=== PATIENT | female | born 1980 | race Caucasian/White ===

== ENCOUNTER 2016-09-14 11:37 | Emergency (ER) | payer OTHER ==
[~2016-09-14 11:37] MED LIST: /HALO5TAB OR; ABIL1TAB5 PO; ABIL5TAB5 PO; ARIP1TAB2 PO; BENZ1TA PO; CETI10TA PO; CETI5TAB2 PO; COGE1INJ OR; DEPA500T2 PO; EXCETAB80 PO; FLUP25VL IM; FLUP5TA PO; FLUT1LOT INH; HALD5INJ2 IM; IBUP800T OR; IBUP80TA PO; INVE234I IM; KEPPRA PO; LEVO25TA5 PO; MULTIVIT PO; NICO21PAT TD; NO HOME MEDS; NORCOTAB PO; OCEA0.654; PERI0.126 MT; REQU1TAB16 PO; RISP3TAB16 OR; TRAM50TA2 PO; TRAZ100T4 PO; TRAZ50TA4 PO; ZYPR5TAB PO; cogentin PO; flexeril PO; haldol PO
[2016-09-14] MEDS ORDERED: GI COCKTAIL 50ML BTL(HYOSCYAMINE/MAALOX/LIDOCAINE VISCOUS)(1:3:1) As Ordered ONE (12:10)
--- NOTE | 2016-09-14 13:59 | REP ---
SOFT-TISSUE NECK X-RAY: Three views. HISTORY: Foreign body sensation. FINDINGS: AP and lateral soft tissue neck views demonstrate a normal epiglottis and aryepiglottic folds. Glottic and subglottic airway are unremarkable. Retropharyngeal soft tissues are not swollen. No opaque foreign body is seen. No bony abnormality is noted. IMPRESSION: Negative soft-tissue neck x-rays. No swelling or opaque foreign body seen. Signed by Gabriel Pleitez MD 09/14/2016 03:31 P
--- NOTE | 2016-09-14 14:14 | EDDOCDS ---
Physician Documentation [facility] Name: Nalini Ricks Age: 36 yrs Sex: Female : 1980 Arrival Date: 09/14/2016 Time: 11:37 Bed TR8 Private MD: Brian Mills Disposition: 09/14/16 13:59 Discharged to Home/Self Care. Impression: Pain in throat - after eating shrimp/crab last night; no foreign body on x-ray, Gastro-esophageal reflux disease. - Condition is Stable. - Discharge Instructions: Gastroesophageal Reflux Disease, Adult, Swallowed Foreign Body, Adult, [id number]. - Prescriptions for Protonix 40 mg Oral Tablet - take 1 tablet by ORAL route once daily; 30 tablet. ZOFRAN ODT 4 mg - dissolve 1 tablet by ORAL route 4 times per day As needed do not chew, do not swallow whole; 10 tablet. - Medication Reconciliation, Local Pharmacy Hours form. - [facility] ; When: 1 - 2 days; Reason: Recheck today's complaints, Continuance of care. Follow up: Emergency Department; Reason: Worsening of conditions. - Problem is new. - Symptoms have improved. Historical: - Allergies: all antipshycotic meds; - Home Meds: 1. Synthroid Oral once daily - PMHx: Seasonal Allergies; Schizophrenia; Hypothyroidism; Chronic Back pain; - PSHx: none; - Social history: Smoking status: Patient uses tobacco products, current every day smoker. No barriers to communication noted, The patient speaks fluent Armenian, Speaks appropriately for age. - Family history: Not pertinent. - : The pt / caregiver states he / she is not on anticoagulants. Home medication list is obtained from the patient. - Exposure Risk Screening:: None identified. 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 6 in. (167.64 cm) (R); 11:53 BP 140 / 90 LA Sitting (man/reg); bnb 14:08 BP 125 / 84 LA Sitting (man/lg); Pulse 97; Resp 18; Temp 99.3(O); Pulse Ox 99% on R/A; ar3 Pain 310; 11:39 Body Mass Index 25.82 (72.57 kg, 167.64 cm) dd6 MDM: 11:51 Recheck B/P ordered. ef1 12:07 Financial registration complete. lg 12:09 GI Cocktail - (Alum-Mag Hydroxide-Simeth 30 ml, Lidocaine 10 ml, Hyoscyamine 10 ml) PO ef1 once; Pre-mixed 50mL unit dose ordered. 12:34 Soft Tissue Neck Ordered. EDMS 13:33 [facility] Payment Agreement was scanned into [employer] and attached to record. lg Administered Medications: 12:13 Drug: GI Cocktail - (Alum-Mag Hydroxide-Simeth Suspension 225 mg-200 mg-25 mg/5 mL 30 ms18 ml, Lidocaine Liquid 2 % 10 ml, Hyoscyamine Liquid 10 ml) Route: PO; Signatures: Dispatcher [employer] EDMS Mary Torres, Angelo Reg lg Margarita Pina PA-C PA-C ef1 Cassie Adams,RN RN eaMaggie Matias RN RN ms18 The chart was reviewed and I authenticate all verbal orders and agree with the evaluation and treatment provided.Corrections: (The following items were deleted from the chart) 12:36 12:09 nose - rectum(r/o f.b.)X-RAY+XR ordered. EDMS EDMS Attachments: 13:33 [facility] Payment Agreement lg MTDD
--- NOTE | 2016-09-14 14:14 | EDDOCDS ---
Nurse's Notes [facility] Name: Nalini Ricks Age: 36 yrs Sex: Female : 1980 Arrival Date: 09/14/2016 Time: 11:37 Bed TR8 Private MD: Brian Mills Diagnosis: Pain in throat-after eating shrimp/crab last night; no foreign body on x-ray;Gastro-esophageal reflux disease Presentation: 09/14 11:40 Presenting complaint: Patient states: reports eating shrimp and crab last night, thinks ead she may have swallowed part of a shell. states she feels like there is something stuck in her throat. states "it helps to drink something," pt arrives with large radha donuts cup. pt educated to remain NPO until seen by provider. Adult Sepsis Screening: Patient's respiratory rate is less than 22. Systolic blood pressure is greater than 100. Patient has a qSOFA score of 0- Negative Sepsis Screen. Suicide/Homicide risk assessment- the patient denies having any suicidal and/or homicidal ideations and does not present with any other emotional, behavioral or mental health complaints. Status: Patient is not a director of community services or dependent. Transition of care: patient was not received from another setting of care. 11:40 Acuity: JASON Level 3 ead 11:40 Method Of Arrival: Walkin/Carried/Asstd ead Triage Assessment: 11:43 General: Appears in no apparent distress, comfortable, Behavior is appropriate for age, ead cooperative. Pain: Denies pain. HIV screening NA for this visit Offered previously. Neurological: No deficits noted. EENT: Reports "it feels like something is stuck in my throat.". Respiratory: Airway is patent Respiratory effort is even, unlabored, Denies cough, shortness of breath. Derm: Skin is pink, warm & dry. 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 Synthroid Oral once daily - PMHx: Seasonal Allergies; Schizophrenia; Hypothyroidism; Chronic Back pain; - PSHx: none; - Social history: Smoking status: Patient uses tobacco products, current every day smoker. No barriers to communication noted, The patient speaks fluent Chinese, Speaks appropriately for age. - Family history: Not pertinent. - : The pt / caregiver states he / she is not on anticoagulants. Home medication list is obtained from the patient. - Exposure Risk Screening:: None identified. Screenin:14 Screening information is obtained from the patient. Fall risk: No risks identified. ms18 Assistance ADL's: requires no assistance with activities of daily living. Abuse/DV Screen: The patient / caregiver reports he/she is: not in a situation that causes fear, pain or injury. Nutritional screening: No deficits noted. Advance Directives: There is no living will. home support is adequate. Assessment: 12:14 General: Appears in no apparent distress, comfortable, Behavior is appropriate for age, ms18 cooperative. Neurological: Level of Consciousness is awake, alert, obeys commands, Oriented to person, place, time. Respiratory: Airway is patent Respiratory effort is even, unlabored. GI: Abdomen is non- distended. Derm: Skin is pink, warm & dry. 14:11 General: Appears in no apparent distress, comfortable, Behavior is appropriate for age, ms18 cooperative, pleasant. Neurological: Level of Consciousness is awake, alert, obeys commands, Oriented to person, place, time. Respiratory: Airway is patent Respiratory effort is even, unlabored. Derm: Skin is pink, warm & dry. Vital Signs: 11:39 BP 162 / 101; Pulse 116; Resp 18 S; Temp 97.0(O); Pulse Ox 100% on R/A; Weight 72.57 kg dd6 (R); Height 5 ft. 6 in. (167.64 cm) (R); 11:53 BP 140 / 90 LA Sitting (man/reg); bnb 14:08 BP 125 / 84 LA Sitting (man/lg); Pulse 97; Resp 18; Temp 99.3(O); Pulse Ox 99% on R/A; ar3 Pain 3/10; 11:39 Body Mass Index 25.82 (72.57 kg, 167.64 cm) dd6 Vitals: 11:39 Log In Time: September 14, 2016 at 11:37. dd6 ED Course: 11:38 Patient visited by Jesse Ochoa PCA. dd6 11:38 Patient moved to Waiting dd6 11:39 Brian Mills is Private Physician. dd6 11:40 Patient moved to Pre RCE dd6 11:43 Triage Initiated ead 11:49 Patient moved to Triage 3 ar3 11:51 Margarita Pina PA-C is PHCP. ef1 11:51 Yari Crum MD is Attending Physician. ef1 11:51 Patient visited by Margarita Pina PA-C. ef1 11:56 Patient visited by Sheryl Abreu PCA. bnb 12:08 Patient visited by Margarita Pina PA-C. ef1 12:13 Patient moved to TR2 ms18 12:14 The patient / caregiver is instructed regarding the plan of care and ED course. Patient ms18 has correct armband on for positive identification. Property :Personal belongings accompany Pt. 12:33 Patient visited by Margarita Pina PA-C. ef1 12:46 Patient visited by Margarita Pina PA-C. ef1 13:33 [facility] Payment Agreement was scanned into [employer] and attached to record. lg 13:53 Patient visited by Margarita Pina PA-C. ef1 13:59 [facility] is Referral Physician. ef1 14:03 Patient moved to PR1 / 25 ms18 14:09 Patient visited by Kelly Mo PCA. ar3 14:10 Patient moved to TR8 ms18 14:11 No IV's were initiated during this patient's visit. No procedures done that require ms18 assistance. Administered Medications: 12:13 Drug: GI Cocktail - (Alum-Mag Hydroxide-Simeth Suspension 225 mg-200 mg-25 mg/5 mL 30 ms18 ml, Lidocaine Liquid 2 % 10 ml, Hyoscyamine Liquid 10 ml) Route: PO; Order Results: There are currently no results for this order. Outcome: 13:59 Discharge ordered by Provider. ef1 14:11 Discharge Assessment: Patient awake, alert and oriented x 3. No cognitive and/or ms18 functional deficits noted. Patient verbalized understanding of disposition instructions. patient administered narcotics - no. The following High Risk Discharge criteria are identified: None. Discharged to home ambulatory. Condition: good Condition: stable Condition: improved. Discharge instructions given to patient, Instructed on discharge instructions, follow up and referral plans. medication usage, Demonstrated understanding of instructions, medications, Pt was receptive of discharge instructions/ teaching. Prescriptions given X 2. No special radiology studies were completed. 14:13 Patient left the ED. ms18 Signatures: Mary Torres, Reg Reg lg DonJesse, SENIOR ENERGY CONSULTANT SENIOR ENERGY CONSULTANT dd6 Margarita Pina, PAUmerC PA-C ef1 Kelly Mo, SENIOR ENERGY CONSULTANT SENIOR ENERGY CONSULTANT ar3 Cassie Adams,RN RN Maggie Griggs RN RN ms18 AbreuKate rezatney, SENIOR ENERGY CONSULTANT SENIOR ENERGY CONSULTANT bnb Corrections: (The following items were deleted from the chart) 14:12 14:11 Pain: Denies pain. ms18 ms18 MTDD
--- NOTE | 2016-09-16 15:14 | EDDOCDS ---
Physician Documentation [facility] Name: Nalini Ricks Age: 36 yrs Sex: Female : 1980 Arrival Date: 09/14/2016 Time: 11:37 Bed TR8 Private MD: Brian Mills Disposition: 09/14/16 13:59 Discharged to Home/Self Care. Impression: Pain in throat - after eating shrimp/crab last night; no foreign body on x-ray, Gastro-esophageal reflux disease. - Condition is Stable. - Discharge Instructions: Gastroesophageal Reflux Disease, Adult, Swallowed Foreign Body, Adult, [id number]. - Prescriptions for Protonix 40 mg Oral Tablet - take 1 tablet by ORAL route once daily; 30 tablet. ZOFRAN ODT 4 mg - dissolve 1 tablet by ORAL route 4 times per day As needed do not chew, do not swallow whole; 10 tablet. - Medication Reconciliation, Local Pharmacy Hours form. - [facility] ; When: 1 - 2 days; Reason: Recheck today's complaints, Continuance of care. Follow up: Emergency Department; Reason: Worsening of conditions. - Problem is new. - Symptoms have improved. Historical: - Allergies: all antipshycotic meds; - Home Meds: 1. Synthroid Oral once daily - PMHx: Seasonal Allergies; Schizophrenia; Hypothyroidism; Chronic Back pain; - PSHx: none; - Social history: Smoking status: Patient uses tobacco products, current every day smoker. No barriers to communication noted, The patient speaks fluent Slovak, Speaks appropriately for age. - Family history: Not pertinent. - : The pt / caregiver states he / she is not on anticoagulants. Home medication list is obtained from the patient. - Exposure Risk Screening:: None identified. VP RESPIRATORY: 09/14 11:43 LMP N/A - control method ead Vital Signs: 11:39 BP 162 / 101; Pulse 116; Resp 18 S; Temp 97.0(O); Pulse Ox 100% on R/A; Weight 72.57 kg dd6 / 159.99 lbs (R); Height 5 ft. 6 in. (167.64 cm) (R); 11:53 BP 140 / 90 LA Sitting (man/reg); bnb 14:08 BP 125 / 84 LA Sitting (man/lg); Pulse 97; Resp 18; Temp 99.3(O); Pulse Ox 99% on R/A; ar3 Pain 310; 11:39 Body Mass Index 25.82 (72.57 kg, 167.64 cm) dd6 MDM: 11:51 Recheck B/P ordered. ef1 12:07 Financial registration complete. lg 12:09 GI Cocktail - (Alum-Mag Hydroxide-Simeth 30 ml, Lidocaine 10 ml, Hyoscyamine 10 ml) PO ef1 once; Pre-mixed 50mL unit dose ordered. 12:34 Soft Tissue Neck Ordered. EDMS 13:33 [facility] Payment Agreement was scanned into [email or web address] and attached to record. lg 09/15 09:48 T-Sheet-- Draft Copy was scanned into [email or web address] and attached to record. gb 09:48 Radiology Report was scanned into [email or web address] and attached to record. gb Administered Medications: 09/14 12:13 Drug: GI Cocktail - (Alum-Mag Hydroxide-Simeth Suspension 225 mg-200 mg-25 mg/5 mL 30 ms18 ml, Lidocaine Liquid 2 % 10 ml, Hyoscyamine Liquid 10 ml) Route: PO; Signatures: Dispatcher [employer] EDMS Darlene Ochoa, Reg Reg gb Mary Torres, Reg Reg lg Margarita Pina, LILLIAM VYAS ef1 Cassie Adams,RN RN Maggie Griggs RN RN ms18 The chart was reviewed and I authenticate all verbal orders and agree with the evaluation and treatment provided.Corrections: (The following items were deleted from the chart) 12:36 12:09 nose - rectum(r/o f.b.)X-RAY+XR ordered. EDMS EDMS Attachments: 13:33 [facility] Payment Agreement lg 09/15 09:48 T-Sheet-- Draft Copy gb Chart Complete MTDD
--- NOTE | 2016-09-16 15:14 | EDDOCDS ---
Physician Documentation [facility] Name: Nalini Ricks Age: 36 yrs Sex: Female : 1980 Arrival Date: 09/14/2016 Time: 11:37 Bed TR8 Private MD: Brian Mills Disposition: 09/14/16 13:59 Discharged to Home/Self Care. Impression: Pain in throat - after eating shrimp/crab last night; no foreign body on x-ray, Gastro-esophageal reflux disease. - Condition is Stable. - Discharge Instructions: Gastroesophageal Reflux Disease, Adult, Swallowed Foreign Body, Adult, [id number]. - Prescriptions for Protonix 40 mg Oral Tablet - take 1 tablet by ORAL route once daily; 30 tablet. ZOFRAN ODT 4 mg - dissolve 1 tablet by ORAL route 4 times per day As needed do not chew, do not swallow whole; 10 tablet. - Medication Reconciliation, Local Pharmacy Hours form. - [facility] ; When: 1 - 2 days; Reason: Recheck today's complaints, Continuance of care. Follow up: Emergency Department; Reason: Worsening of conditions. - Problem is new. - Symptoms have improved. Historical: - Allergies: all antipshycotic meds; - Home Meds: 1. Synthroid Oral once daily - PMHx: Seasonal Allergies; Schizophrenia; Hypothyroidism; Chronic Back pain; - PSHx: none; - Social history: Smoking status: Patient uses tobacco products, current every day smoker. No barriers to communication noted, The patient speaks fluent Belarusian, Speaks appropriately for age. - Family history: Not pertinent. - : The pt / caregiver states he / she is not on anticoagulants. Home medication list is obtained from the patient. - Exposure Risk Screening:: None identified. 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 6 in. (167.64 cm) (R); 11:53 BP 140 / 90 LA Sitting (man/reg); bnb 14:08 BP 125 / 84 LA Sitting (man/lg); Pulse 97; Resp 18; Temp 99.3(O); Pulse Ox 99% on R/A; ar3 Pain 310; 11:39 Body Mass Index 25.82 (72.57 kg, 167.64 cm) dd6 MDM: 11:51 Recheck B/P ordered. ef1 12:07 Financial registration complete. lg 12:09 GI Cocktail - (Alum-Mag Hydroxide-Simeth 30 ml, Lidocaine 10 ml, Hyoscyamine 10 ml) PO ef1 once; Pre-mixed 50mL unit dose ordered. 12:34 Soft Tissue Neck Ordered. EDMS 13:33 [facility] Payment Agreement was scanned into [employer] and attached to record. lg 09/15 09:48 T-Sheet-- Draft Copy was scanned into [employer] and attached to record. gb 09:48 Radiology Report was scanned into [employer] and attached to record. gb Administered Medications: 09/14 12:13 Drug: GI Cocktail - (Alum-Mag Hydroxide-Simeth Suspension 225 mg-200 mg-25 mg/5 mL 30 ms18 ml, Lidocaine Liquid 2 % 10 ml, Hyoscyamine Liquid 10 ml) Route: PO; Signatures: Dispatcher [employer] EDMS Darlene Ochoa, Reg Reg gb Mary Torres, Reg Reg lg Margarita Pina, LILLIAM VYAS ef1 Cassie Adams,RN RN Maggie Griggs RN RN ms18 The chart was reviewed and I authenticate all verbal orders and agree with the evaluation and treatment provided.Corrections: (The following items were deleted from the chart) 12:36 12:09 nose - rectum(r/o f.b.)X-RAY+XR ordered. EDMS EDMS Attachments: 13:33 [facility] Payment Agreement lg 09/15 09:48 T-Sheet-- Draft Copy gb Chart Complete MTDD
--- NOTE | 2016-09-16 15:14 | EDDOCDS ---
Nurse's Notes [facility] Name: Nalini Ricks Age: 36 yrs Sex: Female : 1980 Arrival Date: 09/14/2016 Time: 11:37 Bed TR8 Private MD: Brian Mills Diagnosis: Pain in throat-after eating shrimp/crab last night; no foreign body on x-ray;Gastro-esophageal reflux disease Presentation: 09/14 11:40 Presenting complaint: Patient states: reports eating shrimp and crab last night, thinks ead she may have swallowed part of a shell. states she feels like there is something stuck in her throat. states "it helps to drink something," pt arrives with large radha donuts cup. pt educated to remain NPO until seen by provider. Adult Sepsis Screening: Patient's respiratory rate is less than 22. Systolic blood pressure is greater than 100. Patient has a qSOFA score of 0- Negative Sepsis Screen. Suicide/Homicide risk assessment- the patient denies having any suicidal and/or homicidal ideations and does not present with any other emotional, behavioral or mental health complaints. Status: Patient is not a public service director or dependent. Transition of care: patient was not received from another setting of care. 11:40 Acuity: JASON Level 3 ead 11:40 Method Of Arrival: Walkin/Carried/Asstd ead Triage Assessment: 11:43 General: Appears in no apparent distress, comfortable, Behavior is appropriate for age, ead cooperative. Pain: Denies pain. HIV screening NA for this visit Offered previously. Neurological: No deficits noted. EENT: Reports "it feels like something is stuck in my throat.". Respiratory: Airway is patent Respiratory effort is even, unlabored, Denies cough, shortness of breath. Derm: Skin is pink, warm & dry. 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 Synthroid Oral once daily - PMHx: Seasonal Allergies; Schizophrenia; Hypothyroidism; Chronic Back pain; - PSHx: none; - Social history: Smoking status: Patient uses tobacco products, current every day smoker. No barriers to communication noted, The patient speaks fluent Lao, Speaks appropriately for age. - Family history: Not pertinent. - : The pt / caregiver states he / she is not on anticoagulants. Home medication list is obtained from the patient. - Exposure Risk Screening:: None identified. Screenin:14 Screening information is obtained from the patient. Fall risk: No risks identified. ms18 Assistance ADL's: requires no assistance with activities of daily living. Abuse/DV Screen: The patient / caregiver reports he/she is: not in a situation that causes fear, pain or injury. Nutritional screening: No deficits noted. Advance Directives: There is no living will. home support is adequate. Assessment: 12:14 General: Appears in no apparent distress, comfortable, Behavior is appropriate for age, ms18 cooperative. Neurological: Level of Consciousness is awake, alert, obeys commands, Oriented to person, place, time. Respiratory: Airway is patent Respiratory effort is even, unlabored. GI: Abdomen is non- distended. Derm: Skin is pink, warm & dry. 14:11 General: Appears in no apparent distress, comfortable, Behavior is appropriate for age, ms18 cooperative, pleasant. Neurological: Level of Consciousness is awake, alert, obeys commands, Oriented to person, place, time. Respiratory: Airway is patent Respiratory effort is even, unlabored. Derm: Skin is pink, warm & dry. Vital Signs: 11:39 BP 162 / 101; Pulse 116; Resp 18 S; Temp 97.0(O); Pulse Ox 100% on R/A; Weight 72.57 kg dd6 (R); Height 5 ft. 6 in. (167.64 cm) (R); 11:53 BP 140 / 90 LA Sitting (man/reg); bnb 14:08 BP 125 / 84 LA Sitting (man/lg); Pulse 97; Resp 18; Temp 99.3(O); Pulse Ox 99% on R/A; ar3 Pain 3/10; 11:39 Body Mass Index 25.82 (72.57 kg, 167.64 cm) dd6 Vitals: 11:39 Log In Time: September 14, 2016 at 11:37. dd6 ED Course: 11:38 Patient visited by Jesse Ochoa PCA. dd6 11:38 Patient moved to Waiting dd6 11:39 Brian Mills is Private Physician. dd6 11:40 Patient moved to Pre RCE dd6 11:43 Triage Initiated ead 11:49 Patient moved to Triage 3 ar3 11:51 Margarita Pina PA-C is PHCP. ef1 11:51 Yari Crum MD is Attending Physician. ef1 11:51 Patient visited by Margarita Pina PA-C. ef1 11:56 Patient visited by Sheryl Abreu PCA. bnb 12:08 Patient visited by Margarita Pina PA-C. ef1 12:13 Patient moved to TR2 ms18 12:14 The patient / caregiver is instructed regarding the plan of care and ED course. Patient ms18 has correct armband on for positive identification. Property :Personal belongings accompany Pt. 12:33 Patient visited by Margarita Pina PA-C. ef1 12:46 Patient visited by Margarita Pina PA-C. ef1 13:33 [facility] Payment Agreement was scanned into [employer] and attached to record. lg 13:53 Patient visited by Margarita Pina PA-C. ef1 13:59 [facility] is Referral Physician. ef1 14:03 Patient moved to PR1 / 25 ms18 14:09 Patient visited by Kelly Mo PCA. ar3 14:10 Patient moved to TR8 ms18 14:11 No IV's were initiated during this patient's visit. No procedures done that require ms18 assistance. 14:31 Soft Tissue Neck Returned. EDMS 09/15 09:48 T-Sheet-- Draft Copy was scanned into [employer] and attached to record. gb 09:48 Radiology Report was scanned into [employer] and attached to record. gb Administered Medications: 09/14 12:13 Drug: GI Cocktail - (Alum-Mag Hydroxide-Simeth Suspension 225 mg-200 mg-25 mg/5 mL 30 ms18 ml, Lidocaine Liquid 2 % 10 ml, Hyoscyamine Liquid 10 ml) Route: PO; Order Results: Radiology Order: Soft Tissue Neck Test: Soft Tissue Neck REASON FOR EXAMINATION: Foreign Body; SOFT-TISSUE NECK X-RAY:; ; Three views.; ; HISTORY: Foreign body sensation.; ; FINDINGS: AP and lateral soft tissue neck views demonstrate a normal epiglottis; and aryepiglottic folds. Glottic and subglottic airway are unremarkable.; Retropharyngeal soft tissues are not swollen. No opaque foreign body is seen.; No bony abnormality is noted.; ; IMPRESSION: Negative soft-tissue neck x-rays. No swelling or opaque foreign body; seen.; ; ; Signed by; Gabriel Pleitez MD 09/14/2016 03:31 P; Outcome: 13:59 Discharge ordered by Provider. ef1 14:11 Discharge Assessment: Patient awake, alert and oriented x 3. No cognitive and/or ms18 functional deficits noted. Patient verbalized understanding of disposition instructions. patient administered narcotics - no. The following High Risk Discharge criteria are identified: None. Discharged to home ambulatory. Condition: good Condition: stable Condition: improved. Discharge instructions given to patient, Instructed on discharge instructions, follow up and referral plans. medication usage, Demonstrated understanding of instructions, medications, Pt was receptive of discharge instructions/ teaching. Prescriptions given X 2. No special radiology studies were completed. 14:13 Patient left the ED. ms18 Signatures: Dispatcher [employer] EDMS Darlene Ochoa, Reg Reg gb Mary Torres, Reg Reg lg Jesse Ochoa, BLADE BONER BLADE BONER dd6 Margarita Pina, PA-C PA-C ef1 Kelly Mo, BLADE BONER BLADE BONER ar3 Cassie AdamsRN RN Maggie Griggs RN RN ms18 Sheryl Abreu, BLADE BONER BLADE BONER bnb Corrections: (The following items were deleted from the chart) 14:12 14:11 Pain: Denies pain. ms18 ms18 Chart Complete MTDD
== END 2016-09-14 14:13 | disposition home or self-care (01) ==
LOC: M ED 11:37
DX: R07.0 Pain in throat (principal); K21.9 Gastro-esophageal reflux disease without esophagitis; Z03.89 Encounter for observation for other suspected diseases and conditions ruled out; F20.9 Schizophrenia, unspecified; J30.9 Allergic rhinitis, unspecified; E03.9 Hypothyroidism, unspecified; G89.29 Other chronic pain; F17.200 Nicotine dependence, unspecified, uncomplicated; Z79.899 Other long term (current) drug therapy; Z88.8 Allergy status to other drugs, medicaments and biological substances

== ENCOUNTER 2016-09-17 02:15 | Emergency (ER) | payer OTHER ==
[2016-09-17] MEDS ORDERED: GI COCKTAIL 50ML BTL(HYOSCYAMINE/MAALOX/LIDOCAINE VISCOUS)(1:3:1) As Ordered ONE (02:34)
--- NOTE | 2016-09-17 07:38 | EDDOCDS ---
Nurse's Notes [facility] Name: Nalini Ricks Age: 36 yrs Sex: Female : 1980 Arrival Date: 09/17/2016 Time: 02:15 Bed 17 Private MD: Diagnosis: Dysphagia, pharyngoesophageal phase;Gastro-esophageal reflux disease with esophagitis Presentation: 09/17 02:22 Presenting complaint: Patient states: Ate jelly beans this evening and now feels like kmg1 they haven't gone down. Was seen recently for same. Suicide/Homicide risk assessment- the patient denies having any suicidal and/or homicidal ideations and does not present with any other emotional, behavioral or mental health complaints. Status: Patient is not a special services supervisor or dependent. 02:22 Acuity: JASON Level 4 km 02:22 Method Of Arrival: Walkin/Carried/Asstd km 05:37 Adult Sepsis Screening: The patient does not have new or worsening altered mentation. lf1 Patient's respiratory rate is less than 22. Systolic blood pressure is greater than 100. Patient has a qSOFA score of 0- Negative Sepsis Screen. Transition of care: patient was not received from another setting of care. Triage Assessment: 02:28 General: Appears in no apparent distress, comfortable, Behavior is appropriate for age, kmg1 cooperative. Pain: Denies pain. HIV screening NA for this visit Offered previously. EENT: Reports food impaction. 05:37 General: Appears in no apparent distress, comfortable, Behavior is cooperative. Pain: lf1 Location: throat Pain currently is 1 out of 10 on a pain scale. Neurological: Level of Consciousness is awake, alert, Oriented to person, place, time. EENT: Reports feels like jelly beans have gone down but throat still feels "scratchy". Respiratory: Respiratory effort is even, unlabored. GI: Denies gaseousness, nausea, vomiting. GI: Reports reflux. Derm: Skin is normal. 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 Synthroid 75 mcg oral tab 1 tab once daily - PMHx: Chronic Back pain; Hypothyroidism; Schizophrenia; Seasonal Allergies; - PSHx: none; - Social history: Smoking status: Patient uses tobacco products, heavy tobacco smoker. No barriers to communication noted, The patient speaks fluent Urdu, Speaks appropriately for age. - : The pt / caregiver states he / she is not on anticoagulants. Home medication list is obtained from the patient. - Exposure Risk Screening:: None identified. Screenin:40 Screening information is obtained from the patient. Fall risk: No risks identified. lf1 Assistance ADL's: requires no assistance with activities of daily living. Abuse/DV Screen: The patient / caregiver reports he/she is: not in a situation that causes fear, pain or injury. Nutritional screening: No deficits noted. Advance Directives: Currently, there is no health care proxy. home support is adequate. Assessment: 06:13 General: Appears in no apparent distress, comfortable, Behavior is appropriate for age, nn1 cooperative. Pain: Location: throat. Neurological: Level of Consciousness is awake, alert, obeys commands. Respiratory: Airway is patent Respiratory effort is even, unlabored, Respiratory pattern is regular, symmetrical, Breath sounds are clear bilaterally. Reports mild difficulty swallowing. GI: Abdomen is flat, non- distended Reports heartburn. Derm: Skin is pink, warm & dry. 07:35 General: Appears in no apparent distress, well nourished, well groomed, Behavior is jjr appropriate for age, pt insists she feels jellybean in her throat pt reassured that sensation is most likely irritation and swelling, pt speaks in clear sentences clearing saliva and no respiratory distress, pt encouraged to fill rx and drink some hot fluids, pt reports increased discomfort when lying supine this expert medical writer recommended elevating head on pillows, pt verbalized understanding. Vital Signs: 02:28 BP 144 / 97; Pulse 100; Resp 18; Temp 97.7(O); Pulse Ox 100% on R/A; Weight 74.84 kg kmg1 (R); Height 5 ft. 6 in. (167.64 cm) (R); Pain 0/10; 05:37 BP 132 / 78; Pulse 86; Resp 18; Temp 97.8(T); Pulse Ox 100% on R/A; Pain 1/10; lf1 07:34 BP 135 / 90; Pulse 96; Resp 18; Temp 97.4(O); Pulse Ox 96% on R/A; jjr 02:28 Body Mass Index 26.63 (74.84 kg, 167.64 cm) [facility] Vitals: 02:28 Log In Time: September 17, 2016 at 02:18. [facility] ED Course: 02:17 Patient visited by Micki Rivera, Angelo. hs2 02:17 Patient moved to Waiting hs2 02:21 Patient visited by Flaca Johnson LPN. ka4 02:21 Patient moved to Triage 1 km 02:26 Triage Initiated [facility] 03:15 Patient moved to Waiting km 04:06 Patient name changed from Nalini\\S\\Pattie\\S\\Grunert\\S\\ to Nalini\\S\\Jessika\\S\\Grunert. EDMS 04:09 [facility] Payment Agreement was scanned into [employer] and attached to record. hs2 05:41 Patient visited by Erin Delvalle RN. lf1 05:50 Patient moved to 17 lf1 06:16 Patient visited by Gustavo Red RN. nn1 07:01 Ez Foy PA is PHCP. btw 07:01 Gris Choe MD is Attending Physician. btw 07:01 Patient visited by Ez Foy PA. btw 07:18 [facility] is Referral Physician. btw 07:35 No IV's were initiated during this patient's visit. No procedures done that require jjr assistance. 07:37 The patient / caregiver is instructed regarding the plan of care and ED course. jjr Administered Medications: 02:35 Drug: GI Cocktail - (Alum-Mag Hydroxide-Simeth Suspension 225 mg-200 mg-25 mg/5 mL 30 kmg1 ml, Lidocaine Liquid 2 % 10 ml, Hyoscyamine Liquid 10 ml) Route: PO; Order Results: There are currently no results for this order. Outcome: 07:19 Discharge ordered by Provider. btw 07:37 Discharge Assessment: patient administered narcotics - no. The following High Risk jjr Discharge criteria are identified: None. Discharged to home ambulatory. Condition: stable. Discharge instructions given to patient, Instructed on discharge instructions, follow up and referral plans. medication usage, Demonstrated understanding of instructions, medications, Prescriptions given X 1. No special radiology studies were completed. Property sent home with patient. 07:37 Patient left the ED. jjr Signatures: Dispatcher [employer] EDMS Radha Izquierdo, RN RN kmg1 Erin DelvalleRN RN lf1 Niecy Arvizu RN RN jjr zE Foy PA PA btw Flaca Johnson,IT SYSTEMS ADMINISTRATOR IT SYSTEMS ADMINISTRATOR ka4 Gustavo RedRN RN nn1 Micki Rivera, Reg Reg hs2 MTDD
--- NOTE | 2016-09-17 07:39 | EDDOCDS ---
Physician Documentation [facility] Name: Nalini Ricks Age: 36 yrs Sex: Female : 1980 Arrival Date: 09/17/2016 Time: 02:15 Bed 17 Private MD: Disposition: 09/17/16 07:19 Discharged to Home/Self Care. Impression: Dysphagia, pharyngoesophageal phase, Gastro-esophageal reflux disease with esophagitis. - Condition is Stable. - Discharge Instructions: Esophagitis, Gastroesophageal Reflux Disease, Adult. - Prescriptions for Carafate 1 gram Oral Tablet - take 2 tablet by ORAL route every 12 hours take on an empty stomach, beginning on waking and last dose at bedtime; 100 tablet. - Medication Reconciliation, Local Pharmacy Hours form. - Follow up: [facility]; When: Call to arrange an appointment; Reason: Further diagnostic work-up, Recheck today's complaints, Continuance of care. - Problem is an ongoing problem. - Symptoms are unchanged. Historical: - Allergies: all antipshycotic meds; Chantix (Vomit); - Home Meds: 1. Synthroid 75 mcg oral tab 1 tab once daily - PMHx: Chronic Back pain; Hypothyroidism; Schizophrenia; Seasonal Allergies; - PSHx: none; - Social history: Smoking status: Patient uses tobacco products, heavy tobacco smoker. No barriers to communication noted, The patient speaks fluent Lithuanian, Speaks appropriately for age. - : The pt / caregiver states he / she is not on anticoagulants. Home medication list is obtained from the patient. - Exposure Risk Screening:: None identified. 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 6 in. (167.64 cm) (R); Pain 0/10; 05:37 BP 132 / 78; Pulse 86; Resp 18; Temp 97.8(T); Pulse Ox 100% on R/A; Pain 1/10; lf1 07:34 BP 135 / 90; Pulse 96; Resp 18; Temp 97.4(O); Pulse Ox 96% on R/A; jjr 02:28 Body Mass Index 26.63 (74.84 kg, 167.64 cm) kmg1 MDM: 02:33 GI Cocktail - (Alum-Mag Hydroxide-Simeth 30 ml, Lidocaine 10 ml, Hyoscyamine 10 ml) PO ef1 once; Pre-mixed 50mL unit dose ordered. 04:09 [facility] Payment Agreement was scanned into [employer] and attached to record. hs2 07:17 Financial registration complete. pm4 Administered Medications: 02:35 Drug: GI Cocktail - (Alum-Mag Hydroxide-Simeth Suspension 225 mg-200 mg-25 mg/5 mL 30 kmg1 ml, Lidocaine Liquid 2 % 10 ml, Hyoscyamine Liquid 10 ml) Route: PO; Signatures: Radha Izquierdo RN RN kmg1 Niecy Arvizu RN RN jjMargarita Whiting, PAGeorgette PA-Mer ef1 Ez Foy PA PA btMicki Devries, Reg Reg hs2 Brian Castillo, Reg Reg pm4 The chart was reviewed and I authenticate all verbal orders and agree with the evaluation and treatment provided.Attachments: 04:09 [facility] Payment Agreement hs2 MTDD
--- NOTE | 2016-09-19 08:38 | EDDOCDS ---
Physician Documentation [facility] Name: Nalini Ricks Age: 36 yrs Sex: Female : 1980 Arrival Date: 09/17/2016 Time: 02:15 Bed 17 Private MD: Disposition: 09/17/16 07:19 Discharged to Home/Self Care. Impression: Dysphagia, pharyngoesophageal phase, Gastro-esophageal reflux disease with esophagitis. - Condition is Stable. - Discharge Instructions: Esophagitis, Gastroesophageal Reflux Disease, Adult. - Prescriptions for Carafate 1 gram Oral Tablet - take 2 tablet by ORAL route every 12 hours take on an empty stomach, beginning on waking and last dose at bedtime; 100 tablet. - Medication Reconciliation, Local Pharmacy Hours form. - Follow up: [facility]; When: Call to arrange an appointment; Reason: Further diagnostic work-up, Recheck today's complaints, Continuance of care. - Problem is an ongoing problem. - Symptoms are unchanged. Historical: - Allergies: all antipshycotic meds; Chantix (Vomit); - Home Meds: 1. Synthroid 75 mcg oral tab 1 tab once daily - PMHx: Chronic Back pain; Hypothyroidism; Schizophrenia; Seasonal Allergies; - PSHx: none; - Social history: Smoking status: Patient uses tobacco products, heavy tobacco smoker. No barriers to communication noted, The patient speaks fluent Kiswahili, Speaks appropriately for age. - : The pt / caregiver states he / she is not on anticoagulants. Home medication list is obtained from the patient. - Exposure Risk Screening:: None identified. 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 6 in. (167.64 cm) (R); Pain 0/10; 05:37 BP 132 / 78; Pulse 86; Resp 18; Temp 97.8(T); Pulse Ox 100% on R/A; Pain 1/10; lf1 07:34 BP 135 / 90; Pulse 96; Resp 18; Temp 97.4(O); Pulse Ox 96% on R/A; jjr 02:28 Body Mass Index 26.63 (74.84 kg, 167.64 cm) km MDM: 02:33 GI Cocktail - (Alum-Mag Hydroxide-Simeth 30 ml, Lidocaine 10 ml, Hyoscyamine 10 ml) PO ef1 once; Pre-mixed 50mL unit dose ordered. 04:09 [facility] Payment Agreement was scanned into [email or web address] and attached to record. hs2 07:17 Financial registration complete. pm4 13:25 T-Sheet-- Draft Copy was scanned into [email or web address] and attached to record. gb Administered Medications: 02:35 Drug: GI Cocktail - (Alum-Mag Hydroxide-Simeth Suspension 225 mg-200 mg-25 mg/5 mL 30 kmg1 ml, Lidocaine Liquid 2 % 10 ml, Hyoscyamine Liquid 10 ml) Route: PO; Signatures: Radha Izquierdo, RN RN kmg1 Darlene Ochoa, Reg Reg gb Niecy Arvizu RN RN jjr Margarita Pina PAGeorgette PA-Mer ef1 Ez Foy PA PA btw Micki Rivera, Reg Reg hs2 Brian Castillo, Reg Reg pm4 The chart was reviewed and I authenticate all verbal orders and agree with the evaluation and treatment provided.Attachments: 04:09 [facility] Payment Agreement hs2 13:25 T-Sheet-- Draft Copy gb Chart Complete MTDD
--- NOTE | 2016-09-19 08:38 | EDDOCDS ---
Physician Documentation [facility] Name: Nalini Ricks Age: 36 yrs Sex: Female : 1980 Arrival Date: 09/17/2016 Time: 02:15 Bed 17 Private MD: Disposition: 09/17/16 07:19 Discharged to Home/Self Care. Impression: Dysphagia, pharyngoesophageal phase, Gastro-esophageal reflux disease with esophagitis. - Condition is Stable. - Discharge Instructions: Esophagitis, Gastroesophageal Reflux Disease, Adult. - Prescriptions for Carafate 1 gram Oral Tablet - take 2 tablet by ORAL route every 12 hours take on an empty stomach, beginning on waking and last dose at bedtime; 100 tablet. - Medication Reconciliation, Local Pharmacy Hours form. - Follow up: [facility]; When: Call to arrange an appointment; Reason: Further diagnostic work-up, Recheck today's complaints, Continuance of care. - Problem is an ongoing problem. - Symptoms are unchanged. Historical: - Allergies: all antipshycotic meds; Chantix (Vomit); - Home Meds: 1. Synthroid 75 mcg oral tab 1 tab once daily - PMHx: Chronic Back pain; Hypothyroidism; Schizophrenia; Seasonal Allergies; - PSHx: none; - Social history: Smoking status: Patient uses tobacco products, heavy tobacco smoker. No barriers to communication noted, The patient speaks fluent Arabic, Speaks appropriately for age. - : The pt / caregiver states he / she is not on anticoagulants. Home medication list is obtained from the patient. - Exposure Risk Screening:: None identified. 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 6 in. (167.64 cm) (R); Pain 0/10; 05:37 BP 132 / 78; Pulse 86; Resp 18; Temp 97.8(T); Pulse Ox 100% on R/A; Pain 1/10; lf1 07:34 BP 135 / 90; Pulse 96; Resp 18; Temp 97.4(O); Pulse Ox 96% on R/A; jjr 02:28 Body Mass Index 26.63 (74.84 kg, 167.64 cm) km MDM: 02:33 GI Cocktail - (Alum-Mag Hydroxide-Simeth 30 ml, Lidocaine 10 ml, Hyoscyamine 10 ml) PO ef1 once; Pre-mixed 50mL unit dose ordered. 04:09 [facility] Payment Agreement was scanned into [employer] and attached to record. hs2 07:17 Financial registration complete. pm4 13:25 T-Sheet-- Draft Copy was scanned into [employer] and attached to record. gb Administered Medications: 02:35 Drug: GI Cocktail - (Alum-Mag Hydroxide-Simeth Suspension 225 mg-200 mg-25 mg/5 mL 30 kmg1 ml, Lidocaine Liquid 2 % 10 ml, Hyoscyamine Liquid 10 ml) Route: PO; Signatures: Radha Izquierdo, RN RN kmg1 Darlene Ochoa, Reg Reg gb Niecy Arvizu RN RN jjr Margarita Pina PAGeorgette PA-Mer ef1 Ez Foy PA PA btw Micki Rivera, Reg Reg hs2 Brian Castillo, Reg Reg pm4 The chart was reviewed and I authenticate all verbal orders and agree with the evaluation and treatment provided.Attachments: 04:09 [facility] Payment Agreement hs2 13:25 T-Sheet-- Draft Copy gb Chart Complete MTDD
--- NOTE | 2016-09-19 08:38 | EDDOCDS ---
Nurse's Notes [facility] Name: Nalini Ricks Age: 36 yrs Sex: Female : 1980 Arrival Date: 09/17/2016 Time: 02:15 Bed 17 Private MD: Diagnosis: Dysphagia, pharyngoesophageal phase;Gastro-esophageal reflux disease with esophagitis Presentation: 09/17 02:22 Presenting complaint: Patient states: Ate jelly beans this evening and now feels like kmg1 they haven't gone down. Was seen recently for same. Suicide/Homicide risk assessment- the patient denies having any suicidal and/or homicidal ideations and does not present with any other emotional, behavioral or mental health complaints. Status: Patient is not a private branch exchange service advisor or dependent. 02:22 Acuity: JASON Level 4 km 02:22 Method Of Arrival: Walkin/Carried/Asstd km 05:37 Adult Sepsis Screening: The patient does not have new or worsening altered mentation. lf1 Patient's respiratory rate is less than 22. Systolic blood pressure is greater than 100. Patient has a qSOFA score of 0- Negative Sepsis Screen. Transition of care: patient was not received from another setting of care. Triage Assessment: 02:28 General: Appears in no apparent distress, comfortable, Behavior is appropriate for age, kmg1 cooperative. Pain: Denies pain. HIV screening NA for this visit Offered previously. EENT: Reports food impaction. 05:37 General: Appears in no apparent distress, comfortable, Behavior is cooperative. Pain: lf1 Location: throat Pain currently is 1 out of 10 on a pain scale. Neurological: Level of Consciousness is awake, alert, Oriented to person, place, time. EENT: Reports feels like jelly beans have gone down but throat still feels "scratchy". Respiratory: Respiratory effort is even, unlabored. GI: Denies gaseousness, nausea, vomiting. GI: Reports reflux. Derm: Skin is normal. 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 Synthroid 75 mcg oral tab 1 tab once daily - PMHx: Chronic Back pain; Hypothyroidism; Schizophrenia; Seasonal Allergies; - PSHx: none; - Social history: Smoking status: Patient uses tobacco products, heavy tobacco smoker. No barriers to communication noted, The patient speaks fluent Maltese, Speaks appropriately for age. - : The pt / caregiver states he / she is not on anticoagulants. Home medication list is obtained from the patient. - Exposure Risk Screening:: None identified. Screenin:40 Screening information is obtained from the patient. Fall risk: No risks identified. lf1 Assistance ADL's: requires no assistance with activities of daily living. Abuse/DV Screen: The patient / caregiver reports he/she is: not in a situation that causes fear, pain or injury. Nutritional screening: No deficits noted. Advance Directives: Currently, there is no health care proxy. home support is adequate. Assessment: 06:13 General: Appears in no apparent distress, comfortable, Behavior is appropriate for age, nn1 cooperative. Pain: Location: throat. Neurological: Level of Consciousness is awake, alert, obeys commands. Respiratory: Airway is patent Respiratory effort is even, unlabored, Respiratory pattern is regular, symmetrical, Breath sounds are clear bilaterally. Reports mild difficulty swallowing. GI: Abdomen is flat, non- distended Reports heartburn. Derm: Skin is pink, warm & dry. 07:35 General: Appears in no apparent distress, well nourished, well groomed, Behavior is jjr appropriate for age, pt insists she feels jellybean in her throat pt reassured that sensation is most likely irritation and swelling, pt speaks in clear sentences clearing saliva and no respiratory distress, pt encouraged to fill rx and drink some hot fluids, pt reports increased discomfort when lying supine this marketing underwriter recommended elevating head on pillows, pt verbalized understanding. Vital Signs: 02:28 BP 144 / 97; Pulse 100; Resp 18; Temp 97.7(O); Pulse Ox 100% on R/A; Weight 74.84 kg kmg1 (R); Height 5 ft. 6 in. (167.64 cm) (R); Pain 0/10; 05:37 BP 132 / 78; Pulse 86; Resp 18; Temp 97.8(T); Pulse Ox 100% on R/A; Pain 1/10; lf1 07:34 BP 135 / 90; Pulse 96; Resp 18; Temp 97.4(O); Pulse Ox 96% on R/A; jjr 02:28 Body Mass Index 26.63 (74.84 kg, 167.64 cm) [facility] [place] Vitals: 02:28 Log In Time: September 17, 2016 at 02:18. [facility] [place] ED Course: 02:17 Patient visited by Micki Rivera, Angelo. hs2 02:17 Patient moved to Waiting hs2 02:21 Patient visited by Flaca Johnson LPN. ka4 02:21 Patient moved to Triage 1 km 02:26 Triage Initiated [facility] [place] 03:15 Patient moved to Waiting km 04:06 Patient name changed from Nalini\\S\\Pattie\\S\\Grunert\\S\\ to Nalini\\S\\Jessika\\S\\Grunert. EDMS 04:09 [facility] Payment Agreement was scanned into [employer] and attached to record. hs2 05:41 Patient visited by Erin Delvalle RN. lf1 05:50 Patient moved to 17 lf1 06:16 Patient visited by Gustavo Red RN. nn1 07:01 Ez Foy PA is PHCP. btw 07:01 Gris Choe MD is Attending Physician. btw 07:01 Patient visited by Ez Foy PA. btw 07:18 [facility] is Referral Physician. btw 07:35 No IV's were initiated during this patient's visit. No procedures done that require jjr assistance. 07:37 The patient / caregiver is instructed regarding the plan of care and ED course. jjr 13:25 T-Sheet-- Draft Copy was scanned into [employer] and attached to record. gb Administered Medications: 02:35 Drug: GI Cocktail - (Alum-Mag Hydroxide-Simeth Suspension 225 mg-200 mg-25 mg/5 mL 30 kmg1 ml, Lidocaine Liquid 2 % 10 ml, Hyoscyamine Liquid 10 ml) Route: PO; Order Results: There are currently no results for this order. Outcome: 07:19 Discharge ordered by Provider. btw 07:37 Discharge Assessment: patient administered narcotics - no. The following High Risk jjr Discharge criteria are identified: None. Discharged to home ambulatory. Condition: stable. Discharge instructions given to patient, Instructed on discharge instructions, follow up and referral plans. medication usage, Demonstrated understanding of instructions, medications, Prescriptions given X 1. No special radiology studies were completed. Property sent home with patient. 07:37 Patient left the ED. jjr Signatures: Dispatcher [employer] EDMS Radha Izquierdo, RN RN kmg1 Darlene Ochoa, Reg Reg gb Erin DelvalleRN RN lf1 Niecy Arvizu RN RN jjr Ez Foy PA PA btw Flaca Johnson,AIR DEFENCE OFFICER AIR DEFENCE OFFICER ka4 Gustavo RedRN RN nn1 Micki Rivera, Reg Reg hs2 Chart Complete MTDD
== END 2016-09-17 07:37 | disposition home or self-care (01) ==
LOC: M ED 02:15
DX: R13.10 Dysphagia, unspecified (principal); M54.9 Dorsalgia, unspecified; E03.9 Hypothyroidism, unspecified; F20.9 Schizophrenia, unspecified; J30.9 Allergic rhinitis, unspecified; F17.210 Nicotine dependence, cigarettes, uncomplicated; Z79.899 Other long term (current) drug therapy; Z88.8 Allergy status to other drugs, medicaments and biological substances

== ENCOUNTER 2016-09-17 23:17 | Emergency (ER) | payer OTHER ==
[2016-09-18] MEDS ORDERED: GI COCKTAIL 50ML BTL(HYOSCYAMINE/MAALOX/LIDOCAINE VISCOUS)(1:3:1) As Ordered ONE (01:17)
--- NOTE | 2016-09-18 02:18 | EDDOCDS ---
Nurse's Notes [facility] Name: Nalini Ricks Age: 36 yrs Sex: Female : 1980 Arrival Date: 09/17/2016 Time: 23:17 Bed I1 / M1 Private MD: NO PRIMARY PHYSICIAN, . Diagnosis: Gastro-esophageal reflux disease-Sensation of something in throat Presentation: 09/17 23:30 Presenting complaint: Patient states: she believes her throat is closing up, "I think nn1 my windpipe is clogged". Patient reports gaseousness, difficulty swallowing. Patient reports going to urgent care earlier today, patient states she took protonix and zofran today with no relief of symptoms. Patient seen in ED this morning. Risk factors: Stridor is not present. Drooling is not present. Shortness of breath is not present. Cellulitis is not present. Adult Sepsis Screening: The patient does not have new or worsening altered mentation. Patient's respiratory rate is less than 22. Systolic blood pressure is greater than 100. Patient has a qSOFA score of 0- Negative Sepsis Screen. Suicide/Homicide risk assessment- the patient denies having any suicidal and/or homicidal ideations and does not present with any other emotional, behavioral or mental health complaints. Status: Patient is not a neuropsychology service director or dependent. Transition of care: patient was not received from another setting of care. 23:30 Acuity: JASON Level 4 nn1 23:30 Method Of Arrival: Walkin/Carried/Asstd nn1 Triage Assessment: 23:36 General: Appears in no apparent distress, Behavior is anxious, Patient reporting she nn1 feels like she has to burp but she cannot, states "they're going to have to scope me the flap wont open". Patient reports same symptoms as this morning . General: Patients speech is normal. Patient able to drink water in triage. Denies vomiting today. . Pain: Location: throat Pain currently is 4 out of 10 on a pain scale. Pain: Quality of pain is described as "obstructed", heartburn. HIV screening NA for this visit Offered previously. The patient is triaged at the bedside. See Assessment in Nurses Notes section of ED record. EENT: Oral mucosa is moist. Throat is reddened with gag reflex present. Respiratory: Airway is patent Respiratory effort is even, Respiratory pattern is regular, symmetrical, Reports difficulty swallowing. Derm: Skin is pink, warm & dry. Historical: - Allergies: Chantix (Vomit); All antipsychotic meds; - Home Meds: 1. Synthroid 75 mcg Oral tab 1 tab once daily 2. Protonix 40 mg Oral TbEC 1 tab once daily 3. tolterodine 2 mg oral tab 1 tab 2 times per day 4. cyclobenzaprine 10 mg Oral tab 1 tab 3 times per day 5. Sea Soft Nasal Mist 0.65 % nasal spra 6. ibuprofen 800 mg Oral tab 1 tab 3 times per day 7. Zofran (as hydrochloride) 4 mg Oral tab 2 tabs every 12 hours - PMHx: Chronic Back pain; Hypothyroidism; Schizophrenia; Seasonal Allergies; - PSHx: none; - Social history: Smoking status: Patient uses tobacco products, heavy tobacco smoker. No barriers to communication noted, The patient speaks fluent Romansh, Speaks appropriately for age. - Family history: No immediate family members are acutely ill. - : The pt / caregiver states he / she is not on anticoagulants. Home medication list is obtained from the patient, pill bottles. - Exposure Risk Screening:: None identified. Screenin/20 02:14 Screening information is obtained from the patient. Fall risk: No risks identified. slm Assistance ADL's: requires no assistance with activities of daily living. Abuse/DV Screen: The patient / caregiver reports he/she is: not in a situation that causes fear, pain or injury. Nutritional screening: No deficits noted. Advance Directives: Currently, there is no health care proxy. There is no active DNR order. There is no living will. There is no Power of Lot [place]. Advance directive information has not previously been placed in an [facility] medical record. Further advance directive information is declined. home support is adequate. Assessment: 02:15 General: Appears in no apparent distress, comfortable, Behavior is appropriate for age, nn1 cooperative. Pain: Location: neck. Neurological: Level of Consciousness is awake, alert, obeys commands, Oriented to person, place, time. Respiratory: Airway is patent Respiratory effort is even, unlabored, Respiratory pattern is regular, symmetrical, Breath sounds are clear bilaterally. GI: Abdomen is non- distended Bowel sounds present X 4 quads. Derm: Skin is pink, warm & dry. Vital Signs: 09/17 23:19 BP 143 / 93; Pulse 122; Resp 18 S; Temp 98.6(O); Pulse Ox 99% on R/A; Weight 74.84 kg gr2 (R); Height 5 ft. 6 in. (167.64 cm) (R); Pain 3/10; 09/18 02:13 BP 131 / 84; Pulse 95; Resp 18; Temp 96.8; Pulse Ox 96% on R/A; Pain 3/10; slm 09/17 23:19 Body Mass Index 26.63 (74.84 kg, 167.64 cm) gr2 Vitals: 09/17 23:19 Log In Time: September 17, 2016 at 23:19. gr2 ED Course: 23:18 Patient visited by Dimitrios Arvizu. gr2 23:18 Patient moved to Waiting gr2 23:19 NO PRIMARY PHYSICIAN, . is Private Physician. gr2 23:20 Patient visited by Dimitrios Arvizu. gr2 23:20 Patient moved to Pre RCE gr2 23:33 Triage Initiated nn1 23:50 Strep culture sent to lab. nn1 09/18 01:07 Margarita Pina PA-C is PHCP. ef1 01:07 Berto Greer DO is Attending Physician. ef1 01:07 Patient visited by Margarita Pina PA-C. ef1 01:07 Patient moved to I5 / M5 nn1 01:08 Patient moved to I1 / M1 ef1 01:37 Patient visited by Margarita Pina PA-C. ef1 01:37 [facility] Payment Agreement was scanned into [employer] and attached to record. [facility] 02:00 Patient visited by Margarita Pina PA-C. ef1 02:09 [facility] is Referral Physician. ef1 02:09 [facility]arc[facility] Bradshaw is Referral Physician. ef1 02:14 The patient / caregiver is instructed regarding the plan of care and ED course. Patient slm has correct armband on for positive identification. Bed in low position. Call light in reach. Side rails up X 1. 02:14 No IV's were initiated during this patient's visit. No procedures done that require slm assistance. Administered Medications: :19 Drug: GI Cocktail - (Alum-Mag Hydroxide-Simeth Suspension 225 mg-200 mg-25 mg/5 mL 30 nn1 ml, Lidocaine Liquid 2 % 10 ml, Hyoscyamine Liquid 10 ml) Route: PO; Order Results: There are currently no results for this order. Outcome: 02:09 Discharge ordered by Provider. ef1 02:14 No special radiology studies were completed. Property :Personal belongings accompany Pt.[place] 02:16 Discharge Assessment: Patient awake, alert and oriented x 3. No cognitive and/or nn1 functional deficits noted. Patient verbalized understanding of disposition instructions. patient administered narcotics - no. The following High Risk Discharge criteria are identified: None. Discharged to home ambulatory. Condition: stable. 02:17 Patient left the ED. nn1 Signatures: Margarita Pina PA-C PAGeorgette ef1 Dimitrios Arvizu gr2 Lauren Huitron LPN LPN slm Hook, Sandra slh Nunez, NikkoleRN RN nn1 MTDBarbara
--- NOTE | 2016-09-18 02:18 | EDDOCDS ---
Physician Documentation [facility] Name: Nalini Ricks Age: 36 yrs Sex: Female : 1980 Arrival Date: 09/17/2016 Time: 23:17 Bed I1 / M1 Private MD: NO PRIMARY PHYSICIAN, . Disposition: 09/18/16 02:09 Discharged to Home/Self Care. Impression: Gastro-esophageal reflux disease - Sensation of something in throat. - Condition is Stable. - Discharge Instructions: Gastroesophageal Reflux Disease, Adult. - Referral List Call for Appointment, Medication Reconciliation, Local Pharmacy Hours form. - Follow up: [facility] ; When: 1 - 2 days; Reason: Recheck today's complaints, Continuance of care. Follow up: Emergency Department; Reason: Worsening of conditions. Follow up: Narciso Bradshaw; When: Call to arrange an appointment; Reason: Further diagnostic work-up, Recheck today's complaints, Continuance of care. - Problem is new. - Symptoms have improved. Historical: - Allergies: Chantix (Vomit); All antipsychotic meds; - Home Meds: 1. Synthroid 75 mcg Oral tab 1 tab once daily 2. Protonix 40 mg Oral TbEC 1 tab once daily 3. tolterodine 2 mg oral tab 1 tab 2 times per day 4. cyclobenzaprine 10 mg Oral tab 1 tab 3 times per day 5. Sea Soft Nasal Mist 0.65 % nasal spra 6. ibuprofen 800 mg Oral tab 1 tab 3 times per day 7. Zofran (as hydrochloride) 4 mg Oral tab 2 tabs every 12 hours - PMHx: Chronic Back pain; Hypothyroidism; Schizophrenia; Seasonal Allergies; - PSHx: none; - Social history: Smoking status: Patient uses tobacco products, heavy tobacco smoker. No barriers to communication noted, The patient speaks fluent [place]ine[place], Speaks appropriately for age. - Family history: No immediate family members are acutely ill. - : The pt / caregiver states he / she is not on anticoagulants. Home medication list is obtained from the patient, pill bottles. - Exposure Risk Screening:: None identified. Vital Signs: 09/17 23:19 BP 143 / 93; Pulse 122; Resp 18 S; Temp 98.6(O); Pulse Ox 99% on R/A; Weight 74.84 kg / gr2 164.99 lbs (R); Height 5 ft. 6 in. (167.64 cm) (R); Pain 11/06; 09/18 02:13 BP 131 / 84; Pulse 95; Resp 18; Temp 96.8; Pulse Ox 96% on R/A; Pain 11/06; slm 09/17 23:19 Body Mass Index 26.63 (74.84 kg, 167.64 cm) gr2 MDM: 09/17 23:27 Strep Screen, Nursing ordered. mo1 23:51 GATS (NEGATIVE STREP SCREEN) Ordered. EDMS 09/18 01:13 GI Cocktail - (Alum-Mag Hydroxide-Simeth 30 ml, Lidocaine 10 ml, Hyoscyamine 10 ml) PO ef1 once; Pre-mixed 50mL unit dose ordered. 01:33 Financial registration complete. [facility] 01:37 [facility] Payment Agreement was scanned into [employer] and attached to record. [facility] Administered Medications: 01:19 Drug: GI Cocktail - (Alum-Mag Hydroxide-Simeth Suspension 225 mg-200 mg-25 mg/5 mL 30 nn1 ml, Lidocaine Liquid 2 % 10 ml, Hyoscyamine Liquid 10 ml) Route: PO; Signatures: Dispatcher [employer] EDMI Margarita Pina PA-C PA-C ef1 Haroon Mendoza PA PA mo1 Rosa Isela Cee Gustavo Dexter,RN RN nn1 The chart was reviewed and I authenticate all verbal orders and agree with the evaluation and treatment provided.Attachments: 01:37 [facility] Payment Agreement [facility] MTDD
--- NOTE | 2016-09-20 03:18 | EDDOCDS ---
Physician Documentation [facility] Name: Nalini Ricks Age: 36 yrs Sex: Female : 1980 Arrival Date: 09/17/2016 Time: 23:17 Bed I1 / M1 Private MD: NO PRIMARY PHYSICIAN, . Disposition: 09/18/16 02:09 Discharged to Home/Self Care. Impression: Gastro-esophageal reflux disease - Sensation of something in throat. - Condition is Stable. - Discharge Instructions: Gastroesophageal Reflux Disease, Adult. - Referral List Call for Appointment, Medication Reconciliation, Local Pharmacy Hours form. - [facility] ; When: 1 - 2 days; Reason: Recheck today's complaints, Continuance of care. Follow up: Emergency Department; Reason: Worsening of conditions. Follow up: [facility]; When: Call to arrange an appointment; Reason: Further diagnostic work-up, Recheck today's complaints, Continuance of care. - Problem is new. - Symptoms have improved. Historical: - Allergies: Chantix (Vomit); All antipsychotic meds; - Home Meds: 1. Synthroid 75 mcg Oral tab 1 tab once daily 2. Protonix 40 mg Oral TbEC 1 tab once daily 3. tolterodine 2 mg oral tab 1 tab 2 times per day 4. cyclobenzaprine 10 mg Oral tab 1 tab 3 times per day 5. Sea Soft Nasal Mist 0.65 % nasal spra 6. ibuprofen 800 mg Oral tab 1 tab 3 times per day 7. Zofran (as hydrochloride) 4 mg Oral tab 2 tabs every 12 hours - PMHx: Chronic Back pain; Hypothyroidism; Schizophrenia; Seasonal Allergies; - PSHx: none; - Social history: Smoking status: Patient uses tobacco products, heavy tobacco smoker. No barriers to communication noted, The patient speaks fluent Kazakh, Speaks appropriately for age. - Family history: No immediate family members are acutely ill. - : The pt / caregiver states he / she is not on anticoagulants. Home medication list is obtained from the patient, pill bottles. - Exposure Risk Screening:: None identified. Vital Signs: 09/17 23:19 BP 143 / 93; Pulse 122; Resp 18 S; Temp 98.6(O); Pulse Ox 99% on R/A; Weight 74.84 kg / gr2 164.99 lbs (R); Height 5 ft. 6 in. (167.64 cm) (R); Pain 11/06; 09/18 02:13 BP 131 / 84; Pulse 95; Resp 18; Temp 96.8; Pulse Ox 96% on R/A; Pain 11/06; slm 09/17 23:19 Body Mass Index 26.63 (74.84 kg, 167.64 cm) gr2 MDM: 09/17 23:27 Strep Screen, Nursing ordered. mo1 23:51 GATS (NEGATIVE STREP SCREEN) Ordered. EDMS 09/18 01:13 GI Cocktail - (Alum-Mag Hydroxide-Simeth 30 ml, Lidocaine 10 ml, Hyoscyamine 10 ml) PO ef1 once; Pre-mixed 50mL unit dose ordered. 01:33 Financial registration complete. [facility] 01:37 [facility] Payment Agreement was scanned into TMAT and attached to record. [facility] 10:32 T-Sheet-- Draft Copy was scanned into TMAT and attached to record. gb Administered Medications: 01:19 Drug: GI Cocktail - (Alum-Mag Hydroxide-Simeth Suspension 225 mg-200 mg-25 mg/5 mL 30 nn1 ml, Lidocaine Liquid 2 % 10 ml, Hyoscyamine Liquid 10 ml) Route: PO; Signatures: Dispatcher [employer] EDWA Darlene Ochoa, Reg Reg gb Margarita Pina, PA-C PA-C ef1 Haroon Mendoza PA PA mo1 Rosa Isela Cee [facility] Gustavo Red,RN RN nn1 The chart was reviewed and I authenticate all verbal orders and agree with the evaluation and treatment provided.Attachments: 01:37 [facility] Payment Agreement [facility] 10:32 T-Sheet-- Draft Copy gb Chart Complete MTDD
--- NOTE | 2016-09-20 03:18 | EDDOCDS ---
Physician Documentation [facility] Name: Nalini Ricks Age: 36 yrs Sex: Female : 1980 Arrival Date: 09/17/2016 Time: 23:17 Bed I1 / M1 Private MD: NO PRIMARY PHYSICIAN, . Disposition: 09/18/16 02:09 Discharged to Home/Self Care. Impression: Gastro-esophageal reflux disease - Sensation of something in throat. - Condition is Stable. - Discharge Instructions: Gastroesophageal Reflux Disease, Adult. - Referral List Call for Appointment, Medication Reconciliation, Local Pharmacy Hours form. - [facility] up[facility] ; When: 1 - 2 days; Reason: Recheck today's complaints, Continuance of care. Follow up: Emergency Department; Reason: Worsening of conditions. Follow up: [facility]; When: Call to arrange an appointment; Reason: Further diagnostic work-up, Recheck today's complaints, Continuance of care. - Problem is new. - Symptoms have improved. Historical: - Allergies: Chantix (Vomit); All antipsychotic meds; - Home Meds: 1. Synthroid 75 mcg Oral tab 1 tab once daily 2. Protonix 40 mg Oral TbEC 1 tab once daily 3. tolterodine 2 mg oral tab 1 tab 2 times per day 4. cyclobenzaprine 10 mg Oral tab 1 tab 3 times per day 5. Sea Soft Nasal Mist 0.65 % nasal spra 6. ibuprofen 800 mg Oral tab 1 tab 3 times per day 7. Zofran (as hydrochloride) 4 mg Oral tab 2 tabs every 12 hours - PMHx: Chronic Back pain; Hypothyroidism; Schizophrenia; Seasonal Allergies; - PSHx: none; - Social history: Smoking status: Patient uses tobacco products, heavy tobacco smoker. No barriers to communication noted, The patient speaks fluent Irish, Speaks appropriately for age. - Family history: No immediate family members are acutely ill. - : The pt / caregiver states he / she is not on anticoagulants. Home medication list is obtained from the patient, pill bottles. - Exposure Risk Screening:: None identified. Vital Signs: 09/17 23:19 BP 143 / 93; Pulse 122; Resp 18 S; Temp 98.6(O); Pulse Ox 99% on R/A; Weight 74.84 kg / gr2 164.99 lbs (R); Height 5 ft. 6 in. (167.64 cm) (R); Pain 11/06; 09/18 02:13 BP 131 / 84; Pulse 95; Resp 18; Temp 96.8; Pulse Ox 96% on R/A; Pain 11/06; slm 09/17 23:19 Body Mass Index 26.63 (74.84 kg, 167.64 cm) gr2 MDM: 09/17 23:27 Strep Screen, Nursing ordered. mo1 23:51 GATS (NEGATIVE STREP SCREEN) Ordered. EDMS 09/18 01:13 GI Cocktail - (Alum-Mag Hydroxide-Simeth 30 ml, Lidocaine 10 ml, Hyoscyamine 10 ml) PO ef1 once; Pre-mixed 50mL unit dose ordered. 01:33 Financial registration complete. [facility] 01:37 [facility] Payment Agreement was scanned into [employer] and attached to record. [facility] 10:32 T-Sheet-- Draft Copy was scanned into [employer] and attached to record. gb Administered Medications: 01:19 Drug: GI Cocktail - (Alum-Mag Hydroxide-Simeth Suspension 225 mg-200 mg-25 mg/5 mL 30 nn1 ml, Lidocaine Liquid 2 % 10 ml, Hyoscyamine Liquid 10 ml) Route: PO; Signatures: Dispatcher [employer] EDNH Darlene Ochoa, Reg Reg gb Margarita Pina, PA-C PA-C ef1 Haroon Mendoza PA PA mo1 Rosa Isela Cee [facility] Gustavo Red,RN RN nn1 The chart was reviewed and I authenticate all verbal orders and agree with the evaluation and treatment provided.Attachments: 01:37 [facility] Payment Agreement [facility] 10:32 T-Sheet-- Draft Copy gb Chart Complete MTDD
--- NOTE | 2016-09-20 03:18 | EDDOCDS ---
Nurse's Notes [facility] Name: Nalini Ricks Age: 36 yrs Sex: Female : 1980 Arrival Date: 09/17/2016 Time: 23:17 Bed I1 / M1 Private MD: NO PRIMARY PHYSICIAN, . Diagnosis: Gastro-esophageal reflux disease-Sensation of something in throat Presentation: 09/17 23:30 Presenting complaint: Patient states: she believes her throat is closing up, "I think nn1 my windpipe is clogged". Patient reports gaseousness, difficulty swallowing. Patient reports going to urgent care earlier today, patient states she took protonix and zofran today with no relief of symptoms. Patient seen in ED this morning. Risk factors: Stridor is not present. Drooling is not present. Shortness of breath is not present. Cellulitis is not present. Adult Sepsis Screening: The patient does not have new or worsening altered mentation. Patient's respiratory rate is less than 22. Systolic blood pressure is greater than 100. Patient has a qSOFA score of 0- Negative Sepsis Screen. Suicide/Homicide risk assessment- the patient denies having any suicidal and/or homicidal ideations and does not present with any other emotional, behavioral or mental health complaints. Status: Patient is not a library customer service clerk or dependent. Transition of care: patient was not received from another setting of care. 23:30 Acuity: JASON Level 4 nn1 23:30 Method Of Arrival: Walkin/Carried/Asstd nn1 Triage Assessment: 23:36 General: Appears in no apparent distress, Behavior is anxious, Patient reporting she nn1 feels like she has to burp but she cannot, states "they're going to have to scope me the flap wont open". Patient reports same symptoms as this morning . General: Patients speech is normal. Patient able to drink water in triage. Denies vomiting today. . Pain: Location: throat Pain currently is 4 out of 10 on a pain scale. Pain: Quality of pain is described as "obstructed", heartburn. HIV screening NA for this visit Offered previously. The patient is triaged at the bedside. See Assessment in Nurses Notes section of ED record. EENT: Oral mucosa is moist. Throat is reddened with gag reflex present. Respiratory: Airway is patent Respiratory effort is even, Respiratory pattern is regular, symmetrical, Reports difficulty swallowing. Derm: Skin is pink, warm & dry. Historical: - Allergies: Chantix (Vomit); All antipsychotic meds; - Home Meds: 1. Synthroid 75 mcg Oral tab 1 tab once daily 2. Protonix 40 mg Oral TbEC 1 tab once daily 3. tolterodine 2 mg oral tab 1 tab 2 times per day 4. cyclobenzaprine 10 mg Oral tab 1 tab 3 times per day 5. Sea Soft Nasal Mist 0.65 % nasal spra 6. ibuprofen 800 mg Oral tab 1 tab 3 times per day 7. Zofran (as hydrochloride) 4 mg Oral tab 2 tabs every 12 hours - PMHx: Chronic Back pain; Hypothyroidism; Schizophrenia; Seasonal Allergies; - PSHx: none; - Social history: Smoking status: Patient uses tobacco products, heavy tobacco smoker. No barriers to communication noted, The patient speaks fluent [place], Speaks appropriately for age. - Family history: No immediate family members are acutely ill. - : The pt / caregiver states he / she is not on anticoagulants. Home medication list is obtained from the patient, pill bottles. - Exposure Risk Screening:: None identified. Screenin/20 02:14 Screening information is obtained from the patient. Fall risk: No risks identified. slm Assistance ADL's: requires no assistance with activities of daily living. Abuse/DV Screen: The patient / caregiver reports he/she is: not in a situation that causes fear, pain or injury. Nutritional screening: No deficits noted. Advance Directives: Currently, there is no health care proxy. There is no active DNR order. There is no living will. There is no Power of [place]fellow. Advance directive information has not previously been placed in an [facility] medical record. Further advance directive information is declined. home support is adequate. Assessment: 02:15 General: Appears in no apparent distress, comfortable, Behavior is appropriate for age, nn1 cooperative. Pain: Location: neck. Neurological: Level of Consciousness is awake, alert, obeys commands, Oriented to person, place, time. Respiratory: Airway is patent Respiratory effort is even, unlabored, Respiratory pattern is regular, symmetrical, Breath sounds are clear bilaterally. GI: Abdomen is non- distended Bowel sounds present X 4 quads. Derm: Skin is pink, warm & dry. Vital Signs: 09/17 23:19 BP 143 / 93; Pulse 122; Resp 18 S; Temp 98.6(O); Pulse Ox 99% on R/A; Weight 74.84 kg gr2 (R); Height 5 ft. 6 in. (167.64 cm) (R); Pain 3/10; 09/18 02:13 BP 131 / 84; Pulse 95; Resp 18; Temp 96.8; Pulse Ox 96% on R/A; Pain 3/10; slm 09/17 23:19 Body Mass Index 26.63 (74.84 kg, 167.64 cm) gr2 Vitals: 09/17 23:19 Log In Time: September 17, 2016 at 23:19. gr2 ED Course: 23:18 Patient visited by Dimitrios Arvizu. gr2 23:18 Patient moved to Waiting gr2 23:19 NO PRIMARY PHYSICIAN, . is Private Physician. gr2 23:20 Patient visited by Dimitrios Arvizu. gr2 23:20 Patient moved to Pre RCE gr2 23:33 Triage Initiated nn1 23:50 Strep culture sent to lab. nn1 09/18 01:07 Margarita Pina PA-C is PHCP. ef1 01:07 Berto Greer DO is Attending Physician. ef1 01:07 Patient visited by Margarita Pina PA-C. ef1 01:07 Patient moved to I5 / M5 nn1 01:08 Patient moved to I1 / M1 ef1 01:37 Patient visited by Margarita Pina PA-C. ef1 01:37 [facility] Payment Agreement was scanned into [employer] and attached to record. [facility] 02:00 Patient visited by Margarita Pina PA-C. ef1 02:09 [facility] is Referral Physician. ef1 02:09 Narciso Bradshaw is Referral Physician. ef1 02:14 The patient / caregiver is instructed regarding the plan of care and ED course. Patient slm has correct armband on for positive identification. Bed in low position. Call light in reach. Side rails up X 1. 02:14 No IV's were initiated during this patient's visit. No procedures done that require slm assistance. 10:32 T-Sheet-- Draft Copy was scanned into [employer] and attached to record. gb Administered Medications: 01:19 Drug: GI Cocktail - (Alum-Mag Hydroxide-Simeth Suspension 225 mg-200 mg-25 mg/5 mL 30 nn1 ml, Lidocaine Liquid 2 % 10 ml, Hyoscyamine Liquid 10 ml) Route: PO; Order Results: Lab Order: GATS (NEGATIVE STREP SCREEN); SPEC'M 09/17/16 23:57 Test: GATS CULTURE (NEG STREP SCR); Value: GATS RESULT NEGATIVE FOR STREP PYOGENES (GROUP A); Status: F Outcome: 02:09 Discharge ordered by Provider. ef1 02:14 No special radiology studies were completed. Property :Personal belongings accompany Pt.slm 02:16 Discharge Assessment: Patient awake, alert and oriented x 3. No cognitive and/or nn1 functional deficits noted. Patient verbalized understanding of disposition instructions. patient administered narcotics - no. The following High Risk Discharge criteria are identified: None. Discharged to home ambulatory. Condition: stable. 02:17 Patient left the ED. nn1 Signatures: Darlene Ochoa, Angelo Reg Margarita Beaver PAUmerC PA-C ef1 Dimitrios Arvizu gr2 Lauren Huitron LPN LPN slm Hook, Sandra sl Gustavo Red RN RN nn1 Chart Complete MTDD
== END 2016-09-18 02:17 | disposition home or self-care (01) ==
LOC: M ED 23:17
DX: K21.9 Gastro-esophageal reflux disease without esophagitis (principal); R13.10 Dysphagia, unspecified; M54.9 Dorsalgia, unspecified; E03.9 Hypothyroidism, unspecified; F20.9 Schizophrenia, unspecified; J30.9 Allergic rhinitis, unspecified; F17.210 Nicotine dependence, cigarettes, uncomplicated; Z79.899 Other long term (current) drug therapy; Z88.8 Allergy status to other drugs, medicaments and biological substances

== ENCOUNTER → 2016-09-17 | Outpatient (CLI) | payer OTHER ==
--- NOTE | 2016-09-17 18:19 | REP ---
SOFT-TISSUE NECK SERIES: 09/17/2016: Comparison: 09/14/2016. Clinical history: Foreign body sensation. Four views are provided. There are two initial lateral views and an AP view and then a repeat third lateral view. There is very slight reversal of the normal cervical lordosis, new since the previous study. This may reflect some spasm. The epiglottis and folds are intact. There is no radiopaque foreign body clearly evident. There are some calcifications in the thyroid cartilage region, unchanged. Anterior to the C3 vertebral body on the third lateral view are too small densities that may be some soft-tissue calcifications. They are not seen on the first two cross-table lateral and are visible on one of the previous cross-table lateral from 3 days ago. This suggests soft-tissue calcifications elsewhere in the neck that move. Conceivably they could tonsillar crypts or peripheral to this in the neck. I cannot see them on the AP view. Impression: 1. Reversal of lordosis with slight straightening of the spine may reflect spasm but no significant prevertebral swelling, compression deformity or malalignment. Two small densities seen on only one of the three lateral views anterior to C3 are not present on the other two views; and are likely elsewhere in the neck soft-tissues. It could be in tonsillar crypts or laterally in the neck but are not visible on the frontal view. No definite foreign body. 2. Nasopharynx, hypopharynx, larynx, epiglottis and its folds were all grossly intact. 3. I cannot see a persistent finding that would clearly define radiopaque foreign body. If she has persistent symptoms, follow-up with an esophagram to be scheduled. Signed by Ryland Brock MD 09/17/2016 08:16 P
== END ==
LOC: M RAD 17:06
PROVIDERS: ATTEND Physician Assistant Medical
DX: R13.19 Other dysphagia (principal)

== ENCOUNTER → 2016-09-21 | Outpatient (REF) | payer OTHER ==
[2016-09-21 12:55] LABS: BASO % 0.2 % (0.0-1.0); EOS % 0.2 % (0.0-3.0); LARGE UNSTAINED CELL # 0.2 K/mm3 (0.0-0.4); LARGE UNSTAINED CELL % 1.2 % (0.0-4.0); LYMPH # 2.2 K/mm3 (1.5-4.5); LYMPH % 16.8 % (24.0-44.0); MEAN CORPUSCULAR HGB CONC 33.1 g/dl (32.0-36.5); MEAN CORPUSCULAR VOLUME 90.6 fl (80.0-96.0); MONO # 0.6 K/mm3 (0.0-0.8); MONO % 4.5 % (0.0-5.0); NEUTROPHILS # 10.1 K/mm3 (1.8-7.7); NEUTROPHILS % 77.1 % (36.0-66.0); PLATELET COUNT, AUTOMATED 259 k/mm3 (150-450); RED CELL DISTRIBUTION WIDTH 12.4 % (11.5-14.5); WHITE BLOOD COUNT 13.1 K/mm3 (4.0-10.0)
[2016-09-21 14:39] LABS: ANION GAP 10 MEQ/L (8-16); BLOOD UREA NITROGEN 7 MG/DL (7-18); CALCIUM LEVEL 9.4 MG/DL (8.5-10.1); CARBON DIOXIDE LEVEL 27 MEQ/L (21-32); CHLORIDE LEVEL 106 MEQ/L (98-107); CREATININE FOR GFR 0.95 MG/DL (0.55-1.02); GLOMERULAR FILTRATION RATE > 60.0 (>60); GLUCOSE, FASTING 61 MG/DL (70-105); POTASSIUM SERUM 3.8 MEQ/L (3.5-5.1); SODIUM LEVEL 143 MEQ/L (136-145)
[2016-09-24 08:06] LABS: ACETAMINOPHEN Negative ug/mL (10-30); AMITRIPTYLINE None Detected (Not Estab.); BUTALBITAL None Detected ug/mL (1-10); DESIPRAMINE None Detected (Not Estab.); DIAZEPAM None Detected ug/mL (0.1-0.9); DOXEPIN None Detected (Not Estab.); ETHANOL Negative % (0.000-0.010); NORCHLORDIAZEPOXIDE None Detected ug/mL (0.1-0.6); NORDIAZEPAM None Detected ug/mL (0.1-1.4); NORDOXEPIN None Detected (Not Estab.); NORTRIPTYLINE None Detected ng/mL (50-150); PENTOBARBITAL None Detected ug/mL (1-5); PHENOBARBITAL None Detected ug/mL (15-40); PHENYTOIN None Detected ug/mL (10.0-20.0)
== END ==
LOC: M SFHCPLAZ 09:25
PROVIDERS: ATTEND Family Medicine
DX: R00.0 Tachycardia, unspecified (principal)

== ENCOUNTER → 2016-09-25 | Outpatient (CLI) | payer OTHER ==
[~2016-09-25] MED LIST changes: +E-Z-GAS II EFFERVESCENT PACKET (SODIUM BICARB./CITRIC ACID/SIMETHICONE) As Ordered ONE; +E-Z-HD 98% w/w 340GM SUSP BTL As Ordered ONE; +E-Z-PAQUE 96% w/w SUSP 176GM BTL As Ordered ONE
--- NOTE | 2016-09-25 14:55 | REP ---
UPPER GI AIR CONTRAST AND SMALL BOWEL FOLLOW THROUGH The procedure was performed under the direct supervision of Dr. Pleitez. The images were reviewed with Dr. Pleitez. The premix concrete batcher film shows no organomegaly or pathological masses. The intestinal gas pattern is nonspecific. Liquid barium and gas producing granules were given in the erect position as well as liquid barium in the prone oblique position in order to perform a double contrast upper GI examination. Additionally liquid barium was given at the end of the examination in order to perform a small bowel follow through. The oral and pharyngeal stages of deglutition are unremarkable. Esophageal transport is prompt and efficient and there is no esophagitis, stricture, mucosal ring, or hiatal hernia. Gastroesophageal reflux is not demonstrated on this examination. The stomach jimenez are normally outlined. The rugal folds are smooth and regular. There is no gastritis, neoplasm, or ulcer disease. The duodenal jimenez are normally outlined. The mucosal folds are smooth and regular. There is no duodenitis, pancreatitis, peptic ulcer disease or neoplasm. The visualized portion of the proximal small bowel appears normal in course and caliber. The barium column was followed through the small bowel to level of the terminal ileum. Small bowel transit time is approximately 75 minutes. Ballottement was performed by Dr. Pleitez. During fluoroscopy gentle palpation shows all loops are freely movable and pliable. There are no fixed or angulated loops. The small bowel mucosal pattern is normal in course and caliber. There is no transition to suggest a partial small bowel obstruction. Spot filming of the terminal ileum shows it to be unremarkable. IMPRESSION: Essentially unremarkable double contrast upper GI and small bowel follow through examination. 2 minutes and 27 seconds of fluoroscopic time was utilized for this procedure. Reviewed by DULCE Greene 09/25/2016 03:44 PEdited and Signed by Gabriel Pleitez MD 09/25/2016 03:48 P
== END ==
LOC: M RAD 09:15
PROVIDERS: ATTEND Family Medicine
DX: F45.8 Other somatoform disorders (principal)

== ENCOUNTER → 2016-11-30 | Outpatient (REF) | payer OTHER ==
[~2016-11-30] MED LIST changes: -E-Z-GAS II EFFERVESCENT PACKET (SODIUM BICARB./CITRIC ACID/SIMETHICONE) As Ordered ONE; -E-Z-HD 98% w/w 340GM SUSP BTL As Ordered ONE; -E-Z-PAQUE 96% w/w SUSP 176GM BTL As Ordered ONE
[2016-11-30 12:51] LABS: RBC, URINE NONE SEEN /hpf (0-3); WBC, URINE NONE SEEN /hpf (0-3)
[2016-11-30 12:52] LABS: BACTERIA, URINE NONE SEEN; HYALINE CAST, URINE NONE SEEN /lpf (0-1); MICROSCOPIC EXAM NEGATIVE; SQUAMOUS EPITHELIAL CELL URINE NONE SEEN /hpf (SMALL AMT)
== END ==
LOC: M SMT 11:36
PROVIDERS: ATTEND Specialist
DX: R35.0 Frequency of micturition (principal)

== ENCOUNTER 2017-01-10 13:06 | Inpatient (IN) | payer OTHER ==
[~2017-01-10] VITALS: Ht 167.6 cm; Wt 77.2 kg
[2017-01-10] MEDS ORDERED: HALOPERIDOL 5 MG/ML VIAL (J1630) IM STA (13:33)
[2017-01-10] MEDS ORDERED: LORazepam 2 MG/ML VIAL (J2060) IM STA (13:33)
[2017-01-10] MEDS ORDERED: diphenhydrAMINE INJ 50MG/ML VIAL (J1200) IM STA (13:33)
[2017-01-10 13:54] LABS: MEAN CORPUSCULAR HEMOGLOBIN 31.3 pg (27.0-33.0); MEAN CORPUSCULAR HGB CONC 34.4 g/dl (32.0-36.5); MEAN CORPUSCULAR VOLUME 90.9 fl (80.0-96.0); RED CELL DISTRIBUTION WIDTH 13.3 % (11.5-14.5); WHITE BLOOD COUNT 14.3 K/mm3 (4.0-10.0)
[2017-01-10 14:11] LABS: CONTROL LINE HCG INT CTR LINE PRESENT
[2017-01-10 14:32] LABS: ALBUMIN 4.2 GM/DL (3.2-5.2); ALBUMIN/GLOBULIN RATIO 1.17 (1.00-1.93); ALKALINE PHOSPHATASE 98 U/L (45-117); ALT/SGPT 30 U/L (12-78); ANION GAP 9 MEQ/L (8-16); AST/SGOT 25 U/L (15-37); BILIRUBIN,DIRECT 0.1 MG/DL (0.0-0.2); BILIRUBIN,TOTAL 0.4 MG/DL (0.2-1.0); BLOOD UREA NITROGEN 4 MG/DL (7-18); CALCIUM LEVEL 9.4 MG/DL (8.5-10.1); CARBON DIOXIDE LEVEL 27 MEQ/L (21-32); CHLORIDE LEVEL 103 MEQ/L (98-107); CREATININE FOR GFR 0.98 MG/DL (0.55-1.02); GLOMERULAR FILTRATION RATE > 60.0 (>60); GLUCOSE, FASTING 183 MG/DL (70-105); POTASSIUM SERUM 3.3 MEQ/L (3.5-5.1); SODIUM LEVEL 139 MEQ/L (136-145); TOTAL PROTEIN 7.8 GM/DL (6.4-8.2)
[2017-01-10] MEDS ORDERED: RANI150T PO ×2 (15:50→16:20)
[2017-01-10] MEDS ORDERED: FLUT1SPR2 (15:50)
[2017-01-10] MEDS ORDERED: BUPR300T34 PO ×2 (15:50→16:20)
[2017-01-10] MEDS ORDERED: NICO1DIS2 TOP (15:50)
[2017-01-10] MEDS ORDERED: DETR1TAB4 PO (15:50)
[2017-01-10] MEDS ORDERED: LORazepam 1 MG TAB PO PRN (16:00)
[2017-01-10] MEDS ORDERED: MOM 30ML SUSPENSION UDC PO PRN (16:00)
[2017-01-10] MEDS ORDERED: HALOPERIDOL 5 MG TAB PO PRN (16:00)
[2017-01-10] MEDS ORDERED: MAALOX 30 ML SUSP *UDC PO PRN (16:00)
[2017-01-10] MEDS ORDERED: traZODone 50 MG TAB PO PRN (16:00)
[2017-01-10] MEDS ORDERED: DARI15TA PO (16:20)
[2017-01-10] MEDS ORDERED: LEVO75TA34 PO (16:20)
[2017-01-10] MEDS ORDERED: NICODIS TD (16:20)
[2017-01-10] MEDS ORDERED: FLON1SPR (16:20)
[2017-01-10] MEDS ORDERED: PATIENT COMMENT (16:21)
[2017-01-10 17:05] VITALS: BP 128/77
[2017-01-10] MEDS ORDERED: CEPACOL LOZENGE PO PRN (17:15)
[2017-01-10] MEDS: BENZTROPINE 1 MG TAB PO SCH ×2 (21:00→21:50)
[2017-01-10] MEDS: HALOPERIDOL 5 MG TAB PO SCH (21:50)
[2017-01-10] MEDS: LITHIUM CARBONATE 300 MG CAP PO SCH (21:50)
[2017-01-10] MEDS: QUEtiapine FUMARATE 100 MG TAB PO SCH (21:50)
[2017-01-11] MEDS: HALOPERIDOL 5 MG TAB PO SCH ×2 (02:33→09:00)
[2017-01-11 07:02] VITALS: BP 144/83
[2017-01-11] MEDS: LITHIUM CARBONATE 300 MG CAP PO SCH ×2 (09:00→21:00)
[2017-01-11] MEDS: risperiDONE 2 MG TAB PO SCH ×2 (09:00→21:00)
[2017-01-11] MEDS: BENZTROPINE 1 MG TAB PO SCH ×2 (09:00→21:00)
--- NOTE | 2017-01-11 11:32 | MHHPEPDOC ---
[facility] History & Physical History and Physical DATE OF ADMISSION: January 10, 2017 at 15:47 LEGAL STATUS AT ADMISSION: 9.39 CHIEF COMPLAINT: Was brought by the Police because she had inappropriate behavior while she was at at [facility]. She was driving her car around in circles, yelling, swearing, making highly sexually charged statements, saying she was God and the [place], that the hospital was hers, that she probably needed to be on [place], HISTORY OF THE PRESENT ILLNESS: apparently the patient has a longstanding history of psychiatric illness, has been treated with [place], but she said it caused her problems with her thyroid and that her outpatient psychiatrist told her it was O.K. to stop taking the medication. She was brought by the police for showing inappropriate, aggressive behavior at [facility] ( please see above). PSYCHIATRIC REVIEW OF SYSTEMS: Affective: Labile mood and affect, grandiose. Anxiety: High. Trauma: needs further assessment. Psychosis: Patient has delusional thoughts of being God or the [place], of being the bowling or skating front desk clerk of [facility]. Personally: Needs further assessment. PAST PSYCHIATRIC HISTORY: Prior Psychiatric Disorder: History of bipolar disorder treated previously with [place]. Patient is not cooperative at this time. Outpatient Treatment: Was receiving treatment with [place] but she stopped taking because " I don't need any medications". Suicidal/Self injurious: Denies. Psychotropic Medication History: [place] is the medication she mentions but she refuses to provide more information. ALLERGIES: Please see below. FAMILY PSYCHIATRIC HISTORY: According to her, mother has dementia, refuses to talk about her father, says she doesn't have any siblings.. SOCIAL HISTORY: Early Relations/development: Refuses to talk about the subject.. Sibling order: Claims she's the only child Paternal relationships: Refuses to provide information. Education: Refuses to provide information. Occupational: Refuses to provide more information. Legal: Needs further assessment. patient refuses to provide information. Martial: Denies Economic: Refuses to provide information. Supports: "Friends". Abuse/trauma: Refuses to provide information. SUBSTANCE ABUSE HISTORY: Denies. PAST MEDICAL/SURGICAL HISTORY: 1. Needs further assessment. Pt. refuses to provide with more information at this time. VITAL SIGNS: Stable MENTAL STATUS EXAMINATION: General appearance: Patient is a 36-year old female, who is alert, laying in bed , with good eye contact, dressed in hospital clothes, wearing a hat. Speech: Tangential/circumstantial, rapid Thought processes: Disorganized. Thought content: Grandiose delusions. Abstract reasoning and computation: Unable to assess. patient didn't want to cooperate. Description of associations: Not loose. Description of abnormal or psychotic thoughts: Delusional thoughts, grandiose. Judgment: Poor. Insight: Poor. Orientation: Not oriented to date, only to persona and place. Recent and remote memory: Unable to assess due to patient's mental condition.. Attention span and concentration: Poor Fund of knowledge: Unable to assess. Mood: "I'm not mentally ill, I'm fine, I don't need [place]." Affect: Labile, irritable. DIAGNOSES: 1. Bipolar disorder, manic episode. ASSESSMENT: Pt. is very psychotic, has grandiose delusions, her judgment and insight are very poor, she is dangerous to self and others because she has very poor impulse control and is aggressive/violent at times. Needs to get stabilized at the [facility]. PROBLEM LIST: 1. Risk for aggression/violence 2. [place] 3. Non compliant INITIAL TREATMENT PLAN: 1. Patient was admitted on a 9.39 2. Complete history was obtained. 3. With patients permission, family will be contacted and database will be expanded. 4. Patients medication regimen will be reviewed and changed accordingly. 5. Patient will be provided with protected environment. 6. Patient will be treated with individual, group, and milieu therapies. 7. Patient will receive supportive psych-education. 8. Discharge planning will commence immediately. 9. Outpatient follow-up treatment will be strongly recommended. 10. The initial treatment plan will focus initially on: * Depression. * Risk for suicide. * Substance abuse. ESTIMATED LENGTH OF STAY: 7-10 DAYS. TIME SPENT COUNSELING AND COORDINATING INITIAL CARE: 30 minutes. Laboratory Data 24H Labs Laboratory Tests 2 01/10/17 13:38: Anion Gap 9, Glomerular Filtration Rate > 60.0, Calcium Level 9.4, Aspartate Amino Transf (AST/SGOT) 25, Alanine Aminotransferase (ALT/SGPT) 30, Alkaline Phosphatase 98, Total Bilirubin 0.4, Direct Bilirubin 0.1, Total Protein 7.8, Albumin 4.2, Albumin/Globulin Ratio 1.17, Thyroid Stimulating Hormone (TSH) 6.870H, Human Chorionic Gonadotropin, Qual NEGATIVE, Salicylates Level 5.2, Acetaminophen Level < 2.0L, Ethyl Alcohol Level < 0.003 CBC/BMP Laboratory Tests 01/10/17 13:38 Red Blood Count 4.51, Mean Corpuscular Volume 90.9, Mean Corpuscular Hemoglobin 31.3, Mean Corpuscular Hemoglobin Concent 34.4, Red Cell Distribution Width 13.3 Medications Scheduled Bupropion HCl (Bupropion HCl Xl) 300 Mg Tab, 300 MG PO DAILY, (Reported) Darifenacin Hydrobromide (Darifenacin ER) 15 Mg Tab, 15 MG PO DAILY, (Reported) Levothyroxine Sodium (Levoxyl) 75 Mcg Tab, 75 MCG PO DAILY, (Reported) Nicotine (Nicotine Step 1) 21 Mg/24 Hr Dis, 21 MG TD DAILY, (Reported) Ranitidine HCl (Ranitidine HCl) 150 Mg Tab, 1 TAB PO QHS, (Reported) Scheduled PRN (Flonase Allergy Relief) 50 Mcg/Act Spr, 2 SPRAY NA DAILY PRN for ALLERGIES, ( Reported) Miscellaneous Medications [Patient Comment] , (Reported) UNABLE TO VERIFY MEDICATIONS WITH PATIENT... VERIFIED WITH PHARMACY AND CLINIC VISIT Allergies Coded Allergies: No Known Drug Allergy (Verified Allergy, Unknown, 11/28/12) KATE COCHRAN MD January 11, 2017 11:32
[2017-01-11] MEDS ORDERED: FLUTICASONE PROP 0.05% NASAL SPRAY 16 GM (FLONASE) PRN (12:30)
--- NOTE | 2017-01-11 12:33 | HPEPDOC ---
Medical History and Physical Date of Admission January 10, 2017 at 15:47 History and Physical PCP: [facility] clinic ATTENDING: Dr. Parker Jackson HPI: 36 yo F admitted to [facility] for unspecified schizophrenia spectrum, being medically examined today. No acute medical complaints today. Denies any fevers, chills, weakness, fatigue, FREITAS, CP, SOB, cough, palpitations, abdominal pain, N/V /D or changes in bowel or bladder habits. PMHx: Bipolar disorder Urinary frequency. Followed by [facility] urology last appointment 12/14. Allergic rhinitis Hypothyroid GERD PSHX: Denies SOCHX: Resides in: [place], lives with her mother. Marital Status: Single Kids: None Employment: Unemployed Tobacco use: One pack per day ETOH: Denies Illicit Drugs: Denies IV Drug Use: Denies Tattoos done unprofessionally: Denies FAMHX: Mother: Alive, dementia, heart disease Father: Alive, well ROS: As noted in HPI, otherwise 11pt ROS of systems reviewed and remarkable only for LMP unknown. PE: GEN: 36 yo F, appears older than stated age. No acute distress. Alert and oriented x 3. Patient reluctant to provide history or participate with exam. Agitated at times. Tangential with rapid pressured speech. HEENT: Normocephalic, atraumatic. Pupils are equal, round, and reactive to light. Extraocular movements are intact. No nystagmus appreciated. Sclera are nonicteric. Conjunctiva without injection. Nose midline. Nasal turbinates without bogginess. EACs both patent BL. TMs both visualized and johnson with good cone of light, no bulging or erythema. No facial asymmetry. Moist mucous membranes. Dentition poor. Pharynx pink and moist, no cobblestoning. Neck supple , trachea midline. No lymphadenopathy or thyromegaly appreciated. CHEST: Regular rate and rhythm, +S1, +S2 LUNGS: Clear to auscultation bilaterally. No wheezes, rales, or rhonchi. Breathing appears symmetric and easy. Patient is speaking in full sentences. No accessory muscle use. ABD: Round, soft, non-tender, non-distended. +Bowel sounds throughout. No rebound or guarding. No costovertebral angle tenderness. EXT: Pulses 2+ bilaterally dorsalis pedis and radial. No lower extremity edema appreciated. SKIN: [place], dry, warm. Capillary refill <2sec. No rashes. NEURO: Alert and oriented x 3. Cranial nerves III-XII are intact. No focal deficits appreciated. EKG: pending. A&P: 36 yo F admitted to [facility] for unspecified schizophrenia spectrum 1. Psych. Plan per Psychiatry. Obtain baseline EKG to assure the safety of psychiatric medications as they can prolong the QT interval. 2. Nicotine dependence. Patch available. 3. Hypothyroid. TSH is noted to be elevated. Patient possibly noncompliant with supplement. Continue Synthroid 75 g daily. Recheck thyroid profile. 4. Follow up with PCP on discharge. 5. Allergic rhinitis. Continue Flonase daily as needed. 6. Urinary frequency. Follows as outpatient with [facility] urology. Continue Enablex 15 mg daily. 7. GERD. Continue Pepcid 20 mg at bedtime. 8. Hypokalemia. Patient is eating and drinking well. Recheck BMP. 9. Leukocytosis. Patient is asymptomatic. Afebrile. Possibly stress response. Recheck CBC. 10. Staff member Yolanda present throughout exam Vital Signs Vital Signs Date Time Temp Pulse Resp B/P (MAP) Pulse Ox O2 Delivery O2 Flow Rate FiO2 01/11/17 07:02 97.6 101 18 144/83 (103) 01/10/17 16:45 95 Room Air Laboratory Data Labs 24H Laboratory Tests 2 01/10/17 13:38: Anion Gap 9, Glomerular Filtration Rate > 60.0, Calcium Level 9.4, Aspartate Amino Transf (AST/SGOT) 25, Alanine Aminotransferase (ALT/SGPT) 30, Alkaline Phosphatase 98, Total Bilirubin 0.4, Direct Bilirubin 0.1, Total Protein 7.8, Albumin 4.2, Albumin/Globulin Ratio 1.17, Thyroid Stimulating Hormone (TSH) 6.870H, Human Chorionic Gonadotropin, Qual NEGATIVE, Salicylates Level 5.2, Acetaminophen Level < 2.0L, Ethyl Alcohol Level < 0.003 CBC/BMP Item Value Date Time White Blood Count 14.3 K/mm3 H 01/10/17 1338 Red Blood Count 4.51 M/mm3 01/10/17 1338 Hemoglobin 14.1 g/dl 01/10/17 1338 Hematocrit 41.0 % 01/10/17 1338 Mean Corpuscular Volume 90.9 fl 01/10/17 1338 Mean Corpuscular Hemoglobin 31.3 pg 01/10/17 1338 Mean Corpuscular Hemoglobin Concent 34.4 g/dl 01/10/17 1338 Red Cell Distribution Width 13.3 % 01/10/17 1338 Platelet Count 267 k/mm3 01/10/17 1338 Sodium Level 139 MEQ/L 01/10/17 1338 Potassium Level 3.3 MEQ/L L 01/10/17 1338 Chloride Level 103 MEQ/L 01/10/17 1338 Carbon Dioxide Level 27 MEQ/L 01/10/17 1338 Anion Gap 9 MEQ/L 01/10/17 1338 Blood Urea Nitrogen 4 MG/DL L 01/10/17 1338 Creatinine 0.98 MG/DL 01/10/17 1338 Glomerular Filtration Rate > 60.0 01/10/17 1338 Fasting Glucose 183 MG/DL H 01/10/17 1338 Calcium Level 9.4 MG/DL 01/10/17 1338 Total Bilirubin 0.4 MG/DL 01/10/17 1338 Direct Bilirubin 0.1 MG/DL 01/10/17 1338 Aspartate Amino Transf (AST/SGOT) 25 U/L 01/10/17 1338 Alanine Aminotransferase (ALT/SGPT) 30 U/L 01/10/17 1338 Alkaline Phosphatase 98 U/L 01/10/17 1338 Total Protein 7.8 GM/DL 01/10/17 1338 Albumin 4.2 GM/DL 01/10/17 1338 Albumin/Globulin Ratio 1.17 01/10/17 1338 Thyroid Stimulating Hormone (TSH) 6.870 uIU/ML H 01/10/17 1338 Human Chorionic Gonadotropin, Qual NEGATIVE 01/10/17 1338 Salicylates Level 5.2 MG/DL 01/10/17 1338 Acetaminophen Level < 2.0 UG/ML L 01/10/17 1338 Ethyl Alcohol Level < 0.003 % 01/10/17 1338 Laboratory Tests 01/10/17 13:38 Red Blood Count 4.51, Mean Corpuscular Volume 90.9, Mean Corpuscular Hemoglobin 31.3, Mean Corpuscular Hemoglobin Concent 34.4, Red Cell Distribution Width 13.3 Home Medications Scheduled Bupropion HCl (Bupropion HCl Xl) 300 Mg Tab, 300 MG PO DAILY Darifenacin Hydrobromide (Darifenacin ER) 15 Mg Tab, 15 MG PO DAILY Levothyroxine Sodium (Levoxyl) 75 Mcg Tab, 75 MCG PO DAILY Nicotine (Nicotine Step 1) 21 Mg/24 Hr Dis, 21 MG TD DAILY Ranitidine HCl (Ranitidine HCl) 150 Mg Tab, 1 TAB PO QHS Scheduled PRN (Flonase Allergy Relief) 50 Mcg/Act Spr, 2 SPRAY NA DAILY PRN for ALLERGIES Miscellaneous Medications [Patient Comment] UNABLE TO VERIFY MEDICATIONS WITH PATIENT... VERIFIED WITH PHARMACY AND CLINIC VISIT Allergies Coded Allergies: No Known Drug Allergy (Verified Allergy, Unknown, 11/28/12) Anika Almazan January 11, 2017 12:33
[2017-01-11] MEDS: LEVOTHYROXINE 0.075 MG TAB (75 MCG) PO SCH (12:43)
[2017-01-11] MEDS: NICOTINE 21MG/24HR 1 EA TRANSDERMAL TD SCH (13:16)
[2017-01-11] MEDS: ACETAMINOPHEN TAB 650MG DOSE (2X325MG) PO PRN ×2 (16:27→22:43)
[2017-01-11 18:00] VITALS: BP 125/81
--- NOTE | 2017-01-11 18:11 | ECGEPIP ---
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
[2017-01-11] MEDS: FAMOTIDINE 20 MG TAB PO SCH (21:00)
[2017-01-11] MEDS: QUEtiapine FUMARATE 100 MG TAB PO SCH (21:00)
[2017-01-12] MEDS: LEVOTHYROXINE 0.075 MG TAB (75 MCG) PO SCH (06:00)
[2017-01-12 06:44] VITALS: BP 137/90
[2017-01-12] MEDS: ACETAMINOPHEN TAB 650MG DOSE (2X325MG) PO PRN ×3 (08:14→21:47)
[2017-01-12] MEDS: NICOTINE 21MG/24HR 1 EA TRANSDERMAL TD SCH (08:14)
[2017-01-12] MEDS: LITHIUM CARBONATE 300 MG CAP PO SCH ×2 (08:15→20:24)
[2017-01-12] MEDS: BENZTROPINE 1 MG TAB PO SCH ×2 (08:15→20:23)
[2017-01-12] MEDS: risperiDONE 2 MG TAB PO SCH ×2 (08:15→20:24)
[2017-01-12] MEDS ORDERED: ENTER DRUG NAME HERE (PATIENT'S OWN MED) PO SCH (09:00)
--- NOTE | 2017-01-12 16:23 | MHIPNPDOC ---
[facility] Progress Note Progress Note DATE OF SERVICE: 01/12/17 HISTORY: 36-year-old female with history of bipolar disorder, current episode manic and medication noncompliance who refused to be evaluated today as she has been refusing medications since yesterday. Then she was approached by these other, the landscape engineer and then medical student because she needed to be evaluated but refused again. She was seen today in the hallway dressed in hospital clothes, uncooperative, loud, defensive/aggressive. Her speech is rapid and loud. Her thought processes disorganized, her thought content is positive for paranoid delusions. Her impulse control, insight and judgment are very poor. She is dangerous to self because she doesn't comply with treatment and to others for the same reason. She needs to continue an inpatient mental health unit and if she continues to refuse medications and treatment, at [facility] form will be filled in order to do treatment over objection. DIAGNOSES: As above ASSESSMENT: Patient is very unstable and delusional. She needs treatment but continues to refuse treatment, for that reason she will have to go through the process of treatment over objection. MANAGEMENT PLAN: As above. TIME SPENT: 20 minutes. Vital Signs Vital Signs Date Time Temp Pulse Resp B/P (MAP) Pulse Ox O2 Delivery O2 Flow Rate FiO2 01/12/17 06:44 97.8 110 16 137/90 (106) 01/10/17 16:45 95 Room Air Current Medications Current Medications Acetaminophen (Tylenol Tab) 650 mg Q6HP PRN PO HEADACHE or DISCOMFORT Last administered on 01/12/17t 15:15; Start 01/10/17 at 16:00; Stop 02/09/17 at 15:59 Al Hydrox/Mg Hydrox/Simethicone (Mylanta) 30 ml Q4HP PRN PO HEARTBURN/ INDIGESTION; Start 01/10/17 at 16:00; Stop 02/09/17 at 15:59 Benztropine Mesylate (Cogentin) 1 mg BID PO ; Start 01/10/17 at 21:00; Stop at 20:59 Cetylpyridinium Chloride (Cepacol) 1 derrell Q2HP PRN PO SORE THROAT; Start at 17:15; Stop 02/09/17 at 17:14 Diphenhydramine HCl (Benadryl) 50 mg STAT STAT IM Last administered on 14:16; Start 01/10/17 at 13:33; Stop 01/10/17 at 13:35; Status DC Famotidine (Pepcid) 20 mg QHS PO ; Start 01/11/17 at 21:00; Stop 02/10/17 at 20: 59 Fluticasone Propionate (Flonase 0.05% Nasal [place]) 2 spray DAILYPRN PRN NA ALLERGIES; Start 01/11/17 at 12:30; Stop 02/10/17 at 12:29 Haloperidol (Haldol) 5 mg BID PO ; Start 01/10/17 at 21:00; Stop 01/11/17 at 11: 36; Status DC Haloperidol (Haldol) 5 mg Q6HP PRN PO AGITATION; Start 01/10/17 at 16:00; Stop 02/09/17 at 15:59 Haloperidol (Haldol) 5 mg STAT STAT IM Last administered on 01/10/17 14:15; Start 01/10/17 at 13:33; Stop 01/10/17 at 13:35; Status DC Home Med (Med Rec Complete!) ASDIRECTED XX ; Start 01/10/17 at 16:30; Stop at 16:30; Status DC Levothyroxine Sodium (Synthroid) 0.075 mg DAILY@0600 PO Last administered on 06:00; Start 01/11/17 at 06:00; Stop 02/10/17 at 05:59 [place] Carbonate ([place] Carbonate) 300 mg BID PO Last administered on 21:50; Start 01/10/17 at 21:00; Stop 02/09/17 at 20:59 Lorazepam (Ativan) 1 mg Q6HP PRN PO AGITATION; Start 01/10/17 at 16:00; Stop at 15:59 Lorazepam (Ativan) 1 mg STAT STAT IM Last administered on 01/10/17 13:16; Start 01/10/17 at 13:33; Stop 01/10/17 at 13:35; Status DC Magnesium Hydroxide (Milk Of Magnesia) 30 ml DAILYPRN PRN PO CONSTIPATION; Start 01/10/17 at 16:00; Stop 02/09/17 at 15:59 Miscellaneous (Unresolved Patient Own Med Order) SEE LABEL COMMENTS UNRESOLVED XX ; Start 01/11/17 at 00:01; Stop 02/10/17 at 00:00 Nicotine (Nicoderm Cq 21mg) 1 patch DAILY TD Last administered on 01/12/17 08: 14; Start 01/11/17 at 09:00; Stop 02/10/17 at 08:59 Patient Own Medication (Patient'S Own Med) 1 ea DAILY PO ; Start 01/12/17 at 09: 00; Stop 02/11/17 at 08:59; Status UNV Quetiapine Fumarate (SEROquel) 100 mg QHS PO Last administered on 01/10/17 21: 50; Start 01/10/17 at 21:00; Stop 02/09/17 at 20:59 Risperidone (RisperDAL) 2 mg BID PO ; Start 01/11/17 at 09:00; Stop 02/10/17 at 08:59 Trazodone HCl (Desyrel) 50 mg QHSP PRN PO INSOMNIA; Start 01/10/17 at 16:00; Stop 02/09/17 at 15:59 Allergies Coded Allergies: No Known Drug Allergy (Verified Allergy, Unknown, 11/28/12) KATE COCHRAN MD January 12, 2017 16:23
[2017-01-12 18:28] VITALS: BP 138/87
[2017-01-12] MEDS: FAMOTIDINE 20 MG TAB PO SCH (20:24)
[2017-01-12] MEDS: QUEtiapine FUMARATE 100 MG TAB PO SCH (21:00)
[2017-01-13] MEDS: LEVOTHYROXINE 0.075 MG TAB (75 MCG) PO SCH (06:02)
[2017-01-13 06:45] VITALS: BP 149/102
[2017-01-13] MEDS: LITHIUM CARBONATE 300 MG CAP PO SCH ×2 (08:19→21:00)
[2017-01-13] MEDS: ACETAMINOPHEN TAB 650MG DOSE (2X325MG) PO PRN ×3 (08:19→21:36)
[2017-01-13] MEDS: NICOTINE 21MG/24HR 1 EA TRANSDERMAL TD SCH (08:19)
[2017-01-13] MEDS: risperiDONE 2 MG TAB PO SCH ×2 (08:20→21:00)
[2017-01-13] MEDS: BENZTROPINE 1 MG TAB PO SCH ×2 (08:20→21:00)
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
--- NOTE | 2017-01-13 16:17 | IPN ---
DATE: 01/13/2017 Evaluated 36-year-old female with history of bipolar disorder, current episode manic, medication noncompliance, who keeps refusing to take her medications since she was admitted. She was approached today because she received notice of her treatment over objection and she was able to control her impulses, but she says that she has gone through this before, she has done the treatment over objection, has gone to court and that no one was going to push her to take medications. She was very angry, agitated, but not physically or verbally aggressive. Her judgment and impulse control are very poor. Her insight is poor. Her speech is rapid, a little bit pressured. Her thought process is disorganized. Her thought content is positive for delusions. Those delusions are paranoid and grandiose. She has denied having auditory and visual hallucinations and she refused to answer today or to report if she was having perceptual disturbances, because she became very angry once her notice for the treatment over objection was handed to her. The patient continues to be a danger to herself and others because she is not taking care of herself when she does not take medications and she certainly has put her life at risk by being able to drive in that state of mind. She has been creating havoc at public places, as it was when she was brought in and she can certainly be aggressive to other people. For that reason, she needs to be hospitalized to comply with treatment, and if she does not agree to it before the treatment over objection takes its course then we will wait for it and we will wait to go to court and then she will be transferred to [facility] once they have a bed available for her, but in the meantime, we expect to be able to give her her medications after the court mandates her to do it. We will followup and keep her under close observation.
--- NOTE | 2017-01-13 16:33 | IPN ---
DATE: 01/13/2017 I came to see the patient, as part of an assessment for "2PC" for the patient remaining in the hospital. She had been psychotic, deluded, delusions of grandeur, poor insight, poor judgment, unable to cater for herself. The chart is reviewed. The patient was informed of my request to see her. I saw her walking in the corridor and she informed the nurse that she was declining to see me, did not want to meet, as she felt I had not met with her at her last hospitalization. Given the patient's condition, she needs to remain in the hospital at present, and the application for that is accepted. The relevant forms are signed.
[2017-01-13] MEDS: FAMOTIDINE 20 MG TAB PO SCH (21:00)
[2017-01-13] MEDS: QUEtiapine FUMARATE 100 MG TAB PO SCH (21:00)
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
[2017-01-14] MEDS: LEVOTHYROXINE 0.075 MG TAB (75 MCG) PO SCH (05:52)
[2017-01-14 06:45] VITALS: BP 168/84
[2017-01-14] MEDS: NICOTINE 21MG/24HR 1 EA TRANSDERMAL TD SCH (08:31)
[2017-01-14] MEDS: LITHIUM CARBONATE 300 MG CAP PO SCH ×2 (08:33→21:00)
[2017-01-14] MEDS: ACETAMINOPHEN TAB 650MG DOSE (2X325MG) PO PRN ×2 (08:33→19:27)
[2017-01-14] MEDS: BENZTROPINE 1 MG TAB PO SCH ×2 (08:33→21:00)
[2017-01-14] MEDS: risperiDONE 2 MG TAB PO SCH ×2 (08:34→21:00)
--- NOTE | 2017-01-14 15:58 | MHIPNPDOC ---
[facility] Progress Note Progress Note DATE OF SERVICE: 01/14/17 INTERVAL HISTORY: Medication Side effects: Unknown does not appear to be expressing any Behavior/events: Remains delusional and bizarre and aloof from the social milieu Group Attendance: Has not attended groups Psychiatric Symptoms: Wishes not to meet with the treatment team and refused to meet with the mental hygiene software verification engineer for treatment over objection. The patient appears to be responding to internal stimuli, endorsing odd and delusional beliefs and has a labile affect. VITAL SIGNS: See below. NEW TEST RESULTS: See below CURRENT MEDICATIONS: See below. MENTAL STATUS EXAMINATION: General: Disheveled Speech: Pressured Thought processes: disorganized Thought content: Paranoid ideation about the treatment team Abstract reasoning, and computation: Impaired Description of associations: Loose Description of abnormal or psychotic thoughts: Appears to endorse number of paranoid and odd beliefs, but does not make any threats towards herself or others at this time. At times she does appear to be responding to internal stimuli. Judgment: Poor Insight: poor Orientation: Appears alert and orientated Recent and remote memory: Is able to remember the treatment team and the mental hygiene software verification engineer from previous admissions Attention span and concentration: Impaired Fund of knowledge: Unknown Mood: "Fine" Affect: Labile DIAGNOSES: 1. Bipolar 1, current episode manic. ASSESSMENT: Not improving MANAGEMENT PLAN: Medications: Continue to offer medications the patient consistently refuses, pursuing treatment over objection Court early next week Psychotherapy: Encourage group attendance Social: Second opinion has been completed and patient has refused to meet with mental [facility] software verification engineer at this time Misc: None Disposition: The patient will need of further inpatient stay to address severe allison with psychotic features. TIME SPENT: 15 minutes. Vital Signs Vital Signs Date Time Temp Pulse Resp B/P (MAP) Pulse Ox O2 Delivery O2 Flow Rate FiO2 01/14/17 06:45 97.8 101 20 168/84 (112) 01/10/17 16:45 95 Room Air Current Medications Current Medications Acetaminophen (Tylenol Tab) 650 mg Q6HP PRN PO HEADACHE or DISCOMFORT Last administered on 01/14/17t 08:33; Start 01/10/17 at 16:00; Stop 02/09/17 at 15:59 Al Hydrox/Mg Hydrox/Simethicone (Mylanta) 30 ml Q4HP PRN PO HEARTBURN/ INDIGESTION; Start 01/10/17 at 16:00; Stop 02/09/17 at 15:59 Benztropine Mesylate (Cogentin) 1 mg BID PO ; Start 01/10/17 at 21:00; Stop at 20:59 Cetylpyridinium Chloride (Cepacol) 1 derrell Q2HP PRN PO SORE THROAT; Start at 17:15; Stop 02/09/17 at 17:14 Diphenhydramine HCl (Benadryl) 50 mg STAT STAT IM Last administered on 14:16; Start 01/10/17 at 13:33; Stop 01/10/17 at 13:35; Status DC Famotidine (Pepcid) 20 mg QHS PO ; Start 01/11/17 at 21:00; Stop 02/10/17 at 20: 59 Fluticasone Propionate (Flonase 0.05% Nasal [place]) 2 spray DAILYPRN PRN NA ALLERGIES; Start 01/11/17 at 12:30; Stop 02/10/17 at 12:29 Haloperidol (Haldol) 5 mg BID PO ; Start 01/10/17 at 21:00; Stop 01/11/17 at 11: 36; Status DC Haloperidol (Haldol) 5 mg Q6HP PRN PO AGITATION; Start 01/10/17 at 16:00; Stop 02/09/17 at 15:59 Haloperidol (Haldol) 5 mg STAT STAT IM Last administered on 01/10/17 14:15; Start 01/10/17 at 13:33; Stop 01/10/17 at 13:35; Status DC Home Med (Med Rec Complete!) ASDIRECTED XX ; Start 01/10/17 at 16:30; Stop at 16:30; Status DC Levothyroxine Sodium (Synthroid) 0.075 mg DAILY@0600 PO Last administered on 05:52; Start 01/11/17 at 06:00; Stop 02/10/17 at 05:59 [place] Carbonate ([place] Carbonate) 300 mg BID PO Last administered on 21:50; Start 01/10/17 at 21:00; Stop 02/09/17 at 20:59 Lorazepam (Ativan) 1 mg Q6HP PRN PO AGITATION; Start 01/10/17 at 16:00; Stop at 15:59 Lorazepam (Ativan) 1 mg STAT STAT IM Last administered on 01/10/17 13:16; Start 01/10/17 at 13:33; Stop 01/10/17 at 13:35; Status DC Magnesium Hydroxide (Milk Of Magnesia) 30 ml DAILYPRN PRN PO CONSTIPATION; Start 01/10/17 at 16:00; Stop 02/09/17 at 15:59 Miscellaneous (Unresolved Patient Own Med Order) SEE LABEL COMMENTS UNRESOLVED XX ; Start 01/11/17 at 00:01; Stop 01/14/17 at 13:46; Status DC Nicotine (Nicoderm Cq 21mg) 1 patch DAILY TD Last administered on 01/14/17 08: 31; Start 01/11/17 at 09:00; Stop 02/10/17 at 08:59 Patient Own Medication (Patient'S Own Med) 1 ea DAILY PO ; Start 01/12/17 at 09: 00; Stop 01/14/17 at 13:46; Status DC Quetiapine Fumarate (SEROquel) 100 mg QHS PO Last administered on 01/10/17 21: 50; Start 01/10/17 at 21:00; Stop 02/09/17 at 20:59 Risperidone (RisperDAL) 2 mg BID PO ; Start 01/11/17 at 09:00; Stop 02/10/17 at 08:59 Trazodone HCl (Desyrel) 50 mg QHSP PRN PO INSOMNIA; Start 01/10/17 at 16:00; Stop 02/09/17 at 15:59 Allergies Coded Allergies: No Known Drug Allergy (Verified Allergy, Unknown, 11/28/12) GME ATTESTATION My preceptor for this patient encounter was physically present in the building during the encounter and was fully available. As needed, all aspects of the patient interview, examination, medical decision making process, and medical care plan development were reviewed and approved by the preceptor. Preceptor is aware and concurs with the plan as stated in the body of this note and will attest to such by his/her cosignature. MCKENZIE HILLS DO January 14, 2017 15:58
[2017-01-14 18:00] VITALS: BP 141/93
[2017-01-14] MEDS: FAMOTIDINE 20 MG TAB PO SCH (21:00)
[2017-01-14] MEDS: QUEtiapine FUMARATE 100 MG TAB PO SCH (21:00)
[2017-01-15] MEDS: LEVOTHYROXINE 0.075 MG TAB (75 MCG) PO SCH (06:00)
[2017-01-15] MEDS: LITHIUM CARBONATE 300 MG CAP PO SCH ×2 (08:47→21:00)
[2017-01-15] MEDS: risperiDONE 2 MG TAB PO SCH ×2 (08:47→21:00)
[2017-01-15] MEDS: BENZTROPINE 1 MG TAB PO SCH ×2 (08:47→21:00)
[2017-01-15] MEDS: NICOTINE 21MG/24HR 1 EA TRANSDERMAL TD SCH (09:00)
[2017-01-15] MEDS ORDERED: diphenhydrAMINE INJ 50MG/ML VIAL (J1200) IM STA (11:35)
[2017-01-15] MEDS ORDERED: LORazepam 2 MG/ML VIAL (J2060) IM STA (11:35)
[2017-01-15] MEDS ORDERED: HALOPERIDOL 5 MG/ML VIAL (J1630) IM STA (11:35)
[2017-01-15] MEDS: QUEtiapine FUMARATE 100 MG TAB PO SCH (21:00)
[2017-01-15] MEDS: FAMOTIDINE 20 MG TAB PO SCH (21:00)
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
[2017-01-16] MEDS: LEVOTHYROXINE 0.075 MG TAB (75 MCG) PO SCH (06:09)
[2017-01-16 06:45] VITALS: BP 160/98
[2017-01-16] MEDS ORDERED: LORazepam 2 MG/ML VIAL (J2060) IM STA (07:42)
[2017-01-16] MEDS ORDERED: HALOPERIDOL 5 MG/ML VIAL (J1630) IM STA (07:42)
[2017-01-16] MEDS ORDERED: diphenhydrAMINE INJ 50MG/ML VIAL (J1200) IM STA (07:42)
[2017-01-16] MEDS: NICOTINE 21MG/24HR 1 EA TRANSDERMAL TD SCH (08:28)
[2017-01-16] MEDS: risperiDONE 2 MG TAB PO SCH ×2 (08:28→21:00)
[2017-01-16] MEDS: BENZTROPINE 1 MG TAB PO SCH ×2 (08:28→21:00)
[2017-01-16] MEDS: LITHIUM CARBONATE 300 MG CAP PO SCH ×2 (08:28→21:00)
[2017-01-16] MEDS: QUEtiapine FUMARATE 100 MG TAB PO SCH (21:00)
[2017-01-16] MEDS: FAMOTIDINE 20 MG TAB PO SCH (21:00)
[2017-01-17] MEDS: LEVOTHYROXINE 0.075 MG TAB (75 MCG) PO SCH (06:03)
[2017-01-17 06:27] VITALS: BP 132/90
[2017-01-17] MEDS: NICOTINE 21MG/24HR 1 EA TRANSDERMAL TD SCH (08:18)
[2017-01-17] MEDS: ACETAMINOPHEN TAB 650MG DOSE (2X325MG) PO PRN ×3 (08:18→21:43)
[2017-01-17] MEDS: BENZTROPINE 1 MG TAB PO SCH ×2 (08:19→21:00)
[2017-01-17] MEDS: LITHIUM CARBONATE 300 MG CAP PO SCH ×2 (08:19→21:00)
[2017-01-17] MEDS: risperiDONE 2 MG TAB PO SCH ×2 (08:19→21:00)
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
[2017-01-17 18:00] VITALS: BP 133/82
[2017-01-17] MEDS: QUEtiapine FUMARATE 100 MG TAB PO SCH (21:00)
[2017-01-17] MEDS: FAMOTIDINE 20 MG TAB PO SCH (21:00)
[2017-01-18] MEDS: LEVOTHYROXINE 0.075 MG TAB (75 MCG) PO SCH (05:30)
[2017-01-18 06:28] VITALS: BP 140/88
[2017-01-18] MEDS: NICOTINE 21MG/24HR 1 EA TRANSDERMAL TD SCH (08:39)
[2017-01-18] MEDS: ACETAMINOPHEN TAB 650MG DOSE (2X325MG) PO PRN ×2 (08:40→17:21)
[2017-01-18] MEDS: BENZTROPINE 1 MG TAB PO SCH ×2 (08:40→21:00)
[2017-01-18] MEDS: risperiDONE 2 MG TAB PO SCH ×2 (08:40→21:00)
[2017-01-18] MEDS: LITHIUM CARBONATE 300 MG CAP PO SCH ×2 (08:40→21:00)
[2017-01-18 18:00] VITALS: BP 150/96
--- NOTE | 2017-01-18 20:02 | MHIPNPDOC ---
[facility] Progress Note Progress Note DATE OF SERVICE: 01/18/17 INTERVAL HISTORY: Medication Side effects: The patient does not describe any side effects as she is not taking any medications currently Behavior/events: Remains bizarre, she was served with legal paper stay for pending court case Group Attendance: Has attended some groups Psychiatric Symptoms: Remains fairly distorted and bizarre. She has become more hypersexual flirting with other patients. She continues to be hyperverbal and difficult to redirect during conversations. She has a low frustration tolerance and rapidly switches her mood from tearful to elated. VITAL SIGNS: See below. NEW TEST RESULTS: See below CURRENT MEDICATIONS: See below. MENTAL STATUS EXAMINATION: General: Disheveled Speech: Pressured Thought processes: Disorganized Thought content: Paranoid ideation about treatment team Abstract reasoning, and computation: Impaired Description of associations: Loose Description of abnormal or psychotic thoughts: Makes no threats towards herself or others. Does not appear to be responding to internal stimuli. Judgment: Poor Insight: Poor Orientation: Alert and orientated 3 Recent and remote memory: Intact Attention span and concentration: Impaired Fund of knowledge: Poor Mood: "Fine" Affect: Angry and irritable DIAGNOSES: 1. Bipolar disorder type I current episode manic. ASSESSMENT: Continues without treatment to regress MANAGEMENT PLAN: Medications: Continue to offer medications, court case will be this week for treatment over objection Psychotherapy: Patient can continue to go to groups at this time given that her behavior does not become violent Social: None Misc: None Disposition: The patient will need of further inpatient stay to address severe allison and psychosis. TIME SPENT: 15 minutes. Vital Signs Vital Signs Date Time Temp Pulse Resp B/P (MAP) Pulse Ox O2 Delivery O2 Flow Rate FiO2 01/18/17 18:00 98.7 92 16 150/96 (114) 01/18/17 06:28 Room Air 01/14/17 18:00 95 Current Medications Current Medications Acetaminophen (Tylenol Tab) 650 mg Q6HP PRN PO HEADACHE or DISCOMFORT Last administered on 01/18/17t 17:21; Start 01/10/17 at 16:00; Stop 02/09/17 at 15:59 Al Hydrox/Mg Hydrox/Simethicone (Mylanta) 30 ml Q4HP PRN PO HEARTBURN/ INDIGESTION; Start 01/10/17 at 16:00; Stop 02/09/17 at 15:59 Benztropine Mesylate (Cogentin) 1 mg BID PO ; Start 01/10/17 at 21:00; Stop at 20:59 Cetylpyridinium Chloride (Cepacol) 1 derrell Q2HP PRN PO SORE THROAT; Start at 17:15; Stop 02/09/17 at 17:14 Diphenhydramine HCl (Benadryl) 50 mg STAT STAT IM Last administered on 14:16; Start 01/10/17 at 13:33; Stop 01/10/17 at 13:35; Status DC Diphenhydramine HCl (Benadryl) 50 mg STAT STAT IM ; Start 01/15/17 at 11:35; Stop 01/15/17 at 11:36; Status Cancel Diphenhydramine HCl (Benadryl) 50 mg STAT STAT IM Last administered on 07:55; Start 01/16/17 at 07:42; Stop 01/16/17 at 07:45; Status DC Famotidine (Pepcid) 20 mg QHS PO ; Start 01/11/17 at 21:00; Stop 02/10/17 at 20: 59 Fluticasone Propionate (Flonase 0.05% Nasal [place]) 2 spray DAILYPRN PRN NA ALLERGIES; Start 01/11/17 at 12:30; Stop 02/10/17 at 12:29 Haloperidol (Haldol) 5 mg BID PO ; Start 01/10/17 at 21:00; Stop 01/11/17 at 11: 36; Status DC Haloperidol (Haldol) 5 mg Q6HP PRN PO AGITATION; Start 01/10/17 at 16:00; Stop 02/09/17 at 15:59 Haloperidol (Haldol) 5 mg STAT STAT IM Last administered on 01/10/17 14:15; Start 01/10/17 at 13:33; Stop 01/10/17 at 13:35; Status DC Haloperidol (Haldol) 10 mg STAT STAT IM ; Start 01/15/17 at 11:35; Stop at 11:36; Status Cancel Haloperidol (Haldol) 10 mg STAT STAT IM Last administered on 01/16/17 07:55; Start 01/16/17 at 07:42; Stop 01/16/17 at 07:45; Status DC Home Med (Med Rec Complete!) ASDIRECTED XX ; Start 01/10/17 at 16:30; Stop at 16:30; Status DC Levothyroxine Sodium (Synthroid) 0.075 mg DAILY@0600 PO Last administered on 05:30; Start 01/11/17 at 06:00; Stop 02/10/17 at 05:59 [place] Carbonate ([place] Carbonate) 300 mg BID PO Last administered on 21:50; Start 01/10/17 at 21:00; Stop 02/09/17 at 20:59 Lorazepam (Ativan) 1 mg Q6HP PRN PO AGITATION; Start 01/10/17 at 16:00; Stop at 15:59 Lorazepam (Ativan) 1 mg STAT STAT IM Last administered on 01/10/17 13:16; Start 01/10/17 at 13:33; Stop 01/10/17 at 13:35; Status DC Lorazepam (Ativan) 2 mg STAT STAT IM ; Start 01/15/17 at 11:35; Stop 01/15/17 at 11:36; Status Cancel Lorazepam (Ativan) 2 mg STAT STAT IM Last administered on 01/16/17 07:54; Start 01/16/17 at 07:42; Stop 01/16/17 at 07:45; Status DC Magnesium Hydroxide (Milk Of Magnesia) 30 ml DAILYPRN PRN PO CONSTIPATION; Start 01/10/17 at 16:00; Stop 02/09/17 at 15:59 Miscellaneous (Unresolved Patient Own Med Order) SEE LABEL COMMENTS UNRESOLVED XX ; Start 01/11/17 at 00:01; Stop 01/14/17 at 13:46; Status DC Nicotine (Nicoderm Cq 21mg) 1 patch DAILY TD Last administered on 01/18/17 08: 39; Start 01/11/17 at 09:00; Stop 02/10/17 at 08:59 Patient Own Medication (Patient'S Own Med) 1 ea DAILY PO ; Start 01/12/17 at 09: 00; Stop 01/14/17 at 13:46; Status DC Quetiapine Fumarate (SEROquel) 100 mg QHS PO Last administered on 01/10/17t 21: 50; Start 01/10/17 at 21:00; Stop 02/09/17 at 20:59 Risperidone (RisperDAL) 2 mg BID PO ; Start 01/11/17 at 09:00; Stop 02/10/17 at 08:59 Trazodone HCl (Desyrel) 50 mg QHSP PRN PO INSOMNIA; Start 01/10/17 at 16:00; Stop 02/09/17 at 15:59 Allergies Coded Allergies: No Known Drug Allergy (Verified Allergy, Unknown, 11/28/12) GME ATTESTATION My preceptor for this patient encounter was physically present in the building during the encounter and was fully available. As needed, all aspects of the patient interview, examination, medical decision making process, and medical care plan development were reviewed and approved by the preceptor. Preceptor is aware and concurs with the plan as stated in the body of this note and will attest to such by his/her cosignature. MCKENZIE HILLS DO January 18, 2017 20:02
[2017-01-18] MEDS: QUEtiapine FUMARATE 100 MG TAB PO SCH (21:00)
[2017-01-18] MEDS: FAMOTIDINE 20 MG TAB PO SCH (21:00)
[2017-01-19] MEDS: LEVOTHYROXINE 0.075 MG TAB (75 MCG) PO SCH (05:39)
[2017-01-19 06:54] VITALS: BP 155/103
[2017-01-19] MEDS: NICOTINE 21MG/24HR 1 EA TRANSDERMAL TD SCH (08:12)
[2017-01-19] MEDS: ACETAMINOPHEN TAB 650MG DOSE (2X325MG) PO PRN ×2 (08:12→22:39)
[2017-01-19] MEDS: BENZTROPINE 1 MG TAB PO SCH ×2 (08:13→21:00)
[2017-01-19] MEDS: LITHIUM CARBONATE 300 MG CAP PO SCH ×2 (08:13→21:00)
[2017-01-19] MEDS: risperiDONE 2 MG TAB PO SCH ×2 (08:13→21:00)
--- NOTE | 2017-01-19 15:58 | MHIPNPDOC ---
[facility] Progress Note Progress Note DATE OF SERVICE: 01/19/17 INTERVAL HISTORY: Medication Side effects: Denies to take medications Behavior: Continues to be refusing medication, therapy but hasn't been aggressive or violent to anyone today Group Attendance: Irregular Psychiatric Symptom change: She continues to be very psychotic, has pressured speech, bizarre and irrational thoughts. VITAL SIGNS: See below. NEW TEST RESULTS: See below CURRENT MEDICATIONS: See below. MENTAL STATUS EXAMINATION: General: Alert, dressed in hospital clothes wearing a hat, guarded and suspicious Speech: Pressured, flight of ideas Thought processes: Irrational Thought content: Perseveres about "you are not on a force me to take medications " Abstract reasoning, and computation: Poor due to patient's mental status Description of associations: Loose Description of abnormal or psychotic thoughts: Paranoid, grandiose delusions are present. Bizarre ideation. Judgment: Poor Insight: Poor Orientation: Oriented to place and person only Recent and remote memory: Unable to assess Attention span and concentration: Poor Fund of knowledge: Unable to assess Mood: Irritable Affect: And guarded, suspicious, irritable DIAGNOSES: 1. Bipolar disorder, manic episode. . 3. . ASSESSMENT: Patient continues to be very psychotic and for this reason she will go to court on January 22 for treatment over objection. MANAGEMENT PLAN: Medications: Continues with the same medications that were indicated since she was admitted but she refuses to take them. Psychotherapy: Continue to encourage her to attend groups but she doesn't attend all of them. Social: She interacts occasionally with some of her peers but in an inappropriate way because of her mental problem. Misc: -- Disposition: She needs to continue hospitalization until she becomes stable. Will need to go to court or treatment over objection to have her comply with medications. TIME SPENT: 20 minutes. Vital Signs Vital Signs Date Time Temp Pulse Resp B/P (MAP) Pulse Ox O2 Delivery O2 Flow Rate FiO2 01/19/17 06:54 99.0 89 20 155/103 (120) 01/18/17 06:28 Room Air 01/14/17 18:00 95 Current Medications Current Medications Acetaminophen (Tylenol Tab) 650 mg Q6HP PRN PO HEADACHE or DISCOMFORT Last administered on 01/19/17t 08:12; Start 01/10/17 at 16:00; Stop 02/09/17 at 15:59 Al Hydrox/Mg Hydrox/Simethicone (Mylanta) 30 ml Q4HP PRN PO HEARTBURN/ INDIGESTION; Start 01/10/17 at 16:00; Stop 02/09/17 at 15:59 Benztropine Mesylate (Cogentin) 1 mg BID PO ; Start 01/10/17 at 21:00; Stop at 20:59 Cetylpyridinium Chloride (Cepacol) 1 derrell Q2HP PRN PO SORE THROAT; Start at 17:15; Stop 02/09/17 at 17:14 Diphenhydramine HCl (Benadryl) 50 mg STAT STAT IM Last administered on 14:16; Start 01/10/17 at 13:33; Stop 01/10/17 at 13:35; Status DC Diphenhydramine HCl (Benadryl) 50 mg STAT STAT IM ; Start 01/15/17 at 11:35; Stop 01/15/17 at 11:36; Status Cancel Diphenhydramine HCl (Benadryl) 50 mg STAT STAT IM Last administered on 07:55; Start 01/16/17 at 07:42; Stop 01/16/17 at 07:45; Status DC Famotidine (Pepcid) 20 mg QHS PO ; Start 01/11/17 at 21:00; Stop 02/10/17 at 20: 59 Fluticasone Propionate (Flonase 0.05% Nasal [place]) 2 spray DAILYPRN PRN NA ALLERGIES; Start 01/11/17 at 12:30; Stop 02/10/17 at 12:29 Haloperidol (Haldol) 5 mg BID PO ; Start 01/10/17 at 21:00; Stop 01/11/17 at 11: 36; Status DC Haloperidol (Haldol) 5 mg Q6HP PRN PO AGITATION; Start 01/10/17 at 16:00; Stop 02/09/17 at 15:59 Haloperidol (Haldol) 5 mg STAT STAT IM Last administered on 01/10/17 14:15; Start 01/10/17 at 13:33; Stop 01/10/17 at 13:35; Status DC Haloperidol (Haldol) 10 mg STAT STAT IM ; Start 01/15/17 at 11:35; Stop at 11:36; Status Cancel Haloperidol (Haldol) 10 mg STAT STAT IM Last administered on 01/16/17 07:55; Start 01/16/17 at 07:42; Stop 01/16/17 at 07:45; Status DC Home Med (Med Rec Complete!) ASDIRECTED XX ; Start 01/10/17 at 16:30; Stop at 16:30; Status DC Levothyroxine Sodium (Synthroid) 0.075 mg DAILY@0600 PO Last administered on 05:39; Start 01/11/17 at 06:00; Stop 02/10/17 at 05:59 [place] Carbonate ([place] Carbonate) 300 mg BID PO Last administered on 21:50; Start 01/10/17 at 21:00; Stop 02/09/17 at 20:59 Lorazepam (Ativan) 1 mg Q6HP PRN PO AGITATION; Start 01/10/17 at 16:00; Stop at 15:59 Lorazepam (Ativan) 1 mg STAT STAT IM Last administered on 01/10/17 13:16; Start 01/10/17 at 13:33; Stop 01/10/17 at 13:35; Status DC Lorazepam (Ativan) 2 mg STAT STAT IM ; Start 01/15/17 at 11:35; Stop 01/15/17 at 11:36; Status Cancel Lorazepam (Ativan) 2 mg STAT STAT IM Last administered on 01/16/17 07:54; Start 01/16/17 at 07:42; Stop 01/16/17 at 07:45; Status DC Magnesium Hydroxide (Milk Of Magnesia) 30 ml DAILYPRN PRN PO CONSTIPATION; Start 01/10/17 at 16:00; Stop 02/09/17 at 15:59 Miscellaneous (Unresolved Patient Own Med Order) SEE LABEL COMMENTS UNRESOLVED XX ; Start 01/11/17 at 00:01; Stop 01/14/17 at 13:46; Status DC Nicotine (Nicoderm Cq 21mg) 1 patch DAILY TD Last administered on 01/19/17 08: 12; Start 01/11/17 at 09:00; Stop 02/10/17 at 08:59 Patient Own Medication (Patient'S Own Med) 1 ea DAILY PO ; Start 01/12/17 at 09: 00; Stop 01/14/17 at 13:46; Status DC Quetiapine Fumarate (SEROquel) 100 mg QHS PO Last administered on 01/10/17t 21: 50; Start 01/10/17 at 21:00; Stop 02/09/17 at 20:59 Risperidone (RisperDAL) 2 mg BID PO ; Start 01/11/17 at 09:00; Stop 02/10/17 at 08:59 Trazodone HCl (Desyrel) 50 mg QHSP PRN PO INSOMNIA; Start 01/10/17 at 16:00; Stop 02/09/17 at 15:59 Allergies Coded Allergies: No Known Drug Allergy (Verified Allergy, Unknown, 11/28/12) KATE COCHRAN MD January 19, 2017 15:58
[2017-01-19 18:00] VITALS: BP 159/95
[2017-01-19] MEDS: QUEtiapine FUMARATE 100 MG TAB PO SCH (21:00)
[2017-01-19] MEDS: FAMOTIDINE 20 MG TAB PO SCH (21:00)
[2017-01-19 22:40] VITALS: BP 159/95
[2017-01-20] MEDS: LEVOTHYROXINE 0.075 MG TAB (75 MCG) PO SCH (06:00)
[2017-01-20] MEDS: NICOTINE 21MG/24HR 1 EA TRANSDERMAL TD SCH (08:50)
[2017-01-20] MEDS: LITHIUM CARBONATE 300 MG CAP PO SCH ×2 (08:51→21:00)
[2017-01-20] MEDS: BENZTROPINE 1 MG TAB PO SCH ×2 (08:51→21:00)
[2017-01-20] MEDS: risperiDONE 2 MG TAB PO SCH ×2 (08:51→21:00)
--- NOTE | 2017-01-20 10:27 | MHIPNPDOC ---
[facility] Progress Note Progress Note DATE OF SERVICE: 01/20/17 INTERVAL HISTORY: Medication Side effects: She has refused to take her medications and continues to refuse them. Behavior: She is defiant, oppositional and irritable. She responds aggressively when approached. Group Attendance: Attends some groups. Psychiatric Symptom change: She continues to be psychotic, delusional, paranoid. VITAL SIGNS: See below. NEW TEST RESULTS: See below CURRENT MEDICATIONS: See below. MENTAL STATUS EXAMINATION: General: Alert, not cooperative with interview, good eye contact, guarded, paranoid Speech: Pressured speech, circumstantial and tangential Thought processes: Illogical, irrational. Disorganized Thought content: Perseverates about not needing medications and that she is going to take all of (social workers, doctors, nurses) to court and she is going to win because her doctor at [facility] told her she didn't need any medications. Abstract reasoning, and computation: Poor Description of associations: Not loose Description of abnormal or psychotic thoughts: Delusional, paranoid, grandiose. Judgment: Poor Insight: Poor Orientation: Oriented to place and person only Recent and remote memory: Unable to assess Attention span and concentration: Poor Fund of knowledge: Unable to assess Mood: "An angry" Affect: Irritable, angry, labile DIAGNOSES: 1. Bipolar disorder, current episode manic. ASSESSMENT: Patient continues to be very psychotic and continues to refuse medications and all kinds of help that the hospital can provide her. She insists she doesn't have to take medications and that she will represent herself at Court on Wednesday. Her insight, judgment are extremely poor. MANAGEMENT PLAN: Medications: She is not taking any medications but we will continue to advise her to take them Psychotherapy: Will continue to encourage her to attend groups Social: -- Misc: -- Disposition: She will go to court on Wednesday at 10:30 AM for treatment over objection since she has been refusing to take her medications. If the supervisor malt house mandates her to take medication we will be able to transfer her to [facility] for a higher level of care and long-term treatment hospitalization once a bed becomes available there. TIME SPENT: 15 minutes. Vital Signs Vital Signs Date Time Temp Pulse Resp B/P (MAP) Pulse Ox O2 Delivery O2 Flow Rate FiO2 01/19/17 22:40 99.0 95 16 159/95 95 Room Air Current Medications Current Medications Acetaminophen (Tylenol Tab) 650 mg Q6HP PRN PO HEADACHE or DISCOMFORT Last administered on 01/19/17 22:39; Start 01/10/17 at 16:00; Stop 02/09/17 at 15:59 Al Hydrox/Mg Hydrox/Simethicone (Mylanta) 30 ml Q4HP PRN PO HEARTBURN/ INDIGESTION; Start 01/10/17 at 16:00; Stop 02/09/17 at 15:59 Benztropine Mesylate (Cogentin) 1 mg BID PO ; Start 01/10/17 at 21:00; Stop at 20:59 Cetylpyridinium Chloride (Cepacol) 1 derrell Q2HP PRN PO SORE THROAT; Start at 17:15; Stop 02/09/17 at 17:14 Diphenhydramine HCl (Benadryl) 50 mg STAT STAT IM Last administered on 14:16; Start 01/10/17 at 13:33; Stop 01/10/17 at 13:35; Status DC Diphenhydramine HCl (Benadryl) 50 mg STAT STAT IM ; Start 01/15/17 at 11:35; Stop 01/15/17 at 11:36; Status Cancel Diphenhydramine HCl (Benadryl) 50 mg STAT STAT IM Last administered on 07:55; Start 01/16/17 at 07:42; Stop 01/16/17 at 07:45; Status DC Famotidine (Pepcid) 20 mg QHS PO ; Start 01/11/17 at 21:00; Stop 02/10/17 at 20: 59 Fluticasone Propionate (Flonase 0.05% Nasal [place]) 2 spray DAILYPRN PRN NA ALLERGIES; Start 01/11/17 at 12:30; Stop 02/10/17 at 12:29 Haloperidol (Haldol) 5 mg BID PO ; Start 01/10/17 at 21:00; Stop 01/11/17 at 11: 36; Status DC Haloperidol (Haldol) 5 mg Q6HP PRN PO AGITATION; Start 01/10/17 at 16:00; Stop 02/09/17 at 15:59 Haloperidol (Haldol) 5 mg STAT STAT IM Last administered on 01/10/17 14:15; Start 01/10/17 at 13:33; Stop 01/10/17 at 13:35; Status DC Haloperidol (Haldol) 10 mg STAT STAT IM ; Start 01/15/17 at 11:35; Stop at 11:36; Status Cancel Haloperidol (Haldol) 10 mg STAT STAT IM Last administered on 01/16/17 07:55; Start 01/16/17 at 07:42; Stop 01/16/17 at 07:45; Status DC Home Med (Med Rec Complete!) ASDIRECTED XX ; Start 01/10/17 at 16:30; Stop at 16:30; Status DC Levothyroxine Sodium (Synthroid) 0.075 mg DAILY@0600 PO Last administered on 05:39; Start 01/11/17 at 06:00; Stop 02/10/17 at 05:59 [place] Carbonate ([place] Carbonate) 300 mg BID PO Last administered on 21:50; Start 01/10/17 at 21:00; Stop 02/09/17 at 20:59 Lorazepam (Ativan) 1 mg Q6HP PRN PO AGITATION; Start 01/10/17 at 16:00; Stop at 15:59 Lorazepam (Ativan) 1 mg STAT STAT IM Last administered on 01/10/17 13:16; Start 01/10/17 at 13:33; Stop 01/10/17 at 13:35; Status DC Lorazepam (Ativan) 2 mg STAT STAT IM ; Start 01/15/17 at 11:35; Stop 01/15/17 at 11:36; Status Cancel Lorazepam (Ativan) 2 mg STAT STAT IM Last administered on 01/16/17 07:54; Start 01/16/17 at 07:42; Stop 01/16/17 at 07:45; Status DC Magnesium Hydroxide (Milk Of Magnesia) 30 ml DAILYPRN PRN PO CONSTIPATION; Start 01/10/17 at 16:00; Stop 02/09/17 at 15:59 Miscellaneous (Unresolved Patient Own Med Order) SEE LABEL COMMENTS UNRESOLVED XX ; Start 01/11/17 at 00:01; Stop 01/14/17 at 13:46; Status DC Nicotine (Nicoderm Cq 21mg) 1 patch DAILY TD Last administered on 01/20/17 08: 50; Start 01/11/17 at 09:00; Stop 02/10/17 at 08:59 Patient Own Medication (Patient'S Own Med) 1 ea DAILY PO ; Start 01/12/17 at 09: 00; Stop 01/14/17 at 13:46; Status DC Quetiapine Fumarate (SEROquel) 100 mg QHS PO Last administered on 01/10/17 21: 50; Start 01/10/17 at 21:00; Stop 02/09/17 at 20:59 Risperidone (RisperDAL) 2 mg BID PO ; Start 01/11/17 at 09:00; Stop 02/10/17 at 08:59 Trazodone HCl (Desyrel) 50 mg QHSP PRN PO INSOMNIA; Start 01/10/17 at 16:00; Stop 02/09/17 at 15:59 Allergies Coded Allergies: No Known Drug Allergy (Verified Allergy, Unknown, 11/28/12) KATE COCHRAN MD January 20, 2017 10:27
[2017-01-20 18:00] VITALS: BP 142/96
[2017-01-20] MEDS: QUEtiapine FUMARATE 100 MG TAB PO SCH (21:00)
[2017-01-20] MEDS: FAMOTIDINE 20 MG TAB PO SCH (21:00)
[2017-01-21] MEDS: LEVOTHYROXINE 0.075 MG TAB (75 MCG) PO SCH (05:54)
[2017-01-21] MEDS: risperiDONE 2 MG TAB PO SCH ×2 (09:00→20:22)
[2017-01-21] MEDS: BENZTROPINE 1 MG TAB PO SCH ×2 (09:00→20:22)
[2017-01-21] MEDS: LITHIUM CARBONATE 300 MG CAP PO SCH ×2 (09:00→20:22)
[2017-01-21] MEDS: NICOTINE 21MG/24HR 1 EA TRANSDERMAL TD SCH (10:07)
[2017-01-21 18:00] VITALS: BP 171/113
[2017-01-21] MEDS ORDERED: LORazepam 2 MG/ML VIAL (J2060) IM STA (19:52)
[2017-01-21] MEDS ORDERED: diphenhydrAMINE INJ 50MG/ML VIAL (J1200) IM STA (19:52)
[2017-01-21] MEDS ORDERED: HALOPERIDOL 5 MG TAB PO STA (19:52)
[2017-01-21] MEDS ORDERED: HALOPERIDOL 5 MG/ML VIAL (J1630) IM STA (19:58)
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
[2017-01-21] MEDS: FAMOTIDINE 20 MG TAB PO SCH (20:22)
[2017-01-21] MEDS: QUEtiapine FUMARATE 100 MG TAB PO SCH (20:23)
[2017-01-22] MEDS: LEVOTHYROXINE 0.075 MG TAB (75 MCG) PO SCH (06:01)
[2017-01-22] MEDS: NICOTINE 21MG/24HR 1 EA TRANSDERMAL TD SCH (08:56)
[2017-01-22] MEDS: BENZTROPINE 1 MG TAB PO SCH ×2 (08:57→21:00)
[2017-01-22] MEDS: LITHIUM CARBONATE 300 MG CAP PO SCH ×2 (08:57→21:00)
[2017-01-22] MEDS: risperiDONE 2 MG TAB PO SCH ×2 (08:57→21:00)
--- NOTE | 2017-01-22 09:16 | MHIPNPDOC ---
[facility] Progress Note Progress Note DATE OF SERVICE: 01/22/17 HISTORY: The patient became aggressive last night, towards staff members and some of her peers and for that reason she had to receive IM Haldol, 10 mgs., IM Benadryl, 50 mgs, IM Ativan, 2 mgs. She didn't need the physical restraints, she had a good response to Haldol, didn't' oppose to her injection and was able to have more self control. This author has been notified that she has refused to go to Court this morning, but the hearing will take place. She has posted several papers on her door, which show her bizarre ideation and all of them are redundant about her TOO today. she has refused to talk to this author thi morning. ASSESSMENT:Bipolar disorder, manic episode. MANAGEMENT PLAN: Will go to Court, even if patient is refusing to go, to discuss her case. Will follow her up later today. TIME SPENT: 10 minutes. Vital Signs Vital Signs Date Time Temp Pulse Resp B/P (MAP) Pulse Ox O2 Delivery O2 Flow Rate FiO2 01/21/17 18:00 98.5 124 18 171/113 (132) 01/20/17 18:00 Room Air 01/19/17 22:40 95 Current Medications Current Medications Acetaminophen (Tylenol Tab) 650 mg Q6HP PRN PO HEADACHE or DISCOMFORT Last administered on 01/19/17 22:39; Start 01/10/17 at 16:00; Stop 02/09/17 at 15:59 Al Hydrox/Mg Hydrox/Simethicone (Mylanta) 30 ml Q4HP PRN PO HEARTBURN/ INDIGESTION; Start 01/10/17 at 16:00; Stop 02/09/17 at 15:59 Benztropine Mesylate (Cogentin) 1 mg BID PO ; Start 01/10/17 at 21:00; Stop at 20:59 Cetylpyridinium Chloride (Cepacol) 1 derrell Q2HP PRN PO SORE THROAT; Start at 17:15; Stop 02/09/17 at 17:14 Diphenhydramine HCl (Benadryl) 50 mg STAT STAT IM Last administered on 14:16; Start 01/10/17 at 13:33; Stop 01/10/17 at 13:35; Status DC Diphenhydramine HCl (Benadryl) 50 mg STAT STAT IM ; Start 01/15/17 at 11:35; Stop 01/15/17 at 11:36; Status Cancel Diphenhydramine HCl (Benadryl) 50 mg STAT STAT IM Last administered on 07:55; Start 01/16/17 at 07:42; Stop 01/16/17 at 07:45; Status DC Diphenhydramine HCl (Benadryl) 50 mg STAT STAT IM Last administered on 20:07; Start 01/21/17 at 19:52; Stop 01/21/17 at 19:55; Status DC Famotidine (Pepcid) 20 mg QHS PO ; Start 01/11/17 at 21:00; Stop 02/10/17 at 20: 59 Fluticasone Propionate (Flonase 0.05% Nasal [place]) 2 spray DAILYPRN PRN NA ALLERGIES; Start 01/11/17 at 12:30; Stop 02/10/17 at 12:29 Haloperidol (Haldol) 5 mg BID PO ; Start 01/10/17 at 21:00; Stop 01/11/17 at 11: 36; Status DC Haloperidol (Haldol) 5 mg Q6HP PRN PO AGITATION; Start 01/10/17 at 16:00; Stop 02/09/17 at 15:59 Haloperidol (Haldol) 5 mg STAT STAT IM Last administered on 01/10/17 14:15; Start 01/10/17 at 13:33; Stop 01/10/17 at 13:35; Status DC Haloperidol (Haldol) 10 mg STAT STAT IM ; Start 01/15/17 at 11:35; Stop at 11:36; Status Cancel Haloperidol (Haldol) 10 mg STAT STAT IM Last administered on 01/16/17 07:55; Start 01/16/17 at 07:42; Stop 01/16/17 at 07:45; Status DC Haloperidol (Haldol) 10 mg STAT STAT IM Last administered on 01/21/17 20:07; Start 01/21/17 at 19:58; Stop 01/21/17 at 20:00; Status DC Haloperidol (Haldol) 10 mg STAT STAT PO ; Start 01/21/17 at 19:52; Stop at 20:00; Status DC Home Med (Med Rec Complete!) ASDIRECTED XX ; Start 01/10/17 at 16:30; Stop at 16:30; Status DC Levothyroxine Sodium (Synthroid) 0.075 mg DAILY@0600 PO Last administered on 06:01; Start 01/11/17 at 06:00; Stop 02/10/17 at 05:59 [place] Carbonate ([place] Carbonate) 300 mg BID PO Last administered on 21:50; Start 01/10/17 at 21:00; Stop 02/09/17 at 20:59 Lorazepam (Ativan) 1 mg Q6HP PRN PO AGITATION; Start 01/10/17 at 16:00; Stop at 15:59 Lorazepam (Ativan) 1 mg STAT STAT IM Last administered on 01/10/17 13:16; Start 01/10/17 at 13:33; Stop 01/10/17 at 13:35; Status DC Lorazepam (Ativan) 2 mg STAT STAT IM ; Start 01/15/17 at 11:35; Stop 01/15/17 at 11:36; Status Cancel Lorazepam (Ativan) 2 mg STAT STAT IM Last administered on 01/16/17 07:54; Start 01/16/17 at 07:42; Stop 01/16/17 at 07:45; Status DC Lorazepam (Ativan) 2 mg STAT STAT IM Last administered on 01/21/17 20:07; Start 01/21/17 at 19:52; Stop 01/21/17 at 19:55; Status DC Magnesium Hydroxide (Milk Of Magnesia) 30 ml DAILYPRN PRN PO CONSTIPATION; Start 01/10/17 at 16:00; Stop 02/09/17 at 15:59 Miscellaneous (Unresolved Patient Own Med Order) SEE LABEL COMMENTS UNRESOLVED XX ; Start 01/11/17 at 00:01; Stop 01/14/17 at 13:46; Status DC Nicotine (Nicoderm Cq 21mg) 1 patch DAILY TD Last administered on 01/22/17 08: 56; Start 01/11/17 at 09:00; Stop 02/10/17 at 08:59 Patient Own Medication (Patient'S Own Med) 1 ea DAILY PO ; Start 01/12/17 at 09: 00; Stop 01/14/17 at 13:46; Status DC Quetiapine Fumarate (SEROquel) 100 mg QHS PO Last administered on 01/10/17t 21: 50; Start 01/10/17 at 21:00; Stop 02/09/17 at 20:59 Risperidone (RisperDAL) 2 mg BID PO ; Start 01/11/17 at 09:00; Stop 02/10/17 at 08:59 Trazodone HCl (Desyrel) 50 mg QHSP PRN PO INSOMNIA; Start 01/10/17 at 16:00; Stop 02/09/17 at 15:59 Allergies Coded Allergies: No Known Drug Allergy (Verified Allergy, Unknown, 11/28/12) KATE COCHRAN MD January 22, 2017 09:16
--- NOTE | 2017-01-22 14:54 | MHIPNPDOC ---
[facility] Progress Note Progress Note DATE OF SERVICE: 01/22/17 INTERVAL HISTORY: Medication Side effects: No side effects were reported by patient after she received 10 mg of Haldol IM, 50 mg of Benadryl IM and 2 milligrams of Ativan last night. Behavior: She has remained isolated to her room today, she refused to go to court for her to her TOO. Group Attendance: Irregular Psychiatric Symptom change: She has remained in her room for most part of the day, has had little interaction with patients and staff today, she has been seen preoccupied. VITAL SIGNS: See below. NEW TEST RESULTS: See below CURRENT MEDICATIONS: See below. MENTAL STATUS EXAMINATION: General: Alert, occasionally pacing the hallways, dressed in hospital clothes, with poor eye contact, guarded and uncooperative Speech: Tangential and circumstantial Thought processes: Disorganized Thought content: Perseverates about not going to court, not taking medications, taking all the inpatient mental health unit to court, being related to God Abstract reasoning, and computation: Poor Description of associations: Loose Description of abnormal or psychotic thoughts: Delusional, paranoid and grandiose. Judgment: Poor Insight: Poor Orientation: Oriented 3 Recent and remote memory: Unable to assess due to patient's psychosis Attention span and concentration: Poor Fund of knowledge: Unable to assess Mood: Irritable Affect: Labile/angry DIAGNOSES: 1. Bipolar disorder, manic episode. 2. . 3. . ASSESSMENT: Patient continues to be psychotic, uncooperative, belligerent. She has no insight into her problem and she continues to believe she is not ill and therefore she doesn't need to take medications. MANAGEMENT PLAN: After going to court today without the patient (because she refused), at treatment over objection has been granted by the supreme court judge. She will be served most likely next week and she will have to comply with medications and hopefully this will help her improve. Medications: She is not taking any medications, she continues to refuse them Psychotherapy: Will continue to encourage her to attend groups. She attends groups but not every day and not every group. Social: -- Misc: -- Disposition: The patient is to continue at the inpatient mental health unit where she will have to comply with TOO. TIME SPENT: 20 minutes. Vital Signs Vital Signs Date Time Temp Pulse Resp B/P (MAP) Pulse Ox O2 Delivery O2 Flow Rate FiO2 01/21/17 18:00 98.5 124 18 171/113 (132) 01/20/17 18:00 Room Air 01/19/17 22:40 95 Current Medications Current Medications Acetaminophen (Tylenol Tab) 650 mg Q6HP PRN PO HEADACHE or DISCOMFORT Last administered on 01/19/17 22:39; Start 01/10/17 at 16:00; Stop 02/09/17 at 15:59 Al Hydrox/Mg Hydrox/Simethicone (Mylanta) 30 ml Q4HP PRN PO HEARTBURN/ INDIGESTION; Start 01/10/17 at 16:00; Stop 02/09/17 at 15:59 Benztropine Mesylate (Cogentin) 1 mg BID PO ; Start 01/10/17 at 21:00; Stop at 20:59 Cetylpyridinium Chloride (Cepacol) 1 derrell Q2HP PRN PO SORE THROAT; Start at 17:15; Stop 02/09/17 at 17:14 Diphenhydramine HCl (Benadryl) 50 mg STAT STAT IM Last administered on 14:16; Start 01/10/17 at 13:33; Stop 01/10/17 at 13:35; Status DC Diphenhydramine HCl (Benadryl) 50 mg STAT STAT IM ; Start 01/15/17 at 11:35; Stop 01/15/17 at 11:36; Status Cancel Diphenhydramine HCl (Benadryl) 50 mg STAT STAT IM Last administered on 07:55; Start 01/16/17 at 07:42; Stop 01/16/17 at 07:45; Status DC Diphenhydramine HCl (Benadryl) 50 mg STAT STAT IM Last administered on 20:07; Start 01/21/17 at 19:52; Stop 01/21/17 at 19:55; Status DC Famotidine (Pepcid) 20 mg QHS PO ; Start 01/11/17 at 21:00; Stop 02/10/17 at 20: 59 Fluticasone Propionate (Flonase 0.05% Nasal [place]) 2 spray DAILYPRN PRN NA ALLERGIES; Start 01/11/17 at 12:30; Stop 02/10/17 at 12:29 Haloperidol (Haldol) 5 mg BID PO ; Start 01/10/17 at 21:00; Stop 01/11/17 at 11: 36; Status DC Haloperidol (Haldol) 5 mg Q6HP PRN PO AGITATION; Start 01/10/17 at 16:00; Stop 02/09/17 at 15:59 Haloperidol (Haldol) 5 mg STAT STAT IM Last administered on 01/10/17 14:15; Start 01/10/17 at 13:33; Stop 01/10/17 at 13:35; Status DC Haloperidol (Haldol) 10 mg STAT STAT IM ; Start 01/15/17 at 11:35; Stop at 11:36; Status Cancel Haloperidol (Haldol) 10 mg STAT STAT IM Last administered on 01/16/17 07:55; Start 01/16/17 at 07:42; Stop 01/16/17 at 07:45; Status DC Haloperidol (Haldol) 10 mg STAT STAT IM Last administered on 01/21/17 20:07; Start 01/21/17 at 19:58; Stop 01/21/17 at 20:00; Status DC Haloperidol (Haldol) 10 mg STAT STAT PO ; Start 01/21/17 at 19:52; Stop at 20:00; Status DC Home Med (Med Rec Complete!) ASDIRECTED XX ; Start 01/10/17 at 16:30; Stop at 16:30; Status DC Levothyroxine Sodium (Synthroid) 0.075 mg DAILY@0600 PO Last administered on 06:01; Start 01/11/17 at 06:00; Stop 02/10/17 at 05:59 [place] Carbonate ([place] Carbonate) 300 mg BID PO Last administered on 21:50; Start 01/10/17 at 21:00; Stop 02/09/17 at 20:59 Lorazepam (Ativan) 1 mg Q6HP PRN PO AGITATION; Start 01/10/17 at 16:00; Stop at 15:59 Lorazepam (Ativan) 1 mg STAT STAT IM Last administered on 01/10/17 13:16; Start 01/10/17 at 13:33; Stop 01/10/17 at 13:35; Status DC Lorazepam (Ativan) 2 mg STAT STAT IM ; Start 01/15/17 at 11:35; Stop 01/15/17 at 11:36; Status Cancel Lorazepam (Ativan) 2 mg STAT STAT IM Last administered on 01/16/17 07:54; Start 01/16/17 at 07:42; Stop 01/16/17 at 07:45; Status DC Lorazepam (Ativan) 2 mg STAT STAT IM Last administered on 01/21/17 20:07; Start 01/21/17 at 19:52; Stop 01/21/17 at 19:55; Status DC Magnesium Hydroxide (Milk Of Magnesia) 30 ml DAILYPRN PRN PO CONSTIPATION; Start 01/10/17 at 16:00; Stop 02/09/17 at 15:59 Miscellaneous (Unresolved Patient Own Med Order) SEE LABEL COMMENTS UNRESOLVED XX ; Start 01/11/17 at 00:01; Stop 01/14/17 at 13:46; Status DC Nicotine (Nicoderm Cq 21mg) 1 patch DAILY TD Last administered on 01/22/17 08: 56; Start 01/11/17 at 09:00; Stop 02/10/17 at 08:59 Patient Own Medication (Patient'S Own Med) 1 ea DAILY PO ; Start 01/12/17 at 09: 00; Stop 01/14/17 at 13:46; Status DC Quetiapine Fumarate (SEROquel) 100 mg QHS PO Last administered on 01/10/17 21: 50; Start 01/10/17 at 21:00; Stop 02/09/17 at 20:59 Risperidone (RisperDAL) 2 mg BID PO ; Start 01/11/17 at 09:00; Stop 02/10/17 at 08:59 Trazodone HCl (Desyrel) 50 mg QHSP PRN PO INSOMNIA; Start 01/10/17 at 16:00; Stop 02/09/17 at 15:59 Allergies Coded Allergies: No Known Drug Allergy (Verified Allergy, Unknown, 11/28/12) KATE COCHRAN MD January 22, 2017 14:54
[2017-01-22 18:00] VITALS: BP 131/75
[2017-01-22] MEDS: FAMOTIDINE 20 MG TAB PO SCH (21:00)
[2017-01-22] MEDS: QUEtiapine FUMARATE 100 MG TAB PO SCH (21:00)
[2017-01-23] MEDS: LEVOTHYROXINE 0.075 MG TAB (75 MCG) PO SCH (06:10)
[2017-01-23 06:34] VITALS: BP 129/90
[2017-01-23] MEDS: NICOTINE 21MG/24HR 1 EA TRANSDERMAL TD SCH (08:23)
[2017-01-23] MEDS: BENZTROPINE 1 MG TAB PO SCH ×2 (08:29→21:00)
[2017-01-23] MEDS: LITHIUM CARBONATE 300 MG CAP PO SCH ×2 (08:30→21:00)
[2017-01-23] MEDS: risperiDONE 2 MG TAB PO SCH ×2 (08:30→21:00)
[2017-01-23] MEDS: ACETAMINOPHEN TAB 650MG DOSE (2X325MG) PO PRN (08:34)
[2017-01-23 18:00] VITALS: BP 127/77
[2017-01-23] MEDS: FAMOTIDINE 20 MG TAB PO SCH (21:00)
[2017-01-23] MEDS: QUEtiapine FUMARATE 100 MG TAB PO SCH (21:00)
[2017-01-24] MEDS: LEVOTHYROXINE 0.075 MG TAB (75 MCG) PO SCH (05:42)
[2017-01-24 06:47] VITALS: BP 133/90
[2017-01-24] MEDS: NICOTINE 21MG/24HR 1 EA TRANSDERMAL TD SCH (08:33)
[2017-01-24] MEDS: ACETAMINOPHEN TAB 650MG DOSE (2X325MG) PO PRN (08:35)
[2017-01-24] MEDS: BENZTROPINE 1 MG TAB PO SCH ×2 (08:35→21:00)
[2017-01-24] MEDS: LITHIUM CARBONATE 300 MG CAP PO SCH ×2 (08:35→21:00)
[2017-01-24] MEDS: risperiDONE 2 MG TAB PO SCH ×2 (08:35→21:00)
[2017-01-24 18:00] VITALS: BP 134/94
[2017-01-24] MEDS: QUEtiapine FUMARATE 100 MG TAB PO SCH (21:00)
[2017-01-24] MEDS: FAMOTIDINE 20 MG TAB PO SCH (21:00)
[2017-01-25] MEDS: LEVOTHYROXINE 0.075 MG TAB (75 MCG) PO SCH (05:54)
[2017-01-25 06:00] VITALS: BP 127/89
[2017-01-25] MEDS: LITHIUM CARBONATE 300 MG CAP PO SCH ×2 (09:00→21:00)
[2017-01-25] MEDS: BENZTROPINE 1 MG TAB PO SCH ×2 (09:00→21:00)
[2017-01-25] MEDS: risperiDONE 2 MG TAB PO SCH (09:00)
[2017-01-25] MEDS ORDERED: HALOPERIDOL 5 MG/ML VIAL (J1630) IM SCH (09:00)
[2017-01-25] MEDS: NICOTINE 21MG/24HR 1 EA TRANSDERMAL TD SCH (09:21)
[2017-01-25] MEDS: HALOPERIDOL 5 MG TAB PO SCH ×2 (10:57→21:00)
--- NOTE | 2017-01-25 15:13 | MHIPNPDOC ---
[facility] Progress Note Progress Note DATE OF SERVICE: 01/25/17 INTERVAL HISTORY: Medication Side effects: patient on no medications at this time as she refuses medications Behavior/events: remains bizarre and at times confrontational staff. Group Attendance: has attended groups at times but is fairly disruptive Psychiatric Symptoms: remains hyper verbal, delusional, paranoid and emotionally labile. VITAL SIGNS: See below. NEW TEST RESULTS: See below CURRENT MEDICATIONS: See below. MENTAL STATUS EXAMINATION: General: disheveled Speech: hyper verbal, pressured Thought processes: disorganized Thought content: paranoid ideation Abstract reasoning, and computation: impaired Description of associations: loose Description of abnormal or psychotic thoughts: makes no threats towards herself or others at this time. Judgment: poor Insight: poor Orientation: alert and oriented times 3 Recent and remote memory: intact Attention span and concentration: impaired Fund of knowledge: poor Mood: "okay" Affect: labile DIAGNOSES: 1. Bipolar affective disorder, type I, current manic ASSESSMENT: not improving MANAGEMENT PLAN: Medications: patient served with TOO paperwork on Wednesday and again today as it could not be verified that had been served on Wednesday. Haldol 5 mg PO BID will be started a risperidone and other psychiatric medications be discontinued. The patient will receive intramuscular Haldol equivalent to the court order Psychotherapy: recommend group restriction Social: none Misc: none Disposition: The patient will need of further inpatient stay to address severe psychosis and allison. TIME SPENT: 15 minutes. Vital Signs Vital Signs Date Time Temp Pulse Resp B/P (MAP) Pulse Ox O2 Delivery O2 Flow Rate FiO2 01/25/17 06:00 97.5 122 17 127/89 (102) 01/24/17 06:47 Room Air 01/19/17 22:40 95 Current Medications Current Medications Acetaminophen (Tylenol Tab) 650 mg Q6HP PRN PO HEADACHE or DISCOMFORT Last administered on 01/24/17t 08:35; Start 01/10/17 at 16:00; Stop 02/09/17 at 15:59 Al Hydrox/Mg Hydrox/Simethicone (Mylanta) 30 ml Q4HP PRN PO HEARTBURN/ INDIGESTION; Start 01/10/17 at 16:00; Stop 02/09/17 at 15:59 Benztropine Mesylate (Cogentin) 1 mg BID PO ; Start 01/10/17 at 21:00; Stop at 20:59 Cetylpyridinium Chloride (Cepacol) 1 derrell Q2HP PRN PO SORE THROAT; Start at 17:15; Stop 02/09/17 at 17:14 Diphenhydramine HCl (Benadryl) 50 mg STAT STAT IM Last administered on 14:16; Start 01/10/17 at 13:33; Stop 01/10/17 at 13:35; Status DC Diphenhydramine HCl (Benadryl) 50 mg STAT STAT IM ; Start 01/15/17 at 11:35; Stop 01/15/17 at 11:36; Status Cancel Diphenhydramine HCl (Benadryl) 50 mg STAT STAT IM Last administered on 07:55; Start 01/16/17 at 07:42; Stop 01/16/17 at 07:45; Status DC Diphenhydramine HCl (Benadryl) 50 mg STAT STAT IM Last administered on 20:07; Start 01/21/17 at 19:52; Stop 01/21/17 at 19:55; Status DC Famotidine (Pepcid) 20 mg QHS PO ; Start 01/11/17 at 21:00; Stop 02/10/17 at 20: 59 Fluticasone Propionate (Flonase 0.05% Nasal [place]) 2 spray DAILYPRN PRN NA ALLERGIES; Start 01/11/17 at 12:30; Stop 02/10/17 at 12:29 Haloperidol (Haldol) 5 mg BID IM ; Start 01/25/17 at 09:00; Stop 01/25/17 at 10: 43; Status DC Haloperidol (Haldol) 5 mg BID PO ; Start 01/10/17 at 21:00; Stop 01/11/17 at 11: 36; Status DC Haloperidol (Haldol) 5 mg BID PO ; Start 01/25/17 at 09:00; Stop 01/25/17 at 21: 00 Haloperidol (Haldol) 5 mg Q6HP PRN PO AGITATION; Start 01/10/17 at 16:00; Stop 02/09/17 at 15:59 Haloperidol (Haldol) 5 mg STAT STAT IM Last administered on 01/10/17 14:15; Start 01/10/17 at 13:33; Stop 01/10/17 at 13:35; Status DC Haloperidol (Haldol) 10 mg STAT STAT IM ; Start 01/15/17 at 11:35; Stop at 11:36; Status Cancel Haloperidol (Haldol) 10 mg STAT STAT IM Last administered on 01/16/17 07:55; Start 01/16/17 at 07:42; Stop 01/16/17 at 07:45; Status DC Haloperidol (Haldol) 10 mg STAT STAT IM Last administered on 01/21/17 20:07; Start 01/21/17 at 19:58; Stop 01/21/17 at 20:00; Status DC Haloperidol (Haldol) 10 mg STAT STAT PO ; Start 01/21/17 at 19:52; Stop at 20:00; Status DC Home Med (Med Rec Complete!) ASDIRECTED XX ; Start 01/10/17 at 16:30; Stop at 16:30; Status DC Levothyroxine Sodium (Synthroid) 0.075 mg DAILY@0600 PO Last administered on 05:54; Start 01/11/17 at 06:00; Stop 02/10/17 at 05:59 [place] Carbonate ([place] Carbonate) 300 mg BID PO Last administered on 21:50; Start 01/10/17 at 21:00; Stop 02/09/17 at 20:59 Lorazepam (Ativan) 1 mg Q6HP PRN PO AGITATION; Start 01/10/17 at 16:00; Stop at 15:59 Lorazepam (Ativan) 1 mg STAT STAT IM Last administered on 01/10/17 13:16; Start 01/10/17 at 13:33; Stop 01/10/17 at 13:35; Status DC Lorazepam (Ativan) 2 mg STAT STAT IM ; Start 01/15/17 at 11:35; Stop 01/15/17 at 11:36; Status Cancel Lorazepam (Ativan) 2 mg STAT STAT IM Last administered on 01/16/17 07:54; Start 01/16/17 at 07:42; Stop 01/16/17 at 07:45; Status DC Lorazepam (Ativan) 2 mg STAT STAT IM Last administered on 01/21/17 20:07; Start 01/21/17 at 19:52; Stop 01/21/17 at 19:55; Status DC Magnesium Hydroxide (Milk Of Magnesia) 30 ml DAILYPRN PRN PO CONSTIPATION; Start 01/10/17 at 16:00; Stop 02/09/17 at 15:59 Miscellaneous (Unresolved Patient Own Med Order) SEE LABEL COMMENTS UNRESOLVED XX ; Start 01/11/17 at 00:01; Stop 01/14/17 at 13:46; Status DC Nicotine (Nicoderm Cq 21mg) 1 patch DAILY TD Last administered on 01/25/17 09: 21; Start 01/11/17 at 09:00; Stop 02/10/17 at 08:59 Patient Own Medication (Patient'S Own Med) 1 ea DAILY PO ; Start 01/12/17 at 09: 00; Stop 01/14/17 at 13:46; Status DC Quetiapine Fumarate (SEROquel) 100 mg QHS PO Last administered on 01/10/17 21: 50; Start 01/10/17 at 21:00; Stop 01/25/17 at 10:33; Status DC Risperidone (RisperDAL) 2 mg BID PO ; Start 01/11/17 at 09:00; Stop 01/25/17 at 10:33; Status DC Trazodone HCl (Desyrel) 50 mg QHSP PRN PO INSOMNIA; Start 01/10/17 at 16:00; Stop 02/09/17 at 15:59 Allergies Coded Allergies: No Known Drug Allergy (Verified Allergy, Unknown, 11/28/12) GME ATTESTATION My preceptor for this patient encounter was physically present in the building during the encounter and was fully available. As needed, all aspects of the patient interview, examination, medical decision making process, and medical care plan development were reviewed and approved by the preceptor. Preceptor is aware and concurs with the plan as stated in the body of this note and will attest to such by his/her cosignature. MCKENZIE HILLS DO January 25, 2017 15:13
[2017-01-25 18:00] VITALS: BP 147/89
--- NOTE | 2017-01-25 18:36 | MHIPNPDOC ---
[facility] Progress Note Progress Note DATE OF SERVICE: The patient was given a copy of her TOO and she proceded to tell this author that shes allergic to all psychiatric medications, except for [place] and that theres a page on the Internet (from the state of [place]) that states that patients shouldnt be forced to take psychiatric medications, especially if they had adverse reactions to them. Tried to explain once again what the TOO had to say acout her medication compliance, but she didnt allow this authr to finish explaining this to her, because she is sitll very manic. Will follow up. Vital Signs Vital Signs Date Time Temp Pulse Resp B/P (MAP) Pulse Ox O2 Delivery O2 Flow Rate FiO2 01/25/17 18:00 98.9 105 18 147/89 (108) 01/24/17 06:47 Room Air 01/19/17 22:40 95 Current Medications Current Medications Acetaminophen (Tylenol Tab) 650 mg Q6HP PRN PO HEADACHE or DISCOMFORT Last administered on 01/24/17 08:35; Start 01/10/17 at 16:00; Stop 02/09/17 at 15:59 Al Hydrox/Mg Hydrox/Simethicone (Mylanta) 30 ml Q4HP PRN PO HEARTBURN/ INDIGESTION; Start 01/10/17 at 16:00; Stop 02/09/17 at 15:59 Benztropine Mesylate (Cogentin) 1 mg BID PO ; Start 01/10/17 at 21:00; Stop at 20:59 Cetylpyridinium Chloride (Cepacol) 1 derrell Q2HP PRN PO SORE THROAT; Start at 17:15; Stop 02/09/17 at 17:14 Diphenhydramine HCl (Benadryl) 50 mg STAT STAT IM Last administered on 14:16; Start 01/10/17 at 13:33; Stop 01/10/17 at 13:35; Status DC Diphenhydramine HCl (Benadryl) 50 mg STAT STAT IM ; Start 01/15/17 at 11:35; Stop 01/15/17 at 11:36; Status Cancel Diphenhydramine HCl (Benadryl) 50 mg STAT STAT IM Last administered on 07:55; Start 01/16/17 at 07:42; Stop 01/16/17 at 07:45; Status DC Diphenhydramine HCl (Benadryl) 50 mg STAT STAT IM Last administered on 20:07; Start 01/21/17 at 19:52; Stop 01/21/17 at 19:55; Status DC Famotidine (Pepcid) 20 mg QHS PO ; Start 01/11/17 at 21:00; Stop 02/10/17 at 20: 59 Fluticasone Propionate (Flonase 0.05% Nasal [place]) 2 spray DAILYPRN PRN NA ALLERGIES; Start 01/11/17 at 12:30; Stop 02/10/17 at 12:29 Haloperidol (Haldol) 5 mg BID IM ; Start 01/25/17 at 09:00; Stop 01/25/17 at 10: 43; Status DC Haloperidol (Haldol) 5 mg BID IM ; Start 01/25/17 at 21:00; Stop 02/24/17 at 20: 59; Status Future Hold Haloperidol (Haldol) 5 mg BID PO ; Start 01/10/17 at 21:00; Stop 01/11/17 at 11: 36; Status DC Haloperidol (Haldol) 5 mg BID PO ; Start 01/25/17 at 09:00; Stop 01/25/17 at 21: 00 Haloperidol (Haldol) 5 mg Q6HP PRN PO AGITATION; Start 01/10/17 at 16:00; Stop 02/09/17 at 15:59 Haloperidol (Haldol) 5 mg STAT STAT IM Last administered on 01/10/17 14:15; Start 01/10/17 at 13:33; Stop 01/10/17 at 13:35; Status DC Haloperidol (Haldol) 10 mg STAT STAT IM ; Start 01/15/17 at 11:35; Stop at 11:36; Status Cancel Haloperidol (Haldol) 10 mg STAT STAT IM Last administered on 01/16/17 07:55; Start 01/16/17 at 07:42; Stop 01/16/17 at 07:45; Status DC Haloperidol (Haldol) 10 mg STAT STAT IM Last administered on 01/21/17 20:07; Start 01/21/17 at 19:58; Stop 01/21/17 at 20:00; Status DC Haloperidol (Haldol) 10 mg STAT STAT PO ; Start 01/21/17 at 19:52; Stop at 20:00; Status DC Home Med (Med Rec Complete!) ASDIRECTED XX ; Start 01/10/17 at 16:30; Stop at 16:30; Status DC Levothyroxine Sodium (Synthroid) 0.075 mg DAILY@0600 PO Last administered on 05:54; Start 01/11/17 at 06:00; Stop 02/10/17 at 05:59 [place] Carbonate ([place] Carbonate) 300 mg BID PO Last administered on 21:50; Start 01/10/17 at 21:00; Stop 02/09/17 at 20:59 Lorazepam (Ativan) 1 mg Q6HP PRN PO AGITATION; Start 01/10/17 at 16:00; Stop at 15:59 Lorazepam (Ativan) 1 mg STAT STAT IM Last administered on 01/10/17 13:16; Start 01/10/17 at 13:33; Stop 01/10/17 at 13:35; Status DC Lorazepam (Ativan) 2 mg STAT STAT IM ; Start 01/15/17 at 11:35; Stop 01/15/17 at 11:36; Status Cancel Lorazepam (Ativan) 2 mg STAT STAT IM Last administered on 01/16/17 07:54; Start 01/16/17 at 07:42; Stop 01/16/17 at 07:45; Status DC Lorazepam (Ativan) 2 mg STAT STAT IM Last administered on 01/21/17 20:07; Start 01/21/17 at 19:52; Stop 01/21/17 at 19:55; Status DC Magnesium Hydroxide (Milk Of Magnesia) 30 ml DAILYPRN PRN PO CONSTIPATION; Start 01/10/17 at 16:00; Stop 02/09/17 at 15:59 Miscellaneous (Unresolved Patient Own Med Order) SEE LABEL COMMENTS UNRESOLVED XX ; Start 01/11/17 at 00:01; Stop 01/14/17 at 13:46; Status DC Nicotine (Nicoderm Cq 21mg) 1 patch DAILY TD Last administered on 5/29/17at 09: 21; Start 01/11/17 at 09:00; Stop 02/10/17 at 08:59 Patient Own Medication (Patient'S Own Med) 1 ea DAILY PO ; Start 01/12/17 at 09: 00; Stop 01/14/17 at 13:46; Status DC Quetiapine Fumarate (SEROquel) 100 mg QHS PO Last administered on 01/10/17t 21: 50; Start 01/10/17 at 21:00; Stop 01/25/17 at 10:33; Status DC Risperidone (RisperDAL) 2 mg BID PO ; Start 01/11/17 at 09:00; Stop 01/25/17 at 10:33; Status DC Trazodone HCl (Desyrel) 50 mg QHSP PRN PO INSOMNIA; Start 01/10/17 at 16:00; Stop 02/09/17 at 15:59 Allergies Coded Allergies: No Known Drug Allergy (Verified Allergy, Unknown, 11/28/12) KATE COCHRAN MD January 25, 2017 18:35
[2017-01-25] MEDS: FAMOTIDINE 20 MG TAB PO SCH (21:00)
[2017-01-25] MEDS: HALOPERIDOL 5 MG/ML VIAL (J1630) IM SCH (22:25)
[2017-01-26] MEDS: LEVOTHYROXINE 0.075 MG TAB (75 MCG) PO SCH (05:56)
[2017-01-26 06:23] VITALS: BP 141/75
[2017-01-26] MEDS: BENZTROPINE 1 MG TAB PO SCH ×2 (09:00→21:00)
[2017-01-26] MEDS: LITHIUM CARBONATE 300 MG CAP PO SCH ×3 (09:00→22:19)
[2017-01-26] MEDS: HALOPERIDOL 5 MG TAB PO SCH ×2 (09:00→21:00)
[2017-01-26] MEDS: NICOTINE 21MG/24HR 1 EA TRANSDERMAL TD SCH (09:15)
[2017-01-26] MEDS: HALOPERIDOL 5 MG/ML VIAL (J1630) IM SCH ×2 (09:28→22:26)
[2017-01-26 18:20] VITALS: BP 101/56
[2017-01-26] MEDS: FAMOTIDINE 20 MG TAB PO SCH (21:00)
--- NOTE | 2017-01-26 21:34 | MHIPNPDOC ---
[facility] Progress Note Progress Note DATE OF SERVICE: 01/26/17 Evaluated 37 year old female with history ob bipolar Disorder, manic episode who has received two doses of IM Haldol, 5 mgs. because she continues to refuse oral medication. Upon evaluation, the patient was seen in hospital clothes, alert, with fair eye contact and good hygiene. She still has pressured speech, is tangential and circumstantial, her thought process is disorganized, her thought content is positive for paranoid, persecutory and grandiose delusions. Her memory, recent and remote is poor, her attention and concentration are poor, her judgment and insight are still very poor. DIAGNOSES: 1. Bipolar Disorder, manic episode 2. 3. ASSESSMENT:Pt. continues to be very psychotic. Will continue to apply IM injections of Haldol ( 5 mgs. BID ) and if no improvement is showed, will give her 10 mgs IM BID if she doesnt accept Po medication. MANAGEMENT PLAN: Needs to continue with hospitalization until patient is stable enough to make good decisions regarding her health. TIME SPENT: 15 minutes. Vital Signs Vital Signs Date Time Temp Pulse Resp B/P (MAP) Pulse Ox O2 Delivery O2 Flow Rate FiO2 01/26/17 18:20 98.9 110 18 101/56 (71) 01/24/17 06:47 Room Air Current Medications Current Medications Acetaminophen (Tylenol Tab) 650 mg Q6HP PRN PO HEADACHE or DISCOMFORT Last administered on 01/24/17 08:35; Start 01/10/17 at 16:00; Stop 02/09/17 at 15:59 Al Hydrox/Mg Hydrox/Simethicone (Mylanta) 30 ml Q4HP PRN PO HEARTBURN/ INDIGESTION; Start 01/10/17 at 16:00; Stop 02/09/17 at 15:59 Benztropine Mesylate (Cogentin) 1 mg BID PO ; Start 01/10/17 at 21:00; Stop at 20:59 Cetylpyridinium Chloride (Cepacol) 1 derrell Q2HP PRN PO SORE THROAT; Start at 17:15; Stop 02/09/17 at 17:14 Diphenhydramine HCl (Benadryl) 50 mg STAT STAT IM Last administered on 14:16; Start 01/10/17 at 13:33; Stop 01/10/17 at 13:35; Status DC Diphenhydramine HCl (Benadryl) 50 mg STAT STAT IM ; Start 01/15/17 at 11:35; Stop 01/15/17 at 11:36; Status Cancel Diphenhydramine HCl (Benadryl) 50 mg STAT STAT IM Last administered on 07:55; Start 01/16/17 at 07:42; Stop 01/16/17 at 07:45; Status DC Diphenhydramine HCl (Benadryl) 50 mg STAT STAT IM Last administered on 20:07; Start 01/21/17 at 19:52; Stop 01/21/17 at 19:55; Status DC Famotidine (Pepcid) 20 mg QHS PO ; Start 01/11/17 at 21:00; Stop 02/10/17 at 20: 59 Fluticasone Propionate (Flonase 0.05% Nasal [place]) 2 spray DAILYPRN PRN NA ALLERGIES; Start 01/11/17 at 12:30; Stop 02/10/17 at 12:29 Haloperidol (Haldol) 5 mg BID IM ; Start 01/25/17 at 09:00; Stop 01/25/17 at 10: 43; Status DC Haloperidol (Haldol) 5 mg BID IM Last administered on 01/26/17 09:28; Start at 21:00; Stop 02/24/17 at 20:59; Status Future Hold Haloperidol (Haldol) 5 mg BID PO ; Start 01/10/17 at 21:00; Stop 01/11/17 at 11: 36; Status DC Haloperidol (Haldol) 5 mg BID PO ; Start 01/25/17 at 09:00; Stop 01/25/17 at 21: 00; Status DC Haloperidol (Haldol) 5 mg BID PO ; Start 01/26/17 at 09:00; Stop 02/25/17 at 08: 59 Haloperidol (Haldol) 5 mg Q6HP PRN PO AGITATION; Start 01/10/17 at 16:00; Stop 02/09/17 at 15:59 Haloperidol (Haldol) 5 mg STAT STAT IM Last administered on 01/10/17 14:15; Start 01/10/17 at 13:33; Stop 01/10/17 at 13:35; Status DC Haloperidol (Haldol) 10 mg STAT STAT IM ; Start 01/15/17 at 11:35; Stop at 11:36; Status Cancel Haloperidol (Haldol) 10 mg STAT STAT IM Last administered on 01/16/17 07:55; Start 01/16/17 at 07:42; Stop 01/16/17 at 07:45; Status DC Haloperidol (Haldol) 10 mg STAT STAT IM Last administered on 01/21/17 20:07; Start 01/21/17 at 19:58; Stop 01/21/17 at 20:00; Status DC Haloperidol (Haldol) 10 mg STAT STAT PO ; Start 01/21/17 at 19:52; Stop at 20:00; Status DC Home Med (Med Rec Complete!) ASDIRECTED XX ; Start 01/10/17 at 16:30; Stop at 16:30; Status DC Levothyroxine Sodium (Synthroid) 0.075 mg DAILY@0600 PO Last administered on 05:56; Start 01/11/17 at 06:00; Stop 02/10/17 at 05:59 [place] Carbonate ([place] Carbonate) 300 mg BID PO Last administered on 10:21; Start 01/10/17 at 21:00; Stop 02/09/17 at 20:59 Lorazepam (Ativan) 1 mg Q6HP PRN PO AGITATION; Start 01/10/17 at 16:00; Stop at 15:59 Lorazepam (Ativan) 1 mg STAT STAT IM Last administered on 01/10/17 13:16; Start 01/10/17 at 13:33; Stop 01/10/17 at 13:35; Status DC Lorazepam (Ativan) 2 mg STAT STAT IM ; Start 01/15/17 at 11:35; Stop 01/15/17 at 11:36; Status Cancel Lorazepam (Ativan) 2 mg STAT STAT IM Last administered on 01/16/17 07:54; Start 01/16/17 at 07:42; Stop 01/16/17 at 07:45; Status DC Lorazepam (Ativan) 2 mg STAT STAT IM Last administered on 01/21/17 20:07; Start 01/21/17 at 19:52; Stop 01/21/17 at 19:55; Status DC Magnesium Hydroxide (Milk Of Magnesia) 30 ml DAILYPRN PRN PO CONSTIPATION; Start 01/10/17 at 16:00; Stop 02/09/17 at 15:59 Miscellaneous (Unresolved Patient Own Med Order) SEE LABEL COMMENTS UNRESOLVED XX ; Start 01/11/17 at 00:01; Stop 01/14/17 at 13:46; Status DC Nicotine (Nicoderm Cq 21mg) 1 patch DAILY TD Last administered on 01/26/17 09: 15; Start 01/11/17 at 09:00; Stop 02/10/17 at 08:59 Patient Own Medication (Patient'S Own Med) 1 ea DAILY PO ; Start 01/12/17 at 09: 00; Stop 01/14/17 at 13:46; Status DC Quetiapine Fumarate (SEROquel) 100 mg QHS PO Last administered on 01/10/17 21: 50; Start 01/10/17 at 21:00; Stop 01/25/17 at 10:33; Status DC Risperidone (RisperDAL) 2 mg BID PO ; Start 01/11/17 at 09:00; Stop 01/25/17 at 10:33; Status DC Trazodone HCl (Desyrel) 50 mg QHSP PRN PO INSOMNIA; Start 01/10/17 at 16:00; Stop 02/09/17 at 15:59 Allergies Coded Allergies: No Known Drug Allergy (Verified Allergy, Unknown, 11/28/12) KATE COCHRAN MD January 26, 2017 21:33
[2017-01-27] MEDS: LEVOTHYROXINE 0.075 MG TAB (75 MCG) PO SCH (05:51)
[2017-01-27 06:16] VITALS: BP 135/87
[2017-01-27] MEDS: NICOTINE 21MG/24HR 1 EA TRANSDERMAL TD SCH (08:42)
[2017-01-27] MEDS: LITHIUM CARBONATE 300 MG CAP PO SCH ×2 (08:42→21:05)
[2017-01-27] MEDS: ACETAMINOPHEN TAB 650MG DOSE (2X325MG) PO PRN ×2 (08:43→21:06)
[2017-01-27] MEDS: BENZTROPINE 1 MG TAB PO SCH ×2 (09:00→21:00)
[2017-01-27] MEDS: HALOPERIDOL 5 MG TAB PO SCH ×2 (09:45→21:05)
[2017-01-27] MEDS ORDERED: LITHIUM CARBONATE 300 MG **CR** TAB PO ONE (12:00)
--- NOTE | 2017-01-27 19:30 | MHIPNPDOC ---
[facility] Progress Note Progress Note DATE OF SERVICE: 01/27/17 HISTORY: Evaluated 37 year old female with history of Bipolar Disorder, who has been reluctant to take medications and for that reason she has to comply with a TOO. She has been receiving IM Haldol, 5 mgs. BID, but today she got 5 mgs PO in the morning. She has requested to start [place], but she wants to trade her lithium for Haldol and she was educated about the fact that she still needs Haldol but encouraged her to continue with [place] and accept Haldol because they are two different medications that have different properties and different indications. Then, she proceeded to call this author a liar and all sorts of names, started getting agitated. Her insight and judgement are still very poor. Her impulse control is poor. Her speech is slightly less pressured and less rapid. Her thought process is still disorganized, her thought content is still positive for paranoid and grandiose delusions. She denies auditory and visual hallucinations but she responds to internal stimuli. Her recent and remote memory are poor, her attention and concentration are poor. DIAGNOSES: 1. Bipolar disorder, manic episode 2. . 3. . ASSESSMENT:Patient needs to continue with hospitalization until she becomes stable and gains insight into her illness, but if she becomes stable but continues to refuse her PO medication, she will have to be transferred to [place]. MANAGEMENT PLAN: As above TIME SPENT: 20minutes. Vital Signs Vital Signs Date Time Temp Pulse Resp B/P (MAP) Pulse Ox O2 Delivery O2 Flow Rate FiO2 01/27/17 06:16 96.4 124 16 135/87 (103) 01/24/17 06:47 Room Air Current Medications Current Medications Acetaminophen (Tylenol Tab) 650 mg Q6HP PRN PO HEADACHE or DISCOMFORT Last administered on 01/27/17t 08:43; Start 01/10/17 at 16:00; Stop 02/09/17 at 15:59 Al Hydrox/Mg Hydrox/Simethicone (Mylanta) 30 ml Q4HP PRN PO HEARTBURN/ INDIGESTION; Start 01/10/17 at 16:00; Stop 02/09/17 at 15:59 Benztropine Mesylate (Cogentin) 1 mg BID PO ; Start 01/10/17 at 21:00; Stop at 20:59 Cetylpyridinium Chloride (Cepacol) 1 derrell Q2HP PRN PO SORE THROAT; Start at 17:15; Stop 02/09/17 at 17:14 Diphenhydramine HCl (Benadryl) 50 mg STAT STAT IM Last administered on 14:16; Start 01/10/17 at 13:33; Stop 01/10/17 at 13:35; Status DC Diphenhydramine HCl (Benadryl) 50 mg STAT STAT IM ; Start 01/15/17 at 11:35; Stop 01/15/17 at 11:36; Status Cancel Diphenhydramine HCl (Benadryl) 50 mg STAT STAT IM Last administered on 07:55; Start 01/16/17 at 07:42; Stop 01/16/17 at 07:45; Status DC Diphenhydramine HCl (Benadryl) 50 mg STAT STAT IM Last administered on 20:07; Start 01/21/17 at 19:52; Stop 01/21/17 at 19:55; Status DC Famotidine (Pepcid) 20 mg QHS PO ; Start 01/11/17 at 21:00; Stop 02/10/17 at 20: 59 Fluticasone Propionate (Flonase 0.05% Nasal [place]) 2 spray DAILYPRN PRN NA ALLERGIES; Start 01/11/17 at 12:30; Stop 02/10/17 at 12:29 Haloperidol (Haldol) 5 mg BID IM ; Start 01/25/17 at 09:00; Stop 01/25/17 at 10: 43; Status DC Haloperidol (Haldol) 5 mg BID IM Last administered on 01/26/17 22:26; Start at 21:00; Stop 02/24/17 at 20:59; Status Future Hold Haloperidol (Haldol) 5 mg BID PO ; Start 01/10/17 at 21:00; Stop 01/11/17 at 11: 36; Status DC Haloperidol (Haldol) 5 mg BID PO ; Start 01/25/17 at 09:00; Stop 01/25/17 at 21: 00; Status DC Haloperidol (Haldol) 5 mg BID PO Last administered on 01/27/17 09:45; Start at 09:00; Stop 02/25/17 at 08:59 Haloperidol (Haldol) 5 mg Q6HP PRN PO AGITATION; Start 01/10/17 at 16:00; Stop 02/09/17 at 15:59 Haloperidol (Haldol) 5 mg STAT STAT IM Last administered on 01/10/17 14:15; Start 01/10/17 at 13:33; Stop 01/10/17 at 13:35; Status DC Haloperidol (Haldol) 10 mg STAT STAT IM ; Start 01/15/17 at 11:35; Stop at 11:36; Status Cancel Haloperidol (Haldol) 10 mg STAT STAT IM Last administered on 01/16/17 07:55; Start 01/16/17 at 07:42; Stop 01/16/17 at 07:45; Status DC Haloperidol (Haldol) 10 mg STAT STAT IM Last administered on 01/21/17 20:07; Start 01/21/17 at 19:58; Stop 01/21/17 at 20:00; Status DC Haloperidol (Haldol) 10 mg STAT STAT PO ; Start 01/21/17 at 19:52; Stop at 20:00; Status DC Home Med (Med Rec Complete!) ASDIRECTED XX ; Start 01/10/17 at 16:30; Stop at 16:30; Status DC Levothyroxine Sodium (Synthroid) 0.075 mg DAILY@0600 PO Last administered on 05:51; Start 01/11/17 at 06:00; Stop 02/10/17 at 05:59 [place] Carbonate ([place] Carbonate) 300 mg BID PO Last administered on 08:42; Start 01/10/17 at 21:00; Stop 02/09/17 at 20:59 Lorazepam (Ativan) 1 mg Q6HP PRN PO AGITATION; Start 01/10/17 at 16:00; Stop at 15:59 Lorazepam (Ativan) 1 mg STAT STAT IM Last administered on 01/10/17 13:16; Start 01/10/17 at 13:33; Stop 01/10/17 at 13:35; Status DC Lorazepam (Ativan) 2 mg STAT STAT IM ; Start 01/15/17 at 11:35; Stop 01/15/17 at 11:36; Status Cancel Lorazepam (Ativan) 2 mg STAT STAT IM Last administered on 01/16/17 07:54; Start 01/16/17 at 07:42; Stop 01/16/17 at 07:45; Status DC Lorazepam (Ativan) 2 mg STAT STAT IM Last administered on 01/21/17 20:07; Start 01/21/17 at 19:52; Stop 01/21/17 at 19:55; Status DC Magnesium Hydroxide (Milk Of Magnesia) 30 ml DAILYPRN PRN PO CONSTIPATION; Start 01/10/17 at 16:00; Stop 02/09/17 at 15:59 Miscellaneous (Unresolved Patient Own Med Order) SEE LABEL COMMENTS UNRESOLVED XX ; Start 01/11/17 at 00:01; Stop 01/14/17 at 13:46; Status DC Nicotine (Nicoderm Cq 21mg) 1 patch DAILY TD Last administered on 01/27/17 08: 42; Start 01/11/17 at 09:00; Stop 02/10/17 at 08:59 Patient Own Medication (Patient'S Own Med) 1 ea DAILY PO ; Start 01/12/17 at 09: 00; Stop 01/14/17 at 13:46; Status DC Quetiapine Fumarate (SEROquel) 100 mg QHS PO Last administered on 01/10/17 21: 50; Start 01/10/17 at 21:00; Stop 01/25/17 at 10:33; Status DC Risperidone (RisperDAL) 2 mg BID PO ; Start 01/11/17 at 09:00; Stop 01/25/17 at 10:33; Status DC Trazodone HCl (Desyrel) 50 mg QHSP PRN PO INSOMNIA; Start 01/10/17 at 16:00; Stop 02/09/17 at 15:59 Allergies Coded Allergies: No Known Drug Allergy (Verified Allergy, Unknown, 11/28/12) KATE COCHRAN MD January 27, 2017 19:30
[2017-01-27] MEDS: FAMOTIDINE 20 MG TAB PO SCH (21:00)
[2017-01-28] MEDS: LEVOTHYROXINE 0.075 MG TAB (75 MCG) PO SCH (06:14)
[2017-01-28 07:09] VITALS: BP 163/75
[2017-01-28] MEDS: HALOPERIDOL 5 MG TAB PO SCH (08:54)
[2017-01-28] MEDS: LITHIUM CARBONATE 300 MG CAP PO SCH ×2 (08:54→21:24)
[2017-01-28] MEDS: ACETAMINOPHEN TAB 650MG DOSE (2X325MG) PO PRN ×2 (08:55→21:25)
[2017-01-28] MEDS: NICOTINE 21MG/24HR 1 EA TRANSDERMAL TD SCH (08:56)
[2017-01-28] MEDS: BENZTROPINE 1 MG TAB PO SCH ×3 (08:57→21:59)
[2017-01-28] MEDS ORDERED: BENZTROPINE MESYLATE 2MG/2ML VIAL IM SCH (09:00)
[2017-01-28 10:18] LABS: BASO % 0.5 % (0.0-1.0); EOS # 0.1 K/mm3 (0.0-0.50); EOS % 0.7 % (0.0-3.0); LARGE UNSTAINED CELL # 0.2 K/mm3 (0.0-0.4); LARGE UNSTAINED CELL % 1.6 % (0.0-4.0); LYMPH # 2.5 K/mm3 (1.5-4.5); MEAN CORPUSCULAR HEMOGLOBIN 31.4 pg (27.0-33.0); MEAN CORPUSCULAR HGB CONC 33.8 g/dl (32.0-36.5); MEAN CORPUSCULAR VOLUME 92.9 fl (80.0-96.0); MONO # 0.6 K/mm3 (0.0-0.8); MONO % 5.7 % (0.0-5.0); NEUTROPHILS # 7.4 K/mm3 (1.8-7.7); NEUTROPHILS % 69.6 % (36.0-66.0); PLATELET COUNT, AUTOMATED 296 k/mm3 (150-450); RED CELL DISTRIBUTION WIDTH 12.8 % (11.5-14.5); WHITE BLOOD COUNT 10.6 K/mm3 (4.0-10.0)
[2017-01-28 10:39] LABS: ALBUMIN 3.6 GM/DL (3.2-5.2); ALBUMIN/GLOBULIN RATIO 1.24 (1.00-1.93); ALKALINE PHOSPHATASE 79 U/L (45-117); ALT/SGPT 32 U/L (12-78); ANION GAP 8 MEQ/L (8-16); AST/SGOT 19 U/L (15-37); BILIRUBIN,TOTAL 0.3 MG/DL (0.2-1.0); BLOOD UREA NITROGEN 7 MG/DL (7-18); CALCIUM LEVEL 9.3 MG/DL (8.5-10.1); CARBON DIOXIDE LEVEL 27 MEQ/L (21-32); CHLORIDE LEVEL 105 MEQ/L (98-107); CREATININE FOR GFR 0.92 MG/DL (0.55-1.02); GLOMERULAR FILTRATION RATE > 60.0 (>60); GLUCOSE, FASTING 122 MG/DL (70-105); POTASSIUM SERUM 4.7 MEQ/L (3.5-5.1); SODIUM LEVEL 140 MEQ/L (136-145); TOTAL PROTEIN 6.5 GM/DL (6.4-8.2)
--- NOTE | 2017-01-28 14:08 | MHIPNPDOC ---
[facility] Progress Note Progress Note DATE OF SERVICE: 01/28/17 INTERVAL HISTORY: Medication Side effects: She has requested to start taking lithium and she has denied medication side effects. She is taking Haldol by mouth since yesterday but she has refused to take Cogentin for extrapyramidal side effects. She claims that Cogentin gives her more problems than Haldol. Behavior: Less aggressive, less belligerent. Group Attendance: She has been attending groups Psychiatric Symptom change: Her speech is less pressured, continues to be psychotic, delusional with paranoid and grandiose thoughts VITAL SIGNS: See below. NEW TEST RESULTS: See below CURRENT MEDICATIONS: See below. MENTAL STATUS EXAMINATION: General: Alert, oriented hospital clothes and a hat, uncooperative, with fair eye contact Speech: Pressured but less than before, circumstantial and tangential Thought processes: Disorganized Thought content: Perseverates about wanting to leave, go home and take care of her mother who is ill with dementia and heart problems, about not being sick and her refusal to take medications because she doesn't need them. Abstract reasoning, and computation: Unable to assess Description of associations: Loose Description of abnormal or psychotic thoughts: Delusional, paranoid and grandiose type. Judgment: Poor Insight: Poor Orientation: Oriented to place and person only Recent and remote memory: Poor Attention span and concentration: Poor Fund of knowledge: Unable to assess Mood: Irritable Affect: Irritable, angry DIAGNOSES: 1. Bipolar disorder, manic episode. 2. . 3. . ASSESSMENT: Patient is still delusional and psychotic but her speech is less pressured and she seems to be less impulsive than last week. She has improved with only a couple of days of medication, she has had a good response to them. If patient could get insight into her problem and accepts that she has a mental illness it would be easier for her and she would need long-term treatment and to be transferred to [place], but unfortunately she has been in denial of her illness throughout the years. Patient has administrative hearing and once again she repeated that she doesn't need medications, that she is not ill, that she is able to manage her life, displaying once again her non-acceptance of her mental illness. MANAGEMENT PLAN: Medications: Haldol 10 mg by mouth twice a day, if she refuses 10 mg IM twice a day; Cogentin, 1 mg by mouth twice a day and if she refuses 1 mg IM twice a day. [place] 300 mg by mouth twice a day. Psychotherapy: She is been attending groups and will encourage her to continue attending [facility] -- Disposition: Patient needs to be transferred to [place] because she needs a higher level of care, needs psychotherapy to gain insight into her illness and accept it, since that might be the problem with her medication noncompliance , because she hasn't accepted her illness. MANAGEMENT PLAN: As above TIME SPENT: 30 minutes. Vital Signs Vital Signs Date Time Temp Pulse Resp B/P (MAP) Pulse Ox O2 Delivery O2 Flow Rate FiO2 01/28/17 07:09 97.5 70 18 163/75 (104) Room Air Laboratory Data 24H Labs Laboratory Tests 2 01/28/17 09:37: White Blood Count 10.6H, Red Blood Count 4.60, Hemoglobin 14.4, Hematocrit 42.7 , Mean Corpuscular Volume 92.9, Mean Corpuscular Hemoglobin 31.4, Mean Corpuscular Hemoglobin Concent 33.8, Red Cell Distribution Width 12.8, Platelet Count 296, Neutrophils (%) (Auto) 69.6H, Lymphocytes (%) (Auto) 22.0L, Monocytes (%) (Auto) 5.7H, Eosinophils (%) (Auto) 0.7, Basophils (%) (Auto) 0.5 , Neutrophils # (Auto) 7.4, Lymphocytes # (Auto) 2.5, Monocytes # (Auto) 0.6, Eosinophils # (Auto) 0.1, Basophils # (Auto) 0.0, Large Unclassified Cells % 1.6 , Large Unclassified Cells # 0.2, Anion Gap 8, Glomerular Filtration Rate > 60.0 , Blood Urea Nitrogen 7, Creatinine 0.92, Sodium Level 140, Potassium Level 4.7 , Chloride Level 105, Carbon Dioxide Level 27, Calcium Level 9.3, Aspartate Amino Transf (AST/SGOT) 19, Alanine Aminotransferase (ALT/SGPT) 32, Alkaline Phosphatase 79, Total Bilirubin 0.3, Total Protein 6.5, Albumin 3.6, Albumin/ Globulin Ratio 1.24 01/28/17 11:40: Urine Appearance CLEAR, Urine Color STRAW, Urine pH 7.0, Urine Specific [place] 1.004, Urine Protein NEGATIVE, Urine Glucose (UA) NEGATIVE, Urine Ketones NEGATIVE, Urine Urobilinogen 0.2, Urine Bilirubin NEGATIVE, Urine Leukocyte Esterase NEGATIVE, Urine Blood NEGATIVE, Urine Nitrite NEGATIVE, Urine WBC (Auto ) 0, Urine RBC (Auto) 0, Urine Hyaline Casts (Auto) 0, Urine Bacteria (Auto) 1+H , Urine Squamous Epithelial Cells 2, Urine Sperm (Auto) CBC/BMP Laboratory Tests 01/28/17 09:37 Red Blood Count 4.60, Mean Corpuscular Volume 92.9, Mean Corpuscular Hemoglobin 31.4, Mean Corpuscular Hemoglobin Concent 33.8, Red Cell Distribution Width 12.8 , Neutrophils (%) (Auto) 69.6 H, Lymphocytes (%) (Auto) 22.0 L, Monocytes (%) ( Auto) 5.7 H, Eosinophils (%) (Auto) 0.7, Basophils (%) (Auto) 0.5, Neutrophils # (Auto) 7.4, Lymphocytes # (Auto) 2.5, Monocytes # (Auto) 0.6, Eosinophils # ( Auto) 0.1, Basophils # (Auto) 0.0, Calcium Level 9.3, Aspartate Amino Transf ( AST/SGOT) 19, Alanine Aminotransferase (ALT/SGPT) 32, Alkaline Phosphatase 79, Total Bilirubin 0.3, Total Protein 6.5, Albumin 3.6 Current Medications Current Medications Acetaminophen (Tylenol Tab) 650 mg Q6HP PRN PO HEADACHE or DISCOMFORT Last administered on 01/28/17 08:55; Start 01/10/17 at 16:00; Stop 02/09/17 at 15:59 Al Hydrox/Mg Hydrox/Simethicone (Mylanta) 30 ml Q4HP PRN PO HEARTBURN/ INDIGESTION; Start 01/10/17 at 16:00; Stop 02/09/17 at 15:59 Benztropine Mesylate (Cogentin) 1 mg BID IM ; Start 01/28/17 at 09:00; Stop at 08:59; Status Future Hold Benztropine Mesylate (Cogentin) 1 mg BID PO Last administered on 01/28/17 10:14 ; Start 01/10/17 at 21:00; Stop 02/09/17 at 20:59 Cetylpyridinium Chloride (Cepacol) 1 derrell Q2HP PRN PO SORE THROAT; Start at 17:15; Stop 02/09/17 at 17:14 Diphenhydramine HCl (Benadryl) 50 mg STAT STAT IM Last administered on 14:16; Start 01/10/17 at 13:33; Stop 01/10/17 at 13:35; Status DC Diphenhydramine HCl (Benadryl) 50 mg STAT STAT IM ; Start 01/15/17 at 11:35; Stop 01/15/17 at 11:36; Status Cancel Diphenhydramine HCl (Benadryl) 50 mg STAT STAT IM Last administered on 07:55; Start 01/16/17 at 07:42; Stop 01/16/17 at 07:45; Status DC Diphenhydramine HCl (Benadryl) 50 mg STAT STAT IM Last administered on 20:07; Start 01/21/17 at 19:52; Stop 01/21/17 at 19:55; Status DC Famotidine (Pepcid) 20 mg QHS PO ; Start 01/11/17 at 21:00; Stop 02/10/17 at 20: 59 Fluticasone Propionate (Flonase 0.05% Nasal [place]) 2 spray DAILYPRN PRN NA ALLERGIES; Start 01/11/17 at 12:30; Stop 02/10/17 at 12:29 Haloperidol (Haldol) 5 mg BID IM ; Start 01/25/17 at 09:00; Stop 01/25/17 at 10: 43; Status DC Haloperidol (Haldol) 5 mg BID IM Last administered on 01/26/17 22:26; Start at 21:00; Stop 01/28/17 at 09:00; Status DC Haloperidol (Haldol) 5 mg BID PO ; Start 01/10/17 at 21:00; Stop 01/11/17 at 11: 36; Status DC Haloperidol (Haldol) 5 mg BID PO ; Start 01/25/17 at 09:00; Stop 01/25/17 at 21: 00; Status DC Haloperidol (Haldol) 5 mg BID PO Last administered on 01/28/17 08:54; Start at 09:00; Stop 01/28/17 at 09:00; Status DC Haloperidol (Haldol) 5 mg Q6HP PRN PO AGITATION; Start 01/10/17 at 16:00; Stop 02/09/17 at 15:59 Haloperidol (Haldol) 5 mg STAT STAT IM Last administered on 01/10/17 14:15; Start 01/10/17 at 13:33; Stop 01/10/17 at 13:35; Status DC Haloperidol (Haldol) 10 mg BID IM ; Start 01/28/17 at 21:00; Stop 02/27/17 at 20: 59; Status Future Hold Haloperidol (Haldol) 10 mg BID PO ; Start 01/28/17 at 21:00; Stop 02/27/17 at 20: 59 Haloperidol (Haldol) 10 mg STAT STAT IM ; Start 01/15/17 at 11:35; Stop at 11:36; Status Cancel Haloperidol (Haldol) 10 mg STAT STAT IM Last administered on 01/16/17 07:55; Start 01/16/17 at 07:42; Stop 01/16/17 at 07:45; Status DC Haloperidol (Haldol) 10 mg STAT STAT IM Last administered on 01/21/17 20:07; Start 01/21/17 at 19:58; Stop 01/21/17 at 20:00; Status DC Haloperidol (Haldol) 10 mg STAT STAT PO ; Start 01/21/17 at 19:52; Stop at 20:00; Status DC Home Med (Med Rec Complete!) ASDIRECTED XX ; Start 01/10/17 at 16:30; Stop at 16:30; Status DC Levothyroxine Sodium (Synthroid) 0.075 mg DAILY@0600 PO Last administered on 06:14; Start 01/11/17 at 06:00; Stop 02/10/17 at 05:59 [place] Carbonate ([place] Carbonate) 300 mg BID PO Last administered on 08:54; Start 01/10/17 at 21:00; Stop 02/09/17 at 20:59 Lorazepam (Ativan) 1 mg Q6HP PRN PO AGITATION; Start 01/10/17 at 16:00; Stop at 15:59 Lorazepam (Ativan) 1 mg STAT STAT IM Last administered on 01/10/17 13:16; Start 01/10/17 at 13:33; Stop 01/10/17 at 13:35; Status DC Lorazepam (Ativan) 2 mg STAT STAT IM ; Start 01/15/17 at 11:35; Stop 01/15/17 at 11:36; Status Cancel Lorazepam (Ativan) 2 mg STAT STAT IM Last administered on 01/16/17 07:54; Start 01/16/17 at 07:42; Stop 01/16/17 at 07:45; Status DC Lorazepam (Ativan) 2 mg STAT STAT IM Last administered on 01/21/17 20:07; Start 01/21/17 at 19:52; Stop 01/21/17 at 19:55; Status DC Magnesium Hydroxide (Milk Of Magnesia) 30 ml DAILYPRN PRN PO CONSTIPATION; Start 01/10/17 at 16:00; Stop 02/09/17 at 15:59 Miscellaneous (Unresolved Patient Own Med Order) SEE LABEL COMMENTS UNRESOLVED XX ; Start 01/11/17 at 00:01; Stop 01/14/17 at 13:46; Status DC Nicotine (Nicoderm Cq 21mg) 1 patch DAILY TD Last administered on 01/28/17 08: 56; Start 01/11/17 at 09:00; Stop 02/10/17 at 08:59 Patient Own Medication (Patient'S Own Med) 1 ea DAILY PO ; Start 01/12/17 at 09: 00; Stop 01/14/17 at 13:46; Status DC Quetiapine Fumarate (SEROquel) 100 mg QHS PO Last administered on 01/10/17 21: 50; Start 01/10/17 at 21:00; Stop 01/25/17 at 10:33; Status DC Risperidone (RisperDAL) 2 mg BID PO ; Start 01/11/17 at 09:00; Stop 01/25/17 at 10:33; Status DC Trazodone HCl (Desyrel) 50 mg QHSP PRN PO INSOMNIA; Start 01/10/17 at 16:00; Stop 02/09/17 at 15:59 Allergies Coded Allergies: No Known Drug Allergy (Verified Allergy, Unknown, 11/28/12) KATE COCHRAN MD Jan 28, 2017 14:08
[2017-01-28 18:00] VITALS: BP 131/84
[2017-01-28] MEDS ORDERED: HALOPERIDOL 5 MG/ML VIAL (J1630) IM SCH (21:00)
[2017-01-28] MEDS: HALOPERIDOL 10 MG TAB PO SCH (21:24)
[2017-01-28] MEDS: FAMOTIDINE 20 MG TAB PO SCH (21:26)
[2017-01-29 06:00] VITALS: BP 148/84
[2017-01-29] MEDS: LEVOTHYROXINE 0.075 MG TAB (75 MCG) PO SCH (06:10)
[2017-01-29] MEDS: LITHIUM CARBONATE 300 MG CAP PO SCH ×2 (08:34→21:08)
[2017-01-29] MEDS: HALOPERIDOL 10 MG TAB PO SCH ×2 (08:34→21:08)
[2017-01-29] MEDS: NICOTINE 21MG/24HR 1 EA TRANSDERMAL TD SCH (08:34)
[2017-01-29] MEDS: BENZTROPINE 1 MG TAB PO SCH ×2 (08:35→21:08)
[2017-01-29] MEDS: ACETAMINOPHEN TAB 650MG DOSE (2X325MG) PO PRN ×2 (08:35→21:08)
[2017-01-29] MEDS ORDERED: medroxyPROGESTERone ACET IM SUSP 150 MG/ML VIAL (J1050) IM ONE (09:00)
[2017-01-29 18:00] VITALS: BP 124/90
[2017-01-29] MEDS: FAMOTIDINE 20 MG TAB PO SCH (21:00)
--- NOTE | 2017-01-29 22:17 | IPN ---
DATE: 01/29/2017 Evaluated 37-year-old female with diagnosis of bipolar disorder, manic episode, who has been mandated by court order to comply with medication. At this time, she has been receiving Haldol 10 mg by mouth or intramuscular (IM) twice a day. If she refuses Haldol by mouth, then it is indicated by the court that she has to receive the equivalent in milligrams via IM, so when she has refused the Haldol via orally, she has been given it via IM. She is also receiving Cogentin either orally or IM 1 mg twice a day for extrapyramidal side effects. She has requested her lithium and it has been given to her, and she is currently taking it without any resistance. She also has been offered trazodone 50 mg as needed for sleep, but she has refused it. The patient had an administrative hearing yesterday regarding her possible transfer to [place]. If she does not improve in, let's say, for two weeks to three weeks, she will then require a higher level of care and longer treatment, and for that reason, she will need to be transferred to the [facility]. The patient has been evaluated today at the hallway at the inpatient mental health unit where she was seen walking several times, uncooperative with interview, refusing to talk much to this author. Her eye contact is good, she was dressed in hospital clothes, with good hygiene. Her speech is soft spoken, she is displaying very little pressured speech compared to when she came to the unit. Her thought process is still irrational, her thought content is redundant around going back home, taking care of her demented mother, not needing medications, being subject to stay at the inpatient mental health unit against her will, denying her illness. The abnormal or psychotic thoughts that she presents are delusional thoughts, paranoid and grandiose type. Her attention and concentration shifts very fast because at times, she can be attentive and follow a conversation, but then, she becomes agitated and gets distracted, and then she starts talking about something else and her speech becomes circumstantial and tangential. She cannot focus on one single subject for a long period of time. Her memory recent and remote is poor, her insight, judgment and impulse control are still very poor. In regards to the management plan, the patient will continue on the same medications and if it is needed, the dose of haloperidol will be increased. Next week, she will have blood drawn for her lithium levels and will continue as well on lithium 300 mg by mouth twice a day. She will continue on close observation and hopefully she will improve enough to leave this manic, psychotic episode behind and she will be able, hopefully, to gain insight into her disease, to accept it and once she accepts it, being more agreeable to take her medications that will help her have a quality of life. We will followup.
[2017-01-30] MEDS: LEVOTHYROXINE 0.075 MG TAB (75 MCG) PO SCH (05:52)
[2017-01-30 06:09] VITALS: BP 141/83
[2017-01-30] MEDS: NICOTINE 21MG/24HR 1 EA TRANSDERMAL TD SCH (08:28)
[2017-01-30] MEDS: BENZTROPINE 1 MG TAB PO SCH ×2 (08:29→21:27)
[2017-01-30] MEDS: ACETAMINOPHEN TAB 650MG DOSE (2X325MG) PO PRN ×2 (08:29→21:27)
[2017-01-30] MEDS: HALOPERIDOL 10 MG TAB PO SCH ×2 (08:29→21:27)
[2017-01-30] MEDS: LITHIUM CARBONATE 300 MG CAP PO SCH ×2 (08:29→21:27)
[2017-01-30 18:16] VITALS: BP 140/90
[2017-01-30] MEDS: FAMOTIDINE 20 MG TAB PO SCH (21:00)
[2017-01-31 06:00] VITALS: BP 137/89
[2017-01-31] MEDS: LEVOTHYROXINE 0.075 MG TAB (75 MCG) PO SCH (06:12)
[2017-01-31] MEDS: HALOPERIDOL 10 MG TAB PO SCH ×2 (08:44→20:22)
[2017-01-31] MEDS: BENZTROPINE 1 MG TAB PO SCH ×2 (08:44→20:22)
[2017-01-31] MEDS: LITHIUM CARBONATE 300 MG CAP PO SCH ×2 (08:44→20:22)
[2017-01-31] MEDS: ACETAMINOPHEN TAB 650MG DOSE (2X325MG) PO PRN ×2 (08:45→20:22)
[2017-01-31] MEDS: NICOTINE 21MG/24HR 1 EA TRANSDERMAL TD SCH (08:46)
[2017-01-31 18:00] VITALS: BP 130/87
[2017-01-31] MEDS: FAMOTIDINE 20 MG TAB PO SCH (21:00)
[2017-02-01] MEDS: LEVOTHYROXINE 0.075 MG TAB (75 MCG) PO SCH (06:02)
[2017-02-01] MEDS: HALOPERIDOL 10 MG TAB PO SCH ×2 (08:32→21:02)
[2017-02-01] MEDS: LITHIUM CARBONATE 300 MG CAP PO SCH ×2 (08:32→21:02)
[2017-02-01] MEDS: NICOTINE 21MG/24HR 1 EA TRANSDERMAL TD SCH (08:32)
[2017-02-01] MEDS: BENZTROPINE 1 MG TAB PO SCH ×2 (08:32→21:02)
[2017-02-01] MEDS: ACETAMINOPHEN TAB 650MG DOSE (2X325MG) PO PRN ×2 (08:33→21:03)
[2017-02-01] MEDS ORDERED: CYCLOBENZAPRINE 10 MG TAB PO PRN (10:45)
[2017-02-01] MEDS ORDERED: CYCL10TA PO (14:58)
[2017-02-01] MEDS ORDERED: LITH300C PO (14:58)
[2017-02-01] MEDS ORDERED: TRAZO50TA PO (14:58)
[2017-02-01] MEDS ORDERED: NICO21PAT TD (14:58)
[2017-02-01] MEDS ORDERED: BENZ1TA PO (14:58)
[2017-02-01] MEDS ORDERED: HALO10TA PO (14:58)
[2017-02-01 18:00] VITALS: BP 133/83
[2017-02-01] MEDS: FAMOTIDINE 20 MG TAB PO SCH (21:00)
--- NOTE | 2017-02-01 22:06 | IPN ---
DATE: 02/01/2017 Evaluated. Patient diagnosed with bipolar disorder, manic episode. The patient states today that she is very happy because she received her parents visit yesterday, her 91-year-old father and her 72-year-old mother, and she says that both of them are completely supportive of her. She continues to dislike the fact of being on Haldol and Cogentin, although she is compliant with them, and she has been willing to take her lithium. She states that she really wants to go out of the hospital because she wants to continue taking care of her mother. On mental status examination, the patient was seen alert, oriented times three, cooperative with interview, with normal speech, soft spoken, not pressured, not tangential and not circumstantial. She was dressed in hospital clothes and had a pleasant and cooperative attitude. Her thought process was intact, her thought content is redundant about her medications and her illness, and being allergic to Haldol and Cogentin. She is not homicidal, not suicidal, and at this time, she is not responding to internal stimuli. She denies auditory and visual hallucinations and her delusional thoughts, paranoid and grandiose have decreased approximately 90% compared to when she was not being treated and not accepting medications. Her memory, recent and remote, are fair, her concentration and attention are fair. Her insight and judgment are improving, and her impulse control has improved dramatically. DIAGNOSIS: Bipolar disorder, manic episode. MANAGEMENT PLAN: The patient will be discharged home because she has improved, and she has been compliant with medications. The appointments have been made for her to followup with her primary care provider and with an outpatient psychiatrist. The patient has been educated once again regarding her illness and the importance of compliance with medication. The patient stated that she is very thankful for being discharged and that she will comply with appointments and medications. Will be reevaluated tomorrow before being discharged.
[2017-02-02] MEDS: LEVOTHYROXINE 0.075 MG TAB (75 MCG) PO SCH (05:13)
[2017-02-02] MEDS: ACETAMINOPHEN TAB 650MG DOSE (2X325MG) PO PRN (05:13)
[2017-02-02 06:33] VITALS: BP 133/82
[2017-02-02] MEDS: LITHIUM CARBONATE 300 MG CAP PO SCH (08:17)
[2017-02-02] MEDS: BENZTROPINE 1 MG TAB PO SCH (08:17)
[2017-02-02] MEDS: HALOPERIDOL 10 MG TAB PO SCH (08:17)
[2017-02-02] MEDS: NICOTINE 21MG/24HR 1 EA TRANSDERMAL TD SCH (08:18)
[2017-02-02] MEDS ORDERED: BENZTROPINE MESYLATE 2MG/2ML VIAL IM PRN (10:00)
[2017-02-02] MEDS ORDERED: HALOPERIDOL DECANOATE 100 MG/ML VIAL (J1631) IM ONE (10:00)
[2017-02-02] MEDS ORDERED: HALD50IN4 IM (10:06)
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
[2017-02-16] MEDS ORDERED: BENZTROPINE MESYLATE 2MG/2ML VIAL IM PRN (10:00)
[2017-02-16] MEDS ORDERED: HALOPERIDOL DECANOATE 100 MG/ML VIAL (J1631) IM ONE (10:00)
== END 2017-02-02 10:50 | disposition home or self-care (01) | DRG 753 ==
LOC: M ED 13:35 → M ED INP 15:47 → M PSY 16:54
PROVIDERS: ADMIT Psychiatry & Neurology Psychiatry; ATTEND Psychiatry & Neurology Psychiatry
DX: F31.9 Bipolar disorder, unspecified (principal); Z91.14 Patient's other noncompliance with medication regimen; E03.9 Hypothyroidism, unspecified; F17.210 Nicotine dependence, cigarettes, uncomplicated; J30.9 Allergic rhinitis, unspecified; R35.0 Frequency of micturition; K21.9 Gastro-esophageal reflux disease without esophagitis; E87.6 Hypokalemia; Z79.899 Other long term (current) drug therapy

== ENCOUNTER 2017-04-01 22:44 | Emergency (ER) | payer OTHER ==
[~2017-04-01] VITALS: Ht 167.6 cm; Wt 76.4 kg
[~2017-04-01 22:44] MED LIST changes: +ABIL10TA9 PO; +ABIL1TAB11 PO; -ABIL1TAB5 PO; -ABIL5TAB5 PO; +BENZ-52 PO; +BUPR300T34 PO; +CYCL10TA PO; +DARI15TA PO; +DETR1TAB4 PO; +FLON1SPR; +FLUT1SPR2; +HALD50IN4 IM; +HALO10TA2 PO; +LEVO75TA34 PO; +LITH300C PO; +NICO21DI31 TOP; +NICODIS TD; +PATIENT COMMENT; +RANI150T PO; +TRAZ-136 PO; -TRAZ100T4 PO; +TRAZ50TA11 PO; -TRAZ50TA4 PO; +TRAZO50TA PO; -ZYPR5TAB PO; +ZYPR5TAB31 PO
[2017-04-02 00:10] VITALS: BP 121/91
== END 2017-04-02 01:14 | disposition home or self-care (01) ==
LOC: M ED 22:44
DX: J06.9 Acute upper respiratory infection, unspecified (principal); L25.9 Unspecified contact dermatitis, unspecified cause; R00.2 Palpitations; Z72.0 Tobacco use

== ENCOUNTER → 2017-06-01 | Outpatient (CLI) | payer OTHER ==
[~2017-06-01] MED LIST changes: +E-Z-PAQUE 96% w/w SUSP 176GM BTL As Ordered ONE; +VARIBAR NECTAR 40% w/v 240ML SUSP BTL As Ordered ONE; +VARIBAR PUDDING 40% w/v 230ML TUBE As Ordered ONE
--- NOTE | 2017-06-01 13:29 | REP ---
COOKIE SWALLOW: The procedure was performed by DULCE Gaviria under the direct supervision of Dr. Pleitez. The procedure was attended by from Annamarie Perkins from speech pathology. The patient was able to ingest liquid barium in various consistencies. These consisted of thin, puree, mixed, and solid consistencies. There was no penetration or aspiration seen on any of the consistencies. A full evaluation from speech pathology is to follow. Fluoroscopy time of 1 minute and 15 seconds were utilized for this procedure. Reviewed by DULCE West 06/01/2017 02:17 PEdited and Signed by Gabriel Pleitez MD 06/01/2017 03:35 P
== END ==
LOC: M RAD 11:39
PROVIDERS: ATTEND Family Medicine
DX: R13.10 Dysphagia, unspecified (principal); K21.9 Gastro-esophageal reflux disease without esophagitis
CPT/HCPCS: 74230; 92611; G8996; G8997; G8998

== ENCOUNTER → 2017-06-02 | Outpatient (REF) | payer OTHER ==
[~2017-06-02] MED LIST changes: -E-Z-PAQUE 96% w/w SUSP 176GM BTL As Ordered ONE; -VARIBAR NECTAR 40% w/v 240ML SUSP BTL As Ordered ONE; -VARIBAR PUDDING 40% w/v 230ML TUBE As Ordered ONE
[2017-06-02 13:30] LABS: FREE T4 1.03 NG/DL (0.76-1.46)
== END ==
LOC: M SFHCPLAZ 10:37
PROVIDERS: ATTEND Family Medicine
DX: E03.9 Hypothyroidism, unspecified (principal)

== ENCOUNTER 2017-08-06 12:58 | Inpatient (IN) | payer MEDICAID, OTHER ==
[2017-08-06 14:54] LABS: HEMATOCRIT 40.2 % (36.0-47.0); HEMOGLOBIN 13.6 g/dl (12.0-16.0); MEAN CORPUSCULAR HEMOGLOBIN 30.3 pg (27.0-33.0); MEAN CORPUSCULAR HGB CONC 33.8 g/dl (32.0-36.5); MEAN CORPUSCULAR VOLUME 89.5 fl (80.0-96.0); PLATELET COUNT, AUTOMATED 299 10^3/uL (150-450); RED BLOOD COUNT 4.49 10^6/uL (4.00-5.40); WHITE BLOOD COUNT 18.6 10^3/uL (4.0-10.0)
[2017-08-06 15:06] LABS: CONTROL LINE HCG INT CTR LINE PRESENT; HCG, SERUM QUALITATIVE NEGATIVE (NEGATIVE)
[2017-08-06 15:12] LABS: AMPHETAMINES LEVEL URINE NEGATIVE (NEGATIVE); BARBITURATES URINE NEGATIVE (NEGATIVE); BENZODIAZEPINES URINE NEGATIVE (NEGATIVE); CANNABINOIDS URINE NEGATIVE (NEGATIVE); COCAINE METABOLITE URINE NEGATIVE (NEGATIVE); METHADONE URINE NEGATIVE (NEGATIVE); OPIATES URINE NEGATIVE (NEGATIVE); PHENCYCLIDINE URINE NEGATIVE (NEGATIVE)
[2017-08-06 15:20] LABS: LITHIUM LEVEL < 0.20 MEQ/L (0.60-1.20)
[2017-08-06 16:27] LABS: ACETAMINOPHEN LEVEL < 2.0 UG/ML (10.0-30.0); ALBUMIN 4.4 GM/DL (3.2-5.2); ALBUMIN/GLOBULIN RATIO 1.38 (1.00-1.93); ALKALINE PHOSPHATASE 89 U/L (45-117); ALT/SGPT 47 U/L (12-78); ANION GAP 14 MEQ/L (8-16); AST/SGOT 44 U/L (7-37); BILIRUBIN,DIRECT 0.2 MG/DL (0.0-0.2); BILIRUBIN,TOTAL 0.6 MG/DL (0.2-1.0); BLOOD UREA NITROGEN 7 MG/DL (7-18); CARBON DIOXIDE LEVEL 25 MEQ/L (21-32); CHLORIDE LEVEL 94 MEQ/L (98-107); ETHYL ALCOHOL (ETHANOL) < 0.003 % (0.000-0.010); GLOMERULAR FILTRATION RATE > 60.0 (>60); GLUCOSE, FASTING 100 MG/DL (70-105); POTASSIUM SERUM 3.1 MEQ/L (3.5-5.1); SODIUM LEVEL 133 MEQ/L (136-145); TOTAL PROTEIN 7.6 GM/DL (6.4-8.2)
[2017-08-06] MEDS ORDERED: POTASSIUM CHLORIDE 10 MEQ SR TABLET PO (17:00)
[2017-08-06] MEDS: MIDAZOLAM INJ 5 MG/ML VIAL (J2250) IM (17:23)
[2017-08-06] MEDS ORDERED: POTASSIUM CHL PWD 20 MEQ PACKET As Ordered (19:09)
[2017-08-06] MEDS: POTASSIUM CHLORIDE 10% LIQ 20 MEQ/15 ML UDC PO (19:14)
[2017-08-06 20:00] LABS: APPEARANCE, URINE CLEAR (CLEAR); BACTERIA, URINE AUTO NEGATIVE (NEGATIVE); BILIRUBIN, URINE AUTO NEGATIVE (NEGATIVE); BLOOD, URINE BLOOD 1+ (NEGATIVE); COLOR, URINE STRAW (YELLOW); GLUCOSE, URINE (UA) AUTO NEGATIVE (NEGATIVE); KETONE, URINE AUTO NEGATIVE (NEGATIVE); LEUKOCYTE ESTERASE, URINE AUTO NEGATIVE (NEGATIVE); NITRITE, URINE AUTO NEGATIVE (NEGATIVE); PROTEIN, URINE AUTO NEGATIVE (NEGATIVE); RBC, URINE AUTO 0 /HPF (0-3); SPECIFIC GRAVITY URINE AUTO 1.002 (1.002-1.035); SQUAMOUS EPITHELIAL CELL UR AU 0 /HPF (0-6); UROBILINOGEN, URINE AUTO 0.2 mg/dL (0.0-2.0); WBC, URINE AUTO 0 /HPF (0-3)
[2017-08-06] MEDS ORDERED: MAALOX 30 ML SUSP *UDC PO (20:30)
[2017-08-06] MEDS ORDERED: traZODone 50 MG TAB PO (20:30)
[2017-08-06] MEDS ORDERED: MOM 30ML SUSPENSION UDC PO (20:30)
[2017-08-07] MEDS: LEVOTHYROXINE 75MCG TABLET (0.075MG) PO (06:00)
[2017-08-07] MEDS: oxyBUTYnin *DITROPAN XL* 5 MG TABCR PO (09:00)
[2017-08-07] MEDS: NICOTINE 21MG/24HR 1 EA TRANSDERMAL TD (11:59)
[2017-08-07] MEDS: PALIPERIDONE 3 MG ER TAB (INVEGA) PO (21:00)
[2017-08-08] MEDS ORDERED: OLANZapine 5 MG TAB PO (00:30)
[2017-08-08] MEDS ORDERED: LORazepam 2 MG TAB PO (00:30)
[2017-08-08] MEDS: LEVOTHYROXINE 75MCG TABLET (0.075MG) PO (06:00)
[2017-08-08] MEDS: oxyBUTYnin *DITROPAN XL* 5 MG TABCR PO (08:37)
[2017-08-08] MEDS: NICOTINE 21MG/24HR 1 EA TRANSDERMAL TD ×2 (08:37→11:00)
[2017-08-08] MEDS: PALIPERIDONE 3 MG ER TAB (INVEGA) PO (21:00)
[2017-08-09] MEDS: LEVOTHYROXINE 75MCG TABLET (0.075MG) PO (06:00)
[2017-08-09] MEDS: NICOTINE 21MG/24HR 1 EA TRANSDERMAL TD (08:07)
[2017-08-09] MEDS: oxyBUTYnin *DITROPAN XL* 5 MG TABCR PO (08:07)
[2017-08-09] MEDS: **PENDING PPD ENTRY XX (09:00)
[2017-08-09] MEDS: TUBERCULIN PPD 5 UNITS/0.1 ML ID (11:00)
[2017-08-09] MEDS: PALIPERIDONE 3 MG ER TAB (INVEGA) PO (14:47)
[2017-08-10] MEDS: LEVOTHYROXINE 75MCG TABLET (0.075MG) PO (06:00)
[2017-08-10] MEDS: **PENDING PPD ENTRY XX (09:00)
[2017-08-10] MEDS: oxyBUTYnin *DITROPAN XL* 5 MG TABCR PO (09:00)
[2017-08-10] MEDS: NICOTINE 21MG/24HR 1 EA TRANSDERMAL TD (09:38)
[2017-08-10] MEDS: BACITRACIN OINT 30GM TOP (17:02)
[2017-08-10] MEDS: PALIPERIDONE 3 MG ER TAB (INVEGA) PO (21:00)
[2017-08-11] MEDS: LEVOTHYROXINE 75MCG TABLET (0.075MG) PO (06:00)
[2017-08-11] MEDS: NICOTINE 21MG/24HR 1 EA TRANSDERMAL TD (09:00)
[2017-08-11] MEDS: oxyBUTYnin *DITROPAN XL* 5 MG TABCR PO (09:00)
[2017-08-11] MEDS: **PENDING PPD ENTRY XX (09:00)
[2017-08-11] MEDS ORDERED: PPD DOCUMENTATION ENTRY MISC XX (10:00)
[2017-08-11] MEDS: PALIPERIDONE 3 MG ER TAB (INVEGA) PO (20:00)
[2017-08-12] MEDS: LEVOTHYROXINE 75MCG TABLET (0.075MG) PO (06:00)
[2017-08-12] MEDS: NICOTINE 21MG/24HR 1 EA TRANSDERMAL TD (08:33)
[2017-08-12] MEDS: **PENDING PPD ENTRY XX (08:34)
[2017-08-12] MEDS: oxyBUTYnin *DITROPAN XL* 5 MG TABCR PO (08:34)
[2017-08-12] MEDS: PALIPERIDONE 3 MG ER TAB (INVEGA) PO (21:00)
[2017-08-13] MEDS ORDERED: HALOPERIDOL 5 MG TAB PO (00:10)
[2017-08-13] MEDS: diphenhydrAMINE INJ 50MG/ML VIAL (J1200) IM (00:15)
[2017-08-13] MEDS: LORazepam 2 MG/ML VIAL (J2060) IM (00:16)
[2017-08-13] MEDS: HALOPERIDOL 5 MG/ML VIAL (J1630) IM (00:22)
[2017-08-13] MEDS: LEVOTHYROXINE 75MCG TABLET (0.075MG) PO (06:00)
[2017-08-13] MEDS: oxyBUTYnin *DITROPAN XL* 5 MG TABCR PO (09:00)
[2017-08-13] MEDS: **PENDING PPD ENTRY XX (09:00)
[2017-08-13] MEDS: NICOTINE 21MG/24HR 1 EA TRANSDERMAL TD (09:25)
[2017-08-13] MEDS: PALIPERIDONE 3 MG ER TAB (INVEGA) PO (20:45)
[2017-08-13] MEDS: CYCLOBENZAPRINE 10 MG TAB PO (22:10)
[2017-08-13] MEDS: ACETAMINOPHEN TAB 650MG DOSE (2X325MG) PO (22:11)
[2017-08-14] MEDS: CYCLOBENZAPRINE 10 MG TAB PO ×2 (04:51→13:43)
[2017-08-14] MEDS: ACETAMINOPHEN TAB 650MG DOSE (2X325MG) PO ×2 (04:52→13:44)
[2017-08-14] MEDS: LEVOTHYROXINE 75MCG TABLET (0.075MG) PO (05:58)
[2017-08-14] MEDS: NICOTINE 21MG/24HR 1 EA TRANSDERMAL TD (06:56)
[2017-08-14] MEDS: oxyBUTYnin *DITROPAN XL* 5 MG TABCR PO (09:00)
[2017-08-14] MEDS: **PENDING PPD ENTRY XX (09:00)
[2017-08-14] MEDS: PALIPERIDONE 3 MG ER TAB (INVEGA) PO (20:06)
[2017-08-15] MEDS: LEVOTHYROXINE 75MCG TABLET (0.075MG) PO (06:02)
[2017-08-15] MEDS: NICOTINE 21MG/24HR 1 EA TRANSDERMAL TD (08:00)
[2017-08-15] MEDS: **PENDING PPD ENTRY XX (08:00)
[2017-08-15] MEDS: oxyBUTYnin *DITROPAN XL* 5 MG TABCR PO (08:00)
[2017-08-15] MEDS: CYCLOBENZAPRINE 10 MG TAB PO (09:16)
[2017-08-15] MEDS: ACETAMINOPHEN TAB 650MG DOSE (2X325MG) PO (09:19)
[2017-08-15] MEDS: PALIPERIDONE 3 MG ER TAB (INVEGA) PO (20:11)
[2017-08-16] MEDS: LEVOTHYROXINE 75MCG TABLET (0.075MG) PO (05:47)
[2017-08-16] MEDS: **PENDING PPD ENTRY XX (08:04)
[2017-08-16] MEDS: oxyBUTYnin *DITROPAN XL* 5 MG TABCR PO (08:04)
[2017-08-16] MEDS: NICOTINE 21MG/24HR 1 EA TRANSDERMAL TD ×2 (09:00→18:56)
[2017-08-16] MEDS: PALIPERIDONE 3 MG ER TAB (INVEGA) PO (21:00)
[2017-08-17] MEDS: LEVOTHYROXINE 75MCG TABLET (0.075MG) PO (06:00)
[2017-08-17] MEDS: oxyBUTYnin *DITROPAN XL* 5 MG TABCR PO ×2 (08:03→08:04)
[2017-08-17] MEDS: **PENDING PPD ENTRY XX (08:04)
[2017-08-17] MEDS: NICOTINE 21MG/24HR 1 EA TRANSDERMAL TD ×2 (08:04→16:56)
[2017-08-17] MEDS: diphenhydrAMINE INJ 50MG/ML VIAL (J1200) IM (17:48)
[2017-08-17] MEDS: LORazepam 2 MG/ML VIAL (J2060) IM (17:49)
[2017-08-17] MEDS: PALIPERIDONE 3 MG ER TAB (INVEGA) PO (20:22)
[2017-08-18] MEDS: LEVOTHYROXINE 75MCG TABLET (0.075MG) PO (06:00)
[2017-08-18] MEDS: oxyBUTYnin *DITROPAN XL* 5 MG TABCR PO (08:36)
[2017-08-18] MEDS: **PENDING PPD ENTRY XX (08:36)
[2017-08-18] MEDS: NICOTINE 21MG/24HR 1 EA TRANSDERMAL TD ×3 (08:36→15:22)
[2017-08-18] MEDS ORDERED: HALOPERIDOL 5 MG/ML VIAL (J1630) IM (12:00)
[2017-08-18] MEDS: PALIPERIDONE PALMITATE 234 MG/1.5 ML INJ (INVEGA SUSTENNA)(J2426) IM (18:00)
[2017-08-18] MEDS: PALIPERIDONE 3 MG ER TAB (INVEGA) PO (21:00)
[2017-08-18] MEDS: HALOPERIDOL 5 MG/ML VIAL (J1630) IM (23:07)
[2017-08-18] MEDS: LORazepam 2 MG/ML VIAL (J2060) IM (23:07)
[2017-08-19] MEDS: LEVOTHYROXINE 75MCG TABLET (0.075MG) PO (06:08)
[2017-08-19] MEDS: oxyBUTYnin *DITROPAN XL* 5 MG TABCR PO (09:00)
[2017-08-19] MEDS: NICOTINE 21MG/24HR 1 EA TRANSDERMAL TD ×2 (09:00→13:40)
[2017-08-19] MEDS: **PENDING PPD ENTRY XX (09:00)
[2017-08-19] MEDS ORDERED: PALIPERIDONE PALMITATE 234 MG/1.5 ML INJ (INVEGA SUSTENNA)(J2426) IM (12:00)
[2017-08-19] MEDS ORDERED: PALIPERIDONE 3 MG ER TAB (INVEGA) PO (12:00)
[2017-08-19] MEDS: PALIPERIDONE PALMITATE 234 MG/1.5 ML INJ (INVEGA SUSTENNA)(J2426) IM (12:23)
[2017-08-19] MEDS: PALIPERIDONE 3 MG ER TAB (INVEGA) PO (12:41)
[2017-08-20] MEDS: LEVOTHYROXINE 75MCG TABLET (0.075MG) PO (06:04)
[2017-08-20] MEDS: NICOTINE 21MG/24HR 1 EA TRANSDERMAL TD (08:00)
[2017-08-20] MEDS: oxyBUTYnin *DITROPAN XL* 5 MG TABCR PO (08:01)
[2017-08-20] MEDS: **PENDING PPD ENTRY XX (08:01)
[2017-08-20] MEDS ORDERED: PALIPERIDONE 3 MG ER TAB (INVEGA) PO (09:00)
[2017-08-21] MEDS: LEVOTHYROXINE 75MCG TABLET (0.075MG) PO (06:40)
[2017-08-21] MEDS: oxyBUTYnin *DITROPAN XL* 5 MG TABCR PO (08:53)
[2017-08-21] MEDS: **PENDING PPD ENTRY XX (08:53)
[2017-08-21] MEDS: NICOTINE 21MG/24HR 1 EA TRANSDERMAL TD ×2 (09:00→10:16)
[2017-08-22] MEDS: LEVOTHYROXINE 75MCG TABLET (0.075MG) PO (06:00)
[2017-08-22] MEDS: oxyBUTYnin *DITROPAN XL* 5 MG TABCR PO (08:37)
[2017-08-22] MEDS: **PENDING PPD ENTRY XX (08:37)
[2017-08-22] MEDS: NICOTINE 21MG/24HR 1 EA TRANSDERMAL TD (08:38)
[2017-08-22] MEDS: LITHIUM CARBONATE 300 MG CAP PO ×2 (09:00→21:00)
[2017-08-23] MEDS: LEVOTHYROXINE 75MCG TABLET (0.075MG) PO (06:00)
[2017-08-23] MEDS: LITHIUM CARBONATE 300 MG CAP PO (08:39)
[2017-08-23] MEDS: NICOTINE 21MG/24HR 1 EA TRANSDERMAL TD (08:39)
[2017-08-23] MEDS: oxyBUTYnin *DITROPAN XL* 5 MG TABCR PO (08:41)
[2017-08-23] MEDS: **PENDING PPD ENTRY XX (08:41)
[2017-08-23 14:19] LABS: HEMATOCRIT 42.5 % (36.0-47.0); HEMOGLOBIN 14.1 g/dl (12.0-16.0); MEAN CORPUSCULAR HEMOGLOBIN 30.7 pg (27.0-33.0); MEAN CORPUSCULAR HGB CONC 33.2 g/dl (32.0-36.5); MEAN CORPUSCULAR VOLUME 92.4 fl (80.0-96.0); PLATELET COUNT, AUTOMATED 332 10^3/uL (150-450); RED CELL DISTRIBUTION WIDTH 13.2 % (11.5-14.5); WHITE BLOOD COUNT 12.4 10^3/uL (4.0-10.0)
[2017-08-23 14:51] LABS: ANION GAP 6 MEQ/L (8-16); BLOOD UREA NITROGEN 8 MG/DL (7-18); CALCIUM LEVEL 9.1 MG/DL (8.5-10.1); CARBON DIOXIDE LEVEL 31 MEQ/L (21-32); CHLORIDE LEVEL 104 MEQ/L (98-107); CREATININE FOR GFR 0.85 MG/DL (0.55-1.02); FREE THYROXINE INDEX 1.8 % (1.3-4.8); GLOMERULAR FILTRATION RATE > 60.0 (>60); GLUCOSE, FASTING 102 MG/DL (70-105); POTASSIUM SERUM 4.5 MEQ/L (3.5-5.1); SODIUM LEVEL 141 MEQ/L (136-145); T UPTAKE 33 % (30-39); THYROXINE (T4) 5.4 UG/DL (4.5-12.0)
[2017-08-24] MEDS: diphenhydrAMINE INJ 50MG/ML VIAL (J1200) IM (03:07)
[2017-08-24] MEDS: LORazepam 2 MG/ML VIAL (J2060) IM (03:07)
[2017-08-24] MEDS: HALOPERIDOL 5 MG/ML VIAL (J1630) IM ×2 (03:07→21:30)
[2017-08-24] MEDS: LEVOTHYROXINE 75MCG TABLET (0.075MG) PO (06:00)
[2017-08-24] MEDS: oxyBUTYnin *DITROPAN XL* 5 MG TABCR PO (09:00)
[2017-08-24] MEDS: **PENDING PPD ENTRY XX (09:00)
[2017-08-24] MEDS: NICOTINE 21MG/24HR 1 EA TRANSDERMAL TD (10:00)
[2017-08-24] MEDS: DIVALPROEX 250MG *ER* TAB PO (20:50)
[2017-08-25] MEDS: LEVOTHYROXINE 75MCG TABLET (0.075MG) PO (06:00)
[2017-08-25] MEDS: oxyBUTYnin *DITROPAN XL* 5 MG TABCR PO (08:48)
[2017-08-25] MEDS: **PENDING PPD ENTRY XX (09:00)
[2017-08-25] MEDS: NICOTINE 21MG/24HR 1 EA TRANSDERMAL TD (09:42)
[2017-08-25] MEDS: DIVALPROEX 250MG *ER* TAB PO (20:11)
[2017-08-25] MEDS: HALOPERIDOL 5 MG/ML VIAL (J1630) IM (21:02)
[2017-08-26] MEDS: LEVOTHYROXINE 75MCG TABLET (0.075MG) PO (05:14)
[2017-08-26] MEDS: NICOTINE 21MG/24HR 1 EA TRANSDERMAL TD (08:28)
[2017-08-26] MEDS: oxyBUTYnin *DITROPAN XL* 5 MG TABCR PO (08:29)
[2017-08-26] MEDS: **PENDING PPD ENTRY XX (08:29)
[2017-08-26] MEDS ORDERED: HALOPERIDOL 5 MG TAB PO (13:00)
[2017-08-27] MEDS: LEVOTHYROXINE 75MCG TABLET (0.075MG) PO (05:23)
[2017-08-27] MEDS: NICOTINE 21MG/24HR 1 EA TRANSDERMAL TD (08:43)
[2017-08-27] MEDS: **PENDING PPD ENTRY XX (08:43)
[2017-08-27] MEDS: oxyBUTYnin *DITROPAN XL* 5 MG TABCR PO (08:43)
[2017-08-27 10:53] LABS: T UPTAKE 33 % (30-39)
[2017-08-27] MEDS: PALIPERIDONE PALMITATE 156 MG/1ML INJ(INVEGA SUSTENNA)(J2426) IM (15:53)
[2017-08-28] MEDS: LEVOTHYROXINE 75MCG TABLET (0.075MG) PO (05:07)
[2017-08-28] MEDS: **PENDING PPD ENTRY XX (08:19)
[2017-08-28] MEDS: oxyBUTYnin *DITROPAN XL* 5 MG TABCR PO (08:19)
[2017-08-28] MEDS: NICOTINE 21MG/24HR 1 EA TRANSDERMAL TD (08:20)
[2017-08-29] MEDS: LEVOTHYROXINE 75MCG TABLET (0.075MG) PO (06:05)
[2017-08-29] MEDS: oxyBUTYnin *DITROPAN XL* 5 MG TABCR PO (08:22)
[2017-08-29] MEDS: NICOTINE 21MG/24HR 1 EA TRANSDERMAL TD (08:22)
[2017-08-29] MEDS: **PENDING PPD ENTRY XX (08:23)
[2017-08-30] MEDS: LEVOTHYROXINE 75MCG TABLET (0.075MG) PO (06:06)
[2017-08-30] MEDS: oxyBUTYnin *DITROPAN XL* 5 MG TABCR PO (08:04)
[2017-08-30] MEDS: **PENDING PPD ENTRY XX (08:04)
[2017-08-30] MEDS: NICOTINE 21MG/24HR 1 EA TRANSDERMAL TD (08:04)
[2017-08-30] MEDS: ACETAMINOPHEN TAB 650MG DOSE (2X325MG) PO (20:57)
[2017-08-31] MEDS: LEVOTHYROXINE 75MCG TABLET (0.075MG) PO (05:45)
[2017-08-31] MEDS: ACETAMINOPHEN TAB 650MG DOSE (2X325MG) PO ×3 (05:59→21:38)
[2017-08-31] MEDS: FLUTICASONE PROP 0.05% NASAL SPRAY 16 GM (FLONASE) ×2 (06:11→21:38)
[2017-08-31] MEDS: NICOTINE 21MG/24HR 1 EA TRANSDERMAL TD (08:14)
[2017-08-31] MEDS: oxyBUTYnin *DITROPAN XL* 5 MG TABCR PO (08:14)
[2017-08-31] MEDS: **PENDING PPD ENTRY XX (08:14)
[2017-08-31] MEDS: CYCLOBENZAPRINE 10 MG TAB PO ×2 (08:15→21:37)
[2017-08-31] MEDS: BACITRACIN OINT 30GM TOP (12:02)
[2017-08-31 14:52] LABS: FREE THYROXINE INDEX 2.2 % (1.3-4.8); T UPTAKE 36 % (30-39); THYROXINE (T4) 6.1 UG/DL (4.5-12.0)
[2017-09-01] MEDS: LEVOTHYROXINE 75MCG TABLET (0.075MG) PO (06:15)
[2017-09-01] MEDS: oxyBUTYnin *DITROPAN XL* 5 MG TABCR PO (09:00)
[2017-09-01] MEDS: **PENDING PPD ENTRY XX (09:00)
[2017-09-01] MEDS: NICOTINE 21MG/24HR 1 EA TRANSDERMAL TD (09:24)
[2017-09-01] MEDS: FLUTICASONE PROP 0.05% NASAL SPRAY 16 GM (FLONASE) (17:45)
[2017-09-01] MEDS: CYCLOBENZAPRINE 10 MG TAB PO (17:47)
[2017-09-01] MEDS: ACETAMINOPHEN TAB 650MG DOSE (2X325MG) PO (17:47)
[2017-09-02] MEDS: LEVOTHYROXINE 75MCG TABLET (0.075MG) PO (06:08)
[2017-09-02] MEDS: CYCLOBENZAPRINE 10 MG TAB PO (06:42)
[2017-09-02] MEDS: ACETAMINOPHEN TAB 650MG DOSE (2X325MG) PO (06:42)
[2017-09-02] MEDS: **PENDING PPD ENTRY XX (09:00)
[2017-09-02] MEDS: oxyBUTYnin *DITROPAN XL* 5 MG TABCR PO (09:00)
[2017-09-02] MEDS: NICOTINE 21MG/24HR 1 EA TRANSDERMAL TD (09:36)
== END 2017-09-02 16:10 | DRG 885 ==
LOC: M ED 12:58 → M ED INP 14:34 → M PSY 22:09
DX: F31.9 Bipolar disorder, unspecified (principal); Z88.8 Allergy status to other drugs, medicaments and biological substances; E03.9 Hypothyroidism, unspecified; K21.9 Gastro-esophageal reflux disease without esophagitis; J30.9 Allergic rhinitis, unspecified; D72.829 Elevated white blood cell count, unspecified

== ENCOUNTER → 2017-09-30 | Outpatient (REF) | payer OTHER ==
[2017-09-30 14:22] LABS: APPEARANCE, URINE CLEAR (CLEAR); BACTERIA, URINE AUTO NEGATIVE (NEGATIVE); BILIRUBIN, URINE AUTO NEGATIVE (NEGATIVE); BLOOD, URINE BLOOD NEGATIVE (NEGATIVE); COLOR, URINE COLORLESS (YELLOW); GLUCOSE, URINE (UA) AUTO NEGATIVE (NEGATIVE); KETONE, URINE AUTO NEGATIVE (NEGATIVE); LEUKOCYTE ESTERASE, URINE AUTO 1+ (NEGATIVE); MUCUS, URINE SMALL (NEGATIVE); NITRITE, URINE AUTO NEGATIVE (NEGATIVE); PROTEIN, URINE AUTO NEGATIVE (NEGATIVE); RBC, URINE AUTO 0 /HPF (0-3); SPECIFIC GRAVITY URINE AUTO 1.002 (1.002-1.035); SQUAMOUS EPITHELIAL CELL UR AU 0 /HPF (0-6); UROBILINOGEN, URINE AUTO 0.2 mg/dL (0.0-2.0); WBC, URINE AUTO 2 /HPF (0-3)
== END ==
LOC: M SMT 13:20
DX: R35.0 Frequency of micturition (principal)

== ENCOUNTER → 2017-10-27 | Outpatient (REF) | payer OTHER | LOC: M SFHCPLAZ 11:02 | DX: E03.9 Hypothyroidism, unspecified (principal) ==

== ENCOUNTER 2017-11-01 07:59 | Day surgery (SDC) | payer OTHER ==
[2017-11-01] MEDS ORDERED: PROPOFOL 200 MG/20 ML VIAL As Ordered (09:30)
[2017-11-01] MEDS ORDERED: NS 1,000 ML IV (09:30)
[2017-11-01] MEDS ORDERED: LIDOCAINE 2% INJ 100 MG/5 ML SDV (FOR ANES.) As Ordered (09:30)
== END 2017-11-01 10:38 | disposition home or self-care (01) ==
LOC: M SDC 07:59
DX: K29.60 Other gastritis without bleeding (principal); E03.9 Hypothyroidism, unspecified; K21.9 Gastro-esophageal reflux disease without esophagitis; M51.9 Unspecified thoracic, thoracolumbar and lumbosacral intervertebral disc disorder; F32.9 Major depressive disorder, single episode, unspecified; F17.210 Nicotine dependence, cigarettes, uncomplicated; Z88.8 Allergy status to other drugs, medicaments and biological substances; Z79.899 Other long term (current) drug therapy; Z79.82 Long term (current) use of aspirin; Z79.02 Long term (current) use of antithrombotics/antiplatelets; Z79.01 Long term (current) use of anticoagulants
CPT/HCPCS: 43239

== ENCOUNTER → 2017-11-26 | Outpatient (REF) | payer OTHER ==
[2017-11-26 11:58] LABS: HEMATOCRIT 41.3 % (36.0-47.0); HEMOGLOBIN 13.5 g/dl (12.0-15.5); MEAN CORPUSCULAR HEMOGLOBIN 30.1 pg (27.0-33.0); MEAN CORPUSCULAR HGB CONC 32.7 g/dl (32.0-36.5); MEAN CORPUSCULAR VOLUME 92.2 fl (80.0-96.0); PLATELET COUNT, AUTOMATED 304 10^3/uL (150-450); RED BLOOD COUNT 4.48 10^6/uL (4.00-5.40); RED CELL DISTRIBUTION WIDTH 13.2 % (11.5-14.5); WHITE BLOOD COUNT 14.2 10^3/uL (4.0-10.0)
[2017-11-26 12:21] LABS: FOLATE 16.4 NG/ML; VITAMIN B12 LEVEL 735 PG/ML
== END ==
LOC: M SFHCPLAZ 09:30
DX: R25.9 Unspecified abnormal involuntary movements (principal)

== ENCOUNTER → 2017-12-22 | Outpatient (REF) | payer OTHER ==
[2017-12-22 11:43] LABS: BASO % 0.3 % (0.0-1.0); EOS % 0.1 % (0.0-3.0); HEMATOCRIT 38.4 % (36.0-47.0); HEMOGLOBIN 12.9 g/dl (12.0-15.5); IMMATURE GRANULOCYTE % 0.5 % (0-3.0); LYMPH # 2.2 10^3/uL (1.5-4.5); LYMPH % 15.3 % (24.0-44.0); MEAN CORPUSCULAR HEMOGLOBIN 30.2 pg (27.0-33.0); MEAN CORPUSCULAR HGB CONC 33.6 g/dl (32.0-36.5); MEAN CORPUSCULAR VOLUME 89.9 fl (80.0-96.0); MONO % 7.1 % (0.0-5.0); NEUTROPHILS # 11.1 10^3/uL (1.8-7.7); NEUTROPHILS % 76.7 % (36.0-66.0); PLATELET COUNT, AUTOMATED 273 10^3/uL (150-450); RED BLOOD COUNT 4.27 10^6/uL (4.00-5.40); RED CELL DISTRIBUTION WIDTH 13.1 % (11.5-14.5); WHITE BLOOD COUNT 14.5 10^3/uL (4.0-10.0)
[2017-12-22 11:46] LABS: REASON FOR REVIEW WBC/LEUKEMIA/BLAST; SLIDE REVIEW Report; SOURCE PERIPHERAL SMEAR
== END ==
LOC: M SFHCPLAZ 10:21
DX: D72.829 Elevated white blood cell count, unspecified (principal)
CPT/HCPCS: 85025

== ENCOUNTER 2018-01-05 19:00 | Emergency (ER) | payer MEDICARE, MEDICAID, OTHER | END 2018-01-05 23:06 | disposition home or self-care (01) | LOC: M ED 19:00 | DX: I11.9 Hypertensive heart disease without heart failure (principal); Z63.4 Disappearance and death of family member; R13.10 Dysphagia, unspecified; E03.9 Hypothyroidism, unspecified; F20.9 Schizophrenia, unspecified; F31.9 Bipolar disorder, unspecified; Z91.048 Other nonmedicinal substance allergy status; Z86.69 Personal history of other diseases of the nervous system and sense organs; Z87.19 Personal history of other diseases of the digestive system; F17.200 Nicotine dependence, unspecified, uncomplicated; Z86.39 Personal history of other endocrine, nutritional and metabolic disease; Z88.8 Allergy status to other drugs, medicaments and biological substances; Z79.890 Hormone replacement therapy; Z79.899 Other long term (current) drug therapy | CPT/HCPCS: 70490 ==

== ENCOUNTER → 2018-01-12 | Outpatient (REF) | payer OTHER ==
[2018-01-12 12:51] LABS: ERYTHROCYTE SEDIMENTATION RATE 4 mm/hr (0-20)
[2018-01-12 13:08] LABS: ALBUMIN 4.1 GM/DL (3.2-5.2); ALBUMIN/GLOBULIN RATIO 1.21 (1.00-1.93); ALKALINE PHOSPHATASE 101 U/L (45-117); ALT/SGPT 21 U/L (12-78); ANION GAP 7 MEQ/L (8-16); AST/SGOT 14 U/L (7-37); BILIRUBIN,TOTAL 0.4 MG/DL (0.2-1.0); BLOOD UREA NITROGEN 8 MG/DL (7-18); C REACTIVE PROTEIN QUANTITATIV < 0.30 MG/DL (0.00-0.30); CALCIUM LEVEL 9.8 MG/DL (8.5-10.1); CARBON DIOXIDE LEVEL 28 MEQ/L (21-32); CHLORIDE LEVEL 107 MEQ/L (98-107); CREATININE FOR GFR 0.84 MG/DL (0.55-1.30); GLOMERULAR FILTRATION RATE > 60.0 (>60); GLUCOSE, FASTING 87 MG/DL (70-100); POTASSIUM SERUM 4.2 MEQ/L (3.5-5.1); RHEUMATOID FACTOR QUANT < 10.0 IU/ML (<15.0); SODIUM LEVEL 142 MEQ/L (136-145); TOTAL PROTEIN 7.5 GM/DL (6.4-8.2)
[2018-01-13 14:14] LABS: ANTINUCLEAR ANTIBODIES DIRECT Negative (Negative)
== END ==
LOC: M SFHCPLAZ 10:13
DX: E03.9 Hypothyroidism, unspecified (principal); D72.828 Other elevated white blood cell count

== ENCOUNTER 2018-01-24 00:37 | Emergency (ER) | payer MEDICARE, OTHER | END 2018-01-24 05:00 | disposition home or self-care (01) | LOC: M ED 00:37 | DX: T65.291A Toxic effect of other tobacco and nicotine, accidental (unintentional), initial encounter (principal); X58.XXXA Exposure to other specified factors, initial encounter; Y92.89 Other specified places as the place of occurrence of the external cause; F41.9 Anxiety disorder, unspecified; K20.9 Esophagitis, unspecified; F29 Unspecified psychosis not due to a substance or known physiological condition; F17.210 Nicotine dependence, cigarettes, uncomplicated; Z88.8 Allergy status to other drugs, medicaments and biological substances; Z79.899 Other long term (current) drug therapy | CPT/HCPCS: 99283 ==

== ENCOUNTER 2018-04-15 13:44 | Emergency (ER) | payer MEDICARE, SELFPAY, OTHER, MEDICAID | END 2018-04-15 15:36 | disposition home or self-care (01) | LOC: M ED 13:44 | DX: K02.9 Dental caries, unspecified (principal); K04.7 Periapical abscess without sinus; F17.200 Nicotine dependence, unspecified, uncomplicated; Z88.8 Allergy status to other drugs, medicaments and biological substances; Z79.890 Hormone replacement therapy; Z79.899 Other long term (current) drug therapy | CPT/HCPCS: 99282 ==

== ENCOUNTER → 2018-04-20 | Outpatient (REF) | payer MEDICARE ==
[2018-04-20 14:14] LABS: REASON FOR REVIEW WBC/LEUKEMIA/BLAST; SLIDE REVIEW Report; SOURCE PERIPHERAL SMEAR
== END ==
LOC: M LAB REF 13:36
DX: D72.828 Other elevated white blood cell count (principal); R35.0 Frequency of micturition
CPT/HCPCS: 51729

== ENCOUNTER → 2018-06-13 | Outpatient (REF) | payer MEDICARE, OTHER, MEDICAID ==
[2018-06-13 19:12] LABS: BACTERIA, URINE AUTO NEGATIVE (NEGATIVE); MUCUS, URINE SMALL (NEGATIVE); RBC, URINE AUTO 0 /HPF (0-3); SQUAMOUS EPITHELIAL CELL UR AU 0 /HPF (0-6); WBC, URINE AUTO 0 /HPF (0-3)
== END ==
LOC: M SMT 17:16
DX: R35.0 Frequency of micturition (principal)
CPT/HCPCS: 81015

== ENCOUNTER 2018-09-16 09:49 | Inpatient (IN) | payer MEDICARE, MEDICAID ==
[~2018-09-16] VITALS: Ht 167.6 cm; Wt 72.4 kg
[~2018-09-16 09:49] MED LIST changes: +AUGM875T28 PO; -DARI15TA PO; +DARI15TA2 PO; -DETR1TAB4 PO; +DETR1TAB5 PO; +DITR5TAB PO; +IBUP1TAB7 PO; +MEDR1VL IM; +MULT1TAB10 PO; +NICO21DI31 TD; +NICO21DI34 TD; -NICODIS TD; +OMEP40CA2 PO; +ONDA4TAB5 PO; +RANI1SYP PO; -TRAZ-136 PO; +TRAZ-160 PO; +TRAZ-163 PO; -TRAZ50TA11 PO; +TUMS500C PO; +[UNRECOGNIZED DRUG - CODE] MT
[2018-09-16] MEDS ORDERED: LORazepam 2 MG/ML VIAL (J2060) IM ONE (10:30)
[2018-09-16] MEDS ORDERED: diphenhydrAMINE INJ 50MG/ML VIAL (J1200) IM ONE (10:30)
[2018-09-16 10:40] LABS: HEMATOCRIT 41.1 % (36.0-47.0); HEMOGLOBIN 13.8 g/dl (12.0-15.5); MEAN CORPUSCULAR HEMOGLOBIN 30.9 pg (27.0-33.0); MEAN CORPUSCULAR HGB CONC 33.6 g/dl (32.0-36.5); MEAN CORPUSCULAR VOLUME 92.2 fl (80.0-96.0); PLATELET COUNT, AUTOMATED 324 10^3/uL (150-450); RED BLOOD COUNT 4.46 10^6/uL (4.00-5.40); WHITE BLOOD COUNT 23.5 10^3/uL (4.0-10.0)
[2018-09-16 11:25] LABS: HCG, SERUM QUALITATIVE NEGATIVE (NEGATIVE)
[2018-09-16 11:38] LABS: ACETAMINOPHEN LEVEL < 2.0 UG/ML (10.0-30.0); ALBUMIN 4.2 GM/DL (3.2-5.2); ALT/SGPT 28 U/L (12-78); BILIRUBIN,DIRECT 0.1 MG/DL (0.0-0.2); BILIRUBIN,TOTAL 0.4 MG/DL (0.2-1.0); BLOOD UREA NITROGEN 6 MG/DL (7-18); CALCIUM LEVEL 9.7 MG/DL (8.5-10.1); CARBON DIOXIDE LEVEL 24 MEQ/L (21-32); CHLORIDE LEVEL 100 MEQ/L (98-107); CREATININE FOR GFR 1.13 MG/DL (0.55-1.30); ETHYL ALCOHOL (ETHANOL) < 0.003 % (0.000-0.010); GLOMERULAR FILTRATION RATE 57.7 (>60); GLUCOSE, FASTING 213 MG/DL (70-100); SALICYLATE LEVEL 6.1 MG/DL (5.0-30.0); SODIUM LEVEL 134 MEQ/L (136-145); TOTAL PROTEIN 7.4 GM/DL (6.4-8.2)
[2018-09-16] MEDS ORDERED: NS 1,000 ML IV ONE (12:00)
[2018-09-16 12:28] LABS: AMPHETAMINES LEVEL URINE NEGATIVE (NEGATIVE); BARBITURATES URINE NEGATIVE (NEGATIVE); BENZODIAZEPINES URINE NEGATIVE (NEGATIVE); CANNABINOIDS URINE POSITIVE (NEGATIVE); COCAINE METABOLITE URINE NEGATIVE (NEGATIVE); METHADONE URINE NEGATIVE (NEGATIVE); OPIATES URINE NEGATIVE (NEGATIVE); PHENCYCLIDINE URINE NEGATIVE (NEGATIVE)
[2018-09-16 13:16] LABS: BASO # 0.1 10^3/uL (0.0-0.2); BASO % 0.3 % (0.0-1.0); LYMPH % 8.5 % (24.0-44.0); MONO # 1.6 10^3/uL (0.0-0.8); MONO % 6.8 % (0.0-5.0); NEUTROPHILS # 19.5 10^3/uL (1.8-7.7); NEUTROPHILS % 83.8 % (36.0-66.0)
[2018-09-16 13:24] LABS: INFLUENZA A AMPLIFICATION NEGATIVE (NEGATIVE); INFLUENZA B AMPLIFICATION NEGATIVE (NEGATIVE)
--- NOTE | 2018-09-16 13:53 | REP ---
Chest one-view HISTORY: Leukocytosis Comparison: 12/24/2011 The lungs are clear. The heart is normal in size. The pulmonary vasculature is normal in appearance. Impression: No acute disease. Electronically Signed by Teja Tong MD 09/16/2018 01:45 P
[2018-09-16] MEDS ORDERED: ACETAMINOPHEN 325 MG TAB PO ONE (14:15)
[2018-09-16 14:20] LABS: LYMPHOCYTES 13 % (16-52); MONOCYTES 7 % (0-8); NEUTROPHILS 78 % (35-75); PLATELET ESTIMATE NORMAL (NORMAL)
[2018-09-16 14:34] LABS: BASO % 0.2 % (0.0-1.0); EOS % 0.1 % (0.0-3.0); HEMATOCRIT 35.1 % (36.0-47.0); HEMOGLOBIN 11.9 g/dl (12.0-15.5); LYMPH # 1.9 10^3/uL (1.5-4.5); LYMPH % 10.2 % (24.0-44.0); MEAN CORPUSCULAR HEMOGLOBIN 30.8 pg (27.0-33.0); MEAN CORPUSCULAR HGB CONC 33.9 g/dl (32.0-36.5); MEAN CORPUSCULAR VOLUME 90.9 fl (80.0-96.0); MONO # 1.3 10^3/uL (0.0-0.8); MONO % 7.1 % (0.0-5.0); NEUTROPHILS # 15.3 10^3/uL (1.8-7.7); PLATELET COUNT, AUTOMATED 247 10^3/uL (150-450); RED BLOOD COUNT 3.86 10^6/uL (4.00-5.40); WHITE BLOOD COUNT 18.6 10^3/uL (4.0-10.0)
[2018-09-16] MEDS ORDERED: MAALOX 30 ML SUSP *UDC PO PRN (15:15)
[2018-09-16] MEDS ORDERED: traZODone 50 MG TAB PO PRN (15:15)
[2018-09-16] MEDS ORDERED: MOXIFLOXACIN 400 MG TAB PO ONE (15:15)
[2018-09-16] MEDS ORDERED: MOM 30ML SUSPENSION UDC PO PRN (15:15)
[2018-09-16] MEDS ORDERED: LEVO75TA4 PO (15:43)
[2018-09-16] MEDS ORDERED: FLON1SPR NARES (15:43)
[2018-09-16] MEDS ORDERED: LORA10TA3 PO (15:43)
[2018-09-16] MEDS ORDERED: IBUP1TAB7 PO (15:43)
[2018-09-16] MEDS ORDERED: PERI0.126 SSP (15:43)
[2018-09-16] MEDS ORDERED: OXYB15TA PO (15:43)
[2018-09-16] MEDS ORDERED: SUCR1SS PO (15:43)
[2018-09-16] MEDS ORDERED: CYCL10TA PO (15:43)
[2018-09-16] MEDS ORDERED: OMEP40CA2 PO (15:43)
[2018-09-16] MEDS ORDERED: BENZONATATE 100 MG CAP PO PRN (16:45)
[2018-09-16] MEDS ORDERED: ONDANSETRON 4 MG TAB (S0181) PO PRN (16:45)
[2018-09-16] MEDS ORDERED: SODIUM CHLORIDE NASAL 0.65% SPRAY BTL (OCEAN) PRN (16:45)
[2018-09-16 17:21] VITALS: BP 136/80
[2018-09-16] MEDS: SUCRALFATE SUSP 1GM/10ML UD PO SCH (21:00)
[2018-09-16] MEDS: CHLORHEXIDINE GLUCONATE 0.12 % 15ML UDC (PERIDEX ORAL RINSE) SSP SCH (21:00)
[2018-09-17] MEDS: LEVOTHYROXINE 75MCG TABLET (0.075MG) PO SCH (06:18)
[2018-09-17] MEDS: SUCRALFATE SUSP 1GM/10ML UD PO SCH ×4 (06:21→21:00)
[2018-09-17 06:46] VITALS: BP 130/94
[2018-09-17] MEDS: oxyBUTYnin *DITROPAN XL* 5 MG TABCR PO SCH (09:00)
[2018-09-17] MEDS: NICOTINE 21MG/24HR 1 EA TRANSDERMAL TD SCH ×2 (09:00→14:05)
[2018-09-17] MEDS: CHLORHEXIDINE GLUCONATE 0.12 % 15ML UDC (PERIDEX ORAL RINSE) SSP SCH ×3 (09:00→21:00)
[2018-09-17] MEDS: OMEPRAZOLE 20 MG CAP PO SCH (09:00)
[2018-09-17 15:11] LABS: BASO % 0.2 % (0.0-1.0); EOS % 0.1 % (0.0-3.0); HEMATOCRIT 38.5 % (36.0-47.0); LYMPH # 2.3 10^3/uL (1.5-4.5); LYMPH % 13.2 % (24.0-44.0); MEAN CORPUSCULAR HEMOGLOBIN 30.6 pg (27.0-33.0); MEAN CORPUSCULAR HGB CONC 33.8 g/dl (32.0-36.5); MEAN CORPUSCULAR VOLUME 90.6 fl (80.0-96.0); MONO # 1.4 10^3/uL (0.0-0.8); MONO % 7.8 % (0.0-5.0); NEUTROPHILS # 13.8 10^3/uL (1.8-7.7); NEUTROPHILS % 78.2 % (36.0-66.0); PLATELET COUNT, AUTOMATED 261 10^3/uL (150-450); RED BLOOD COUNT 4.25 10^6/uL (4.00-5.40); WHITE BLOOD COUNT 17.7 10^3/uL (4.0-10.0)
[2018-09-17 15:34] LABS: ALBUMIN 3.8 GM/DL (3.2-5.2); ALT/SGPT 35 U/L (12-78); BILIRUBIN,TOTAL 0.4 MG/DL (0.2-1.0); BLOOD UREA NITROGEN 7 MG/DL (7-18); CALCIUM LEVEL 8.4 MG/DL (8.5-10.1); CARBON DIOXIDE LEVEL 22 MEQ/L (21-32); CHLORIDE LEVEL 100 MEQ/L (98-107); CREATININE FOR GFR 0.92 MG/DL (0.55-1.30); GLOMERULAR FILTRATION RATE > 60.0 (>60); GLUCOSE, FASTING 156 MG/DL (70-100); POTASSIUM SERUM 3.7 MEQ/L (3.5-5.1); SODIUM LEVEL 131 MEQ/L (136-145); TOTAL PROTEIN 6.8 GM/DL (6.4-8.2)
[2018-09-17 18:00] VITALS: BP 142/92
[2018-09-17 21:26] LABS: C REACTIVE PROTEIN QUANTITATIV 2.08 MG/DL (0.00-0.30)
[2018-09-17] MEDS: AUGMENTIN 875 MG TAB PO SCH (21:54)
[2018-09-18 06:00] VITALS: BP 137/71
[2018-09-18] MEDS: LEVOTHYROXINE 75MCG TABLET (0.075MG) PO SCH (06:08)
[2018-09-18] MEDS: SUCRALFATE SUSP 1GM/10ML UD PO SCH ×4 (07:18→21:00)
[2018-09-18] MEDS: NICOTINE 21MG/24HR 1 EA TRANSDERMAL TD SCH (08:22)
[2018-09-18] MEDS: AUGMENTIN 875 MG TAB PO SCH ×2 (08:22→21:00)
[2018-09-18] MEDS: CHLORHEXIDINE GLUCONATE 0.12 % 15ML UDC (PERIDEX ORAL RINSE) SSP SCH ×3 (08:23→21:00)
[2018-09-18] MEDS: oxyBUTYnin *DITROPAN XL* 5 MG TABCR PO SCH (08:23)
[2018-09-18] MEDS: OMEPRAZOLE 20 MG CAP PO SCH (08:23)
[2018-09-18 17:34] LABS: FREE THYROXINE INDEX 3.5 % (1.3-4.8); T UPTAKE 36 % (30-39); THYROXINE (T4) 9.8 UG/DL (4.5-12.0)
[2018-09-18 18:10] VITALS: BP 125/87
[2018-09-19] MEDS: LEVOTHYROXINE 75MCG TABLET (0.075MG) PO SCH (06:00)
[2018-09-19] MEDS: SUCRALFATE SUSP 1GM/10ML UD PO SCH ×4 (06:40→21:00)
[2018-09-19] MEDS: OMEPRAZOLE 20 MG CAP PO SCH (09:00)
[2018-09-19] MEDS: AUGMENTIN 875 MG TAB PO SCH ×2 (09:00→21:00)
[2018-09-19] MEDS: NICOTINE 21MG/24HR 1 EA TRANSDERMAL TD SCH (09:00)
[2018-09-19] MEDS: oxyBUTYnin *DITROPAN XL* 5 MG TABCR PO SCH (09:00)
[2018-09-19] MEDS: CHLORHEXIDINE GLUCONATE 0.12 % 15ML UDC (PERIDEX ORAL RINSE) SSP SCH ×3 (09:00→21:00)
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
--- NOTE | 2018-09-19 09:49 | HPE ---
DATE OF ADMISSION: 09/16/2018 HISTORY OF PRESENT ILLNESS: Please refer to psychiatric history and evaluation for further details on this admission. This examination and history is intended for medical issues, which may need treatment, followup, or consult on this 38-year-old female. PRIMARY CARE PROVIDER: [facility]. ALLERGIES: HALOPERIDOL, RISPERIDONE, ZANTAC, INVEGA SUSTENNA. PAST MEDICAL HISTORY: Bipolar disorder, urinary frequency, allergic rhinitis, hypothyroidism, TSH up slightly at 5.72 (will recheck a thyroid panel), gastroesophageal reflux disease (GERD), migraine headaches. PAST SURGICAL HISTORY: Tooth extraction, spinal taps times two. SOCIAL HISTORY: She lives in [place]. She is single. She smokes one pack of cigarettes a day. She does not drink alcohol. She does not use recreational drugs. LABORATORY STUDIES: In the emergency room, her white count was 22.5, hemoglobin 13.8, hematocrit 41.6, platelets 322, neutrophils 83.8%. Sodium was 134, potassium 4.0, chloride 100, CO2 is 24, BUN was 6, creatinine 1.13, nonfasting glucose was 213, TSH was 5.72. The patient had a low-grade temperature on admission to the emergency room (ER) 100.3. Blood cultures were drawn. We were told today that only one of the cultures was showing anything, and it is a gram-positive cocci in clusters. The other is negative. The patient has been afebrile today. Has had no complaints. She was given a dose of Avelox in the ER. Will continue antibiotic empirically until sensitivity comes and see if other blood culture is positive. Urine culture was sent. Streptococcus screen was negative. Chest x-ray was negative. Urine was positive for cannabinoids. REVIEW OF SYSTEMS: Was unremarkable. The patient had no complaints. States she felt well. OBJECTIVE: A 38-year-old cooperative female, in no acute distress, oriented to person and place. Pupils equal and react to light. Extraocular movements (EOMs) intact. Cornea and sclerae clear. Conjunctivae normal. No facial asymmetry. Tympanic membranes are pearly bilaterally. Pharynx, tongue, gums pink and moist. Tongue is midline. NECK: Is supple without lymphadenopathy. No thyromegaly. No goiter. CHEST: Clear to auscultation. HEART: Is regular. ABDOMEN: Is benign. Bowel sounds positive. GENITOURINARY ()/RECTAL: Not done. EXTREMITIES: Peripheral pulses equal and palpable bilaterally. IMPRESSION: 1. Hypothyroidism. Thyroid-stimulating hormone (TSH) up slightly. Will get thyroid profile. 2. Leukocytosis. Repeat complete blood count (CBC) in the a.m. Followup on blood culture. Electrocardiogram (EKG) on file, sinus rhythm. 3. History of gastroesophageal reflux disease, stable. 4. Psychiatric plan per psychiatry. Edited 09/19/2018 aml
[2018-09-19] MEDS ORDERED: OLANZapine ORAL DISINTEGRATING TAB 5MG PO PRN (10:15)
[2018-09-19] MEDS: LURASIDONE 20 MG TAB (LATUDA) PO SCH (17:59)
[2018-09-19 18:00] VITALS: BP 144/90
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
--- NOTE | 2018-09-19 20:33 | MHIPN ---
DATE: 09/18/2018 The patient today again basically refused to talk to me, she told me to leave her room, telling me that she is not my patient. MENTAL STATUS EXAMINATION: I am unable to complete a mental status exam as a result of the patient refusing to talk to me. DIAGNOSIS: Bipolar disorder. TREATMENT PLAN: At this point, we will continue to monitor the patient for psychotic symptoms and manic-like symptoms and most likely we will have to go to court for treatment over objection again in this patient like before.
[2018-09-20] MEDS: LEVOTHYROXINE 75MCG TABLET (0.075MG) PO SCH (06:00)
[2018-09-20] MEDS: SUCRALFATE SUSP 1GM/10ML UD PO SCH ×4 (06:31→21:00)
--- NOTE | 2018-09-20 08:21 | IPNPDOC ---
Date Seen The patient was seen on 09/20/18. Progress Note HPI: 38 yo F admitted to [facility] for unspecified psychotic disorder. The patient was prescribed Augmentin 09/17/18. She has continued to refuse all doses. She is refusing all medications. She has refused all laboratory studies. She has been noted to be agitated at times. PAST MEDICAL HISTORY: Bipolar disorder, urinary frequency, allergic rhinitis, hypothyroidism, gastroesophageal reflux disease (GERD), migraine headaches. PAST SURGICAL HISTORY: Tooth extraction, spinal tap times two. PE: GEN: 38 yo F, appears stated age. Well-nourished, well developed. No acute distress. Pacing the hallways. HEENT: Normocephalic, atraumatic. Sclera are nonicteric. Conjunctiva without injection. EXT:No lower extremity edema appreciated. SKIN: [place], dry, warm. No rashes. NEURO: No focal deficits appreciated. EKG: SINUS RHYTHM BENIGN EARLY REPOLARIZATION SIMILAR TO 01/11/17 Electronically Signed On 01-06-2018 19:12:55 EDT by Carlos Adam Blood culture 09/16 1 negative. Blood culture 09/16 1 BLOOD CULTURE Final GRAM STAIN GRAM POSITIVE COCCI IN CLUSTERS GRAM STAIN CALLED BY GRAM STAIN CALLED TO JPP (RB) DATE GRAM STAIN CALLED 09/17/18 TIME GRAM STAIN CALLED 1816 Organism 1 MICROCOCCUS LUTEUS Micrococci are widespread in nature and commonly found on the skin. Micrococci appear to be susceptible to most antibiotics. Successful treatment has occurred with the use of vancomycin, penicillin, gentamicin, clindamycin or a combination of these antibiotics. Strep screen negative. UA unremarkable. A&P: 38 yo F admitted to [facility] for unspecified psychotic disorder. 1. Psych. Plan per Psychiatry. EKG on file. 2. Leukocytosis. Patient is afebrile. Follow-up labs have been requested since 09/17 however the patient has consistently refusing laboratory studies. CBC/CMP today is pending. Strep screen negative. UA unremarkable. Patient is noted to have blood culture 1 indicating Micrococcus, possible skin contaminant Augmentin 875 mg by mouth twice a day was ordered 09/17 however the patient has refused all doses. Continue to monitor. 3. Hyponatremia. Possibly related to poor oral intake. The patient has refused follow-up CMP. CMP today pending. 4. Hypothyroidism. The patient has been refusing Synthroid daily. TFTs 09/17/18 are noted within normal limits. 5. GERD. Prilosec 40 mg daily, the patient has refused all doses. 6. OAB. The patient remains on Ditropan XL however the patient has refused all doses. 7. Follow up with PCP on discharge. VS, I&O, 24H, Fishbone Vital Signs/I&O Vital Signs Date Time Temp Pulse Resp B/P (MAP) Pulse Ox O2 Delivery O2 Flow Rate FiO2 09/20/18 07:00 16 09/19/18 18:00 98.7 98 144/90 (108) 09/18/18 06:00 98 Room Air Laboratory Data Microbiology Microbiology 09/16/18 Blood Culture - Final, Complete Micrococcus Luteus 09/16/18 Blood Culture - Preliminary, Resulted No Growth after 72 hours. All specime... 09/16/18 Group A Streptococcus Screen ([facility]) - Final, Complete Anika Almazan Sep 20, 2018 08:21
[2018-09-20] MEDS: NICOTINE 21MG/24HR 1 EA TRANSDERMAL TD SCH (08:41)
[2018-09-20] MEDS: CHLORHEXIDINE GLUCONATE 0.12 % 15ML UDC (PERIDEX ORAL RINSE) SSP SCH ×3 (08:42→21:00)
[2018-09-20] MEDS: AUGMENTIN 875 MG TAB PO SCH ×2 (08:42→21:00)
[2018-09-20] MEDS: oxyBUTYnin *DITROPAN XL* 5 MG TABCR PO SCH (08:42)
[2018-09-20] MEDS: OMEPRAZOLE 20 MG CAP PO SCH (08:42)
[2018-09-20] MEDS: LURASIDONE 20 MG TAB (LATUDA) PO SCH (17:56)
[2018-09-20 18:30] VITALS: BP 158/98
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
[2018-09-21] MEDS ORDERED: HALOPERIDOL 5 MG/ML VIAL (J1630) IM STA (02:37)
[2018-09-21] MEDS ORDERED: LORazepam 2 MG/ML VIAL (J2060) IM STA (02:37)
[2018-09-21] MEDS: LEVOTHYROXINE 75MCG TABLET (0.075MG) PO SCH (06:00)
[2018-09-21] MEDS: SUCRALFATE SUSP 1GM/10ML UD PO SCH ×4 (06:12→21:00)
[2018-09-21] MEDS: CHLORHEXIDINE GLUCONATE 0.12 % 15ML UDC (PERIDEX ORAL RINSE) SSP SCH ×3 (09:00→21:00)
[2018-09-21] MEDS: oxyBUTYnin *DITROPAN XL* 5 MG TABCR PO SCH (09:00)
[2018-09-21] MEDS: AUGMENTIN 875 MG TAB PO SCH ×2 (09:00→21:00)
[2018-09-21] MEDS: NICOTINE 21MG/24HR 1 EA TRANSDERMAL TD SCH (09:00)
[2018-09-21] MEDS: OMEPRAZOLE 20 MG CAP PO SCH (09:00)
[2018-09-21 13:31] VITALS: BP 125/76
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
[2018-09-21] MEDS: LURASIDONE 20 MG TAB (LATUDA) PO SCH (18:00)
[2018-09-21 18:44] VITALS: BP 138/80
[2018-09-22] MEDS: LEVOTHYROXINE 75MCG TABLET (0.075MG) PO SCH (06:00)
[2018-09-22 06:46] VITALS: BP 117/74
[2018-09-22] MEDS: SUCRALFATE SUSP 1GM/10ML UD PO SCH ×4 (07:30→21:21)
[2018-09-22] MEDS: oxyBUTYnin *DITROPAN XL* 5 MG TABCR PO SCH (09:00)
[2018-09-22] MEDS: OMEPRAZOLE 20 MG CAP PO SCH (09:00)
[2018-09-22] MEDS: AUGMENTIN 875 MG TAB PO SCH ×2 (09:00→21:20)
[2018-09-22] MEDS: CHLORHEXIDINE GLUCONATE 0.12 % 15ML UDC (PERIDEX ORAL RINSE) SSP SCH ×3 (09:00→21:21)
[2018-09-22] MEDS: NICOTINE 21MG/24HR 1 EA TRANSDERMAL TD SCH (09:01)
[2018-09-22] MEDS: LURASIDONE 20 MG TAB (LATUDA) PO SCH (17:08)
[2018-09-22 18:00] VITALS: BP 128/82
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
[2018-09-23] MEDS: LEVOTHYROXINE 75MCG TABLET (0.075MG) PO SCH (06:00)
[2018-09-23 07:19] VITALS: BP 124/92
[2018-09-23] MEDS: SUCRALFATE SUSP 1GM/10ML UD PO SCH ×4 (07:30→21:00)
[2018-09-23] MEDS: oxyBUTYnin *DITROPAN XL* 5 MG TABCR PO SCH (08:54)
[2018-09-23] MEDS: AUGMENTIN 875 MG TAB PO SCH ×2 (08:54→21:00)
[2018-09-23] MEDS: NICOTINE 21MG/24HR 1 EA TRANSDERMAL TD SCH (08:54)
[2018-09-23] MEDS: OMEPRAZOLE 20 MG CAP PO SCH (08:54)
[2018-09-23] MEDS: CHLORHEXIDINE GLUCONATE 0.12 % 15ML UDC (PERIDEX ORAL RINSE) SSP SCH ×3 (08:54→21:00)
--- NOTE | 2018-09-23 11:02 | IPNPDOC ---
Date Seen The patient was seen on 09/23/18. Progress Note HPI: 38 yo F admitted to [facility] for unspecified psychotic disorder. The patient was prescribed Augmentin 09/17/18. She has continued to refuse all doses. She is refusing all medications. She has refused all laboratory studies. She has been noted to be intrusive and disruptive on the unit at times. PAST MEDICAL HISTORY: Bipolar disorder, urinary frequency, allergic rhinitis, hypothyroidism, gastroesophageal reflux disease (GERD), migraine headaches. PAST SURGICAL HISTORY: Tooth extraction, spinal tap times two. PE: GEN: 38 yo F, appears stated age. Well-nourished, well developed. No acute distress. Walking the hallways. HEENT: Normocephalic, atraumatic. Sclera are nonicteric. Conjunctiva without injection. EXT:No lower extremity edema appreciated. SKIN: [place], dry, warm. No rashes. NEURO: No focal deficits appreciated. EKG: SINUS RHYTHM BENIGN EARLY REPOLARIZATION SIMILAR TO 01/11/17 Electronically Signed On 01-06-2018 19:12:55 EDT by Carlos Adam Blood culture 09/16 1 negative. Blood culture 09/16 1 BLOOD CULTURE Final GRAM STAIN GRAM POSITIVE COCCI IN CLUSTERS GRAM STAIN CALLED BY GRAM STAIN CALLED TO JPP (RB) DATE GRAM STAIN CALLED 09/17/18 TIME GRAM STAIN CALLED 1924 Organism 1 MICROCOCCUS LUTEUS Micrococci are widespread in nature and commonly found on the skin. Micrococci appear to be susceptible to most antibiotics. Successful treatment has occurred with the use of vancomycin, penicillin, gentamicin, clindamycin or a combination of these antibiotics. Strep screen negative. UA unremarkable. A&P: 38 yo F admitted to [facility] for unspecified psychotic disorder. 1. Psych. Plan per Psychiatry. EKG on file. 2. Leukocytosis. Patient is afebrile. VSS. Follow-up labs have been requested since 09/17 however the patient has consistently refusing laboratory studies. CBC/CMP in AM is pending. Strep screen negative. UA unremarkable. Patient is noted to have blood culture 1 indicating Micrococcus, possible skin contaminant Augmentin 875 mg by mouth twice a day was ordered 09/17 however the patient has refused all doses. Continue to monitor. 3. Hyponatremia. Possibly related to poor oral intake. The patient has refused follow-up CMP. CMP in AM pending. 4. Hypothyroidism. The patient has been refusing Synthroid daily. TFTs 09/17/18 are noted within normal limits. 5. GERD. Prilosec 40 mg daily, the patient has refused all doses. 6. OAB. The patient remains on Ditropan XL however the patient has refused all doses. 7. Follow up with PCP on discharge. VS, I&O, 24H, Fishbone Vital Signs/I&O Vital Signs Date Time Temp Pulse Resp B/P (MAP) Pulse Ox O2 Delivery O2 Flow Rate FiO2 09/23/18 07:19 98.5 104 18 124/92 (103) Room Air 09/18/18 06:00 98 Laboratory Data Microbiology Microbiology 09/16/18 Blood Culture - Final, Complete Micrococcus Luteus 09/16/18 Blood Culture - Final, Complete NO GROWTH AFTER 5 DAYS 09/16/18 Group A Streptococcus Screen ([place]) - Final, Complete Anika Almazan Sep 23, 2018 11:02
[2018-09-23] MEDS: LURASIDONE 20 MG TAB (LATUDA) PO SCH (17:38)
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
[2018-09-23 18:21] VITALS: BP 136/82
[2018-09-24] MEDS ORDERED: HALOPERIDOL 5 MG/ML VIAL (J1630) IM STA (01:40)
[2018-09-24] MEDS ORDERED: LORazepam 2 MG/ML VIAL (J2060) IM STA (01:40)
[2018-09-24] MEDS: LEVOTHYROXINE 75MCG TABLET (0.075MG) PO SCH (06:00)
[2018-09-24] MEDS: SUCRALFATE SUSP 1GM/10ML UD PO SCH ×4 (06:18→21:00)
[2018-09-24] MEDS: CHLORHEXIDINE GLUCONATE 0.12 % 15ML UDC (PERIDEX ORAL RINSE) SSP SCH ×3 (09:00→21:00)
[2018-09-24] MEDS: AUGMENTIN 875 MG TAB PO SCH ×2 (09:00→21:00)
[2018-09-24] MEDS: OMEPRAZOLE 20 MG CAP PO SCH (09:00)
[2018-09-24] MEDS: oxyBUTYnin *DITROPAN XL* 5 MG TABCR PO SCH (09:00)
[2018-09-24] MEDS: NICOTINE 21MG/24HR 1 EA TRANSDERMAL TD SCH (11:05)
[2018-09-24] MEDS: LURASIDONE 20 MG TAB (LATUDA) PO SCH (17:47)
[2018-09-24 18:00] VITALS: BP 124/89
[2018-09-25] MEDS: LEVOTHYROXINE 75MCG TABLET (0.075MG) PO SCH (06:00)
[2018-09-25] MEDS: SUCRALFATE SUSP 1GM/10ML UD PO SCH ×4 (06:28→21:00)
[2018-09-25 06:32] VITALS: BP 137/96
[2018-09-25] MEDS: AUGMENTIN 875 MG TAB PO SCH ×2 (09:00→21:00)
[2018-09-25] MEDS: oxyBUTYnin *DITROPAN XL* 5 MG TABCR PO SCH (09:00)
[2018-09-25] MEDS: CHLORHEXIDINE GLUCONATE 0.12 % 15ML UDC (PERIDEX ORAL RINSE) SSP SCH ×3 (09:00→21:00)
[2018-09-25] MEDS: OMEPRAZOLE 20 MG CAP PO SCH (09:00)
[2018-09-25] MEDS: NICOTINE 21MG/24HR 1 EA TRANSDERMAL TD SCH (09:00)
[2018-09-25 18:00] VITALS: BP 134/85
[2018-09-25] MEDS: LURASIDONE 20 MG TAB (LATUDA) PO SCH (18:00)
[2018-09-26] MEDS: LEVOTHYROXINE 75MCG TABLET (0.075MG) PO SCH (06:00)
[2018-09-26] MEDS: SUCRALFATE SUSP 1GM/10ML UD PO SCH ×4 (06:21→20:21)
[2018-09-26] MEDS: NICOTINE 21MG/24HR 1 EA TRANSDERMAL TD SCH (08:05)
[2018-09-26] MEDS: oxyBUTYnin *DITROPAN XL* 5 MG TABCR PO SCH (08:07)
[2018-09-26] MEDS: OMEPRAZOLE 20 MG CAP PO SCH (08:07)
[2018-09-26] MEDS: AUGMENTIN 875 MG TAB PO SCH ×2 (08:07→20:21)
[2018-09-26] MEDS: CHLORHEXIDINE GLUCONATE 0.12 % 15ML UDC (PERIDEX ORAL RINSE) SSP SCH ×3 (08:07→20:21)
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
[2018-09-26] MEDS: LURASIDONE 20 MG TAB (LATUDA) PO SCH (17:10)
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
[2018-09-26 18:33] VITALS: BP 141/81
[2018-09-27] MEDS ORDERED: LORazepam 2 MG/ML VIAL (J2060) IM STA (00:55)
[2018-09-27] MEDS ORDERED: diphenhydrAMINE INJ 50MG/ML VIAL (J1200) IM STA (00:55)
[2018-09-27] MEDS ORDERED: chlorproMAZINE INJ 50MG/2ML AMP (J3230) IM STA (00:55)
[2018-09-27 01:10] VITALS: BP 134/70
[2018-09-27] MEDS: LEVOTHYROXINE 75MCG TABLET (0.075MG) PO SCH (06:00)
[2018-09-27] MEDS: SUCRALFATE SUSP 1GM/10ML UD PO SCH ×4 (06:07→20:59)
[2018-09-27] MEDS: CHLORHEXIDINE GLUCONATE 0.12 % 15ML UDC (PERIDEX ORAL RINSE) SSP SCH ×3 (12:00→20:59)
[2018-09-27] MEDS: oxyBUTYnin *DITROPAN XL* 5 MG TABCR PO SCH (12:00)
[2018-09-27] MEDS: AUGMENTIN 875 MG TAB PO SCH ×2 (12:00→20:59)
[2018-09-27] MEDS: OMEPRAZOLE 20 MG CAP PO SCH (12:00)
[2018-09-27] MEDS: NICOTINE 21MG/24HR 1 EA TRANSDERMAL TD SCH (12:02)
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
[2018-09-27 18:00] VITALS: BP 104/67
[2018-09-27] MEDS: LURASIDONE 20 MG TAB (LATUDA) PO SCH (18:00)
[2018-09-28] MEDS: LEVOTHYROXINE 75MCG TABLET (0.075MG) PO SCH (05:57)
[2018-09-28 06:37] VITALS: BP 117/71
[2018-09-28] MEDS: SUCRALFATE SUSP 1GM/10ML UD PO SCH ×4 (07:30→21:00)
[2018-09-28] MEDS: AUGMENTIN 875 MG TAB PO SCH ×2 (09:00→21:00)
[2018-09-28] MEDS: CHLORHEXIDINE GLUCONATE 0.12 % 15ML UDC (PERIDEX ORAL RINSE) SSP SCH ×3 (09:00→21:00)
[2018-09-28] MEDS: OMEPRAZOLE 20 MG CAP PO SCH (09:00)
[2018-09-28] MEDS: oxyBUTYnin *DITROPAN XL* 5 MG TABCR PO SCH (09:00)
[2018-09-28] MEDS: NICOTINE 21MG/24HR 1 EA TRANSDERMAL TD SCH (09:09)
[2018-09-28] MEDS: LURASIDONE 20 MG TAB (LATUDA) PO SCH (17:22)
[2018-09-28 18:00] VITALS: BP 140/90
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
[2018-09-29 06:00] VITALS: BP 129/100
[2018-09-29] MEDS: LEVOTHYROXINE 75MCG TABLET (0.075MG) PO SCH (06:00)
[2018-09-29] MEDS: SUCRALFATE SUSP 1GM/10ML UD PO SCH ×4 (06:23→21:00)
[2018-09-29] MEDS: oxyBUTYnin *DITROPAN XL* 5 MG TABCR PO SCH (08:50)
[2018-09-29] MEDS: OMEPRAZOLE 20 MG CAP PO SCH (08:50)
[2018-09-29] MEDS: AUGMENTIN 875 MG TAB PO SCH ×2 (08:50→21:00)
[2018-09-29] MEDS: CHLORHEXIDINE GLUCONATE 0.12 % 15ML UDC (PERIDEX ORAL RINSE) SSP SCH ×3 (08:51→21:00)
[2018-09-29] MEDS: NICOTINE 21MG/24HR 1 EA TRANSDERMAL TD SCH (09:00)
[2018-09-29] MEDS ORDERED: HALOPERIDOL 5 MG/ML VIAL (J1630) IM STA ×2 (11:59→12:05)
[2018-09-29] MEDS ORDERED: LORazepam 2 MG/ML VIAL (J2060) IM STA (11:59)
[2018-09-29] MEDS ORDERED: HALOPERIDOL 5 MG TAB PO STA (11:59)
[2018-09-29] MEDS ORDERED: diphenhydrAMINE INJ 50MG/ML VIAL (J1200) IM STA (11:59)
[2018-09-29] MEDS ORDERED: LORazepam 2 MG/ML VIAL (J2060) As Ordered ONE (12:02)
[2018-09-29] MEDS ORDERED: HALOPERIDOL 5 MG/ML VIAL (J1630) As Ordered ONE (12:03)
[2018-09-29] MEDS ORDERED: diphenhydrAMINE INJ 50MG/ML VIAL (J1200) As Ordered ONE (12:03)
--- NOTE | 2018-09-29 18:04 | MHIPNPDOC ---
[facility] Progress Note Progress Note DATE OF SERVICE: 09/29/18 HISTORY: As per Dr. Nieves's note: " This is one of multiple hospitalizations for this 38-year-old white woman with chronic noncompliance with treatment and what appears to be chronic paranoid thoughts and manic-like behavior. The patient basically presented similar to last admission. She basically refused to talk to me and very angrily telling me to leave her room, "I have no right to try to talk to her." According to the emergency room records, the patient was brought in by the police because she apparently tried to kill her mother with a knife, but the patient was denying that, which appears to be baseline for her. She feels that everyone else has been abusing her and trying to kill her. In review of some of the old records, it seems that she has had ten hospital admissions where she is always brought in by the police and presents quite psychotic and with manic like symptoms, one time walking naked in the street and claiming that she is the [place] Pattie. She also feels that other people are trying to hurt her. She was last hospitalized at [facility] inpatient mental health unit from 08/06/2017 until 09/02/2017. 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 NEW TEST RESULTS: See below CURRENT MEDICATIONS: See below. MENTAL STATUS EXAMINATION: Patient is a 38 -year old female, who is alert, dressed in hospital clothes. Speech: Is rapid, slurred, tangential, normal tone, low volume. Thought processes including: tangential, derailed Thought content: Paranoid, delusional thoughts Description of associations: Loose Description of abnormal or psychotic thoughts: Paranoid and bizarre delusions. She is responding to internal stimuli Judgment: Very poor Insight: Very poor Orientation: to place and person Recent and remote memory: fair Attention span and concentration: very distractible Language: profane Mood: irritable, angry, tearful, depressed Affect: congruent with mood, labile DIAGNOSES: 1. Bipolar 1 disorder, manic episode 2. Marihuana use disorder ASSESSMENT: Patient continues to be very disorganized, continues laughing "like a witch", as she says. She screams, yells, swears and cries within a very short period of time. Extremely labile, very angry. She was given 10 mgs of Haldol. 2 mgs. of Ativan and 50 mgs of Benadryl and she actually requested, so, she didn't need to be restrained. About 20 minutes after the injection she was still yelling. Finally she went to sleep. woke up about three hours later, still irritated, angry. MANAGEMENT PLAN: Waiting for a date for her to go to court for a TOO TIME SPENT: 15 minutes. MANAGEMENT PLAN: . TIME SPENT: minutes. Vital Signs Vital Signs Date Time Temp Pulse Resp B/P (MAP) Pulse Ox O2 Delivery O2 Flow Rate FiO2 09/29/18 06:00 96.8 88 18 129/100 (110) 09/27/18 01:10 100 Room Air Current Medications Current Medications Acetaminophen (Tylenol Tab) 650 mg Q6HP PRN PO HEADACHE or DISCOMFORT; Start 09/16/18 at 15:15 Al Hydrox/Mg Hydrox/Simethicone (Mylanta) 30 ml Q4HP PRN PO HEARTBURN/INDIGESTION; Start 09/16/18 at 15:15 Amoxicillin/ Clavulanate Potassium (Augmentin) 875 mg BID PO ; Start 09/17/18 at 21:54 Benzonatate (Tessalon Perles) 100 mg QIDP PRN PO COUGH; Start 09/16/18 at 16:45 Chlorhexidine Gluconate (Peridex Oral Rinse) 15 ml TID SSP ; Start 09/16/18 at 21:00 Chlorpromazine HCl (Thorazine) 50 mg STAT STAT IM Last administered on 09/27/18at 01:04; Start 09/27/18 at 00:55; Stop 09/27/18 at 01:00; Status DC Cyclobenzaprine HCl (Flexeril) 10 mg TIDP PRN PO MUSCLE SPASMS; Start 09/16/18 at 16:45 Diphenhydramine HCl (Benadryl) 50 mg STAT STAT IM Last administered on 09/27/18at 01:04; Start 09/27/18 at 00:55; Stop 09/27/18 at 01:00; Status DC Diphenhydramine HCl (Benadryl) 50 mg STAT STAT IM Last administered on 09/29/18at 12:13; Start 09/29/18 at 11:59; Stop 09/29/18 at 12:01; Status DC Haloperidol (Haldol) 5 mg STAT STAT IM Last administered on 09/21/18at 02:50; Start 09/21/18 at 02:37; Stop 09/21/18 at 02:39; Status DC Haloperidol (Haldol) 5 mg STAT STAT IM ; Start 09/29/18 at 11:59; Stop 09/29/18 at 12:00; Status Cancel Haloperidol (Haldol) 5 mg STAT STAT PO ; Start 09/29/18 at 11:59; Stop 09/29/18 at 12:00; Status Cancel Haloperidol (Haldol) 10 mg STAT STAT IM Last administered on 09/24/18at 01:53; Start 09/24/18 at 01:40; Stop 09/24/18 at 01:42; Status DC Haloperidol (Haldol) 10 mg STAT STAT IM Last administered on 09/29/18at 12:14; Start 09/29/18 at 12:05; Stop 09/29/18 at 12:08; Status DC Home Med (Med Rec Complete!) ASDIRECTED XX ; Start 09/16/18 at 16:00; Stop 09/16/18 at 16:00; Status DC Ibuprofen (Advil) 800 mg Q6HP PRN PO PAIN; Start 09/16/18 at 16:45 Levothyroxine Sodium (Synthroid) 75 mcg DAILY@0600 PO Last administered on 09/18/18at 06:08; Start 09/17/18 at 06:00 Lorazepam (Ativan) 1 mg STAT STAT IM Last administered on 09/21/18at 02:51; Start 09/21/18 at 02:37; Stop 09/21/18 at 02:39; Status DC Lorazepam (Ativan) 2 mg STAT STAT IM Last administered on 09/24/18at 01:53; Start 09/24/18 at 01:40; Stop 09/24/18 at 01:42; Status DC Lorazepam (Ativan) 2 mg STAT STAT IM Last administered on 09/27/18at 01:04; Start 09/27/18 at 00:55; Stop 09/27/18 at 01:00; Status DC Lorazepam (Ativan) 2 mg STAT STAT IM Last administered on 09/29/18at 12:13; Start 09/29/18 at 11:59; Stop 09/29/18 at 12:01; Status DC Lurasidone HCl (Latuda) 20 mg DAILY@18 PO ; Start 09/19/18 at 18:00; Stop 09/29/18 at 12:08; Status DC Magnesium Hydroxide (Milk Of Magnesia) 30 ml DAILYPRN PRN PO CONSTIPATION; Start 09/16/18 at 15:15; Status Cancel Nicotine (Nicoderm Cq 21mg) 1 patch DAILY TD Last administered on 09/28/18at 09:09; Start 09/17/18 at 09:00 Olanzapine (ZyPREXA ZYDIS) 5 mg Q4HP PRN PO ANXIETY/AGITATION; Start 09/19/18 at 10:15 Omeprazole (PriLOSEC) 40 mg DAILY PO ; Start 09/17/18 at 09:00 Ondansetron HCl (Zofran) 4 mg Q6HP PRN PO NAUSEA OR VOMITING; Start 09/16/18 at 16:45 Oxybutynin Chloride (Ditropan Xl) 15 mg DAILY PO ; Start 09/17/18 at 09:00; Stop 09/29/18 at 12:08; Status DC Sodium Chloride ([place] Nasal [place]) 2 spray Q2HP PRN NA NASAL DRYNESS; Start 09/16/18 at 16:45 Sucralfate (Carafate Suspension) 1 gm ACHS PO ; Start 09/16/18 at 21:00 Trazodone HCl (Desyrel) 50 mg QHSP PRN PO INSOMNIA; Start 09/16/18 at 15:15 Allergies Coded Allergies: Haloperidol (Verified Adverse Reaction, Mild, shaking (typical EPS reactions), 08/18/17) Varenicline (Verified Adverse Reaction, Mild, vomiting, 08/06/17) Risperidone (Verified Adverse Reaction, Unknown, shaking, 04/01/17) Uncoded Allergies: ANTIPSYCHOTIC (Adverse Reaction, Unknown, PT STATES "DECREASED RESULTS", 09/16/18) KATE COCHRAN MD Sep 29, 2018 18:04
[2018-09-30] MEDS: LEVOTHYROXINE 75MCG TABLET (0.075MG) PO SCH (06:00)
[2018-09-30] MEDS: SUCRALFATE SUSP 1GM/10ML UD PO SCH ×4 (06:30→21:00)
[2018-09-30 07:46] VITALS: BP 126/74
[2018-09-30] MEDS: OMEPRAZOLE 20 MG CAP PO SCH (09:00)
[2018-09-30] MEDS: CHLORHEXIDINE GLUCONATE 0.12 % 15ML UDC (PERIDEX ORAL RINSE) SSP SCH ×3 (09:00→21:00)
[2018-09-30] MEDS: NICOTINE 21MG/24HR 1 EA TRANSDERMAL TD SCH (09:00)
[2018-09-30] MEDS: AUGMENTIN 875 MG TAB PO SCH ×2 (09:00→21:00)
--- NOTE | 2018-09-30 14:39 | MHIPNPDOC ---
[facility] Progress Note Progress Note DATE OF SERVICE: 09/30/18 HISTORY: As per Dr. Nieves's note: " This is one of multiple hospitalizations for this 38-year-old white woman with chronic noncompliance with treatment and what appears to be chronic paranoid thoughts and manic-like behavior. The patient basically presented similar to last admission. She basically refused to talk to me and very angrily telling me to leave her room, "I have no right to try to talk to her." According to the emergency room records, the patient was brought in by the police because she apparently tried to kill her mother with a knife, but the patient was denying that, which appears to be baseline for her. She feels that everyone else has been abusing her and trying to kill her. In review of some of the old records, it seems that she has had ten hospital admissions where she is always brought in by the police and presents quite psychotic and with manic like symptoms, one time walking naked in the street and claiming that she is the [place] Pattie. She also feels that other people are trying to hurt her. She was last hospitalized at [facility] inpatient mental health unit from 08/06/2017 until 09/02/2017. 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 NEW TEST RESULTS: See below CURRENT MEDICATIONS: See below. MENTAL STATUS EXAMINATION: Patient is a 38 -year old female, who is alert, dressed in hospital clothes. Speech: Is rapid, slurred, tangential, normal tone, low volume. Thought processes including: tangential, derailed Thought content: Paranoid, delusional thoughts Description of associations: Loose Description of abnormal or psychotic thoughts: Paranoid and bizarre delusions. She is responding to internal stimuli Judgment: Very poor Insight: Very poor Orientation: to place and person Recent and remote memory: fair Attention span and concentration: very distractible Language: profane Mood: irritable, angry, tearful, depressed Affect: congruent with mood, labile DIAGNOSES: 1. Bipolar 1 disorder, manic episode 2. Marihuana use disorder ASSESSMENT: Patient continues to be very disorganized. She will alternate between periods of laughter and crying. She continues to demonstrate paranoid and delusional outbursts. On occasions she can present angry to those who pass her room. She is very paranoid regarding her care. MANAGEMENT PLAN: Waiting for a date for her to go to court for a TOO TIME SPENT: 15 minutes. Vital Signs Vital Signs Date Time Temp Pulse Resp B/P (MAP) Pulse Ox O2 Delivery O2 Flow Rate FiO2 09/30/18 07:46 97.6 92 18 126/74 (91) 09/27/18 01:10 100 Room Air Current Medications Current Medications Acetaminophen (Tylenol Tab) 650 mg Q6HP PRN PO HEADACHE or DISCOMFORT; Start 09/16/18 at 15:15 Al Hydrox/Mg Hydrox/Simethicone (Mylanta) 30 ml Q4HP PRN PO HEARTBURN/INDIGESTION; Start 09/16/18 at 15:15 Amoxicillin/ Clavulanate Potassium (Augmentin) 875 mg BID PO ; Start 09/17/18 at 21:54 Benzonatate (Tessalon Perles) 100 mg QIDP PRN PO COUGH; Start 09/16/18 at 16:45 Chlorhexidine Gluconate (Peridex Oral Rinse) 15 ml TID SSP ; Start 09/16/18 at 21:00 Chlorpromazine HCl (Thorazine) 50 mg STAT STAT IM Last administered on at 01:04; Start 09/27/18 at 00:55; Stop 09/27/18 at 01:00; Status DC Cyclobenzaprine HCl (Flexeril) 10 mg TIDP PRN PO MUSCLE SPASMS; Start 09/16/18 at 16:45 Diphenhydramine HCl (Benadryl) 50 mg STAT STAT IM Last administered on 09/27/18at 01:04; Start 09/27/18 at 00:55; Stop 09/27/18 at 01:00; Status DC Diphenhydramine HCl (Benadryl) 50 mg STAT STAT IM Last administered on 09/29/18at 12:13; Start 09/29/18 at 11:59; Stop 09/29/18 at 12:01; Status DC Haloperidol (Haldol) 5 mg STAT STAT IM Last administered on 09/21/18at 02:50; Start 09/21/18 at 02:37; Stop 09/21/18 at 02:39; Status DC Haloperidol (Haldol) 5 mg STAT STAT IM ; Start 09/29/18 at 11:59; Stop 09/29/18 at 12:00; Status Cancel Haloperidol (Haldol) 5 mg STAT STAT PO ; Start 09/29/18 at 11:59; Stop 09/29/18 at 12:00; Status Cancel Haloperidol (Haldol) 10 mg STAT STAT IM Last administered on 09/24/18at 01:53; Start 09/24/18 at 01:40; Stop 09/24/18 at 01:42; Status DC Haloperidol (Haldol) 10 mg STAT STAT IM Last administered on 09/29/18at 12:14; Start 09/29/18 at 12:05; Stop 09/29/18 at 12:08; Status DC Home Med (Med Rec Complete!) ASDIRECTED XX ; Start 09/16/18 at 16:00; Stop 09/16/18 at 16:00; Status DC Ibuprofen (Advil) 800 mg Q6HP PRN PO PAIN; Start 09/16/18 at 16:45 Levothyroxine Sodium (Synthroid) 75 mcg DAILY@0600 PO Last administered on 09/18/18at 06:08; Start 09/17/18 at 06:00 Lorazepam (Ativan) 1 mg STAT STAT IM Last administered on 09/21/18at 02:51; Start 09/21/18 at 02:37; Stop 09/21/18 at 02:39; Status DC Lorazepam (Ativan) 2 mg STAT STAT IM Last administered on 09/24/18at 01:53; Start 09/24/18 at 01:40; Stop 09/24/18 at 01:42; Status DC Lorazepam (Ativan) 2 mg STAT STAT IM Last administered on 09/27/18at 01:04; Start 09/27/18 at 00:55; Stop 09/27/18 at 01:00; Status DC Lorazepam (Ativan) 2 mg STAT STAT IM Last administered on 09/29/18at 12:13; Start 09/29/18 at 11:59; Stop 09/29/18 at 12:01; Status DC Lurasidone HCl (Latuda) 20 mg DAILY@18 PO ; Start 09/19/18 at 18:00; Stop 09/29/18 at 12:08; Status DC Magnesium Hydroxide (Milk Of Magnesia) 30 ml DAILYPRN PRN PO CONSTIPATION; Start 09/16/18 at 15:15; Status Cancel Nicotine (Nicoderm Cq 21mg) 1 patch DAILY TD Last administered on 09/28/18at 09:09; Start 09/17/18 at 09:00 Olanzapine (ZyPREXA ZYDIS) 5 mg Q4HP PRN PO ANXIETY/AGITATION; Start 09/19/18 at 10:15 Omeprazole (PriLOSEC) 40 mg DAILY PO ; Start 09/17/18 at 09:00 Ondansetron HCl (Zofran) 4 mg Q6HP PRN PO NAUSEA OR VOMITING; Start 09/16/18 at 16:45 Oxybutynin Chloride (Ditropan Xl) 15 mg DAILY PO ; Start 09/17/18 at 09:00; Stop 09/29/18 at 12:08; Status DC Sodium Chloride ([place] Nasal [place]) 2 spray Q2HP PRN NA NASAL DRYNESS; Start 09/16/18 at 16:45 Sucralfate (Carafate Suspension) 1 gm ACHS PO ; Start 09/16/18 at 21:00 Trazodone HCl (Desyrel) 50 mg QHSP PRN PO INSOMNIA; Start 09/16/18 at 15:15 Allergies Coded Allergies: Haloperidol (Verified Adverse Reaction, Mild, shaking (typical EPS reactions), 08/18/17) Varenicline (Verified Adverse Reaction, Mild, vomiting, 08/06/17) Risperidone (Verified Adverse Reaction, Unknown, shaking, 04/01/17) Uncoded Allergies: ANTIPSYCHOTIC (Adverse Reaction, Unknown, PT STATES "DECREASED RESULTS", 09/16/18) GME ATTESTATION GME ATTESTATION My faculty preceptor for this patient encounter was physically present during the encounter and was fully available. All aspects of the patient interview, examination, medical decision making process, and medical care plan development were reviewed and approved by the faculty preceptor. The faculty preceptor is aware and concurs with the plan as stated in the body of this note and will attest to such by his/her cosignature. JORDAN KENNEY DO Sep 30, 2018 14:39
[2018-09-30 18:00] VITALS: BP 111/75
[2018-10-01] MEDS: LEVOTHYROXINE 75MCG TABLET (0.075MG) PO SCH (06:00)
[2018-10-01 06:42] VITALS: BP 136/72
[2018-10-01] MEDS: SUCRALFATE SUSP 1GM/10ML UD PO SCH ×4 (07:30→21:00)
[2018-10-01] MEDS: CHLORHEXIDINE GLUCONATE 0.12 % 15ML UDC (PERIDEX ORAL RINSE) SSP SCH ×3 (09:00→21:00)
[2018-10-01] MEDS: AUGMENTIN 875 MG TAB PO SCH (09:00)
[2018-10-01] MEDS: OMEPRAZOLE 20 MG CAP PO SCH (09:00)
[2018-10-01] MEDS: NICOTINE 21MG/24HR 1 EA TRANSDERMAL TD SCH (09:14)
[2018-10-01 18:00] VITALS: BP 144/102
[2018-10-02] MEDS: CYCLOBENZAPRINE 10 MG TAB PO PRN ×2 (05:49→21:33)
[2018-10-02] MEDS: LEVOTHYROXINE 75MCG TABLET (0.075MG) PO SCH (05:49)
[2018-10-02] MEDS: IBUPROFEN 800 MG TAB PO PRN ×2 (05:52→21:34)
[2018-10-02 06:32] VITALS: BP 134/72
[2018-10-02] MEDS: SUCRALFATE SUSP 1GM/10ML UD PO SCH ×4 (07:30→21:00)
[2018-10-02] MEDS: OMEPRAZOLE 20 MG CAP PO SCH (09:00)
[2018-10-02] MEDS: NICOTINE 21MG/24HR 1 EA TRANSDERMAL TD SCH (09:00)
[2018-10-02] MEDS: CHLORHEXIDINE GLUCONATE 0.12 % 15ML UDC (PERIDEX ORAL RINSE) SSP SCH ×3 (09:00→21:00)
[2018-10-02] MEDS: ACETAMINOPHEN TAB 650MG DOSE (2X325MG) PO PRN (11:08)
[2018-10-02 18:00] VITALS: BP 153/96
[2018-10-03] MEDS: IBUPROFEN 800 MG TAB PO PRN ×2 (06:16→21:29)
[2018-10-03] MEDS: CYCLOBENZAPRINE 10 MG TAB PO PRN ×2 (06:16→21:29)
[2018-10-03] MEDS: LEVOTHYROXINE 75MCG TABLET (0.075MG) PO SCH (06:16)
[2018-10-03 06:50] VITALS: BP 120/73
[2018-10-03] MEDS: SUCRALFATE SUSP 1GM/10ML UD PO SCH ×4 (07:30→21:00)
[2018-10-03] MEDS: CHLORHEXIDINE GLUCONATE 0.12 % 15ML UDC (PERIDEX ORAL RINSE) SSP SCH ×3 (08:41→21:00)
[2018-10-03] MEDS: OMEPRAZOLE 20 MG CAP PO SCH (08:41)
[2018-10-03] MEDS: NICOTINE 21MG/24HR 1 EA TRANSDERMAL TD SCH (09:00)
--- NOTE | 2018-10-03 13:54 | MHIPNPDOC ---
[facility] Progress Note Progress Note DATE OF SERVICE: 10/03/18 HISTORY: As per Dr. Nieves's note: " This is one of multiple hospitalizations for this 38-year-old white woman with chronic noncompliance with treatment and what appears to be chronic paranoid thoughts and manic-like behavior. The patient basically presented similar to last admission. She basically refused to talk to me and very angrily telling me to leave her room, "I have no right to try to talk to her." According to the emergency room records, the patient was brought in by the police because she apparently tried to kill her mother with a knife, but the patient was denying that, which appears to be baseline for her. She feels that everyone else has been abusing her and trying to kill her. In review of some of the old records, it seems that she has had ten hospital admissions where she is always brought in by the police and presents quite psychotic and with manic like symptoms, one time walking naked in the street and claiming that she is the [place] Pattie. She also feels that other people are trying to hurt her. She was last hospitalized at [facility] inpatient mental health unit from 08/06/2017 until 09/02/2017. 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 NEW TEST RESULTS: See below CURRENT MEDICATIONS: See below. MENTAL STATUS EXAMINATION: Patient is a 38 -year old female, who is alert, dressed in hospital clothes. Speech: Is rapid, slurred, tangential, normal tone, low volume. Inappropriate sexual statements Thought processes including: tangential, derailed Thought content: Paranoid, delusional thoughts and bizarre delusions Description of associations: Loose Description of abnormal or psychotic thoughts: Paranoid and bizarre delusions. She is responding to internal stimuli Judgment: Very poor Insight: Very poor Orientation: to place and person Recent and remote memory: fair Attention span and concentration: very distractible Language: profane and foul Mood: irritable, angry, tearful, depressed Affect: congruent with mood, labile DIAGNOSES: 1. Bipolar 1 disorder, manic episode 2. Marihuana use disorder ASSESSMENT: Patient is still disorganized, tristen delusional, she strongly believes she is . she is angry because she will have to attend court on 10/05/18. this is not the first time she has to go to court for TOO, as she never accepts to take medications. MANAGEMENT PLAN: court date is on 10/05/18 Vital Signs Vital Signs Date Time Temp Pulse Resp B/P (MAP) Pulse Ox O2 Delivery O2 Flow Rate FiO2 10/03/18 06:50 97.4 104 16 120/73 (89) 10/02/18 18:00 99 09/27/18 01:10 Room Air Current Medications Current Medications Acetaminophen (Tylenol Tab) 650 mg Q6HP PRN PO HEADACHE or DISCOMFORT Last administered on 10/02/18at 11:08; Start 09/16/18 at 15:15 Al Hydrox/Mg Hydrox/Simethicone (Mylanta) 30 ml Q4HP PRN PO HEARTBURN/INDIGESTION; Start 09/16/18 at 15:15 Amoxicillin/ Clavulanate Potassium (Augmentin) 875 mg BID PO ; Start 09/17/18 at 21:54; Stop 10/01/18 at 16:50; Status DC Benzonatate (Tessalon Perles) 100 mg QIDP PRN PO COUGH; Start 09/16/18 at 16:45 Chlorhexidine Gluconate (Peridex Oral Rinse) 15 ml TID SSP ; Start 09/16/18 at 21:00 Chlorpromazine HCl (Thorazine) 50 mg STAT STAT IM Last administered on 09/27/18at 01:04; Start 09/27/18 at 00:55; Stop 09/27/18 at 01:00; Status DC Cyclobenzaprine HCl (Flexeril) 10 mg TIDP PRN PO MUSCLE SPASMS Last administered on 10/03/18at 06:16; Start 09/16/18 at 16:45 Diphenhydramine HCl (Benadryl) 50 mg STAT STAT IM Last administered on 09/27/18at 01:04; Start 09/27/18 at 00:55; Stop 09/27/18 at 01:00; Status DC Diphenhydramine HCl (Benadryl) 50 mg STAT STAT IM Last administered on 09/29/18at 12:13; Start 09/29/18 at 11:59; Stop 09/29/18 at 12:01; Status DC Haloperidol (Haldol) 5 mg STAT STAT IM Last administered on 09/21/18at 02:50; Start 09/21/18 at 02:37; Stop 09/21/18 at 02:39; Status DC Haloperidol (Haldol) 5 mg STAT STAT IM ; Start 09/29/18 at 11:59; Stop 09/29/18 at 12:00; Status Cancel Haloperidol (Haldol) 5 mg STAT STAT PO ; Start 09/29/18 at 11:59; Stop 09/29/18 at 12:00; Status Cancel Haloperidol (Haldol) 10 mg STAT STAT IM Last administered on 09/24/18at 01:53; Start 09/24/18 at 01:40; Stop 09/24/18 at 01:42; Status DC Haloperidol (Haldol) 10 mg STAT STAT IM Last administered on 09/29/18at 12:14; Start 09/29/18 at 12:05; Stop 09/29/18 at 12:08; Status DC Home Med (Med Rec Complete!) ASDIRECTED XX ; Start 09/16/18 at 16:00; Stop 09/16/18 at 16:00; Status DC Ibuprofen (Advil) 800 mg Q6HP PRN PO PAIN Last administered on 10/03/18at 06:16; Start 09/16/18 at 16:45 Levothyroxine Sodium (Synthroid) 75 mcg DAILY@0600 PO Last administered on 10/03/18at 06:16; Start 09/17/18 at 06:00 Lorazepam (Ativan) 1 mg STAT STAT IM Last administered on 09/21/18at 02:51; Start 09/21/18 at 02:37; Stop 09/21/18 at 02:39; Status DC Lorazepam (Ativan) 2 mg STAT STAT IM Last administered on 09/24/18at 01:53; Start 09/24/18 at 01:40; Stop 09/24/18 at 01:42; Status DC Lorazepam (Ativan) 2 mg STAT STAT IM Last administered on 09/27/18at 01:04; Start 09/27/18 at 00:55; Stop 09/27/18 at 01:00; Status DC Lorazepam (Ativan) 2 mg STAT STAT IM Last administered on 09/29/18at 12:13; Start 09/29/18 at 11:59; Stop 09/29/18 at 12:01; Status DC Lurasidone HCl (Latuda) 20 mg DAILY@18 PO ; Start 09/19/18 at 18:00; Stop 09/29/18 at 12:08; Status DC Magnesium Hydroxide (Milk Of Magnesia) 30 ml DAILYPRN PRN PO CONSTIPATION; Start 09/16/18 at 15:15; Status Cancel Miscellaneous (Unresolved Clarification Entry) SEE LABEL COMMENTS DAILY XX ; Start 09/30/18 at 09:00; Stop 10/01/18 at 12:03; Status DC Nicotine (Nicoderm Cq 21mg) 1 patch DAILY TD Last administered on 10/01/18at 09:14; Start 09/17/18 at 09:00 Olanzapine (ZyPREXA ZYDIS) 5 mg Q4HP PRN PO ANXIETY/AGITATION; Start 09/19/18 at 10:15 Omeprazole (PriLOSEC) 40 mg DAILY PO ; Start 09/17/18 at 09:00 Ondansetron HCl (Zofran) 4 mg Q6HP PRN PO NAUSEA OR VOMITING; Start 09/16/18 at 16:45 Oxybutynin Chloride (Ditropan Xl) 15 mg DAILY PO ; Start 09/17/18 at 09:00; Stop 09/29/18 at 12:08; Status DC Sodium Chloride ([place] Nasal [place]) 2 spray Q2HP PRN NA NASAL DRYNESS; Start 09/16/18 at 16:45 Sucralfate (Carafate Suspension) 1 gm ACHS PO ; Start 09/16/18 at 21:00 Trazodone HCl (Desyrel) 50 mg QHSP PRN PO INSOMNIA; Start 09/16/18 at 15:15 Allergies Coded Allergies: Haloperidol (Verified Adverse Reaction, Mild, shaking (typical EPS reactions), 08/18/17) Varenicline (Verified Adverse Reaction, Mild, vomiting, 08/06/17) Risperidone (Verified Adverse Reaction, Unknown, shaking, 04/01/17) Uncoded Allergies: ANTIPSYCHOTIC (Adverse Reaction, Unknown, PT STATES "DECREASED RESULTS", 09/16/18) KATE COCHRAN MD Oct 03, 2018 13:54
[2018-10-03 18:00] VITALS: BP 109/70
[2018-10-04] MEDS ORDERED: HALOPERIDOL 5 MG/ML VIAL (J1630) IM STA (02:03)
[2018-10-04] MEDS ORDERED: diphenhydrAMINE INJ 50MG/ML VIAL (J1200) IM STA (02:03)
[2018-10-04] MEDS ORDERED: LORazepam 2 MG/ML VIAL (J2060) IM STA (02:03)
[2018-10-04] MEDS: LEVOTHYROXINE 75MCG TABLET (0.075MG) PO SCH ×2 (06:00→16:27)
[2018-10-04] MEDS: SUCRALFATE SUSP 1GM/10ML UD PO SCH ×4 (06:30→21:00)
[2018-10-04] MEDS: NICOTINE 21MG/24HR 1 EA TRANSDERMAL TD SCH ×2 (09:00→16:27)
[2018-10-04] MEDS: CHLORHEXIDINE GLUCONATE 0.12 % 15ML UDC (PERIDEX ORAL RINSE) SSP SCH ×3 (09:00→21:00)
[2018-10-04] MEDS: OMEPRAZOLE 20 MG CAP PO SCH (09:00)
[2018-10-04] MEDS: CYCLOBENZAPRINE 10 MG TAB PO PRN (16:27)
[2018-10-04] MEDS: IBUPROFEN 800 MG TAB PO PRN (16:28)
[2018-10-04 18:00] VITALS: BP 113/75
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
[2018-10-04] MEDS: ACETAMINOPHEN TAB 650MG DOSE (2X325MG) PO PRN (22:00)
[2018-10-05] MEDS: LEVOTHYROXINE 75MCG TABLET (0.075MG) PO SCH (06:11)
[2018-10-05] MEDS: CYCLOBENZAPRINE 10 MG TAB PO PRN ×2 (06:11→16:00)
[2018-10-05] MEDS: IBUPROFEN 800 MG TAB PO PRN ×2 (06:12→16:01)
[2018-10-05 06:17] VITALS: BP 111/77
[2018-10-05] MEDS: SUCRALFATE SUSP 1GM/10ML UD PO SCH ×4 (06:48→22:08)
[2018-10-05] MEDS: OMEPRAZOLE 20 MG CAP PO SCH (09:00)
[2018-10-05] MEDS: CHLORHEXIDINE GLUCONATE 0.12 % 15ML UDC (PERIDEX ORAL RINSE) SSP SCH ×3 (09:00→22:09)
[2018-10-05] MEDS: NICOTINE 21MG/24HR 1 EA TRANSDERMAL TD SCH (09:00)
[2018-10-05] MEDS: HALOPERIDOL 5 MG TAB PO SCH ×2 (14:00→22:23)
[2018-10-05] MEDS: HALOPERIDOL 5 MG/ML VIAL (J1630) IM PRN ×2 (16:14→22:23)
[2018-10-05] MEDS ORDERED: BENZTROPINE 1 MG TAB PO PRN (17:00)
[2018-10-05] MEDS ORDERED: BENZTROPINE MESYLATE 2MG/2ML VIAL IM PRN (17:15)
[2018-10-05] MEDS: LURASIDONE 20 MG TAB (LATUDA) PO SCH (17:40)
[2018-10-05 18:00] VITALS: BP 125/81
[2018-10-06] MEDS: LEVOTHYROXINE 75MCG TABLET (0.075MG) PO SCH (06:04)
[2018-10-06] MEDS: HALOPERIDOL 5 MG/ML VIAL (J1630) IM PRN ×2 (06:04→14:57)
[2018-10-06] MEDS: HALOPERIDOL 5 MG TAB PO SCH ×3 (06:04→21:11)
[2018-10-06 06:22] VITALS: BP 113/65
[2018-10-06] MEDS: SUCRALFATE SUSP 1GM/10ML UD PO SCH ×4 (07:30→21:00)
[2018-10-06] MEDS: CHLORHEXIDINE GLUCONATE 0.12 % 15ML UDC (PERIDEX ORAL RINSE) SSP SCH ×3 (09:00→21:00)
[2018-10-06] MEDS: NICOTINE 21MG/24HR 1 EA TRANSDERMAL TD SCH (09:00)
[2018-10-06] MEDS: OMEPRAZOLE 20 MG CAP PO SCH (09:00)
[2018-10-06] MEDS: CYCLOBENZAPRINE 10 MG TAB PO PRN (14:59)
[2018-10-06] MEDS: IBUPROFEN 800 MG TAB PO PRN (15:00)
[2018-10-06] MEDS: LURASIDONE 20 MG TAB (LATUDA) PO SCH (17:28)
[2018-10-06 18:00] VITALS: BP 138/90
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
[2018-10-07] MEDS: HALOPERIDOL 5 MG TAB PO SCH ×3 (06:00→21:51)
[2018-10-07] MEDS: LEVOTHYROXINE 75MCG TABLET (0.075MG) PO SCH (06:10)
[2018-10-07] MEDS: CYCLOBENZAPRINE 10 MG TAB PO PRN ×2 (06:10→14:07)
[2018-10-07] MEDS: IBUPROFEN 800 MG TAB PO PRN ×2 (06:11→14:07)
[2018-10-07 06:38] VITALS: BP 99/55
[2018-10-07] MEDS: HALOPERIDOL 5 MG/ML VIAL (J1630) IM PRN ×3 (07:00→21:51)
[2018-10-07] MEDS: SUCRALFATE SUSP 1GM/10ML UD PO SCH ×4 (07:07→20:51)
[2018-10-07] MEDS: NICOTINE 21MG/24HR 1 EA TRANSDERMAL TD SCH (08:42)
[2018-10-07] MEDS: OMEPRAZOLE 20 MG CAP PO SCH (08:43)
[2018-10-07] MEDS: CHLORHEXIDINE GLUCONATE 0.12 % 15ML UDC (PERIDEX ORAL RINSE) SSP SCH ×3 (08:43→20:52)
[2018-10-07 18:00] VITALS: BP 112/68
[2018-10-07] MEDS: LURASIDONE 20 MG TAB (LATUDA) PO SCH (18:00)
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
[2018-10-08] MEDS: LEVOTHYROXINE 75MCG TABLET (0.075MG) PO SCH (05:59)
[2018-10-08 06:00] VITALS: BP 127/66
[2018-10-08] MEDS: HALOPERIDOL 5 MG TAB PO SCH ×3 (06:00→20:59)
[2018-10-08] MEDS: HALOPERIDOL 5 MG/ML VIAL (J1630) IM PRN ×3 (06:10→21:26)
[2018-10-08] MEDS: SUCRALFATE SUSP 1GM/10ML UD PO SCH ×4 (07:30→20:57)
[2018-10-08] MEDS: NICOTINE 21MG/24HR 1 EA TRANSDERMAL TD SCH ×2 (09:00→12:04)
[2018-10-08] MEDS: CHLORHEXIDINE GLUCONATE 0.12 % 15ML UDC (PERIDEX ORAL RINSE) SSP SCH ×3 (09:00→20:58)
[2018-10-08] MEDS: OMEPRAZOLE 20 MG CAP PO SCH (09:00)
[2018-10-08] MEDS: CYCLOBENZAPRINE 10 MG TAB PO PRN ×2 (11:26→21:01)
[2018-10-08] MEDS: IBUPROFEN 800 MG TAB PO PRN ×2 (11:26→21:02)
[2018-10-08] MEDS: LURASIDONE 20 MG TAB (LATUDA) PO SCH (17:56)
[2018-10-08 18:00] VITALS: BP 126/69
[2018-10-09 06:00] VITALS: BP 119/56
[2018-10-09] MEDS: HALOPERIDOL 5 MG TAB PO SCH ×3 (06:00→22:00)
[2018-10-09] MEDS: LEVOTHYROXINE 75MCG TABLET (0.075MG) PO SCH (06:12)
[2018-10-09] MEDS: HALOPERIDOL 5 MG/ML VIAL (J1630) IM PRN ×3 (06:13→22:08)
[2018-10-09] MEDS: SUCRALFATE SUSP 1GM/10ML UD PO SCH ×4 (06:42→21:00)
[2018-10-09] MEDS: CHLORHEXIDINE GLUCONATE 0.12 % 15ML UDC (PERIDEX ORAL RINSE) SSP SCH ×3 (09:00→21:00)
[2018-10-09] MEDS: OMEPRAZOLE 20 MG CAP PO SCH (09:00)
[2018-10-09] MEDS: NICOTINE 21MG/24HR 1 EA TRANSDERMAL TD SCH (09:00)
[2018-10-09] MEDS: CYCLOBENZAPRINE 10 MG TAB PO PRN ×2 (10:03→22:08)
[2018-10-09] MEDS: IBUPROFEN 800 MG TAB PO PRN ×2 (10:03→22:09)
[2018-10-09 12:36] VITALS: BP 124/80
[2018-10-09 18:00] VITALS: BP 106/73
[2018-10-09] MEDS: LURASIDONE 20 MG TAB (LATUDA) PO SCH (18:00)
[2018-10-10] MEDS: HALOPERIDOL 5 MG TAB PO SCH (06:00)
[2018-10-10] MEDS: LEVOTHYROXINE 75MCG TABLET (0.075MG) PO SCH (06:12)
[2018-10-10] MEDS: HALOPERIDOL 5 MG/ML VIAL (J1630) IM PRN (06:17)
[2018-10-10] MEDS: CYCLOBENZAPRINE 10 MG TAB PO PRN (06:17)
[2018-10-10] MEDS: IBUPROFEN 800 MG TAB PO PRN (06:20)
[2018-10-10] MEDS: SUCRALFATE SUSP 1GM/10ML UD PO SCH ×2 (06:20→12:00)
[2018-10-10 06:24] VITALS: BP 138/60
[2018-10-10] MEDS ORDERED: HALOPERIDOL DECANOATE 100 MG/ML VIAL (J1631) IM SCH (09:00)
[2018-10-10] MEDS: CHLORHEXIDINE GLUCONATE 0.12 % 15ML UDC (PERIDEX ORAL RINSE) SSP SCH (09:00)
[2018-10-10] MEDS: OMEPRAZOLE 20 MG CAP PO SCH (09:00)
[2018-10-10] MEDS: NICOTINE 21MG/24HR 1 EA TRANSDERMAL TD SCH (09:58)
[2018-10-10] MEDS ORDERED: BENZ-52 PO (11:56)
[2018-10-10] MEDS ORDERED: HALO10AM IM (11:56)
[2018-10-10] MEDS ORDERED: TRAZO50TA PO (11:56)
[2018-10-10] MEDS ORDERED: BENZ-18 PO (11:56)
[2018-10-10] MEDS ORDERED: ARIP2TAB PO (12:26)
[2018-10-11] MEDS ORDERED: ARIPiprazole 2 MG TAB PO SCH (09:00)
--- NOTE | 2018-10-16 19:17 | MHDSPDOC ---
[facility] Discharge Summary Discharge Summary DATE OF ADMISSION: Sep 16, 2018 at 15:08 DATE OF DISCHARGE: Oct 10, 2018 at 13:20 DISCHARGE DIAGNOSES: 1. Bipolar 1 disorder, manic episode 2. Marihuana use disorder REASON FOR ADMISSION: As per Dr. Nieves's note: " This is one of multiple hospitalizations for this 38-year-old white woman with chronic noncompliance with treatment and what appears to be chronic paranoid thoughts and manic-like behavior. The patient basically presented similar to last admission. She basically refused to talk to me and very angrily telling me to leave her room, "I have no right to try to talk to her." According to the emergency room records, the patient was brought in by the police because she apparently tried to kill her mother with a knife, but the patient was denying that, which appears to be baseline for her. She feels that everyone else has been abusing her and trying to kill her. In review of some of the old records, it seems that she has had ten hospital admissions where she is always brought in by the police and presents quite psychotic and with manic like symptoms, one time walking naked in the street and claiming that she is the [place] [employer]. She also feels that other people are trying to hurt her. She was last hospitalized at [facility] inpatient mental health unit from 08/06/2017 until 09/02/2017. At that point, the patient was started on Invega Sustenna but that was after the hospital obtained treatment over objection and then she was transferred to detention treatment at [facility]." CONSULTANTS INVOLVED: None TREATMENT AND PROGRESS ON THE UNIT : Since her admission, the patient refused to take medications and she behaved as she had during previous admissions, denying the fact that she has a mental illness. She has to be coded several times and during those times she received Haldol, Ativan and Benadryl. Later on, during her hospitalization she would accept receiving the medications either by mouth or IM in order to avoid being mechanically restrained. She was delusional, paranoid, grandiose. She had inappropriate affect and made inappropriate statements especially to male staff because she was hypersexual as a result of being manic. On 10/05/2018 she has to go to court for a TOO but she refused to go. The patient had refused to speak with the mental hygiene services retail business development manager because she was psychotic. This health technical writer and other staff went to court and presented enough evidence to prove that she was psychotic. That very same morning she had written a letter to the sausage tier and the content of thought letter was incoherent because she was psychotic. The sausage tier granted the permission to treat her over objection and she began receiving Haldol 5 mg every 8 hours and she also received Cogentin to prevent extrapyramidal side effects. Because she did well on Haldol, she received a long-acting injectable of Haldol Decanoate 100 mg IM. Since she could not take oral Haldol because she already has received a Haldol Decanoate injection, she was prescribed Abilify 2 mg at bedtime.The patient responded really well and did not develop adverse effects to the medication. She was discharged on 10/10/2018 because she was not homicidal, she was not suicidal and she was not reporting auditory or visual hallucinations at the time of her discharge. She was not paranoid as she was before. HOSPITAL COURSE: As above DISCHARGE ASSESSMENT: The patient was not hallucinating, she was not suicidal and she was not psychotic at the time of her discharge. Her mood and affect had improved, and she was not aggressive. Her insight and her judgment had improved too. MENTAL STATUS EXAMINATION ON DISCHARGE: Patient is a 38 -year old female, who is alert, dressed in hospital clothes. Speech: Is normal in rate, tone, volume. Spontaneous and fluent Thought processes including: Intact Thought content: Focused on her mother's mental illness more than in herself, more rational and more coherent Description of associations: Improving Description of abnormal or psychotic thoughts: She doesn't seem to be responding to internal stimuli today, she is not paranoid. She denies auditory and visual hallucinations and denies suicidal and homicidal ideation Judgment: Improved Insight: Improved Orientation: 3 Recent and remote memory: fair Attention span and concentration: Less distractible Mood: Euthymic Affect: congruent with mood DIAGNOSES: 1. Bipolar 1 disorder, manic episode 2. Marihuana use disorder MEDICATIONS ON DISCHARGE: Aripiprazole (Aripiprazole) 2 Mg Tab, 2 MG PO QAM for mood, #7 Chlorhexidine Gluconate (Peridex) 0.12 % Nessa, 1 DOSE SSP TID, (Reported) Fluticasone Propionate (Flonase Allergy Relief) 50 Mcg/Act Spr, 2 SPRAY NARES DAILY, (Reported) Haloperidol Decanoate (Haloperidol Decanoate) 100 Mg/Ml Soln, 100 MG IM Q28D for mood/psychosis, #1 Next dose is on 10/10/2018 Levothyroxine Sodium (Synthroid) 75 Mcg Tab, 75 MCG PO DAILY, (Reported) Loratadine (Loratadine) 10 Mg Tab, 10 MG PO DAILY, (Reported) Omeprazole (Omeprazole) 40 Mg Cap, 40 MG PO DAILY, (Reported) Oxybutynin Chloride (Oxybutynin Chloride ER) 15 Mg Tab, 15 MG PO DAILY, (Reported) Sucralfate (Carafate) 1 Gm/10 Ml Lauryn, 10 ML PO ACHS, (Reported) 4 times per day on an empty stomach 1 hour before meals and at bedtime Scheduled PRN Benzonatate (Benzonatate) 100 Mg Cap, 100 MG PO QIDP PRN for COUGH, #28 Benztropine Mesylate (Benztropine Mesylate) 1 Mg Tab, 1 MG PO BIDP PRN for EXTRAPYRAMIDAL SIDE EFFECTS, #14 Cyclobenzaprine HCl (Cyclobenzaprine HCl) 10 Mg Tab, 10 MG PO TID PRN for MUSCLE SPASMS, (Reported) Ibuprofen (Ibuprofen) 800 Mg Tab, 800 MG PO Q6H PRN for PAIN, (Reported) Trazodone HCl (Trazodone HCl) 50 Mg Tab, 50 MG PO QHSP PRN for INSOMNIA, #7 PLAN/FOLLOWUP ARRANGEMENTS: Follow Up Care Education Label * Mental Health Appt 1 * [facility] * Established With This Provider No * Therapist SINCERE * Date Oct 12, 2018 * Time 10:00 * Address of Clinic or Practice [address] [place] [address] * Follow Up Care Education Label * Mental Health Appt 2 * [facility] * Established With This Provider No * Therapist DARIN * Date Oct 31, 2018 * Time 13:30 * Address of Clinic or Practice [address] [place] [address] * Follow Up Care Education Label * Medical * Medical Follow Up [facility] * Established With This Provider Yes * Therapist DR. JULIUS OLMEDO * Date Nov 01, 2018 * Time 10:30 * Address of Clinic or Practice [address] [place] [address] * Follow Up Care Education Label * Smoking Cessation * Mental Health [facility] * Smoking Cessation [facility] Smoking Cessation * Additional information see attached form The amount of time spent in the coordination of care for this patient was approx imately 30 minutes. Vital Signs/I&Os Vital Signs Date Time Temp Pulse Resp B/P (MAP) Pulse Ox O2 Delivery O2 Flow Rate FiO2 10/10/18 06:24 99.3 104 14 138/60 (86) Medications Scheduled Aripiprazole (Aripiprazole) 2 Mg Tab, 2 MG PO QAM for mood, #7 Chlorhexidine Gluconate (Peridex) 0.12 % Nessa, 1 DOSE SSP TID, (Reported) Fluticasone Propionate (Flonase Allergy Relief) 50 Mcg/Act Spr, 2 SPRAY NARES DAILY, (Reported) Haloperidol Decanoate (Haloperidol Decanoate) 100 Mg/Ml Soln, 100 MG IM Q28D for mood/psychosis, #1 Next dose is on 10/10/2018 Levothyroxine Sodium (Synthroid) 75 Mcg Tab, 75 MCG PO DAILY, (Reported) Loratadine (Loratadine) 10 Mg Tab, 10 MG PO DAILY, (Reported) Omeprazole (Omeprazole) 40 Mg Cap, 40 MG PO DAILY, (Reported) Oxybutynin Chloride (Oxybutynin Chloride ER) 15 Mg Tab, 15 MG PO DAILY, (Reported) Sucralfate (Carafate) 1 Gm/10 Ml Lauryn, 10 ML PO ACHS, (Reported) 4 times per day on an empty stomach 1 hour before meals and at bedtime Scheduled PRN Benzonatate (Benzonatate) 100 Mg Cap, 100 MG PO QIDP PRN for COUGH, #28 Benztropine Mesylate (Benztropine Mesylate) 1 Mg Tab, 1 MG PO BIDP PRN for EXTRAPYRAMIDAL SIDE EFFECTS, #14 Cyclobenzaprine HCl (Cyclobenzaprine HCl) 10 Mg Tab, 10 MG PO TID PRN for MUSCLE SPASMS, (Reported) Ibuprofen (Ibuprofen) 800 Mg Tab, 800 MG PO Q6H PRN for PAIN, (Reported) Trazodone HCl (Trazodone HCl) 50 Mg Tab, 50 MG PO QHSP PRN for INSOMNIA, #7 Allergies Coded Allergies: Haloperidol (Verified Adverse Reaction, Mild, shaking (typical EPS reactions), 08/18/17) Varenicline (Verified Adverse Reaction, Mild, vomiting, 08/06/17) Risperidone (Verified Adverse Reaction, Unknown, shaking, 04/01/17) Uncoded Allergies: ANTIPSYCHOTIC (Adverse Reaction, Unknown, PT STATES "DECREASED RESULTS", 09/16/18) KATE COCHRAN MD Oct 16, 2018 19:07
== END 2018-10-10 13:20 | disposition home or self-care (01) | DRG 885 ==
LOC: M ED 09:49 → M ED INP 15:08 → M PSY 17:13
PROVIDERS: ADMIT Psychiatry & Neurology Psychiatry; ATTEND Psychiatry & Neurology Psychiatry
DX: F31.2 Bipolar disorder, current episode manic severe with psychotic features (principal); E87.1 Hypo-osmolality and hyponatremia; F17.210 Nicotine dependence, cigarettes, uncomplicated; E03.9 Hypothyroidism, unspecified; K21.9 Gastro-esophageal reflux disease without esophagitis; D72.829 Elevated white blood cell count, unspecified; F12.10 Cannabis abuse, uncomplicated; R35.0 Frequency of micturition; G43.909 Migraine, unspecified, not intractable, without status migrainosus; J30.9 Allergic rhinitis, unspecified; N32.81 Overactive bladder; Z91.14 Patient's other noncompliance with medication regimen

== ENCOUNTER 2018-10-27 13:33 | Emergency (ER) | payer MEDICARE, MEDICAID ==
[~2018-10-27] VITALS: Ht 167.6 cm; Wt 75.0 kg
[~2018-10-27 13:33] MED LIST changes: +ARIP2TAB PO; +BENZ-18 PO; +FLON1SPR NARES; +HALO10AM IM; +LEVO75TA4 PO; +LORA10TA3 PO; +OXYB15TA PO; +PERI0.126 SSP; +SUCR1SS PO
--- NOTE | 2018-10-27 14:41 | REP ---
Clinical: Trauma/injury. Technique: AP and frog lateral views of the right and left femur. Findings: Normal examination. No acute fracture dislocation. Surrounding soft tissues normal. Joint spaces normal. Impression: No acute fracture dislocation. Electronically Signed by Dylon Leonard MD 10/27/2018 02:31 P
[2018-10-27] MEDS ORDERED: IBUPROFEN 100 MG/5 ML SUSP UDC DYE FREE PO ONE (16:30)
[2018-10-27 16:36] VITALS: BP 114/68
== END 2018-10-27 16:37 | disposition home or self-care (01) ==
LOC: M ED 13:33
DX: S76.311A Strain of muscle, fascia and tendon of the posterior muscle group at thigh level, right thigh, initial encounter (principal); S76.111A Strain of right quadriceps muscle, fascia and tendon, initial encounter; W00.0XXA Fall on same level due to ice and snow, initial encounter; Y92.89 Other specified places as the place of occurrence of the external cause; F32.9 Major depressive disorder, single episode, unspecified; F41.9 Anxiety disorder, unspecified; F29 Unspecified psychosis not due to a substance or known physiological condition; R51 Headache; K21.9 Gastro-esophageal reflux disease without esophagitis; F17.200 Nicotine dependence, unspecified, uncomplicated; Z88.8 Allergy status to other drugs, medicaments and biological substances

== ENCOUNTER 2018-11-16 01:11 | Emergency (ER) | payer MEDICARE, MEDICAID ==
[~2018-11-16] VITALS: Ht 167.6 cm; Wt 72.1 kg
[2018-11-16] MEDS ORDERED: NS 1,000 ML IV ONE (01:45)
[2018-11-16 02:32] LABS: BASO % 0.5 % (0.0-1.0); EOS % 0.2 % (0.0-3.0); HEMATOCRIT 38.5 % (36.0-47.0); HEMOGLOBIN 13.1 g/dl (12.0-15.5); LYMPH % 22.7 % (24.0-44.0); MEAN CORPUSCULAR HEMOGLOBIN 30.8 pg (27.0-33.0); MEAN CORPUSCULAR VOLUME 90.4 fl (80.0-96.0); MONO # 0.7 10^3/uL (0.0-0.8); MONO % 8.4 % (0.0-5.0); NEUTROPHILS # 5.9 10^3/uL (1.8-7.7); NEUTROPHILS % 67.9 % (36.0-66.0); PLATELET COUNT, AUTOMATED 246 10^3/uL (150-450); RED BLOOD COUNT 4.26 10^6/uL (4.00-5.40); WHITE BLOOD COUNT 8.6 10^3/uL (4.0-10.0)
[2018-11-16 02:42] LABS: INR 1.07
[2018-11-16 02:43] LABS: PARTIAL THROMBOPLASTIN TIME 26.4 SECONDS (25.4-37.6)
[2018-11-16 03:08] LABS: ALBUMIN 3.7 GM/DL (3.2-5.2); ALT/SGPT 14 U/L (12-78); BILIRUBIN,DIRECT < 0.1 MG/DL (0.0-0.2); BILIRUBIN,TOTAL 0.2 MG/DL (0.2-1.0); BLOOD UREA NITROGEN 6 MG/DL (7-18); CALCIUM LEVEL 8.5 MG/DL (8.5-10.1); CARBON DIOXIDE LEVEL 27 MEQ/L (21-32); CHLORIDE LEVEL 104 MEQ/L (98-107); CPK CREATINE PHOSPHOKINASE 170 U/L (26-192); ETHYL ALCOHOL (ETHANOL) < 0.003 % (0.000-0.010); FREE T4 0.93 NG/DL (0.76-1.46); GLOMERULAR FILTRATION RATE > 60.0 (>60); GLUCOSE, FASTING 129 MG/DL (70-100); LIPASE 75 U/L (73-393); SODIUM LEVEL 136 MEQ/L (136-145); TOTAL PROTEIN 6.7 GM/DL (6.4-8.2); TROPONIN I < 0.02 NG/ML (< 0.10)
[2018-11-16 03:09] LABS: MB/CK RELATIVE INDEX 1.06 (< OR =4)
[2018-11-16 07:45] VITALS: BP 115/75
[2018-11-16 07:49] LABS: CPK CREATINE PHOSPHOKINASE 138 U/L (26-192); MB/CK RELATIVE INDEX 1.16 (< OR =4); TROPONIN I < 0.02 NG/ML (< 0.10)
--- NOTE | 2018-11-16 09:03 | REP ---
Chest one-view HISTORY: Chest pain Comparison: 09/16/2018 The lungs are clear. The heart is normal in size. The pulmonary vasculature is normal in appearance. Impression: No acute disease. Electronically Signed by Teja Tong MD 11/16/2018 08:54 A
--- NOTE | 2018-11-16 21:21 | ECGEPIP ---
Stationary ECG Study [facility] - ED Test Date: 2018-11-16 Pat Name: AZUL RICHARDS Department: Room: - Gender: F Esl Instructor: cindy : 1980 Requested By: HERMELINDA Pablo Order Number: [id number] Reading MD: Gris Choe Measurements Intervals [place] Rate: 123 P: 57 AL: 132 QRS: 54 QRSD: 94 T: 35 QT: 303 QTc: 435 Interpretive Statements SINUS TACHYCARDIA NONSPECIFIC T-WAVE ABNORMALITY ABNORMAL RHYTHM ECG INCREASED RATE 01/05/18 Electronically Signed On 11-16-2018 21:21:30 EDT by Gris Choe
--- NOTE | 2018-11-16 21:23 | ECGEPIP ---
Stationary ECG Study [facility] - ED Test Date: 2018-11-16 Pat Name: AZUL RICHARDS Department: Room: - Gender: F Dopster: [facility] 1980 Requested By: HERMELINDA Pablo Order Number: [id number] Reading MD: Gris Choe Measurements Intervals [place] Rate: 79 P: 59 [place]: 146 QRS: 57 QRSD: 92 T: 64 QT: 379 QTc: 435 Interpretive Statements SINUS RHYTHM NSTTW ABNORMALITY DECREASED RATE 11/16/18 Electronically Signed On 11-16-2018 21:23:19 EDT by Gris Choe
== END 2018-11-16 08:15 | disposition home or self-care (01) ==
LOC: M ED 01:11
DX: F45.8 Other somatoform disorders (principal); R00.2 Palpitations; G40.209 Localization-related (focal) (partial) symptomatic epilepsy and epileptic syndromes with complex partial seizures, not intractable, without status epilepticus; E07.9 Disorder of thyroid, unspecified; F31.9 Bipolar disorder, unspecified; F29 Unspecified psychosis not due to a substance or known physiological condition; Z79.899 Other long term (current) drug therapy; Z79.890 Hormone replacement therapy; Z88.8 Allergy status to other drugs, medicaments and biological substances; F17.210 Nicotine dependence, cigarettes, uncomplicated
CPT/HCPCS: 36415; 71045; 80048; 80076; 82550; 82553; 83690; 84439; 84443; 84484; 85025; 85610; 85730; 93005; 93041; 94760; 99285; G0480

== ENCOUNTER → 2018-12-07 | Outpatient (CLI) | payer MEDICARE, MEDICAID ==
[~2018-12-07] MED LIST changes: -/HALO5TAB OR; +ARIP1TAB4 PO; -ARIP2TAB PO; -BENZ1TA PO; +BENZ1TAB42 PO; +DEPO150I IM; +E-Z-GAS II EFFERVESCENT PACKET (SODIUM BICARB./CITRIC ACID/SIMETHICONE) As Ordered ONE; +E-Z-HD 98% w/w 340GM SUSP BTL As Ordered ONE; +E-Z-PAQUE 96% w/w SUSP 176GM BTL As Ordered ONE; +HALO1TAB21 OR; +HYDR-3715 PO; +NICO21DI3 TD; -NORCOTAB PO
--- NOTE | 2018-12-07 17:30 | REP ---
Esophagram The procedure was performed under the direct supervision of Dr. Pleitez. The images were reviewed with Dr. Pleitez. A single view PA chest x-ray is submitted as a tavern keeper film. The superior mediastinal structures are midline. The heart size is within normal limits. The lungs are clear. Liquid barium and gas producing granules were given in the erect position as well as liquid barium in the prone oblique positions in order to perform a double contrast esophagram examination. The oral and pharyngeal stages of deglutition are unremarkable. Esophageal transport is prompt and efficient and there is no esophagitis, stricture, mucosal ring or hiatal hernia. Gastroesophageal reflux is not demonstrated on this examination. Impression: Essentially unremarkable double contrast esophagram examination. 1 minute of fluoro time was utilized for this procedure. Reviewed by DULCE Greene 12/07/2018 03:49 P Electronically Signed by Gabriel Pleitez MD 12/07/2018 05:20 P
== END ==
LOC: M RAD 08:04
PROVIDERS: ATTEND Obstetrics & Gynecology
DX: R13.10 Dysphagia, unspecified (principal)

== ENCOUNTER 2018-12-11 22:47 | Emergency (ER) | payer MEDICARE, MEDICAID ==
[~2018-12-11] VITALS: Ht 167.6 cm; Wt 66.8 kg
[~2018-12-11 22:47] MED LIST changes: -E-Z-GAS II EFFERVESCENT PACKET (SODIUM BICARB./CITRIC ACID/SIMETHICONE) As Ordered ONE; -E-Z-HD 98% w/w 340GM SUSP BTL As Ordered ONE; -E-Z-PAQUE 96% w/w SUSP 176GM BTL As Ordered ONE
[2018-12-11 23:33] LABS: BASO % 0.3 % (0.0-1.0); EOS % 0.2 % (0.0-3.0); HEMATOCRIT 37.4 % (36.0-47.0); HEMOGLOBIN 12.8 g/dl (12.0-15.5); LYMPH % 16.5 % (24.0-44.0); MEAN CORPUSCULAR HEMOGLOBIN 30.6 pg (27.0-33.0); MEAN CORPUSCULAR HGB CONC 34.2 g/dl (32.0-36.5); MEAN CORPUSCULAR VOLUME 89.5 fl (80.0-96.0); MONO # 0.9 10^3/uL (0.0-0.8); MONO % 7.6 % (0.0-5.0); NEUTROPHILS % 75.1 % (36.0-66.0); PLATELET COUNT, AUTOMATED 243 10^3/uL (150-450); RED BLOOD COUNT 4.18 10^6/uL (4.00-5.40); WHITE BLOOD COUNT 11.9 10^3/uL (4.0-10.0)
[2018-12-12 00:04] LABS: BLOOD UREA NITROGEN 4 MG/DL (7-18); CALCIUM LEVEL 8.4 MG/DL (8.5-10.1); CARBON DIOXIDE LEVEL 25 MEQ/L (21-32); CHLORIDE LEVEL 102 MEQ/L (98-107); CPK CREATINE PHOSPHOKINASE 190 U/L (26-192); CREATININE FOR GFR 0.74 MG/DL (0.55-1.30); GLOMERULAR FILTRATION RATE > 60.0 (>60); GLUCOSE, FASTING 119 MG/DL (70-100); MB/CK RELATIVE INDEX 0.84 (< OR =4); POTASSIUM SERUM 3.1 MEQ/L (3.5-5.1); SODIUM LEVEL 136 MEQ/L (136-145); TROPONIN I < 0.02 NG/ML (< 0.10)
[2018-12-12] MEDS ORDERED: POTASSIUM CHL PWD 20 MEQ PACKET PO ONE (01:00)
[2018-12-12 01:08] VITALS: BP 119/76
--- NOTE | 2018-12-12 05:38 | ECGEPIP ---
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
--- NOTE | 2018-12-12 09:38 | REP ---
Portable chest x-ray: Single view. History: Chest pain. Comparison study: November 16, 2018. Findings: EKG monitoring electrodes overlie the chest. Clothing artifact. The lungs are well inflated and clear. Pleural angles are sharp. Heart is not enlarged. Pulmonary vasculature is not increased. Impression: No active disease. Electronically Signed by Gabriel Pleitez MD 12/12/2018 07:52 A
== END 2018-12-12 01:10 | disposition home or self-care (01) ==
LOC: M ED 22:47
DX: R00.2 Palpitations (principal); R13.10 Dysphagia, unspecified; F31.9 Bipolar disorder, unspecified; E03.9 Hypothyroidism, unspecified; K21.9 Gastro-esophageal reflux disease without esophagitis; Z79.899 Other long term (current) drug therapy; Z79.890 Hormone replacement therapy; Z88.8 Allergy status to other drugs, medicaments and biological substances

== ENCOUNTER 2018-12-12 11:35 | Day surgery (SDC) | payer MEDICARE, MEDICAID ==
[~2018-12-12] VITALS: Ht 167.6 cm; Wt 63.0 kg
[~2018-12-12 11:35] MED LIST changes: +LIDOCAINE 2% INJ 100 MG/5 ML SDV (FOR ANES.) As Ordered ONE; +NS 1,000 ML IV SCH; +PROPOFOL 200 MG/20 ML VIAL As Ordered ONE
[2018-12-12] MEDS ORDERED: PROPOFOL 200 MG/20 ML VIAL As Ordered ONE ×2 (12:53→13:06)
--- NOTE | 2018-12-12 13:45 | ROOR ---
Patient Name: Nalini Ricks Procedure Date: 12/12/2018 12:31 PM Date of : 1980 Age: 38 Room: [facility] Gender: Female Note Status: Finalized Procedure: Upper GI endoscopy Indications: Dysphagia Providers: Luico Null MD Referring MD: Yane Puente Do Requesting Provider: Medicines: Monitored Anesthesia Care Complications: No immediate complications. Procedure: Pre-Anesthesia Assessment: - Prior to the procedure, a History and Physical was performed, and patient medications and allergies were reviewed. The patient is competent. The risks and benefits of the procedure and the sedation options and risks were discussed with the patient. All questions were answered and informed consent was obtained. Patient identification and proposed procedure were verified by the physician, the nurse and the anesthesiologist in the procedure room. Mental Status Examination: alert and oriented. Airway Examination: normal oropharyngeal airway and neck mobility. Respiratory Examination: clear to auscultation. CV Examination: normal. Prophylactic Antibiotics: The patient does not require prophylactic antibiotics. Prior Anticoagulants: The patient has taken no previous anticoagulant or antiplatelet agents. ASA Grade Assessment: II - A patient with mild systemic disease. After reviewing the risks and benefits, the patient was deemed in satisfactory condition to undergo the procedure. The anesthesia plan was to use monitored anesthesia care (MAC). Immediately prior to administration of medications, the patient was re-assessed for adequacy to receive sedatives. The heart rate, respiratory rate, oxygen saturations, blood pressure, adequacy of pulmonary ventilation, and response to care were monitored throughout the procedure. The physical status of the patient was re-assessed after the procedure. The Endoscope was introduced through the mouth, and advanced to the second part of duodenum. The upper GI endoscopy was accomplished without difficulty. The patient tolerated the procedure well. Findings: No endoscopic abnormality was evident in the esophagus to explain the patient's complaint of dysphagia. It was decided, however, to proceed with dilation at the cricopharyngeus, in the proximal esophagus and in the mid esophagus. The scope was withdrawn. Dilation was performed with a Leos dilator with no resistance at 56 Fr. The dilation site was examined following endoscope reinsertion and showed no bleeding, mucosal tear or perforation. Biopsies were obtained from the proximal and distal esophagus with cold forceps for histology of suspected eosinophilic esophagitis. Verification of patient identification for the specimen was done by the physician and nurse using the patient's name, date and medical record number. Estimated blood loss was minimal. Localized mild inflammation characterized by erosions, erythema and granularity was found in the gastric antrum. Biopsies were taken with a cold forceps for Helicobacter pylori testing. The duodenal bulb and second portion of the duodenum were normal. Biopsies for histology were taken with a cold forceps for evaluation of celiac disease. Impression: - No endoscopic esophageal abnormality to explain patient's dysphagia. Esophagus dilated. Dilated. Biopsied. - Gastritis. Biopsied. - Normal duodenal bulb and second portion of the duodenum. Biopsied. Recommendation: - Patient has a contact number available for emergencies. The signs and symptoms of potential delayed complications were discussed with the patient. Return to normal activities tomorrow. Written discharge instructions were provided to the patient. - Resume previous diet. - Continue present medications. - Await pathology results. - Based on the biopsy results you will receive a phone call from GI clinic in 2-3 weeks to review the pathology results AND/OR your results will be faxed to your Primary care physician. - Return to primary care physician. Lucio Null MD Lucio Null MD 12/12/2018 1:45:07 PM Electronically signed by Lucio Null MD Number of Addenda: 0 Note Initiated On: 12/12/2018 12:31 PM Estimated Blood Loss: Estimated blood loss: none.
--- NOTE | 2018-12-12 13:50 | ROOR ---
Patient Name: Nalini Ricks Procedure Date: 12/12/2018 12:31 PM Date of : 1980 Age: 38 Room: [facility] Gender: Female Note Status: Finalized Procedure: Colonoscopy Indications: Weight loss Providers: Lucio Null MD Referring MD: Yane Puente Do Requesting Provider: Medicines: Monitored Anesthesia Care Complications: No immediate complications. Procedure: Pre-Anesthesia Assessment: - Prior to the procedure, a History and Physical was performed, and patient medications and allergies were reviewed. The patient is competent. The risks and benefits of the procedure and the sedation options and risks were discussed with the patient. All questions were answered and informed consent was obtained. Patient identification and proposed procedure were verified by the physician, the nurse and the anesthesiologist in the procedure room. Mental Status Examination: alert and oriented. Airway Examination: normal oropharyngeal airway and neck mobility. Respiratory Examination: clear to auscultation. CV Examination: normal. Prophylactic Antibiotics: The patient does not require prophylactic antibiotics. Prior Anticoagulants: The patient has taken no previous anticoagulant or antiplatelet agents. ASA Grade Assessment: II - A patient with mild systemic disease. After reviewing the risks and benefits, the patient was deemed in satisfactory condition to undergo the procedure. The anesthesia plan was to use monitored anesthesia care (MAC). Immediately prior to administration of medications, the patient was re-assessed for adequacy to receive sedatives. The heart rate, respiratory rate, oxygen saturations, blood pressure, adequacy of pulmonary ventilation, and response to care were monitored throughout the procedure. The physical status of the patient was re-assessed after the procedure. The Colonoscope was introduced through the anus and advanced to the terminal ileum, with identification of the appendiceal orifice and IC valve. The colonoscopy was performed without difficulty. The patient tolerated the procedure well. The quality of the bowel preparation was good. The terminal ileum, ileocecal valve, appendiceal orifice, and rectum were photographed. Scope insertion time was 3 minutes. Scope withdrawal time was 11 minutes. The total duration of the procedure was 14 minutes. Findings: The perianal and digital rectal examinations were normal. The terminal ileum appeared normal. Five sessile polyps were found in the rectum, sigmoid colon and descending colon. The polyps were 4 to 12 mm in size. These polyps were removed with a cold snare. Resection and retrieval were complete. To close a defect after polypectomy, one hemostatic clip was successfully placed. There was no bleeding at the end of the procedure. Non-bleeding external and internal hemorrhoids were found during retroflexion. The hemorrhoids were medium-sized. Impression: - The examined portion of the ileum was normal. - Five 4 to 12 mm polyps in the rectum, in the sigmoid colon and in the descending colon, removed with a cold snare. Resected and retrieved. Clip was placed. - Non-bleeding external and internal hemorrhoids. Recommendation: - Patient has a contact number available for emergencies. The signs and symptoms of potential delayed complications were discussed with the patient. Return to normal activities tomorrow. Written discharge instructions were provided to the patient. - High fiber diet. - Continue present medications. - Await pathology results. - Repeat colonoscopy in 3 - 5 years for surveillance based on pathology results. - Based on the biopsy results you will receive a phone call from GI clinic in 2-3 weeks to review the pathology results AND/OR your results will be faxed to your Primary care physician. - Return to primary care physician. Lucio Null MD Lucio Null MD 12/12/2018 1:49:38 PM Electronically signed by Lucio Null MD Number of Addenda: 0 Note Initiated On: 12/12/2018 12:31 PM Estimated Blood Loss: Estimated blood loss: none.
[2018-12-12 14:00] VITALS: BP 137/94
== END 2018-12-12 17:10 | disposition home or self-care (01) ==
LOC: M OPP 11:35
PROVIDERS: ATTEND Internal Medicine Gastroenterology
DX: K63.5 Polyp of colon (principal); K62.1 Rectal polyp; K64.8 Other hemorrhoids; R63.4 Abnormal weight loss; R13.10 Dysphagia, unspecified; K29.70 Gastritis, unspecified, without bleeding

== ENCOUNTER 2018-12-13 14:13 | Emergency (ER) | payer MEDICARE, MEDICAID ==
[~2018-12-13] VITALS: Ht 167.6 cm; Wt 62.3 kg
[~2018-12-13 14:13] MED LIST changes: -LIDOCAINE 2% INJ 100 MG/5 ML SDV (FOR ANES.) As Ordered ONE; -NS 1,000 ML IV SCH; -PROPOFOL 200 MG/20 ML VIAL As Ordered ONE
[2018-12-13 14:15] VITALS: BP 134/87
== END 2018-12-13 15:09 | disposition home or self-care (01) ==
LOC: M ED 14:13
DX: R13.10 Dysphagia, unspecified (principal); F41.9 Anxiety disorder, unspecified; K21.9 Gastro-esophageal reflux disease without esophagitis; R51 Headache; E03.9 Hypothyroidism, unspecified; M62.9 Disorder of muscle, unspecified; F32.9 Major depressive disorder, single episode, unspecified; F29 Unspecified psychosis not due to a substance or known physiological condition; Z79.899 Other long term (current) drug therapy; Z88.8 Allergy status to other drugs, medicaments and biological substances

== ENCOUNTER 2018-12-15 12:40 | Emergency (ER) | payer MEDICARE, MEDICAID ==
[~2018-12-15] VITALS: Ht 167.6 cm; Wt 62.3 kg
[2018-12-15 13:28] LABS: HEMATOCRIT 39.9 % (36.0-47.0); HEMOGLOBIN 13.4 g/dl (12.0-15.5); MEAN CORPUSCULAR HEMOGLOBIN 30.5 pg (27.0-33.0); MEAN CORPUSCULAR HGB CONC 33.6 g/dl (32.0-36.5); MEAN CORPUSCULAR VOLUME 90.9 fl (80.0-96.0); PLATELET COUNT, AUTOMATED 266 10^3/uL (150-450); RED BLOOD COUNT 4.39 10^6/uL (4.00-5.40); WHITE BLOOD COUNT 9.1 10^3/uL (4.0-10.0)
[2018-12-15 13:45] VITALS: BP 122/86
[2018-12-15 13:57] LABS: HCG, SERUM QUALITATIVE NEGATIVE (NEGATIVE)
[2018-12-15 14:09] LABS: ACETAMINOPHEN LEVEL < 2.0 UG/ML (10.0-30.0); ALT/SGPT 18 U/L (12-78); BILIRUBIN,DIRECT < 0.1 MG/DL (0.0-0.2); BILIRUBIN,TOTAL 0.3 MG/DL (0.2-1.0); BLOOD UREA NITROGEN 4 MG/DL (7-18); CALCIUM LEVEL 9.3 MG/DL (8.5-10.1); CARBON DIOXIDE LEVEL 26 MEQ/L (21-32); CHLORIDE LEVEL 105 MEQ/L (98-107); CREATININE FOR GFR 0.93 MG/DL (0.55-1.30); GLOMERULAR FILTRATION RATE > 60.0 (>60); GLUCOSE, FASTING 189 MG/DL (70-100); POTASSIUM SERUM 4.2 MEQ/L (3.5-5.1); SALICYLATE LEVEL 2.4 MG/DL (5.0-30.0); SODIUM LEVEL 137 MEQ/L (136-145); TOTAL PROTEIN 6.7 GM/DL (6.4-8.2)
[2018-12-15 14:10] LABS: ETHYL ALCOHOL (ETHANOL) < 0.003 % (0.000-0.010)
== END 2018-12-15 14:52 | disposition home or self-care (01) ==
LOC: M ED 12:40
DX: R13.10 Dysphagia, unspecified (principal); K21.9 Gastro-esophageal reflux disease without esophagitis; F31.9 Bipolar disorder, unspecified; G43.909 Migraine, unspecified, not intractable, without status migrainosus; E07.9 Disorder of thyroid, unspecified; Z79.899 Other long term (current) drug therapy; Z79.890 Hormone replacement therapy; Z79.3 Long term (current) use of hormonal contraceptives; Z88.8 Allergy status to other drugs, medicaments and biological substances
CPT/HCPCS: 36415; 80048; 80076; 84443; 84703; 85027; 99284; G0480

== ENCOUNTER → 2019-01-20 | Outpatient (REF) | payer MEDICARE, MEDICAID ==
[2019-01-20 12:23] LABS: ALBUMIN 3.9 GM/DL (3.2-5.2); ALT/SGPT 19 U/L (12-78); BILIRUBIN,TOTAL 0.3 MG/DL (0.2-1.0); BLOOD UREA NITROGEN 5 MG/DL (7-18); CALCIUM LEVEL 9.2 MG/DL (8.5-10.1); CARBON DIOXIDE LEVEL 29 MEQ/L (21-32); CHLORIDE LEVEL 107 MEQ/L (98-107); CHOLESTEROL LEVEL 177 MG/DL (<200); CREATININE FOR GFR 0.71 MG/DL (0.55-1.30); GLOMERULAR FILTRATION RATE > 60.0 (>60); GLUCOSE, FASTING 92 MG/DL (70-100); HDL CHOLESTEROL 59 MG/DL (>40); LDL CHOLESTEROL 98 MG/DL (<100); NON-HDL-C 118 MG/DL; POTASSIUM SERUM 3.9 MEQ/L (3.5-5.1); SODIUM LEVEL 141 MEQ/L (136-145); TOTAL PROTEIN 7.2 GM/DL (6.4-8.2); TRIGLYCERIDES LEVEL 102 MG/DL (<150)
== END ==
LOC: M SFHCPLAZ 09:38
PROVIDERS: ATTEND Family Medicine
DX: E03.9 Hypothyroidism, unspecified (principal); Z13.220 Encounter for screening for lipoid disorders; R63.4 Abnormal weight loss

== ENCOUNTER → 2019-03-10 | Outpatient (REF) | payer MEDICARE, MEDICAID ==
[~2019-03-10] MED LIST changes: -TRAZ-160 PO; +TRAZ-252 PO; +TRAZ1TAB10 PO; -TRAZO50TA PO
[2019-03-10 13:35] LABS: HEMATOCRIT 38.8 % (36.0-47.0); HEMOGLOBIN 12.9 g/dl (12.0-15.5); MEAN CORPUSCULAR HEMOGLOBIN 30.4 pg (27.0-33.0); MEAN CORPUSCULAR HGB CONC 33.2 g/dl (32.0-36.5); MEAN CORPUSCULAR VOLUME 91.3 fl (80.0-96.0); PLATELET COUNT, AUTOMATED 256 10^3/uL (150-450); RED BLOOD COUNT 4.25 10^6/uL (4.00-5.40); WHITE BLOOD COUNT 7.9 10^3/uL (4.0-10.0)
== END ==
LOC: M SFHCPLAZ 10:56
PROVIDERS: ATTEND Family Medicine
DX: Z77.011 Contact with and (suspected) exposure to lead (principal)
CPT/HCPCS: 83655; 85027; G0463

== ENCOUNTER 2019-05-23 14:47 | Inpatient (IN) | payer MEDICAID, MEDICARE ==
[~2019-05-23] VITALS: Ht 167.6 cm; Wt 70.9 kg
[~2019-05-23 14:47] MED LIST changes: -OMEP40CA2 PO; +OMEP40CA97 PO
[2019-05-23] MEDS ORDERED: HALOPERIDOL 5 MG/ML VIAL (J1630) IM ONE (15:30)
[2019-05-23] MEDS ORDERED: diphenhydrAMINE INJ 50MG/ML VIAL (J1200) IM ONE (15:30)
[2019-05-23] MEDS ORDERED: LORazepam 2 MG/ML VIAL (J2060) IM ONE (15:30)
[2019-05-23 16:16] LABS: HEMOGLOBIN 13.4 g/dl (12.0-15.5); MEAN CORPUSCULAR HEMOGLOBIN 30.9 pg (27.0-33.0); MEAN CORPUSCULAR HGB CONC 33.5 g/dl (32.0-36.5); MEAN CORPUSCULAR VOLUME 92.2 fl (80.0-96.0); PLATELET COUNT, AUTOMATED 319 10^3/uL (150-450); RED BLOOD COUNT 4.34 10^6/uL (4.00-5.40); WHITE BLOOD COUNT 14.5 10^3/uL (4.0-10.0)
[2019-05-23 16:33] LABS: HCG, SERUM QUALITATIVE NEGATIVE (NEGATIVE)
[2019-05-23 16:47] LABS: ACETAMINOPHEN LEVEL < 2.0 UG/ML (10.0-30.0); ALT/SGPT 28 U/L (12-78); BILIRUBIN,DIRECT < 0.1 MG/DL (0.0-0.2); BILIRUBIN,TOTAL 0.3 MG/DL (0.2-1.0); BLOOD UREA NITROGEN 6 MG/DL (7-18); CALCIUM LEVEL 9.2 MG/DL (8.5-10.1); CARBON DIOXIDE LEVEL 26 MEQ/L (21-32); CHLORIDE LEVEL 104 MEQ/L (98-107); CREATININE FOR GFR 0.83 MG/DL (0.55-1.30); ETHYL ALCOHOL (ETHANOL) 0.003 % (0.000-0.010); GLOMERULAR FILTRATION RATE > 60.0 (>60); GLUCOSE, FASTING 138 MG/DL (70-100); POTASSIUM SERUM 3.5 MEQ/L (3.5-5.1); SALICYLATE LEVEL 3.3 MG/DL (5.0-30.0); SODIUM LEVEL 138 MEQ/L (136-145); TOTAL PROTEIN 7.3 GM/DL (6.4-8.2)
[2019-05-23 18:01] LABS: AMPHETAMINES LEVEL URINE NEGATIVE (NEGATIVE); BARBITURATES URINE NEGATIVE (NEGATIVE); BENZODIAZEPINES URINE NEGATIVE (NEGATIVE); CANNABINOIDS URINE NEGATIVE (NEGATIVE); COCAINE METABOLITE URINE NEGATIVE (NEGATIVE); METHADONE URINE NEGATIVE (NEGATIVE); OPIATES URINE NEGATIVE (NEGATIVE); PHENCYCLIDINE URINE NEGATIVE (NEGATIVE)
[2019-05-24] MEDS ORDERED: DICY10SO PO (11:05)
[2019-05-24] MEDS ORDERED: CYCL10TA PO (11:05)
[2019-05-24] MEDS ORDERED: DILT30TA PO (11:05)
[2019-05-24] MEDS ORDERED: ONDA4TAB6 PO (11:05)
[2019-05-24] MEDS ORDERED: MOM 30ML SUSPENSION UDC PO PRN (14:00)
[2019-05-24] MEDS ORDERED: MAALOX 30 ML SUSP *UDC PO PRN (14:00)
[2019-05-24 14:54] VITALS: BP 137/92
[2019-05-25 06:33] VITALS: BP 136/83
[2019-05-25] MEDS ORDERED: OLANZapine ORAL DISINTEGRATING TAB 5MG PO PRN (09:45)
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
[2019-05-25] MEDS ORDERED: LITHIUM CARBONATE 300 MG CAP PO ONE (10:00)
[2019-05-25] MEDS ORDERED: OLANZapine ORAL DISINTEGRATING TAB 5MG PO ONE (10:00)
[2019-05-25] MEDS ORDERED: PALIPERIDONE 3 MG ER TAB (INVEGA) PO ONE (10:00)
[2019-05-25] MEDS: NICOTINE 21MG/24HR 1 EA TRANSDERMAL TD SCH (10:09)
[2019-05-25 11:16] LABS: FREE THYROXINE INDEX 2.2 % (1.3-4.8); THYROID STIMULATING HORMONE 4.94 uIU/ML (0.358-3.740); THYROXINE (T4) 6.3 UG/DL (4.5-12.0)
[2019-05-25] MEDS: LITHIUM CARBONATE 300 MG CAP PO SCH ×2 (15:32→20:50)
--- NOTE | 2019-05-25 15:39 | IPNPDOC ---
Text Note Date of Service The patient was seen on 05/25/19. NOTE Patient refused to speak with me and refused examination so no Medical history and physical could be done at this time. VS,Fishbone, I+O VS, Fishbone, I+O Vital Signs Date Time Temp Pulse Resp B/P (MAP) Pulse Ox O2 Delivery O2 Flow Rate FiO2 05/25/19 06:33 98.3 92 18 136/83 (100) 05/24/19 14:54 99 05/24/19 14:20 Room Air BJ BAUMANN MD May 25, 2019 15:39
[2019-05-25 18:48] VITALS: BP 125/68
[2019-05-25] MEDS: PALIPERIDONE 3 MG ER TAB (INVEGA) PO SCH (20:53)
[2019-05-25] MEDS: OLANZapine ORAL DISINTEGRATING TAB 5MG PO SCH (20:53)
[2019-05-26 06:08] VITALS: BP 130/90
[2019-05-26] MEDS: NICOTINE 21MG/24HR 1 EA TRANSDERMAL TD SCH (08:34)
[2019-05-26] MEDS: PALIPERIDONE 3 MG ER TAB (INVEGA) PO SCH ×2 (09:00→20:56)
[2019-05-26] MEDS: OLANZapine ORAL DISINTEGRATING TAB 5MG PO SCH ×2 (09:00→20:56)
[2019-05-26] MEDS: LITHIUM CARBONATE 300 MG CAP PO SCH ×3 (09:04→21:08)
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
[2019-05-26 18:25] VITALS: BP 150/91
[2019-05-27 06:40] VITALS: BP 148/94
[2019-05-27] MEDS: LITHIUM CARBONATE 300 MG CAP PO SCH ×3 (08:11→20:45)
[2019-05-27] MEDS: OLANZapine ORAL DISINTEGRATING TAB 5MG PO SCH ×2 (08:11→20:46)
[2019-05-27] MEDS: NICOTINE 21MG/24HR 1 EA TRANSDERMAL TD SCH (08:11)
[2019-05-27] MEDS: PALIPERIDONE 3 MG ER TAB (INVEGA) PO SCH ×2 (08:11→20:46)
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
[2019-05-27 15:57] VITALS: BP 160/70
[2019-05-28 06:34] VITALS: BP 130/90
[2019-05-28] MEDS: PALIPERIDONE 3 MG ER TAB (INVEGA) PO SCH ×2 (09:00→19:40)
[2019-05-28] MEDS: OLANZapine ORAL DISINTEGRATING TAB 5MG PO SCH ×2 (09:00→19:41)
[2019-05-28] MEDS: NICOTINE 21MG/24HR 1 EA TRANSDERMAL TD SCH (09:13)
[2019-05-28] MEDS: LITHIUM CARBONATE 300 MG CAP PO SCH ×3 (09:13→19:40)
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
[2019-05-28 15:49] VITALS: BP 130/70
[2019-05-29 06:49] VITALS: BP 141/82
[2019-05-29] MEDS: OLANZapine ORAL DISINTEGRATING TAB 5MG PO SCH ×2 (08:23→21:00)
[2019-05-29] MEDS: PALIPERIDONE 3 MG ER TAB (INVEGA) PO SCH ×2 (08:23→21:00)
[2019-05-29] MEDS: LITHIUM CARBONATE 300 MG CAP PO SCH ×3 (08:24→22:45)
[2019-05-29] MEDS: NICOTINE 21MG/24HR 1 EA TRANSDERMAL TD SCH (08:25)
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
[2019-05-29 18:08] VITALS: BP 133/92
[2019-05-30 06:59] VITALS: BP 105/81
[2019-05-30] MEDS: PALIPERIDONE 3 MG ER TAB (INVEGA) PO SCH ×2 (09:00→21:00)
[2019-05-30] MEDS: OLANZapine ORAL DISINTEGRATING TAB 5MG PO SCH ×2 (09:00→21:00)
[2019-05-30] MEDS: LITHIUM CARBONATE 300 MG CAP PO SCH ×3 (09:08→22:26)
[2019-05-30] MEDS: NICOTINE 21MG/24HR 1 EA TRANSDERMAL TD SCH (09:09)
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
[2019-05-30 16:49] VITALS: BP 125/84
[2019-05-31] MEDS: PALIPERIDONE 3 MG ER TAB (INVEGA) PO SCH ×2 (09:00→21:00)
[2019-05-31] MEDS: **PENDING PPD ENTRY XX SCH (09:00)
[2019-05-31] MEDS: OLANZapine ORAL DISINTEGRATING TAB 5MG PO SCH ×2 (09:00→21:00)
[2019-05-31] MEDS ORDERED: TUBERCULIN PPD 5 UNITS/0.1 ML ID ONE (09:15)
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
[2019-05-31] MEDS: LITHIUM CARBONATE 300 MG CAP PO SCH ×3 (09:34→21:00)
[2019-05-31] MEDS: NICOTINE 21MG/24HR 1 EA TRANSDERMAL TD SCH (09:35)
[2019-05-31] MEDS ORDERED: chlorproMAZINE INJ 50MG/2ML AMP (J3230) IM STA (10:26)
[2019-05-31] MEDS ORDERED: diphenhydrAMINE INJ 50MG/ML VIAL (J1200) IM STA (10:26)
[2019-05-31] MEDS ORDERED: LORazepam 2 MG/ML VIAL (J2060) IM STA (10:26)
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
--- NOTE | 2019-05-31 10:34 | MHIR ---
General Date: May 31, 2019 Time Initiated: 10:30 Restraint Documentation Order/Evaluation FACE TO FACE: Yes. PHYSICIAN ASSESSMENT: Pt is partially clothed in milieu, laying in the middle of the milieu floor with arms and legs stretched out, flooded her bathroom, and is calling every staff member that walks past her names, refusing any redirection/staff support/prn medication. She is psychotic. REASON FOR RESTRAINT: Patient poses imminent danger of harming self or others: she is affecting the care of pt's on the unit and refuses to get up off the milieu floor preventing anyone from walking past her. DE-ESCALATION INTERVENTIONS ATTEMPTED BEFORE USE OF RESTRAINTS: redirection/staff support/prn medication [MECHANICAL AND/OR CHEMICAL] RESTRAINTS USED: both (thorazine 100mg im, ativan 2mg im, benadryl 100mg im) LENGTH OF TIME ORDERED IN RESTRAINTS: [240] minutes. WHEN TO DISCONTINUE RESTRAINTS: When the patient is no longer a threat to themselves or others and no longer affecting the care of other pt's on the unit. Post evaluation of restraint due in 24 hours. ANDRE BURCIAGA DO May 31, 2019 10:34 am
[2019-05-31 10:45] VITALS: BP 115/80
[2019-05-31 16:15] VITALS: BP 131/72
[2019-06-01 06:00] VITALS: BP 126/78
[2019-06-01] MEDS: OLANZapine ORAL DISINTEGRATING TAB 5MG PO SCH ×2 (09:00→22:06)
[2019-06-01] MEDS: PALIPERIDONE 3 MG ER TAB (INVEGA) PO SCH ×2 (09:00→22:05)
[2019-06-01] MEDS: **PENDING PPD ENTRY XX SCH (09:00)
--- NOTE | 2019-06-01 09:35 | MHPR ---
General Date: Jun 01, 2019 Time: 09:33 Post-Restraint Evaluation THE OUTCOME OF THE RESTRAINT: pt took medicine willingly without needing to be restrained which she tolerated well and calmed down, fell asleep after EFFECTIVENESS OF THE RESTRAINT: Mechanical and/or chemical: chemical only and positive ANY EVIDENCE THAT THE PATIENT WAS AFFECTED EMOTIONALLY: no ANY NEED FOR COUNSELING/ASSISTANCE: no CHANGES IN TREATMENT PLAN:no RECOMMENDATIONS FOR FUTURE INCIDENTS: continue current plan ANDRE BURCIAGA DO Jun 01, 2019 9:35 am
[2019-06-01] MEDS: NICOTINE 21MG/24HR 1 EA TRANSDERMAL TD SCH (09:36)
[2019-06-01] MEDS: LITHIUM CARBONATE 300 MG CAP PO SCH ×3 (09:36→20:44)
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
[2019-06-01] MEDS: traZODone 50 MG TAB PO PRN (20:55)
[2019-06-01] MEDS: LORazepam 2 MG TAB PO PRN (22:52)
[2019-06-02 06:47] VITALS: BP 108/75
[2019-06-02] MEDS: PALIPERIDONE 3 MG ER TAB (INVEGA) PO SCH ×2 (09:00→21:00)
[2019-06-02] MEDS: OLANZapine ORAL DISINTEGRATING TAB 5MG PO SCH ×2 (09:00→21:00)
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
[2019-06-02] MEDS: LITHIUM CARBONATE 300 MG CAP PO SCH ×3 (09:41→21:12)
[2019-06-02] MEDS: NICOTINE 21MG/24HR 1 EA TRANSDERMAL TD SCH (09:46)
[2019-06-02] MEDS ORDERED: PPD DOCUMENTATION ENTRY MISC ID SCH (10:00)
[2019-06-02] MEDS: **PENDING PPD ENTRY XX SCH (10:20)
[2019-06-02 15:47] VITALS: BP 141/87
[2019-06-02] MEDS: traZODone 50 MG TAB PO PRN (21:12)
[2019-06-03] MEDS: **PENDING PPD ENTRY XX SCH (09:00)
[2019-06-03] MEDS: OLANZapine ORAL DISINTEGRATING TAB 5MG PO SCH ×2 (09:00→21:00)
[2019-06-03] MEDS: PALIPERIDONE 3 MG ER TAB (INVEGA) PO SCH ×2 (09:00→21:00)
[2019-06-03] MEDS: LITHIUM CARBONATE 300 MG CAP PO SCH ×3 (09:02→22:07)
[2019-06-03] MEDS: NICOTINE 21MG/24HR 1 EA TRANSDERMAL TD SCH (09:02)
[2019-06-03 16:10] VITALS: BP 132/80
[2019-06-04] MEDS: PALIPERIDONE 3 MG ER TAB (INVEGA) PO SCH ×2 (08:56→21:00)
[2019-06-04] MEDS: OLANZapine ORAL DISINTEGRATING TAB 5MG PO SCH ×2 (08:56→21:00)
[2019-06-04] MEDS: **PENDING PPD ENTRY XX SCH (08:57)
[2019-06-04] MEDS: LITHIUM CARBONATE 300 MG CAP PO SCH ×3 (09:00→21:00)
[2019-06-04] MEDS: NICOTINE 21MG/24HR 1 EA TRANSDERMAL TD SCH (09:00)
[2019-06-04 16:10] VITALS: BP 118/88
[2019-06-05] MEDS: NICOTINE 21MG/24HR 1 EA TRANSDERMAL TD SCH (09:00)
[2019-06-05] MEDS: LITHIUM CARBONATE 300 MG CAP PO SCH ×3 (09:00→23:37)
[2019-06-05] MEDS: OLANZapine ORAL DISINTEGRATING TAB 5MG PO SCH ×2 (09:00→23:37)
[2019-06-05] MEDS: **PENDING PPD ENTRY XX SCH (09:00)
[2019-06-05] MEDS: PALIPERIDONE 3 MG ER TAB (INVEGA) PO SCH ×2 (09:00→23:37)
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
[2019-06-05 15:47] VITALS: BP 124/89
[2019-06-05] MEDS: ACETAMINOPHEN TAB 650MG DOSE (2X325MG) PO PRN (16:47)
[2019-06-06 06:42] VITALS: BP 119/60
[2019-06-06] MEDS: OLANZapine ORAL DISINTEGRATING TAB 5MG PO SCH ×2 (08:55→20:51)
[2019-06-06] MEDS: NICOTINE 21MG/24HR 1 EA TRANSDERMAL TD SCH ×2 (08:55→16:13)
[2019-06-06] MEDS: LITHIUM CARBONATE 300 MG CAP PO SCH ×3 (08:55→20:22)
[2019-06-06] MEDS: PALIPERIDONE 3 MG ER TAB (INVEGA) PO SCH ×2 (08:55→20:50)
[2019-06-06] MEDS: **PENDING PPD ENTRY XX SCH (08:55)
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
[2019-06-06 18:02] VITALS: BP 126/84
[2019-06-06] MEDS: traZODone 50 MG TAB PO PRN (20:50)
[2019-06-07 06:34] VITALS: BP 127/77
[2019-06-07] MEDS: LITHIUM CARBONATE 300 MG CAP PO SCH ×3 (09:00→20:22)
[2019-06-07] MEDS: OLANZapine ORAL DISINTEGRATING TAB 5MG PO SCH ×2 (09:00→21:00)
[2019-06-07] MEDS: **PENDING PPD ENTRY XX SCH (09:00)
[2019-06-07] MEDS: NICOTINE 21MG/24HR 1 EA TRANSDERMAL TD SCH ×2 (09:00→16:37)
[2019-06-07] MEDS: PALIPERIDONE 3 MG ER TAB (INVEGA) PO SCH ×2 (09:00→21:00)
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
[2019-06-08 06:52] VITALS: BP 136/83
[2019-06-08] MEDS: PALIPERIDONE 3 MG ER TAB (INVEGA) PO SCH ×2 (09:00→21:00)
[2019-06-08] MEDS: NICOTINE 21MG/24HR 1 EA TRANSDERMAL TD SCH (09:00)
[2019-06-08] MEDS: **PENDING PPD ENTRY XX SCH (09:00)
[2019-06-08] MEDS: OLANZapine ORAL DISINTEGRATING TAB 5MG PO SCH ×2 (09:00→21:00)
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
[2019-06-08] MEDS: LITHIUM CARBONATE 300 MG CAP PO SCH ×3 (09:15→21:55)
[2019-06-08 18:26] VITALS: BP 115/90
[2019-06-09 06:20] VITALS: BP 125/73
[2019-06-09] MEDS: OLANZapine ORAL DISINTEGRATING TAB 5MG PO SCH ×2 (09:00→21:00)
[2019-06-09] MEDS: LITHIUM CARBONATE 300 MG CAP PO SCH ×3 (09:00→21:00)
[2019-06-09] MEDS: PALIPERIDONE 3 MG ER TAB (INVEGA) PO SCH ×2 (09:00→21:00)
[2019-06-09] MEDS: **PENDING PPD ENTRY XX SCH (09:00)
[2019-06-09] MEDS: NICOTINE 21MG/24HR 1 EA TRANSDERMAL TD SCH (09:00)
[2019-06-09 17:37] VITALS: BP 112/70
[2019-06-10 06:49] VITALS: BP 118/65
[2019-06-10] MEDS: OLANZapine ORAL DISINTEGRATING TAB 5MG PO SCH ×2 (08:46→21:00)
[2019-06-10] MEDS: LITHIUM CARBONATE 300 MG CAP PO SCH ×3 (08:46→21:00)
[2019-06-10] MEDS: NICOTINE 21MG/24HR 1 EA TRANSDERMAL TD SCH (08:46)
[2019-06-10] MEDS: PALIPERIDONE 3 MG ER TAB (INVEGA) PO SCH ×2 (08:46→21:00)
[2019-06-10] MEDS: **PENDING PPD ENTRY XX SCH (08:47)
[2019-06-10 12:00] VITALS: BP 137/58
[2019-06-10 16:03] VITALS: BP 129/76
[2019-06-10] MEDS: LORazepam 2 MG TAB PO PRN (23:41)
[2019-06-10] MEDS: traZODone 50 MG TAB PO PRN (23:42)
[2019-06-11 06:38] VITALS: BP 114/63
[2019-06-11] MEDS: OLANZapine ORAL DISINTEGRATING TAB 5MG PO SCH ×2 (09:00→20:47)
[2019-06-11] MEDS: PALIPERIDONE 3 MG ER TAB (INVEGA) PO SCH ×2 (09:00→20:47)
[2019-06-11] MEDS: **PENDING PPD ENTRY XX SCH (09:00)
[2019-06-11] MEDS: LITHIUM CARBONATE 300 MG CAP PO SCH ×3 (09:06→20:18)
[2019-06-11] MEDS: NICOTINE 21MG/24HR 1 EA TRANSDERMAL TD SCH (09:07)
[2019-06-11] MEDS ORDERED: diphenhydrAMINE INJ 50MG/ML VIAL (J1200) IM STA (10:00)
[2019-06-11] MEDS ORDERED: LORazepam 2 MG/ML VIAL (J2060) IM STA (10:00)
[2019-06-11] MEDS ORDERED: chlorproMAZINE INJ 50MG/2ML AMP (J3230) IM STA (10:02)
--- NOTE | 2019-06-11 10:07 | MHIR ---
General Date: Jun 11, 2019 Time Initiated: 10:02 Restraint Documentation Order/Evaluation FACE TO FACE: yes. PHYSICIAN ASSESSMENT: Pt screaming in milieu demanding to be discharged, psychotic, agitated, very verbal aggressive, told me I need "corporal punishment and to be decapitated" multiple times, screaming at me thru tiny window of my door as door was closed, causing other pts to become agitated and scream on the unit, absolutely refusing to follow any redirection, staff support, prn medications REASON FOR RESTRAINT: Patient poses imminent danger of harming self or others: threats to myself and very disruptive to other pt's care on the unit DE-ESCALATION INTERVENTIONS ATTEMPTED BEFORE USE OF RESTRAINTS: redirection, staff support, prn medications [MECHANICAL AND/OR CHEMICAL] RESTRAINTS USED: chemical only (thorazine 100mg, ativan 2mg, benadryl 100mg IM) LENGTH OF TIME ORDERED IN RESTRAINTS: 240minutes. WHEN TO DISCONTINUE RESTRAINTS: When the patient is no longer a threat to themselves or others or disrupting other pt's care. Post evaluation of restraint due in 24 hours. ANDRE BURCIAGA DO Jun 11, 2019 10:07 am
[2019-06-11 15:58] VITALS: BP 134/78
[2019-06-11] MEDS: traZODone 50 MG TAB PO PRN (20:18)
[2019-06-11] MEDS: LORazepam 2 MG TAB PO PRN (20:18)
[2019-06-12 06:28] VITALS: BP 134/65
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
[2019-06-12] MEDS: LITHIUM CARBONATE 300 MG CAP PO SCH ×3 (09:54→21:33)
[2019-06-12] MEDS: OLANZapine ORAL DISINTEGRATING TAB 5MG PO SCH ×2 (10:00→21:00)
[2019-06-12] MEDS: **PENDING PPD ENTRY XX SCH (10:00)
[2019-06-12] MEDS: PALIPERIDONE 3 MG ER TAB (INVEGA) PO SCH ×2 (10:00→21:00)
[2019-06-12] MEDS: NICOTINE 21MG/24HR 1 EA TRANSDERMAL TD SCH (10:01)
[2019-06-12 15:41] VITALS: BP 112/61
[2019-06-13 07:02] VITALS: BP 129/85
[2019-06-13] MEDS: NICOTINE 21MG/24HR 1 EA TRANSDERMAL TD SCH ×2 (09:00→09:34)
[2019-06-13] MEDS: PALIPERIDONE 3 MG ER TAB (INVEGA) PO SCH ×3 (09:00→21:00)
[2019-06-13] MEDS: LITHIUM CARBONATE 300 MG CAP PO SCH ×4 (09:00→22:05)
[2019-06-13] MEDS: OLANZapine ORAL DISINTEGRATING TAB 5MG PO SCH ×2 (09:00→21:00)
[2019-06-13] MEDS: **PENDING PPD ENTRY XX SCH (09:00)
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
[2019-06-13 16:09] VITALS: BP 121/69
[2019-06-14 06:27] VITALS: BP 109/79
[2019-06-14] MEDS: **PENDING PPD ENTRY XX SCH (09:00)
[2019-06-14] MEDS: LITHIUM CARBONATE 300 MG CAP PO SCH ×3 (09:00→21:00)
[2019-06-14] MEDS: PALIPERIDONE 3 MG ER TAB (INVEGA) PO SCH ×2 (09:00→21:00)
[2019-06-14] MEDS: NICOTINE 21MG/24HR 1 EA TRANSDERMAL TD SCH (09:00)
[2019-06-14] MEDS: OLANZapine ORAL DISINTEGRATING TAB 5MG PO SCH ×2 (09:00→21:00)
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
[2019-06-15 06:01] VITALS: BP 121/76
[2019-06-15] MEDS: LITHIUM CARBONATE 300 MG CAP PO SCH ×4 (09:00→21:00)
[2019-06-15] MEDS: **PENDING PPD ENTRY XX SCH (09:00)
[2019-06-15] MEDS: OLANZapine ORAL DISINTEGRATING TAB 5MG PO SCH ×2 (09:00→21:00)
[2019-06-15] MEDS: NICOTINE 21MG/24HR 1 EA TRANSDERMAL TD SCH (09:00)
[2019-06-15] MEDS: PALIPERIDONE 3 MG ER TAB (INVEGA) PO SCH ×2 (09:00→21:00)
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
[2019-06-15] MEDS: ACETAMINOPHEN TAB 650MG DOSE (2X325MG) PO PRN (14:08)
[2019-06-15 17:49] VITALS: BP 151/67
[2019-06-16] MEDS: PALIPERIDONE 3 MG ER TAB (INVEGA) PO SCH ×2 (09:00→23:27)
[2019-06-16] MEDS: NICOTINE 21MG/24HR 1 EA TRANSDERMAL TD SCH (09:00)
[2019-06-16] MEDS: **PENDING PPD ENTRY XX SCH (09:00)
[2019-06-16] MEDS: LITHIUM CARBONATE 300 MG CAP PO SCH ×3 (09:00→23:27)
[2019-06-16] MEDS: OLANZapine ORAL DISINTEGRATING TAB 5MG PO SCH ×2 (09:00→21:00)
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
[2019-06-16 16:44] VITALS: BP 109/61
[2019-06-17 07:02] VITALS: BP 117/73
[2019-06-17] MEDS: **PENDING PPD ENTRY XX SCH (08:54)
[2019-06-17] MEDS: LITHIUM CARBONATE 300 MG CAP PO SCH ×3 (08:56→20:06)
[2019-06-17] MEDS: NICOTINE 21MG/24HR 1 EA TRANSDERMAL TD SCH (08:56)
[2019-06-17] MEDS: PALIPERIDONE 3 MG ER TAB (INVEGA) PO SCH ×2 (08:56→20:06)
[2019-06-17] MEDS: OLANZapine ORAL DISINTEGRATING TAB 5MG PO SCH ×2 (08:57→20:55)
[2019-06-17 16:36] VITALS: BP 104/63
[2019-06-18 06:42] VITALS: BP 109/73
[2019-06-18] MEDS: OLANZapine ORAL DISINTEGRATING TAB 5MG PO SCH ×2 (09:00→21:00)
[2019-06-18] MEDS: NICOTINE 21MG/24HR 1 EA TRANSDERMAL TD SCH ×2 (09:00→15:55)
[2019-06-18] MEDS: PALIPERIDONE 3 MG ER TAB (INVEGA) PO SCH ×2 (09:00→21:00)
[2019-06-18] MEDS: LITHIUM CARBONATE 300 MG CAP PO SCH ×3 (09:00→22:07)
[2019-06-18] MEDS: **PENDING PPD ENTRY XX SCH (09:00)
[2019-06-18] MEDS: OLANZapine INTRAMUSCULAR 10 MG VIAL (S0166) IM PRN (09:22)
[2019-06-18 16:42] VITALS: BP 128/76
[2019-06-19 06:51] VITALS: BP 117/71
[2019-06-19] MEDS: **PENDING PPD ENTRY XX SCH (09:00)
[2019-06-19] MEDS: OLANZapine ORAL DISINTEGRATING TAB 5MG PO SCH ×2 (09:00→20:33)
[2019-06-19] MEDS: NICOTINE 21MG/24HR 1 EA TRANSDERMAL TD SCH (09:09)
[2019-06-19] MEDS: PALIPERIDONE 3 MG ER TAB (INVEGA) PO SCH (09:09)
[2019-06-19] MEDS: LITHIUM CARBONATE 300 MG CAP PO SCH ×3 (09:09→20:30)
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
[2019-06-19] MEDS ORDERED: PALIPERIDONE 3 MG ER TAB (INVEGA) PO ONE (10:15)
[2019-06-19 15:31] VITALS: BP 121/64
[2019-06-19] MEDS: PALIPERIDONE 6 MG ER TAB (INVEGA) PO SCH (20:28)
[2019-06-20 07:01] VITALS: BP 110/59
[2019-06-20] MEDS: FLUTICASONE PROP 0.05% NASAL SPRAY 16 GM (FLONASE) NARES SCH ×2 (09:00→21:00)
[2019-06-20] MEDS: OLANZapine ORAL DISINTEGRATING TAB 5MG PO SCH ×2 (09:00→20:57)
[2019-06-20] MEDS: **PENDING PPD ENTRY XX SCH (09:00)
[2019-06-20] MEDS: NICOTINE 21MG/24HR 1 EA TRANSDERMAL TD SCH (09:08)
[2019-06-20] MEDS: LITHIUM CARBONATE 300 MG CAP PO SCH ×3 (09:08→20:57)
[2019-06-20] MEDS: PALIPERIDONE 6 MG ER TAB (INVEGA) PO SCH ×2 (09:08→20:57)
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
[2019-06-20] MEDS ORDERED: PALIPERIDONE PALMITATE 234MG/1.5ML INJ (INVEGA)(J2426)(FREE PSY INPT ONLY) IM ONE (11:00)
[2019-06-20 18:00] VITALS: BP 134/79
[2019-06-20] MEDS: guaiFENesin DM LIQ 10ML UD PO PRN ×2 (18:24→21:50)
[2019-06-20] MEDS: ACETAMINOPHEN TAB 650MG DOSE (2X325MG) PO PRN (18:25)
[2019-06-20] MEDS: OLANZapine INTRAMUSCULAR 10 MG VIAL (S0166) IM PRN (21:40)
[2019-06-21 07:47] VITALS: BP 107/62
[2019-06-21] MEDS: guaiFENesin DM LIQ 10ML UD PO PRN ×3 (10:09→21:42)
[2019-06-21] MEDS: PALIPERIDONE 6 MG ER TAB (INVEGA) PO SCH ×2 (10:10→21:21)
[2019-06-21] MEDS: CEPACOL LOZENGE PO PRN ×2 (10:10→16:09)
[2019-06-21] MEDS: NICOTINE 21MG/24HR 1 EA TRANSDERMAL TD SCH (10:11)
[2019-06-21] MEDS: LITHIUM CARBONATE 300 MG CAP PO SCH ×3 (10:12→21:22)
[2019-06-21] MEDS: OLANZapine ORAL DISINTEGRATING TAB 5MG PO SCH ×2 (10:12→21:00)
[2019-06-21] MEDS: FLUTICASONE PROP 0.05% NASAL SPRAY 16 GM (FLONASE) NARES SCH ×3 (10:12→21:20)
[2019-06-21] MEDS: **PENDING PPD ENTRY XX SCH (10:13)
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
[2019-06-21 16:03] LABS: HCG, SERUM QUALITATIVE NEGATIVE (NEGATIVE)
[2019-06-21] MEDS: ACETAMINOPHEN TAB 650MG DOSE (2X325MG) PO PRN ×2 (16:09→22:44)
[2019-06-21] MEDS: SODIUM CHLORIDE NASAL 0.65% SPRAY BTL (OCEAN) PRN (16:10)
[2019-06-21 17:51] VITALS: BP 119/77
[2019-06-22 06:22] VITALS: BP 110/59
[2019-06-22 06:38] VITALS: BP_SYST 144
[2019-06-22] MEDS: CEPACOL LOZENGE PO PRN ×2 (08:52→15:48)
[2019-06-22] MEDS: FLUTICASONE PROP 0.05% NASAL SPRAY 16 GM (FLONASE) NARES SCH ×2 (08:52→20:55)
[2019-06-22] MEDS: guaiFENesin DM LIQ 10ML UD PO PRN ×2 (08:52→20:55)
[2019-06-22] MEDS: LITHIUM CARBONATE 300 MG CAP PO SCH ×3 (08:52→20:56)
[2019-06-22] MEDS: ACETAMINOPHEN TAB 650MG DOSE (2X325MG) PO PRN ×2 (08:53→15:48)
[2019-06-22] MEDS: PALIPERIDONE 6 MG ER TAB (INVEGA) PO SCH ×2 (08:53→20:56)
[2019-06-22] MEDS: NICOTINE 21MG/24HR 1 EA TRANSDERMAL TD SCH (08:54)
[2019-06-22] MEDS: OLANZapine ORAL DISINTEGRATING TAB 5MG PO SCH ×2 (08:54→20:59)
[2019-06-22] MEDS: **PENDING PPD ENTRY XX SCH (09:00)
[2019-06-22] MEDS ORDERED: medroxyPROGESTERone ACET IM SUSP 150 MG/ML VIAL (J1050) IM ONE ×2 (09:00→11:45)
--- NOTE | 2019-06-22 09:22 | HPEPDOC ---
General Date of Admission May 24, 2019 at 13:54 Date of Service: Jun 22, 2019 Attending Physician: CRISTOPHER FARRELL MD Chief Complaint The patient is a 39-year-old female admitted with a reason for visit of Unspecified Psychosis. Source: Patient, RN/MD Exam Limitations: Mild cognitive slowing, Other (mental cognition/psychosis) Timing/Duration: Changing over time Severity: Mild Associated Symptoms: Denies Symptoms History of Present Illness Consultation Medical as Patient referred by Inpatient Mental Health Unit: Physical Examination 39-year-old female seen in the inpatient mental health unit today for her physical examination for medical clearance. She reports she is due for her Depo-Provera injection with her last injection being on 03/14/2019. Approximately 25 weeks ago. Patient has significant medical history of bipolar 1 disorder, globus pharyngeus, hypothyroidism, hypertension, taking Cardizem outpatient, but refusing while inpatient, dysphagia, bipolar 1 disorder, allergic rhinitis, seizure 1, palpitations, GERD, seasonal allergies, ingestion of nontoxic substance, grief and psychosis. She is admitted to inpatient mental health unit for psychosis at this time. Home Medications Scheduled Diltiazem HCl (Diltiazem HCl) 30 Mg Tablet, 30 MG PO TID, (Reported) Fluticasone Propionate (Flonase Allergy Relief) 50 Mcg/Act Spr, 2 SPRAY NARES DAILY, (Reported) Levothyroxine Sodium (Levothyroxine Sodium) 75 Mcg Tab, 75 MCG PO DAILY, (Reported) Loratadine (Loratadine) 10 Mg Tab, 10 MG PO DAILY, (Reported) Omeprazole (Omeprazole) 40 Mg Cap, 40 MG PO DAILY, (Reported) Oxybutynin Chloride (Oxybutynin Chloride ER) 15 Mg Tab, 15 MG PO DAILY, (Reported) Scheduled PRN Cyclobenzaprine HCl (Cyclobenzaprine HCl) 10 Mg Tablet, 10 MG PO TID PRN for MUSCLE SPASMS, (Reported) Dicyclomine Hcl (Dicyclomine HCl) 10 Mg/5 Ml Solution, 20 MG PO TID PRN for GI UPSET, (Reported) Ondansetron (Ondansetron Odt) 4 Mg Tab.rapdis, 4 MG PO Q8H PRN for NAUSEA OR VOMITING, (Reported) Allergies Coded Allergies: risperidone (Verified Allergy, Unknown, ANTIPSYCHOTICS - "DECREASED RESU LTS", 12/01/18) varenicline (Verified Allergy, Unknown, 12/01/18) Past Medical History Medical History See HPI Surgical History Gynecological Family History Significant Family History: Hypertension Social History * Smoker: Denies Alcohol: Denies Recent Travel/Sick Contacts: Denies: Recent travel, Recent sick contacts Psychosocial History: Anxiety, Bipolar, Decreased mood, Pito SI and HI, Depression, Mood disorder NOS, Loose associations A-FIB/CHADSVASC A-FIB History Current/History of A-Fib/PAF?: No Review of Systems Constitutional: Reports: Malaise Eyes: Reports: Pain (intermittent headaches/migraines) ENT: Reports: Head Aches, Dysphagia, Sinus Congestion, Post Nasal Drip Skin: Reports: Itching, Dry Pulmonary: Reports: Cough Cardiovascular: Reports: Palpitations Gastrointestinal: Reports: Nausea, Constipation Hematologic: Denies: Bruising, Bleeding Excessively, Petecchia, Purpura, Enlarged Lymph Nodes, Other Hematologic Endocrine: Denies: Polydipsia, Polyphagia, Polyuria, Heat Intolerance, Cold Intolerance, Other Endocrine Sx Musculoskeletal: Reports: Neck Pain (when she swallows) Neurological: Denies: Weakness, Numbness, Incoordination, Change in speech, Confusion, Seizures, Other Symptoms Psych: Reports: Anxiety, Depression Physical Examination General Exam: Positive: Alert, Cooperative, Mild Distress Eye Exam: Positive: PERRLA, Conjunctiva & lids normal, Sclera icteric ENT Exam: Positive: Atraumatic, Mucous membr. moist/pink, Pharynx Normal Neck Exam: Positive: Supple, +2 carotid pulse wo bruit Chest Exam: Positive: Clear to auscultation, Normal air movement Heart Exam: Positive: Rate Normal, Normal S1, Normal S2 Abdomen Exam: Positive: Normal bowel sounds, Soft Extremity Exam: Positive: Normal pulses Neuro Exam: Positive: Normal Gait, Normal Speech, Strength at 5/5 X4 ext, Cranial Nerves 3-12 NL Psych Exam: Positive: Anxiety, Oriented x 3 Vital Signs Vital Signs Date Time Temp Pulse Resp B/P (MAP) Pulse Ox O2 Delivery O2 Flow Rate FiO2 06/22/19 06:38 98.4 117 16 144/ (48) 62 06/21/19 17:51 Room Air Laboratory Data Labs 24H Laboratory Tests 2 06/21/19 15:36: Human Chorionic Gonadotropin, Qual NEGATIVE Problems (1) Psychosis Status: Acute Response to Treatment: Improving Discussed With: Patient Problem Text: 39-year-old female seen in the inpatient mental health unit today for her physical examination for medical clearance. She reports she is due for her Depo-Provera injection with her last injection being on 02/27. Approximately 25 weeks ago. Psychosis-Acute on Chronic Medically not cleared Continue to follow up with Inpatient Mental Health Treatment Plan of Care Dysphagia Chronic Take medication dissolve in water. Tuck chin when swallowing medication or drinking water. Chew, small bites of food at a time, swallow by tucking chin to chest Trial of vicious lidocaine couple sips before medication administration to reduce pain upon swallowing Hypothyroidism-Acute TSH high on admission Recheck TSH trending down has not been checked since 05/23/19 Rechecked-TSH and free T4 Elevated Glucose/Hyperglycemia-Acute Repeat CMP Prognosis: Fair DVT Prophylaxis-Low Risk; patient is ambulatory Discharge: Pending medical labs (2) Encounter for initial prescription of injectable contraceptive Status: Acute Response to Treatment: Controlled Discussed With: Patient Problem Text: Due for Depo-Provera injection Adequate weight and BMI for Depo to be effective Last injection 13 weeks ago on February,. (3) Contraception management Status: Acute Response to Treatment: Stable Discussed With: Patient Problem Specific Plan: Monitor Clinically Problem Text: HCG-negative Ordered Depo-Provera 150 mcg IM vitamins with folic acid 1 daily Plan / VTE VTE Prophylaxis Ordered?: No VTE Exclusion Mechanical Proph: Low Risk for VTE VTE Exclusion Pharmacological: At Low Risk for VTE Plan Diet: Continue Current Activity: Continue Current AI DELCID Jun 22, 2019 09:22
[2019-06-22 10:01] LABS: BASO % 0.3 % (0.0-1.0); EOS # 0.2 10^3/uL (0.0-0.5); EOS % 1.6 % (0.0-3.0); HEMOGLOBIN 12.7 g/dl (12.0-15.5); LYMPH % 21.6 % (24.0-44.0); MEAN CORPUSCULAR HEMOGLOBIN 31.3 pg (27.0-33.0); MEAN CORPUSCULAR HGB CONC 32.6 g/dl (32.0-36.5); MEAN CORPUSCULAR VOLUME 96.1 fl (80.0-96.0); MONO # 0.8 10^3/uL (0.0-0.8); MONO % 8.8 % (0.0-5.0); NEUTROPHILS # 6.3 10^3/uL (1.5-8.5); NEUTROPHILS % 67.3 % (36.0-66.0); PLATELET COUNT, AUTOMATED 233 10^3/uL (150-450); RED BLOOD COUNT 4.06 10^6/uL (4.00-5.40); WHITE BLOOD COUNT 9.4 10^3/uL (4.0-10.0)
[2019-06-22 10:41] LABS: ALBUMIN 3.3 GM/DL (3.2-5.2); ALT/SGPT 60 U/L (12-78); BILIRUBIN,TOTAL 0.3 MG/DL (0.2-1.0); BLOOD UREA NITROGEN 12 MG/DL (7-18); CARBON DIOXIDE LEVEL 27 MEQ/L (21-32); CHLORIDE LEVEL 109 MEQ/L (98-107); FREE T4 0.57 NG/DL (0.76-1.46); GLOMERULAR FILTRATION RATE > 60.0 (>60); GLUCOSE, FASTING 85 MG/DL (70-100); POTASSIUM SERUM 4.4 MEQ/L (3.5-5.1); SODIUM LEVEL 143 MEQ/L (136-145); TOTAL PROTEIN 6.4 GM/DL (6.4-8.2)
[2019-06-22] MEDS: SODIUM CHLORIDE NASAL 0.65% SPRAY BTL (OCEAN) PRN (15:48)
[2019-06-22 18:00] VITALS: BP 107/56
[2019-06-23 06:20] VITALS: BP 122/78
[2019-06-23] MEDS: oxyBUTYnin *DITROPAN XL* 5 MG TABCR PO SCH (09:00)
[2019-06-23] MEDS ORDERED: PALIPERIDONE PALMITATE 156MG/1ML INJ(INVEGA)(J2426 PER 1MG)(INFUS OUTPT) IM ONE ×2 (09:00→12:00)
[2019-06-23] MEDS: OMEPRAZOLE 20 MG CAP PO SCH (09:00)
[2019-06-23] MEDS: OLANZapine ORAL DISINTEGRATING TAB 5MG PO SCH ×2 (09:00→20:54)
[2019-06-23] MEDS: **PENDING PPD ENTRY XX SCH (09:00)
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
[2019-06-23] MEDS: CEPACOL LOZENGE PO PRN ×2 (09:49→15:46)
[2019-06-23] MEDS: LITHIUM CARBONATE 300 MG CAP PO SCH ×3 (09:49→20:57)
[2019-06-23] MEDS: guaiFENesin DM LIQ 10ML UD PO PRN (09:49)
[2019-06-23] MEDS: PALIPERIDONE 6 MG ER TAB (INVEGA) PO SCH ×2 (09:49→20:56)
[2019-06-23] MEDS: NICOTINE 21MG/24HR 1 EA TRANSDERMAL TD SCH (09:49)
[2019-06-23] MEDS: ACETAMINOPHEN TAB 650MG DOSE (2X325MG) PO PRN ×2 (09:50→20:57)
[2019-06-23] MEDS: FLUTICASONE PROP 0.05% NASAL SPRAY 16 GM (FLONASE) NARES SCH ×2 (09:52→20:57)
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
[2019-06-23] MEDS ORDERED: ONDANSETRON 4 MG ORAL DISINTEGRATING TAB (Q0162 PER 1MG) PO PRN (12:15)
[2019-06-23] MEDS: LORATADINE 10 MG TAB PO SCH (13:21)
[2019-06-23] MEDS: SODIUM CHLORIDE NASAL 0.65% SPRAY BTL (OCEAN) PRN (15:46)
[2019-06-23] MEDS ORDERED: LIDOCAINE VISCOUS 2% SOLN 15ML UDC SS PRN (16:45)
[2019-06-23] MEDS ORDERED: THERAPEUTIC BATH LOTION 240 ML BTL EXT PRN (17:00)
[2019-06-23] MEDS ORDERED: LEVOTHYROXINE 75MCG TABLET (0.075MG) PO ONE (17:00)
[2019-06-23 18:00] VITALS: BP 142/72
[2019-06-24] MEDS: LEVOTHYROXINE 75MCG TABLET (0.075MG) PO SCH (06:10)
[2019-06-24 06:44] VITALS: BP 141/67
[2019-06-24] MEDS: oxyBUTYnin *DITROPAN XL* 5 MG TABCR PO SCH (09:00)
[2019-06-24] MEDS: **PENDING PPD ENTRY XX SCH (09:00)
[2019-06-24] MEDS: OMEPRAZOLE 20 MG CAP PO SCH (09:00)
[2019-06-24] MEDS: OLANZapine ORAL DISINTEGRATING TAB 5MG PO SCH ×2 (09:00→21:00)
[2019-06-24] MEDS: CEPACOL LOZENGE PO PRN (09:12)
[2019-06-24] MEDS: guaiFENesin DM LIQ 10ML UD PO PRN ×2 (09:12→18:59)
[2019-06-24] MEDS: FLUTICASONE PROP 0.05% NASAL SPRAY 16 GM (FLONASE) NARES SCH ×2 (09:12→21:18)
[2019-06-24] MEDS: PALIPERIDONE 6 MG ER TAB (INVEGA) PO SCH ×2 (09:12→21:18)
[2019-06-24] MEDS: NICOTINE 21MG/24HR 1 EA TRANSDERMAL TD SCH (09:12)
[2019-06-24] MEDS: LITHIUM CARBONATE 300 MG CAP PO SCH ×3 (09:12→21:18)
[2019-06-24] MEDS: LORATADINE 10 MG TAB PO SCH (09:12)
[2019-06-24] MEDS: ACETAMINOPHEN TAB 650MG DOSE (2X325MG) PO PRN ×3 (09:14→21:18)
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
[2019-06-24] MEDS: SODIUM CHLORIDE NASAL 0.65% SPRAY BTL (OCEAN) PRN (15:53)
[2019-06-24 16:11] VITALS: BP 140/63
[2019-06-25] MEDS: guaiFENesin DM LIQ 10ML UD PO PRN ×4 (04:25→21:17)
[2019-06-25] MEDS: LEVOTHYROXINE 75MCG TABLET (0.075MG) PO SCH (05:57)
[2019-06-25] MEDS: NICOTINE 21MG/24HR 1 EA TRANSDERMAL TD SCH (08:16)
[2019-06-25] MEDS: LORATADINE 10 MG TAB PO SCH (08:16)
[2019-06-25] MEDS: FLUTICASONE PROP 0.05% NASAL SPRAY 16 GM (FLONASE) NARES SCH ×2 (08:16→21:15)
[2019-06-25] MEDS: ACETAMINOPHEN TAB 650MG DOSE (2X325MG) PO PRN ×2 (08:16→15:09)
[2019-06-25] MEDS: PALIPERIDONE 6 MG ER TAB (INVEGA) PO SCH ×2 (08:17→21:14)
[2019-06-25] MEDS: LITHIUM CARBONATE 300 MG CAP PO SCH ×3 (08:18→21:14)
[2019-06-25 08:19] VITALS: BP 93/63
[2019-06-25] MEDS: oxyBUTYnin *DITROPAN XL* 5 MG TABCR PO SCH (08:19)
[2019-06-25] MEDS: OLANZapine ORAL DISINTEGRATING TAB 5MG PO SCH ×2 (08:19→21:00)
[2019-06-25] MEDS: **PENDING PPD ENTRY XX SCH (08:19)
[2019-06-25] MEDS: OMEPRAZOLE 20 MG CAP PO SCH (08:19)
[2019-06-25 08:20] VITALS: BP 93/63
[2019-06-25] MEDS: SODIUM CHLORIDE NASAL 0.65% SPRAY BTL (OCEAN) PRN (15:10)
[2019-06-26] MEDS: LEVOTHYROXINE 75MCG TABLET (0.075MG) PO SCH (06:36)
[2019-06-26 07:02] VITALS: BP 119/71
[2019-06-26] MEDS: oxyBUTYnin *DITROPAN XL* 5 MG TABCR PO SCH (08:30)
[2019-06-26] MEDS: OLANZapine ORAL DISINTEGRATING TAB 5MG PO SCH ×2 (08:30→21:11)
[2019-06-26] MEDS: OMEPRAZOLE 20 MG CAP PO SCH (08:30)
[2019-06-26] MEDS: **PENDING PPD ENTRY XX SCH (08:31)
[2019-06-26] MEDS: LITHIUM CARBONATE 300 MG CAP PO SCH ×3 (08:32→20:13)
[2019-06-26] MEDS: LORATADINE 10 MG TAB PO SCH (08:32)
[2019-06-26] MEDS: PALIPERIDONE 6 MG ER TAB (INVEGA) PO SCH (08:32)
[2019-06-26] MEDS: FLUTICASONE PROP 0.05% NASAL SPRAY 16 GM (FLONASE) NARES SCH ×2 (08:32→20:12)
[2019-06-26] MEDS: NICOTINE 21MG/24HR 1 EA TRANSDERMAL TD SCH (08:33)
[2019-06-26] MEDS: ACETAMINOPHEN TAB 650MG DOSE (2X325MG) PO PRN (08:34)
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
[2019-06-26] MEDS: guaiFENesin DM LIQ 10ML UD PO PRN ×2 (13:52→20:13)
[2019-06-26 16:00] VITALS: BP 108/67
[2019-06-26] MEDS: traZODone 50 MG TAB PO PRN (20:13)
[2019-06-27] MEDS: LEVOTHYROXINE 75MCG TABLET (0.075MG) PO SCH (06:08)
[2019-06-27 06:41] VITALS: BP 141/78
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
[2019-06-27] MEDS: OMEPRAZOLE 20 MG CAP PO SCH (09:00)
[2019-06-27] MEDS: **PENDING PPD ENTRY XX SCH (09:00)
[2019-06-27] MEDS: OLANZapine ORAL DISINTEGRATING TAB 5MG PO SCH (09:00)
[2019-06-27] MEDS: oxyBUTYnin *DITROPAN XL* 5 MG TABCR PO SCH (09:00)
[2019-06-27] MEDS: FLUTICASONE PROP 0.05% NASAL SPRAY 16 GM (FLONASE) NARES SCH (09:02)
[2019-06-27] MEDS: LITHIUM CARBONATE 300 MG CAP PO SCH (09:03)
[2019-06-27] MEDS: guaiFENesin DM LIQ 10ML UD PO PRN (09:03)
[2019-06-27] MEDS: NICOTINE 21MG/24HR 1 EA TRANSDERMAL TD SCH (09:03)
[2019-06-27] MEDS: LORATADINE 10 MG TAB PO SCH (09:03)
== END 2019-06-27 14:20 | DRG 885 ==
LOC: M ED 14:47 → M ED INP 05-24 13:54 → M PSY 05-24 14:45
PROVIDERS: ADMIT Psychiatry & Neurology Addiction Medicine; ATTEND Psychiatry & Neurology Psychiatry
DX: F31.2 Bipolar disorder, current episode manic severe with psychotic features (principal); Z79.899 Other long term (current) drug therapy; Z88.8 Allergy status to other drugs, medicaments and biological substances; E03.9 Hypothyroidism, unspecified; Z91.14 Patient's other noncompliance with medication regimen; Z91.19 Patient's noncompliance with other medical treatment and regimen; R13.10 Dysphagia, unspecified; R73.9 Hyperglycemia, unspecified; J30.2 Other seasonal allergic rhinitis; F45.8 Other somatoform disorders

== ENCOUNTER → 2019-08-18 | Outpatient (CLI) | payer MEDICARE ==
[~2019-08-18] MED LIST changes: +DICY10SO PO; +DILT30TA PO; +ONDA4TAB6 PO; -OXYB15TA PO; +OXYB1TAB13 PO
[2019-08-18 14:28] LABS: HEMATOCRIT 40.6 % (36.0-47.0); HEMOGLOBIN 12.9 g/dl (12.0-15.5); MEAN CORPUSCULAR HEMOGLOBIN 30.3 pg (27.0-33.0); MEAN CORPUSCULAR HGB CONC 31.8 g/dl (32.0-36.5); MEAN CORPUSCULAR VOLUME 95.3 fl (80.0-96.0); PLATELET COUNT, AUTOMATED 265 10^3/uL (150-450); RED BLOOD COUNT 4.26 10^6/uL (4.00-5.40)
[2019-08-18 14:43] LABS: HEMOGLOBIN A1c 5.6 %
[2019-08-18 14:44] LABS: ALBUMIN 3.6 GM/DL (3.2-5.2); ALT/SGPT 18 U/L (12-78); BILIRUBIN,TOTAL 0.3 MG/DL (0.2-1.0); BLOOD UREA NITROGEN 13 MG/DL (7-18); CALCIUM LEVEL 8.8 MG/DL (8.5-10.1); CARBON DIOXIDE LEVEL 26 MEQ/L (21-32); CHLORIDE LEVEL 107 MEQ/L (98-107); CHOLESTEROL LEVEL 204 MG/DL (<200); CHOLESTEROL RISK RATIO 3.344 (<5); CREATININE FOR GFR 0.86 MG/DL (0.55-1.30); FREE THYROXINE INDEX 2.8 % (1.3-4.8); GLOMERULAR FILTRATION RATE > 60.0 (>60); GLUCOSE, FASTING 105 MG/DL (70-100); HDL CHOLESTEROL 61 MG/DL (>40); LDL CHOLESTEROL 112 MG/DL (<100); NON-HDL-C 143 MG/DL; POTASSIUM SERUM 4.2 MEQ/L (3.5-5.1); PROLACTIN 73.4 NG/ML; SODIUM LEVEL 142 MEQ/L (136-145); T UPTAKE 37 % (30-39); THYROXINE (T4) 7.6 UG/DL (4.5-12.0); TOTAL 25(OH) VITAMIN D 22.7 NG/ML (30.0-100.0); TOTAL PROTEIN 6.9 GM/DL (6.4-8.2); TRIGLYCERIDES LEVEL 155 MG/DL (<150)
== END ==
LOC: M PLALAB 11:39
PROVIDERS: ATTEND Nurse Practitioner Psychiatric/Mental Health
DX: F33.8 Other recurrent depressive disorders (principal); Z79.899 Other long term (current) drug therapy

== ENCOUNTER 2019-10-01 11:32 | Emergency (ER) | payer MEDICARE, MEDICAID ==
[~2019-10-01] VITALS: Ht 167.6 cm; Wt 75.5 kg
[~2019-10-01 11:32] MED LIST changes: -BUPR300T34 PO; +BUPR300T92 PO; +ONDA-83 PO; -ONDA4TAB5 PO; +OXYB15TA14 PO; -OXYB1TAB13 PO; -TRAZ-163 PO; +TRAZ-257 PO
[2019-10-01] MEDS ORDERED: LEVO88TA24 PO (11:42)
[2019-10-01] MEDS ORDERED: TRAZ-252 (11:42)
[2019-10-01] MEDS ORDERED: INVE156I (11:42)
--- NOTE | 2019-10-01 12:51 | REP ---
Acute abdominal series three views including PA chest and supine upright abdomen: PA chest: Lung rock are clear. Cardiac size is normal. The sheridan, mediastinum, skeletal structures are unremarkable. There is no free subdiaphragmatic air. No foreign body. Impression: Negative PA chest. Abdomen, supine upright views: The bowel gas pattern is normal. No foreign bodies are identified. There are pelvic calcifications, likely phleboliths. The skeletal structures and soft tissues otherwise are unremarkable. Impression: Normal bowel gas pattern. No foreign bodies. Electronically Signed by Deepak Alfaro MD 10/01/2019 12:43 P
[2019-10-01 13:11] VITALS: BP 133/85
== END 2019-10-01 13:14 | disposition home or self-care (01) ==
LOC: M ED 11:32
DX: F41.9 Anxiety disorder, unspecified (principal); T18.9XXA Foreign body of alimentary tract, part unspecified, initial encounter; F17.200 Nicotine dependence, unspecified, uncomplicated; Z79.899 Other long term (current) drug therapy

== ENCOUNTER 2019-10-22 18:51 | Emergency (ER) | payer MEDICAID, MEDICARE ==
[~2019-10-22] VITALS: Ht 167.6 cm; Wt 76.4 kg
[~2019-10-22 18:51] MED LIST changes: +INVE156I; +LEVO88TA24 PO; +TRAZ-252
[2019-10-22] MEDS ORDERED: IBUP100S16 (19:27)
[2019-10-22] MEDS ORDERED: AMOX500C (19:27)
[2019-10-22] MEDS ORDERED: HYDR-3716 (19:27)
[2019-10-22] MEDS ORDERED: HYDR-643 (19:27)
[2019-10-22 20:03] LABS: BASO % 0.3 % (0.0-1.0); EOS # 0.1 10^3/uL (0.0-0.5); HEMATOCRIT 34.6 % (36.0-47.0); HEMOGLOBIN 11.5 g/dl (12.0-15.5); LYMPH # 2.4 10^3/uL (1.5-5.0); LYMPH % 38.3 % (24.0-44.0); MEAN CORPUSCULAR HEMOGLOBIN 29.3 pg (27.0-33.0); MEAN CORPUSCULAR HGB CONC 33.2 g/dl (32.0-36.5); MEAN CORPUSCULAR VOLUME 88.3 fl (80.0-96.0); MONO # 0.6 10^3/uL (0.0-0.8); MONO % 9.5 % (0.0-5.0); NEUTROPHILS # 3.1 10^3/uL (1.5-8.5); NEUTROPHILS % 50.6 % (36.0-66.0); PLATELET COUNT, AUTOMATED 255 10^3/uL (150-450); RED BLOOD COUNT 3.92 10^6/uL (4.00-5.40); WHITE BLOOD COUNT 6.2 10^3/uL (4.0-10.0)
[2019-10-22 20:13] LABS: INR 1.01
[2019-10-22 20:14] LABS: PARTIAL THROMBOPLASTIN TIME 29.1 SECONDS (25.0-38.4)
[2019-10-22 20:35] LABS: ALBUMIN 3.5 GM/DL (3.2-5.2); ALT/SGPT 22 U/L (12-78); BILIRUBIN,DIRECT < 0.1 MG/DL (0.0-0.2); BILIRUBIN,TOTAL 0.2 MG/DL (0.2-1.0); BLOOD UREA NITROGEN 4 MG/DL (7-18); CALCIUM LEVEL 8.2 MG/DL (8.5-10.1); CARBON DIOXIDE LEVEL 25 MEQ/L (21-32); CHLORIDE LEVEL 108 MEQ/L (98-107); CK-MB VALUE MASS < 1.0 NG/ML (<3.6); CPK CREATINE PHOSPHOKINASE 168 U/L (26-192); CREATININE FOR GFR 0.74 MG/DL (0.55-1.30); FREE T4 1.01 NG/DL (0.76-1.46); GLOMERULAR FILTRATION RATE > 60.0 (>60); GLUCOSE, FASTING 127 MG/DL (70-100); LIPASE 57 U/L (73-393); POTASSIUM SERUM 3.7 MEQ/L (3.5-5.1); SODIUM LEVEL 140 MEQ/L (136-145); TOTAL PROTEIN 6.3 GM/DL (6.4-8.2); TROPONIN I < 0.02 NG/ML (< 0.10)
[2019-10-22 20:44] LABS: MAGNESIUM LEVEL 1.8 MG/DL (1.8-2.4)
[2019-10-22 21:37] LABS: INFLUENZA A AMPLIFICATION NEGATIVE (NEGATIVE); INFLUENZA B AMPLIFICATION NEGATIVE (NEGATIVE)
[2019-10-22 22:31] VITALS: BP 123/83
--- NOTE | 2019-10-23 11:12 | ECGEPIP ---
[facility] - ED Test Date: 2019-10-22 Pat Name: AZUL RICHARDS Department: Room: - Gender: Female [employer]: : 1980 Requested By: VANE Hernandez Order Number: [id number] Reading MD: Gris Choe Measurements Intervals [place] Rate: 119 P: 50 [place]: 156 QRS: 49 QRSD: 91 T: 37 QT: 339 QTc: 477 Interpretive Statements SINUS TACHYCARDIA POSSIBLE LEFT ATRIAL ENLARGEMENT NONSPECIFIC T-WAVE ABNORMALITY PROLONGED QTC ABNORMAL RHYTHM ECG INCREASED RATE/QTC 12/11/18 Electronically Signed on 10-23-2019 11:12:26 EST by Gris Choe
== END 2019-10-22 22:53 | disposition home or self-care (01) ==
LOC: M ED 18:51
DX: R00.2 Palpitations (principal); F31.89 Other bipolar disorder; F17.200 Nicotine dependence, unspecified, uncomplicated; Z79.2 Long term (current) use of antibiotics; Z79.899 Other long term (current) drug therapy

== ENCOUNTER → 2019-10-31 | Outpatient (CLI) | payer MEDICARE ==
[~2019-10-31] MED LIST changes: +AMOX500C; +HYDR-3716; +HYDR-643; +IBUP100S16
[2019-10-31 11:44] LABS: BLOOD UREA NITROGEN 10 MG/DL (7-18); CALCIUM LEVEL 9.4 MG/DL (8.5-10.1); CARBON DIOXIDE LEVEL 30 MEQ/L (21-32); CHLORIDE LEVEL 103 MEQ/L (98-107); CHOLESTEROL LEVEL 231 MG/DL (<200); CHOLESTEROL RISK RATIO 4.812 (<5); CREATININE FOR GFR 0.79 MG/DL (0.55-1.30); FREE T4 1.08 NG/DL (0.76-1.46); GLOMERULAR FILTRATION RATE > 60.0 (>60); GLUCOSE, FASTING 86 MG/DL (70-100); HDL CHOLESTEROL 48 MG/DL (>40); LDL CHOLESTEROL 149 MG/DL (<100); NON-HDL-C 183 MG/DL; POTASSIUM SERUM 4.3 MEQ/L (3.5-5.1); SODIUM LEVEL 138 MEQ/L (136-145); TRIGLYCERIDES LEVEL 171 MG/DL (<150)
== END ==
LOC: M PLALAB 09:39
PROVIDERS: ATTEND Obstetrics & Gynecology
DX: E03.9 Hypothyroidism, unspecified (principal); Z13.220 Encounter for screening for lipoid disorders; Z13.1 Encounter for screening for diabetes mellitus
CPT/HCPCS: 36415; 80048; 80061; 84439; 84443; G0463

== ENCOUNTER 2019-11-13 14:53 | Emergency (ER) | payer MEDICARE ==
[~2019-11-13] VITALS: Ht 167.6 cm; Wt 74.4 kg
[2019-11-13 16:42] VITALS: BP 123/92
--- NOTE | 2019-11-13 17:04 | REP ---
CT BRAIN WITHOUT CONTRAST: CT brain performed without IV contrast. Coronal reconstruction images are performed. Ventricles are normal in size and position with no midline shift or mass effect. Mann/white differentiation is well maintained. There is no acute intracranial hemorrhage or extra-axial fluid collection. Bone window examination is unremarkable. IMPRESSION: Negative noncontrast CT brain. Electronically Signed by Deepak Mann MD 11/13/2019 06:27 P
== END 2019-11-13 17:03 | disposition left against medical advice (07) ==
LOC: M ED 14:53
DX: R29.818 Other symptoms and signs involving the nervous system (principal); E03.9 Hypothyroidism, unspecified; F20.9 Schizophrenia, unspecified; F31.9 Bipolar disorder, unspecified; R56.9 Unspecified convulsions; Z79.899 Other long term (current) drug therapy; Z79.890 Hormone replacement therapy; Z88.8 Allergy status to other drugs, medicaments and biological substances; F17.210 Nicotine dependence, cigarettes, uncomplicated

== ENCOUNTER 2019-11-14 09:44 | Emergency (ER) | payer MEDICARE ==
[~2019-11-14] VITALS: Ht 167.6 cm; Wt 74.6 kg
[2019-11-14 10:46] LABS: BASO # 0.1 10^3/uL (0.0-0.2); BASO % 0.4 % (0.0-1.0); EOS # 0.1 10^3/uL (0.0-0.5); EOS % 0.8 % (0.0-3.0); HEMATOCRIT 39.1 % (36.0-47.0); HEMOGLOBIN 13.1 g/dl (12.0-15.5); LYMPH # 2.7 10^3/uL (1.5-5.0); LYMPH % 23.4 % (24.0-44.0); MEAN CORPUSCULAR HEMOGLOBIN 30.6 pg (27.0-33.0); MEAN CORPUSCULAR HGB CONC 33.5 g/dl (32.0-36.5); MEAN CORPUSCULAR VOLUME 91.4 fl (80.0-96.0); MONO # 0.9 10^3/uL (0.0-0.8); MONO % 8.1 % (0.0-5.0); NEUTROPHILS # 7.8 10^3/uL (1.5-8.5); NEUTROPHILS % 66.9 % (36.0-66.0); PLATELET COUNT, AUTOMATED 266 10^3/uL (150-450); RED BLOOD COUNT 4.28 10^6/uL (4.00-5.40); WHITE BLOOD COUNT 11.7 10^3/uL (4.0-10.0)
[2019-11-14 10:59] LABS: INR 1.05; PROTHROMBIN TIME 13.4 SECONDS (11.8-14.0)
[2019-11-14 11:00] LABS: PARTIAL THROMBOPLASTIN TIME 26.5 SECONDS (25.0-38.4)
--- NOTE | 2019-11-14 11:11 | REP ---
CHEST, TWO VIEWS: There is no evidence of acute infiltrate. No pleural effusion is seen. The heart is normal in size. The mediastinal silhouette is unremarkable. The visualized osseous structures are intact. IMPRESSION: No acute pulmonary disease. Electronically Signed by Deepak Mann MD 11/14/2019 11:14 A
[2019-11-14 11:24] LABS: BLOOD UREA NITROGEN 9 MG/DL (7-18); CALCIUM LEVEL 8.9 MG/DL (8.5-10.1); CARBON DIOXIDE LEVEL 27 MEQ/L (21-32); CHLORIDE LEVEL 108 MEQ/L (98-107); CK-MB VALUE MASS < 1.0 NG/ML (<3.6); CPK CREATINE PHOSPHOKINASE 145 U/L (26-192); CREATININE FOR GFR 0.74 MG/DL (0.55-1.30); GLOMERULAR FILTRATION RATE > 60.0 (>60); GLUCOSE, FASTING 87 MG/DL (70-100); MB/CK RELATIVE INDEX 0.69 (< OR =4); POTASSIUM SERUM 4.6 MEQ/L (3.5-5.1); SODIUM LEVEL 140 MEQ/L (136-145); TROPONIN I < 0.02 NG/ML (< 0.10)
[2019-11-14 12:15] VITALS: BP 130/91
--- NOTE | 2019-11-14 15:55 | REP ---
MRI brain without contrast: History: Neurologic deficits. Left arm weakness. . Comparison study: Comparison brain MRI study is from December 25, 2011. Technique: Axial and sagittal imaging planes are utilized for T1 and T2-weighted scans. Sequences include spin-echo, fast spin echo, FLAIR, and diffusion weighted sequences. MRI findings: No bony calvarial lesion is seen. Craniocervical junction and upper cervical cord are normal in appearance. There is no MR evidence of significant paranasal sinus disease. There is a mucous retention cyst in the right maxillary sinus which measures 2.3 cm in greatest diameter. This was not present in 2012. No intraorbital abnormality is seen. The lateral, third, and fourth ventricles are normal in size and position. Mann-white differentiation pattern is intact above and below the tentorium. There is no evidence of intracranial hemorrhage. No mass, infarction, extra-axial fluid collection or midline shift is seen. No abnormal white matter lesion is seen. Impression: 2 cm mucous retention cyst in the right maxillary sinus. Otherwise negative noncontrast brain MRI study. Electronically Signed by Gabriel Pleitez MD 11/14/2019 12:04 P
--- NOTE | 2019-11-16 14:12 | ED PDOC ---
Post-Departure Follow-Up sriram gu faxed formal report of mri brain for fu Julia Armstrong MD Nov 16, 2019 14:12
--- NOTE | 2019-11-16 18:09 | ECGEPIP ---
[facility] Test Date: 2019-11-14 Pat Name: AZUL RICHARDS Department: Room: - Gender: Female Trouble Locater: [place] : 1980 Requested By: SURINDER Olmos PA-C Order Number: [id number] Reading MD: Stef Rodriguez Measurements Intervals [place] Rate: 87 P: 52 [place]: 150 QRS: 54 QRSD: 91 T: 61 QT: 360 QTc: 434 Interpretive Statements SINUS RHYTHM Last tracing on 10/22/19 at 19:10 HEART RATE IS NOW SLOWER AND NONSPECIFIC T-WAVE ABNORMALITY IS NO LONGER PRESENT Electronically Signed on 11-16-2019 18:08:46 EDT by Stef Rodriguez
== END 2019-11-14 12:35 | disposition home or self-care (01) ==
LOC: M ED 09:44
DX: R20.2 Paresthesia of skin (principal); R29.818 Other symptoms and signs involving the nervous system; F33.9 Major depressive disorder, recurrent, unspecified; F41.9 Anxiety disorder, unspecified; R56.9 Unspecified convulsions; K21.9 Gastro-esophageal reflux disease without esophagitis; E03.9 Hypothyroidism, unspecified; Z79.899 Other long term (current) drug therapy; Z79.890 Hormone replacement therapy; Z88.8 Allergy status to other drugs, medicaments and biological substances; F17.210 Nicotine dependence, cigarettes, uncomplicated

== ENCOUNTER → 2020-01-05 | Outpatient (REF) | payer MEDICARE ==
[~2020-01-05] MED LIST changes: +CYCL-707 PO; -CYCL10TA PO
[2020-01-05 13:40] LABS: ALBUMIN 3.7 GM/DL (3.2-5.2); ALT/SGPT 29 U/L (12-78); BILIRUBIN,TOTAL 0.3 MG/DL (0.2-1.0); BLOOD UREA NITROGEN 10 MG/DL (7-18); CALCIUM LEVEL 9.1 MG/DL (8.5-10.1); CARBON DIOXIDE LEVEL 28 MEQ/L (21-32); CHLORIDE LEVEL 107 MEQ/L (98-107); CHOLESTEROL LEVEL 181 MG/DL (<200); CHOLESTEROL RISK RATIO 2.623 (<5); CREATININE FOR GFR 0.81 MG/DL (0.55-1.30); FREE T4 0.97 NG/DL (0.76-1.46); GLOMERULAR FILTRATION RATE > 60.0 (>60); GLUCOSE, FASTING 89 MG/DL (70-100); HDL CHOLESTEROL 69 MG/DL (>40); LDL CHOLESTEROL 74 MG/DL (<100); NON-HDL-C 112 MG/DL; POTASSIUM SERUM 4.3 MEQ/L (3.5-5.1); SODIUM LEVEL 141 MEQ/L (136-145); TRIGLYCERIDES LEVEL 191 MG/DL (<150)
== END ==
LOC: M SFHCPLAZ 11:24
PROVIDERS: ATTEND Family Medicine
DX: E03.9 Hypothyroidism, unspecified (principal); Z13.220 Encounter for screening for lipoid disorders; Z13.1 Encounter for screening for diabetes mellitus

== ENCOUNTER → 2020-02-08 | Outpatient (CLI) | payer MEDICARE ==
[~2020-02-08] MED LIST changes: +CETI-36 PO; +CETI5SOL3 PO; +DARI15TA11 PO; -DARI15TA2 PO; +GUAI100L12 PO; +HYDR1CAP25 PO; +IBUP100S17 PO; +INVE1.31 IM; -INVE156I; +INVE156I IM
== END ==
LOC: M PLALAB 13:00
PROVIDERS: ATTEND Dentist
DX: Z13.29 Encounter for screening for other suspected endocrine disorder (principal)

== ENCOUNTER → 2020-02-13 | Outpatient (REF) | payer MEDICARE ==
[~2020-02-13] MED LIST changes: +NICO1DIS12 TD; +NICO1DIS12 TOP; -NICO21DI31 TD; -NICO21DI31 TOP; +[UNRECOGNIZED DRUG - CODE] MT; -[UNRECOGNIZED DRUG - CODE] MT
== END ==
LOC: M PLALAB 11:02
PROVIDERS: ATTEND Dentist
DX: Z01.89 Encounter for other specified special examinations (principal)

== ENCOUNTER 2020-02-22 23:05 | Emergency (ER) | payer MEDICARE ==
[~2020-02-22] VITALS: Ht 167.6 cm; Wt 77.3 kg
[~2020-02-22 23:05] MED LIST changes: -CETI-36 PO; -CETI5SOL3 PO; -DARI15TA11 PO; +DARI15TA2 PO; -GUAI100L12 PO; -HYDR1CAP25 PO; -IBUP100S17 PO; -INVE1.31 IM; +INVE156I; -INVE156I IM; -NICO1DIS12 TD; -NICO1DIS12 TOP; +NICO21DI31 TD; +NICO21DI31 TOP; +[UNRECOGNIZED DRUG - CODE] MT; -[UNRECOGNIZED DRUG - CODE] MT
[2020-02-22] MEDS ORDERED: HYDR1CAP25 PO (23:17)
[2020-02-23] MEDS ORDERED: NS 1,000 ML IV ONE
[2020-02-23 00:47] LABS: BASO # 0.1 10^3/uL (0.0-0.2); BASO % 0.6 % (0.0-1.0); EOS # 0.1 10^3/uL (0.0-0.5); EOS % 0.6 % (0.0-3.0); HEMATOCRIT 38.7 % (36.0-47.0); HEMOGLOBIN 12.9 g/dl (12.0-15.5); LYMPH # 2.4 10^3/uL (1.5-5.0); LYMPH % 25.5 % (24.0-44.0); MEAN CORPUSCULAR HEMOGLOBIN 30.5 pg (27.0-33.0); MEAN CORPUSCULAR HGB CONC 33.3 g/dl (32.0-36.5); MEAN CORPUSCULAR VOLUME 91.5 fl (80.0-96.0); MONO # 0.8 10^3/uL (0.0-0.8); MONO % 8.8 % (0.0-5.0); NEUTROPHILS # 5.9 10^3/uL (1.5-8.5); NEUTROPHILS % 64.2 % (36.0-66.0); PLATELET COUNT, AUTOMATED 242 10^3/uL (150-450); RED BLOOD COUNT 4.23 10^6/uL (4.00-5.40); WHITE BLOOD COUNT 9.3 10^3/uL (4.0-10.0)
[2020-02-23 01:06] VITALS: BP 133/93
[2020-02-23 01:12] LABS: APPEARANCE, URINE CLEAR (CLEAR); BACTERIA, URINE AUTO NEGATIVE (NEGATIVE); BILIRUBIN, URINE AUTO NEGATIVE (NEGATIVE); BLOOD, URINE BLOOD NEGATIVE (NEGATIVE); COLOR, URINE STRAW (YELLOW); GLUCOSE, URINE (UA) AUTO NEGATIVE (NEGATIVE); KETONE, URINE AUTO NEGATIVE (NEGATIVE); LEUKOCYTE ESTERASE, URINE AUTO NEGATIVE (NEGATIVE); NITRITE, URINE AUTO NEGATIVE (NEGATIVE); PROTEIN, URINE AUTO NEGATIVE (NEGATIVE); RBC, URINE AUTO 0 /HPF (0-3); SPECIFIC GRAVITY URINE AUTO 1.002 (1.002-1.035); SQUAMOUS EPITHELIAL CELL UR AU 0 /HPF (0-6); UROBILINOGEN, URINE AUTO 0.2 mg/dL (0.0-2.0); WBC, URINE AUTO 0 /HPF (0-3)
--- NOTE | 2020-02-23 05:35 | ECGEPIP ---
[facility] - ED Test Date: 2020-02-22 Pat Name: AZUL RICHARDS Department: Room: - Gender: Female Flap Maker: : 1980 Requested By: EMILY Olmos PA-C Order Number: [id number] Reading MD: Carlos Adam Measurements Intervals [place] Rate: 93 P: 62 [place]: 134 QRS: 58 QRSD: 90 T: 59 QT: 356 QTc: 443 Interpretive Statements SINUS RHYTHM SIMILAR TO 11/14/19 Electronically Signed on 02-23-2020 5:35:21 EDT by Carlos Adam
--- NOTE | 2020-02-23 08:27 | REP ---
Chest x-ray: Two views. History: palpitations . Comparison study: November 14, 2019 . Findings: The lungs are well inflated and free of infiltrate. The pleural angles are sharp. The heart size is normal. Pulmonary vasculature is not increased. No significant bony abnormality is seen. Monitoring electrodes are seen. Impression: Negative chest x-ray. Electronically Signed by Gabriel Pleitez MD 02/23/2020 08:18 A
== END 2020-02-23 01:44 | disposition home or self-care (01) ==
LOC: M ED 23:05
DX: R00.2 Palpitations (principal); R10.9 Unspecified abdominal pain; E03.9 Hypothyroidism, unspecified; Z79.899 Other long term (current) drug therapy; Z79.890 Hormone replacement therapy; Z88.8 Allergy status to other drugs, medicaments and biological substances

== ENCOUNTER 2020-03-19 10:47 | Emergency (ER) | payer MEDICARE, MEDICAID ==
[~2020-03-19] VITALS: Ht 167.6 cm; Wt 77.5 kg
[~2020-03-19 10:47] MED LIST changes: +DARI15TA11 PO; -DARI15TA2 PO; +HYDR1CAP25 PO; -INVE156I; +INVE156I IM
[2020-03-19 10:48] VITALS: BP 143/109
[2020-03-19] MEDS ORDERED: GI COCKTAIL 50ML BTL(HYOSCYAMINE/MAALOX/LIDOCAINE VISCOUS)(1:3:1) As Ordered ONE (11:48)
[2020-03-19] MEDS ORDERED: GI COCKTAIL 50ML BTL(HYOSCYAMINE/MAALOX/LIDOCAINE VISCOUS)(1:3:1) PO ONE (12:30)
[2020-03-19 12:36] LABS: HCG, SERUM QUALITATIVE NEGATIVE (NEGATIVE)
[2020-03-19 12:49] LABS: BLOOD UREA NITROGEN 7 MG/DL (7-18); CALCIUM LEVEL 8.8 MG/DL (8.5-10.1); CARBON DIOXIDE LEVEL 26 MEQ/L (21-32); CHLORIDE LEVEL 111 MEQ/L (98-107); CREATININE FOR GFR 0.83 MG/DL (0.55-1.30); ETHYL ALCOHOL (ETHANOL) 0.094 % (0.000-0.010); GLOMERULAR FILTRATION RATE > 60.0 (>60); GLUCOSE, FASTING 106 MG/DL (70-100); POTASSIUM SERUM 4.1 MEQ/L (3.5-5.1); SODIUM LEVEL 145 MEQ/L (136-145)
[2020-03-19] MEDS ORDERED: ISOVUE-370 76% 100ML VIAL As Ordered ONE (13:15)
[2020-03-19] MEDS ORDERED: ONDANSETRON 4MG/2ML VIAL As Ordered ONE (13:40)
[2020-03-19] MEDS ORDERED: ONDANSETRON 4MG/2ML VIAL IV ONE (13:45)
--- NOTE | 2020-03-19 13:45 | REPVR ---
PROCEDURE INFORMATION: Exam: CT Neck With Contrast Exam date and time: 03/19/2020 1:18 PM Age: 40 years old Clinical indication: Dysphagia / difficulty swallowing TECHNIQUE: Imaging protocol: Computed tomography images of the neck with intravenous contrast. Radiation optimization: All CT scans at this facility use at least one of these dose optimization techniques: automated exposure control; mA and/or kV adjustment per patient size (includes targeted exams where dose is matched to clinical indication); or iterative reconstruction. Contrast material: ISOVUE 370; Contrast volume: 75 ml; Contrast route: INTRAVENOUS (IV); COMPARISON: CT Neck without contrast 01/05/2018 9:41 PM FINDINGS: Sinuses: There is a mucous retention cyst or polyp within the right maxillary sinus. Nasopharynx: Unremarkable. Oropharynx: Unremarkable. No significant tonsillar enlargement. Hypopharynx: Unremarkable. Larynx: Unremarkable. Normal epiglottis. Retropharyngeal space: Unremarkable. Submandibular/Parotid glands: Normal. Glands are normal in size. Thyroid: Normal. No enlarged or calcified nodules. Lymph nodes: Unremarkable. No lymphadenopathy. Trachea: Visualized trachea is unremarkable. Lungs: Unremarkable as visualized. Bones/joints: Unremarkable. No acute fracture. Soft tissues: Unremarkable. No significant soft tissue swelling. IMPRESSION: No acute soft tissue abnormality. Electronically signed by: Vanessa Srinivasan On 03/19/2020 13:45:22 PM
[2020-05-01] MEDS ORDERED: CETI-36 PO (08:37)
[2020-05-01] MEDS ORDERED: CETI5SOL3 PO (08:37)
[2020-05-01] MEDS ORDERED: FLON1SPR (08:37)
[2020-05-01] MEDS ORDERED: GUAI100L12 PO (08:37)
[2020-05-01] MEDS ORDERED: INVE1.31 IM (08:37)
[2020-05-01] MEDS ORDERED: IBUP100S17 PO (08:39)
== END 2020-03-19 14:02 | disposition home or self-care (01) ==
LOC: M ED 10:47
DX: F10.10 Alcohol abuse, uncomplicated (principal); R13.10 Dysphagia, unspecified; Z79.899 Other long term (current) drug therapy; Z88.8 Allergy status to other drugs, medicaments and biological substances
CPT/HCPCS: 70491; 80048; 84703; 96374; 99283; G0480; Q9967

== ENCOUNTER → 2020-05-03 | Outpatient (CLI) | payer MEDICARE ==
[~2020-05-03] MED LIST changes: +CETI-36 PO; +CETI5SOL3 PO; +GUAI100L12 PO; +IBUP100S17 PO; +INVE1.31 IM
[2020-05-03 12:50] LABS: HEMATOCRIT 43.2 % (36.0-47.0); HEMOGLOBIN 13.9 g/dl (12.0-15.5); MEAN CORPUSCULAR HEMOGLOBIN 30.4 pg (27.0-33.0); MEAN CORPUSCULAR HGB CONC 32.2 g/dl (32.0-36.5); MEAN CORPUSCULAR VOLUME 94.5 fl (80.0-96.0); PLATELET COUNT, AUTOMATED 274 10^3/uL (150-450); RED BLOOD COUNT 4.57 10^6/uL (4.00-5.40); WHITE BLOOD COUNT 8.3 10^3/uL (4.0-10.0)
[2020-05-03 13:30] LABS: ALT/SGPT 21 U/L (12-78); BILIRUBIN,TOTAL 0.3 MG/DL (0.2-1.0); BLOOD UREA NITROGEN 11 MG/DL (7-18); CALCIUM LEVEL 9.4 MG/DL (8.5-10.1); CARBON DIOXIDE LEVEL 30 MEQ/L (21-32); CHLORIDE LEVEL 103 MEQ/L (98-107); CHOLESTEROL LEVEL 196 MG/DL (<200); CREATININE FOR GFR 0.78 MG/DL (0.55-1.30); GLOMERULAR FILTRATION RATE > 60.0 (>60); GLUCOSE, FASTING 106 MG/DL (70-100); HDL CHOLESTEROL 55 MG/DL (>40); PHOSPHORUS LEVEL 3.8 MG/DL (2.5-4.9); POTASSIUM SERUM 3.9 MEQ/L (3.5-5.1); SODIUM LEVEL 137 MEQ/L (136-145); TRIGLYCERIDES LEVEL 147 MG/DL (<150)
[2020-05-03 13:31] LABS: ALBUMIN 3.9 GM/DL (3.2-5.2); CHOLESTEROL RISK RATIO 3.563 (<5); FREE T4 0.76 NG/DL (0.76-1.46); LDL CHOLESTEROL 112 MG/DL (<100); NON-HDL-C 141 MG/DL
== END ==
LOC: M PLALAB 07:53
PROVIDERS: ATTEND Student in an Organized Health Care Education/Training Program
DX: F31.9 Bipolar disorder, unspecified (principal); Z13.220 Encounter for screening for lipoid disorders; E03.9 Hypothyroidism, unspecified

== ENCOUNTER → 2020-05-09 | Outpatient (CLI) | payer MEDICARE, MEDICAID | LOC: M LABSMTC 10:53 | PROVIDERS: ATTEND Anesthesiology | DX: Z01.812 Encounter for preprocedural laboratory examination (principal); Z20.828 Contact with and (suspected) exposure to other viral communicable diseases | CPT/HCPCS: C9803; U0003 ==

== ENCOUNTER 2020-05-14 11:13 | Day surgery (SDC) | payer MEDICARE, MEDICAID ==
[~2020-05-14] VITALS: Ht 167.6 cm; Wt 75.3 kg
[~2020-05-14 11:13] MED LIST changes: +LIDOCAINE 1% MDV 20ML VIAL SQ PRN; +LR 1,000 ML IV ONE; +NS 1,000 ML IV ONE
[2020-05-14] MEDS ORDERED: LIDOCAINE 2% 100MG/5ML SDV (FOR ANES.) As Ordered ONE (13:16)
[2020-05-14] MEDS ORDERED: propofoL 200 MG/20 ML VIAL As Ordered ONE ×2 (13:16→14:21)
--- NOTE | 2020-05-14 15:06 | ROOR ---
Patient Name: Nalini Ricks Procedure Date: 05/14/2020 1:48 PM Date of : 1980 Age: 40 Room: Main OR Gender: Female Note Status: Finalized Procedure: Upper GI endoscopy Indications: Dysphagia Providers: Lucio Null MD Referring MD: Romie Moss Do Requesting Provider: Medicines: Monitored Anesthesia Care Complications: No immediate complications. Procedure: Pre-Anesthesia Assessment: - Prior to the procedure, a History and Physical was performed, and patient medications and allergies were reviewed. The patient is competent. The risks and benefits of the procedure and the sedation options and risks were discussed with the patient. All questions were answered and informed consent was obtained. Patient identification and proposed procedure were verified by the physician, the nurse and the anesthesiologist in the procedure room. Mental Status Examination: alert and oriented. CV Examination: normal. Prophylactic Antibiotics: The patient does not require prophylactic antibiotics. Prior Anticoagulants: The patient has taken no previous anticoagulant or antiplatelet agents. ASA Grade Assessment: II - A patient with mild systemic disease. After reviewing the risks and benefits, the patient was deemed in satisfactory condition to undergo the procedure. The anesthesia plan was to use monitored anesthesia care (MAC). Immediately prior to administration of medications, the patient was re-assessed for adequacy to receive sedatives. The heart rate, respiratory rate, oxygen saturations, blood pressure, adequacy of pulmonary ventilation, and response to care were monitored throughout the procedure. The physical status of the patient was re-assessed after the procedure. The Endoscope was introduced through the mouth, and advanced to the second part of duodenum. The upper GI endoscopy was accomplished without difficulty. The patient tolerated the procedure well. Findings: No gross lesions were noted in the entire esophagus. The Z-line was regular and was found in the distal esophagus. No gross lesions were noted in the entire examined stomach. The duodenal bulb and second portion of the duodenum were normal. A guide wire was placed, then the scope was withdrawn. Using the wire as a guide, dilation with a 30 mm balloon dilator was performed under fluoroscopic guidance at the gastroesophageal junction. The dilation site was examined following endoscope reinsertion and showed no bleeding, mucosal tear or perforation. Impression: - No gross lesions in esophagus. - Z-line regular, in the distal esophagus. - No gross lesions in the stomach. - Normal duodenal bulb and second portion of the duodenum. - Dilation performed at the gastroesophageal junction. - No specimens collected. Recommendation: - Patient has a contact number available for emergencies. The signs and symptoms of potential delayed complications were discussed with the patient. Return to normal activities tomorrow. Written discharge instructions were provided to the patient. - High fiber diet. - Continue present medications. - Perform ambulatory esophageal manometry if symptoms persist. - Return to GI clinic in [facility] (address [address] [place] [address], [address] [address]) in 4 -- 6 weeks. Please call GI clinic @ [phone] for apppointment date and time. - Return to primary care physician. Lucio Null MD Lucio Null MD 05/14/2020 3:05:48 PM Electronically signed by Lucio Null MD Number of Addenda: 0 Note Initiated On: 05/14/2020 1:48 PM Estimated Blood Loss: Estimated blood loss was minimal.
[2020-05-14 16:56] VITALS: BP 125/93
--- NOTE | 2020-05-31 15:08 | REP ---
FLUOROSCOPIC GUIDANCE The images were reviewed with Dr. Pleitez. The portable C-arm was provided in the OR for Dr. Amos for fluoroscopic guidance. One intraoperative [id number] fluorospot film was obtained for needle placement verification for lumbar epidural injection. The films are on the PACS system and are available for review. 6.3 seconds of fluoroscopy time was utilized for this procedure. YAMILETH
== END 2020-05-14 18:50 | disposition home or self-care (01) ==
LOC: M OPP 11:13
PROVIDERS: ATTEND Internal Medicine Gastroenterology
DX: R13.10 Dysphagia, unspecified (principal); R93.3 Abnormal findings on diagnostic imaging of other parts of digestive tract; K21.9 Gastro-esophageal reflux disease without esophagitis; E03.9 Hypothyroidism, unspecified; Z79.899 Other long term (current) drug therapy; F17.210 Nicotine dependence, cigarettes, uncomplicated

== ENCOUNTER → 2020-08-26 | Outpatient (REF) | payer MEDICARE, MEDICAID ==
[~2020-08-26] MED LIST changes: -LIDOCAINE 1% MDV 20ML VIAL SQ PRN; -LR 1,000 ML IV ONE; +NICO1DIS12 TD; +NICO1DIS12 TOP; -NICO21DI31 TD; -NICO21DI31 TOP; -NS 1,000 ML IV ONE
== END ==
LOC: M LAB REF 14:07
PROVIDERS: ATTEND Internal Medicine Gastroenterology
DX: R19.7 Diarrhea, unspecified (principal)

== ENCOUNTER → 2020-08-28 | Outpatient (REF) | payer MEDICARE ==
[2020-08-28 13:55] LABS: FOLATE > 24.0 NG/ML; VITAMIN B12 LEVEL 1243 PG/ML
== END ==
LOC: M SFHCPLAZ 10:45
PROVIDERS: ATTEND Family Medicine
DX: R20.2 Paresthesia of skin (principal)

== ENCOUNTER → 2020-12-24 | Outpatient (CLI) | payer MEDICARE, MEDICAID ==
[~2020-12-24] MED LIST changes: +[UNRECOGNIZED DRUG - CODE] MT; -[UNRECOGNIZED DRUG - CODE] MT
--- NOTE | 2020-12-24 09:40 | DEXAMM ---
INDICATION: SCREENING FOR OSTEOPOROSIS. COMPARISON: None. TECHNIQUE: Bone density was measured using dual-energy x-ray absorptiometry (DEXA). FINDINGS: AP SPINE L1-L4 BMD 1.046 g/cm2 Young Adult T-Score -1.2 Age Matched Z-Score -1.2. LT FEMUR, TOTAL BMD 0.909 g/cm2 Young Adult T-Score -0.8 Age Matched Z-Score -0.6. LT NECK BMD 0.855 g/cm2 Young Adult T-Score -1.3 Age Matched Z-Score -0.9. RT FEMUR, TOTAL BMD 0.932 g/cm2 Young Adult T-Score -0.6 Age Matched Z-Score -0.4. RT NECK BMD 0.904 g/cm2 Young Adult T-Score -1.0 Age Matched Z-Score -0.5. IMPRESSION: There is low bone density of the spine. There is low bone density of the left hip. There is low bone density of the right hip. FOLLOW-UP: Recommendation for the next bone density exam: 2 years. <Electronically signed by Deepak Mann > 12/24/20 [id number]
== END ==
LOC: M WHC 08:46
PROVIDERS: ATTEND Physician Assistant Medical
DX: M85.88 Other specified disorders of bone density and structure, other site (principal)

== ENCOUNTER → 2021-02-11 | Outpatient (REF) | payer MEDICARE ==
[~2021-02-11] MED LIST changes: -ARIP1TAB2 PO; +ARIP1TAB43 PO; +OMEP40CA4 PO; -OMEP40CA97 PO
[2021-02-11 15:46] LABS: BASO % 0.3 % (0.0-1.0); EOS % 0.2 % (0.0-3.0); HEMATOCRIT 42.9 % (36.0-47.0); HEMOGLOBIN 13.9 g/dl (12.0-15.5); LYMPH # 2.1 10^3/uL (1.5-5.0); LYMPH % 24.5 % (24.0-44.0); MEAN CORPUSCULAR HEMOGLOBIN 30.4 pg (27.0-33.0); MEAN CORPUSCULAR HGB CONC 32.4 g/dl (32.0-36.5); MEAN CORPUSCULAR VOLUME 93.9 fl (80.0-96.0); MONO # 0.7 10^3/uL (0.0-0.8); MONO % 8.1 % (2.0-8.0); NEUTROPHILS # 5.8 10^3/uL (1.5-8.5); NEUTROPHILS % 66.4 % (36.0-66.0); PLATELET COUNT, AUTOMATED 253 10^3/uL (150-450); RED BLOOD COUNT 4.57 10^6/uL (4.00-5.40); WHITE BLOOD COUNT 8.8 10^3/uL (4.0-10.0)
[2021-02-11 16:11] LABS: ALBUMIN 3.8 GM/DL (3.2-5.2); ALT/SGPT 41 U/L (12-78); BILIRUBIN,TOTAL 0.3 MG/DL (0.2-1.0); BLOOD UREA NITROGEN 17 MG/DL (7-18); CALCIUM LEVEL 9.3 MG/DL (8.5-10.1); CARBON DIOXIDE LEVEL 26 MEQ/L (21-32); CHLORIDE LEVEL 108 MEQ/L (98-107); CREATININE FOR GFR 0.81 MG/DL (0.55-1.30); GLOMERULAR FILTRATION RATE > 60.0 (>58); GLUCOSE, FASTING 99 MG/DL (70-100); LIPASE 152 U/L (73-393); POTASSIUM SERUM 4.4 MEQ/L (3.5-5.1); SODIUM LEVEL 139 MEQ/L (136-145); TOTAL PROTEIN 6.9 GM/DL (6.4-8.2)
== END ==
LOC: M SFHCPLAZ 11:10
PROVIDERS: ATTEND Family Medicine
DX: R10.9 Unspecified abdominal pain (principal)
CPT/HCPCS: 36415; 80053; 83690; 85025; G0463

== ENCOUNTER → 2021-02-20 | Outpatient (REF) | payer MEDICARE | LOC: M SFHCPLAZ 10:04 | PROVIDERS: ATTEND Student in an Organized Health Care Education/Training Program | DX: Z77.011 Contact with and (suspected) exposure to lead (principal) ==

== ENCOUNTER → 2021-03-17 | Outpatient (CLI) | payer MEDICARE | LOC: M LABSMTC 09:23 | PROVIDERS: ATTEND Internal Medicine Gastroenterology | DX: Z01.812 Encounter for preprocedural laboratory examination (principal); Z20.822 Contact with and (suspected) exposure to COVID-19 ==

== ENCOUNTER → 2021-04-02 | Outpatient (REF) ==
--- NOTE | 2021-04-02 14:48 | REP ---
INDICATION: PAIN. COMPARISON: None. TECHNIQUE: There are four views in AP and lateral projections The pedicles, facets and sacroiliac articulations are unremarkable. There are no calcifications. FINDINGS: Vertebral body heights, interspacing and alignment are unremarkable. There is no spondylolysis or spondylolisthesis. IMPRESSION: Essentially negative plain film study of the lumbar spine. <Electronically signed by Deepak Alfaro > 04/02/21 [id number]
== END ==
LOC: M PLAIMG 12:42
PROVIDERS: ATTEND Internal Medicine
DX: R52 Pain, unspecified (principal)

== ENCOUNTER → 2021-06-03 | Outpatient (REF) | payer MEDICARE, MEDICAID | LOC: M SFHCPLAZ 10:28 | PROVIDERS: ATTEND Family Medicine | DX: K21.9 Gastro-esophageal reflux disease without esophagitis (principal) ==

== ENCOUNTER → 2021-06-03 | Outpatient (CLI) | payer MEDICARE, MEDICAID | LOC: M PLALAB 10:31 | PROVIDERS: ATTEND Student in an Organized Health Care Education/Training Program | DX: K21.9 Gastro-esophageal reflux disease without esophagitis (principal) ==

== ENCOUNTER 2021-06-06 13:03 | Emergency (ER) | payer MEDICARE, MEDICAID ==
[~2021-06-06] VITALS: Ht 167.6 cm; Wt 87.5 kg
[2021-06-06] MEDS ORDERED: HYDR1CAP25 (14:26)
[2021-06-06] MEDS ORDERED: DEPO150I12 IM (14:26)
[2021-06-06] MEDS ORDERED: CBD OIL (14:26)
[2021-06-06] MEDS ORDERED: LAMO25TA4 PO (14:26)
[2021-06-06 15:33] VITALS: BP 120/88
== END 2021-06-06 15:35 | disposition home or self-care (01) ==
LOC: M ED 13:03
DX: R23.2 Flushing (principal); M25.50 Pain in unspecified joint; T50.995A Adverse effect of other drugs, medicaments and biological substances, initial encounter; Y92.89 Other specified places as the place of occurrence of the external cause; E03.9 Hypothyroidism, unspecified; F33.9 Major depressive disorder, recurrent, unspecified; F41.9 Anxiety disorder, unspecified; K21.9 Gastro-esophageal reflux disease without esophagitis; Z79.899 Other long term (current) drug therapy; Z79.890 Hormone replacement therapy; Z88.8 Allergy status to other drugs, medicaments and biological substances; F17.210 Nicotine dependence, cigarettes, uncomplicated

== ENCOUNTER → 2021-06-11 | Outpatient (CLI) | payer MEDICARE, MEDICAID ==
[~2021-06-11] MED LIST changes: +CBD OIL; +DEPO150I12 IM; +HYDR1CAP25; +LAMO25TA4 PO
--- NOTE | 2021-06-11 11:36 | REP ---
INDICATION: PAIN IN RIGHT KNEE COMPARISON: None. TECHNIQUE: AP and lateral right knee FINDINGS: Osseous structures, joint spaces, and surrounding soft tissues are essentially age-appropriate and within normal limits. No obvious acute fracture or dislocation. No definite effusion. IMPRESSION: No obvious acute pathology by radiographic evaluation. <Electronically signed by Dylon Leonard > 06/11/21 0244
== END ==
LOC: M PLAIMG 10:17
PROVIDERS: ATTEND Student in an Organized Health Care Education/Training Program
DX: M25.561 Pain in right knee (principal); K52.9 Noninfective gastroenteritis and colitis, unspecified; E03.9 Hypothyroidism, unspecified; M54.50 Low back pain, unspecified; Z79.899 Other long term (current) drug therapy
CPT/HCPCS: 36415; 73560; 82306; 84439; 84443; G0463

== ENCOUNTER → 2021-06-11 | Outpatient (CLI) | payer MEDICARE, MEDICAID ==
[2021-06-11 14:16] LABS: FREE T4 0.72 NG/DL (0.76-1.46); THYROID STIMULATING HORMONE 4.13 uIU/ML (0.358-3.740); TOTAL 25(OH) VITAMIN D 36.3 NG/ML (30.0-100.0)
== END ==
LOC: M PLALAB 10:20
PROVIDERS: ATTEND Student in an Organized Health Care Education/Training Program
DX: K52.9 Noninfective gastroenteritis and colitis, unspecified (principal); E03.9 Hypothyroidism, unspecified; M54.50 Low back pain, unspecified; Z79.899 Other long term (current) drug therapy

== ENCOUNTER 2021-10-13 20:07 | Emergency (ER) | payer MEDICARE, MEDICAID ==
[~2021-10-13] VITALS: Ht 167.6 cm; Wt 86.8 kg
[2021-10-13 22:00] LABS: BASO # 0.1 10^3/uL (0.0-0.2); BASO % 0.4 % (0.0-1.0); EOS % 0.1 % (0.0-3.0); HEMATOCRIT 42.9 % (36.0-47.0); HEMOGLOBIN 14.4 g/dl (12.0-15.5); LYMPH # 2.5 10^3/uL (1.5-5.0); LYMPH % 18.7 % (24.0-44.0); MEAN CORPUSCULAR HEMOGLOBIN 30.4 pg (27.0-33.0); MEAN CORPUSCULAR HGB CONC 33.6 g/dl (32.0-36.5); MEAN CORPUSCULAR VOLUME 90.5 fl (80.0-96.0); MONO # 0.9 10^3/uL (0.0-0.8); NEUTROPHILS # 9.9 10^3/uL (1.5-8.5); NEUTROPHILS % 73.2 % (36.0-66.0); PLATELET COUNT, AUTOMATED 265 10^3/uL (150-450); RED BLOOD COUNT 4.74 10^6/uL (4.00-5.40); WHITE BLOOD COUNT 13.5 10^3/uL (4.0-10.0)
[2021-10-13 22:11] LABS: INR 0.91; PROTHROMBIN TIME 12.7 SECONDS (12.7-14.5)
[2021-10-13 22:31] LABS: CK-MB VALUE MASS < 1.0 NG/ML (<3.6); CPK CREATINE PHOSPHOKINASE 183 U/L (26-192); MB/CK RELATIVE INDEX 0.55 (< OR =4)
[2021-10-13 22:32] LABS: HCG, SERUM QUALITATIVE NEGATIVE (NEGATIVE)
[2021-10-13 22:39] LABS: ALBUMIN 4.1 GM/DL (3.2-5.2); ALT/SGPT 69 U/L (12-78); BILIRUBIN,DIRECT 0.1 MG/DL (0.0-0.2); BILIRUBIN,TOTAL 0.4 MG/DL (0.2-1.0); BLOOD UREA NITROGEN 14 MG/DL (7-18); CALCIUM LEVEL 9.6 MG/DL (8.5-10.1); CARBON DIOXIDE LEVEL 25 MEQ/L (21-32); CHLORIDE LEVEL 106 MEQ/L (98-107); CREATININE FOR GFR 0.96 MG/DL (0.55-1.30); FREE T4 0.79 NG/DL (0.76-1.46); GLOMERULAR FILTRATION RATE > 60.0 (>58); GLUCOSE, FASTING 135 MG/DL (70-100); LIPASE 75 U/L (73-393); NT-PRO BNP 14 PG/ML (<125); POTASSIUM SERUM 3.9 MEQ/L (3.5-5.1); SODIUM LEVEL 140 MEQ/L (136-145); TOTAL PROTEIN 7.6 GM/DL (6.4-8.2)
[2021-10-14] MEDS ORDERED: ISOVUE-370 76% 100ML VIAL As Ordered ONE (00:24)
[2021-10-14] MEDS ORDERED: CEFD300C PO (01:41)
[2021-10-14] MEDS ORDERED: KETO10TAB PO (01:43)
[2021-10-14 01:45] VITALS: BP 153/100
[2021-10-14] MEDS ORDERED: CEFDINIR 300 MG CAP (OMNICEF) PO ONE (01:45)
== END 2021-10-14 02:31 | disposition home or self-care (01) ==
LOC: M ED 20:07
DX: S22.43XA Multiple fractures of ribs, bilateral, initial encounter for closed fracture (principal); X58.XXXA Exposure to other specified factors, initial encounter; Y92.89 Other specified places as the place of occurrence of the external cause; Z79.899 Other long term (current) drug therapy
CPT/HCPCS: 36415; 71046; 71275; 80048; 80076; 82550; 82553; 83690; 83880; 84439; 84443; 84484; 84703; 85025; 85610; 85730; 93005; 99284; Q9967

== ENCOUNTER 2021-11-16 19:53 | Inpatient (IN) | payer MEDICARE, MEDICAID ==
[~2021-11-16] VITALS: Ht 167.6 cm; Wt 83.9 kg
[~2021-11-16 19:53] MED LIST changes: -CBD OIL; +CBD OIL PO; +CEFD300C PO; +KETO10TAB PO
[2021-11-16] MEDS ORDERED: ADENOSINE 6MG/2ML INJECTION (J0153) IV STA ×2 (20:13→20:28)
[2021-11-16 20:26] LABS: BASO # 0.1 10^3/uL (0.0-0.2); BASO % 0.4 % (0.0-1.0); EOS % 0.3 % (0.0-3.0); HEMATOCRIT 40.4 % (36.0-47.0); HEMOGLOBIN 13.8 g/dl (12.0-15.5); LYMPH # 4.6 10^3/uL (1.5-5.0); LYMPH % 34.2 % (24.0-44.0); MEAN CORPUSCULAR HEMOGLOBIN 30.2 pg (27.0-33.0); MEAN CORPUSCULAR HGB CONC 34.2 g/dl (32.0-36.5); MEAN CORPUSCULAR VOLUME 88.4 fl (80.0-96.0); MONO # 1.2 10^3/uL (0.0-0.8); MONO % 9.1 % (2.0-8.0); NEUTROPHILS # 7.5 10^3/uL (1.5-8.5); NEUTROPHILS % 55.5 % (36.0-66.0); PLATELET COUNT, AUTOMATED 292 10^3/uL (150-450); RED BLOOD COUNT 4.57 10^6/uL (4.00-5.40); WHITE BLOOD COUNT 13.5 10^3/uL (4.0-10.0)
[2021-11-16] MEDS ORDERED: LABETALOL 100MG/20ML VIAL IV STA (20:33)
[2021-11-16] MEDS ORDERED: NS 500 ML IV ONE (20:35)
[2021-11-16] MEDS ORDERED: LABETALOL 100MG/20ML VIAL As Ordered ONE (20:36)
[2021-11-16 20:39] LABS: INR 0.99; PROTHROMBIN TIME 13.5 SECONDS (12.7-14.5)
[2021-11-16 20:54] LABS: HCG, SERUM QUALITATIVE NEGATIVE (NEGATIVE)
[2021-11-16 20:55] LABS: CK-MB VALUE MASS 1.9 NG/ML (<3.6)
[2021-11-16 21:00] LABS: BLOOD UREA NITROGEN 11 MG/DL (7-18); CALCIUM LEVEL 9.3 MG/DL (8.5-10.1); CARBON DIOXIDE LEVEL 21 MEQ/L (21-32); CHLORIDE LEVEL 102 MEQ/L (98-107); FREE T4 0.76 NG/DL (0.76-1.46); GLOMERULAR FILTRATION RATE > 60.0 (>58); GLUCOSE, FASTING 184 MG/DL (70-100); MAGNESIUM LEVEL 1.7 MG/DL (1.8-2.4); NT-PRO BNP 15 PG/ML (<125); PHOSPHORUS LEVEL 4.5 MG/DL (2.5-4.9); POTASSIUM SERUM 3.4 MEQ/L (3.5-5.1); SODIUM LEVEL 136 MEQ/L (136-145)
[2021-11-16] MEDS ORDERED: MAGNESIUM OXIDE 400MG TAB (MAG-OX) PO ONE (21:20)
[2021-11-16] MEDS ORDERED: POTASSIUM CHLORIDE 10MEQ SR TABLET PO ONE (21:20)
[2021-11-16 21:44] LABS: CK-MB VALUE MASS 1.6 NG/ML (<3.6); MB/CK RELATIVE INDEX 0.91 (< OR =4)
[2021-11-16] MEDS ORDERED: ISOVUE-370 76% 100ML VIAL As Ordered ONE (21:54)
[2021-11-16 22:52] LABS: RSV AMPLIFICATION NEGATIVE (NEGATIVE)
[2021-11-17] VITALS (8 sets, daily range): BP systolic 120–137; BP diastolic 66–91
[2021-11-17] MEDS ORDERED: CETI1SYP16 PO (00:02)
[2021-11-17] MEDS ORDERED: OCEA0.654 (00:05)
[2021-11-17] MEDS ORDERED: IBUP-1428 PO (00:05)
[2021-11-17] MEDS ORDERED: HOME MED LIST COMPLETE! XX SCH (00:05)
[2021-11-17] MEDS ORDERED: OYST500T91 PO (00:05)
[2021-11-17] MEDS ORDERED: HYDR-3363 PO (00:05)
[2021-11-17] MEDS ORDERED: hydrOXYzine 25 MG TAB PO PRN (00:15)
[2021-11-17] MEDS ORDERED: ACETAMINOPHEN TAB 650MG DOSE (2X325MG) PO PRN (00:15)
[2021-11-17] MEDS ORDERED: CYCLOBENZAPRINE 10MG TABLET PO PRN (00:15)
[2021-11-17] MEDS ORDERED: LORazepam 2 MG TAB PO PRN (00:15)
[2021-11-17] MEDS: SODIUM CHLORIDE NASAL 0.65% SPRAY BTL (OCEAN) SCH ×6 (04:00→14:00)
[2021-11-17 04:56] LABS: HEMATOCRIT 37.9 % (36.0-47.0); HEMOGLOBIN 12.7 g/dl (12.0-15.5); MEAN CORPUSCULAR HEMOGLOBIN 30.3 pg (27.0-33.0); MEAN CORPUSCULAR HGB CONC 33.5 g/dl (32.0-36.5); MEAN CORPUSCULAR VOLUME 90.5 fl (80.0-96.0); PLATELET COUNT, AUTOMATED 240 10^3/uL (150-450); RED BLOOD COUNT 4.19 10^6/uL (4.00-5.40)
[2021-11-17 05:22] LABS: CK-MB VALUE MASS < 1.0 NG/ML (<3.6); CPK CREATINE PHOSPHOKINASE 150 U/L (26-192); MB/CK RELATIVE INDEX 0.67 (< OR =4)
[2021-11-17 05:28] LABS: ALBUMIN 3.5 GM/DL (3.2-5.2); ALT/SGPT 88 U/L (12-78); BILIRUBIN,DIRECT 0.1 MG/DL (0.0-0.2); BILIRUBIN,TOTAL 0.4 MG/DL (0.2-1.0); BLOOD UREA NITROGEN 12 MG/DL (7-18); CALCIUM LEVEL 9.1 MG/DL (8.5-10.1); CARBON DIOXIDE LEVEL 24 MEQ/L (21-32); CHLORIDE LEVEL 108 MEQ/L (98-107); CREATININE FOR GFR 0.85 MG/DL (0.55-1.30); GLOMERULAR FILTRATION RATE > 60.0 (>58); GLUCOSE, FASTING 135 MG/DL (70-100); POTASSIUM SERUM 4.2 MEQ/L (3.5-5.1); SODIUM LEVEL 140 MEQ/L (136-145); TOTAL PROTEIN 6.6 GM/DL (6.4-8.2)
[2021-11-17] MEDS ORDERED: NICOTINE 14 MG/24 HR TRANSDERMAL TD PRN (05:50)
[2021-11-17] MEDS ORDERED: LEVOTHYROXINE 88MCG TABLET (0.088 MG) PO SCH (06:00)
[2021-11-17] MEDS ORDERED: SELF1KIT MC (07:34)
[2021-11-17] MEDS ORDERED: ATEN100T PO (07:34)
[2021-11-17] MEDS ORDERED: MULTIVITAMINS/MINERALS THERAP 1 TAB PO SCH (09:00)
[2021-11-17] MEDS ORDERED: OMEPRAZOLE 20MG CAP PO SCH (09:00)
[2021-11-17] MEDS ORDERED: FLUTICASONE PROP 0.05% NASAL SPRAY 16 GM (FLONASE) NARES SCH (09:00)
[2021-11-17] MEDS ORDERED: atenoloL 50 MG TAB PO ONE (09:00)
[2021-11-17] MEDS ORDERED: THIAMINE 100 MG TAB PO SCH (09:00)
[2021-11-17] MEDS ORDERED: FOLIC ACID 1 MG TAB PO SCH (09:00)
[2021-11-18] MEDS ORDERED: atenoloL 50 MG TAB PO SCH (09:00)
== END 2021-11-17 15:05 | disposition home or self-care (01) | DRG 310 ==
LOC: M ED 19:53 → M ED INP 11-17 00:12 → M ICU 11-17 04:30
PROVIDERS: ADMIT Internal Medicine; ATTEND General Practice
DX: I47.1 Supraventricular tachycardia (principal); I16.0 Hypertensive urgency; F10.20 Alcohol dependence, uncomplicated; E03.9 Hypothyroidism, unspecified; K22.89 Other specified disease of esophagus; K21.9 Gastro-esophageal reflux disease without esophagitis; F32.A Depression, unspecified; E66.9 Obesity, unspecified; F41.9 Anxiety disorder, unspecified; F17.290 Nicotine dependence, other tobacco product, uncomplicated; Z20.822 Contact with and (suspected) exposure to COVID-19; Z79.899 Other long term (current) drug therapy; Z88.8 Allergy status to other drugs, medicaments and biological substances; Z91.14 Patient's other noncompliance with medication regimen

== ENCOUNTER → 2021-11-19 | Outpatient (CLI) | payer MEDICARE, MEDICAID ==
[~2021-11-19] MED LIST changes: +ATEN100T PO; +CETI1SYP16 PO; +HYDR-3363 PO; +IBUP-1428 PO; +OYST500T91 PO; +SELF1KIT MC
[2021-11-20 08:33] LABS: FREE T4 0.75 NG/DL (0.76-1.46); THYROID STIMULATING HORMONE 18.6 uIU/ML (0.358-3.740)
== END ==
LOC: M PLALAB 15:13
PROVIDERS: ATTEND Student in an Organized Health Care Education/Training Program
DX: E03.9 Hypothyroidism, unspecified (principal)

== ENCOUNTER 2021-11-22 01:07 | Emergency (ER) | payer MEDICARE, MEDICAID ==
[~2021-11-22] VITALS: Ht 167.6 cm; Wt 86.8 kg
[2021-11-22 03:23] VITALS: BP 140/92
== END 2021-11-22 03:27 | disposition left against medical advice (07) ==
LOC: M ED 01:07
DX: Z53.29 Procedure and treatment not carried out because of patient's decision for other reasons (principal)

== ENCOUNTER 2021-11-22 23:00 | Emergency (ER) | payer MEDICARE, MEDICAID ==
[2021-11-23] MEDS ORDERED: NS 1,000 ML IV ONE
[2021-11-23 00:42] LABS: HEMATOCRIT 37.8 % (36.0-47.0); HEMOGLOBIN 12.6 g/dl (12.0-15.5); MEAN CORPUSCULAR HEMOGLOBIN 30.4 pg (27.0-33.0); MEAN CORPUSCULAR HGB CONC 33.3 g/dl (32.0-36.5); MEAN CORPUSCULAR VOLUME 91.1 fl (80.0-96.0); PLATELET COUNT, AUTOMATED 212 10^3/uL (150-450); RED BLOOD COUNT 4.15 10^6/uL (4.00-5.40); WHITE BLOOD COUNT 9.7 10^3/uL (4.0-10.0)
[2021-11-23 01:08] LABS: BLOOD UREA NITROGEN 21 MG/DL (7-18); CARBON DIOXIDE LEVEL 26 MEQ/L (21-32); CHLORIDE LEVEL 108 MEQ/L (98-107); CREATININE FOR GFR 0.75 MG/DL (0.55-1.30); GLOMERULAR FILTRATION RATE > 60.0 (>58); GLUCOSE, FASTING 114 MG/DL (70-100); POTASSIUM SERUM 3.6 MEQ/L (3.5-5.1); SODIUM LEVEL 139 MEQ/L (136-145)
[2021-11-23 01:30] VITALS: BP 116/70
[2021-11-23 01:33] LABS: FREE T4 0.86 NG/DL (0.76-1.46)
[2021-11-24] MEDS ORDERED: LEVO100T5 PO (23:47)
== END 2021-11-23 02:48 | disposition home or self-care (01) ==
LOC: M ED 23:00
DX: F41.9 Anxiety disorder, unspecified (principal); I10 Essential (primary) hypertension; E03.9 Hypothyroidism, unspecified; G43.909 Migraine, unspecified, not intractable, without status migrainosus; K21.9 Gastro-esophageal reflux disease without esophagitis; Z79.899 Other long term (current) drug therapy; Z79.890 Hormone replacement therapy; Z79.3 Long term (current) use of hormonal contraceptives; Z88.1 Allergy status to other antibiotic agents; Z88.8 Allergy status to other drugs, medicaments and biological substances; F12.20 Cannabis dependence, uncomplicated; Z77.098 Contact with and (suspected) exposure to other hazardous, chiefly nonmedicinal, chemicals; Z87.891 Personal history of nicotine dependence

== ENCOUNTER 2021-11-24 23:30 | Emergency (ER) | payer MEDICARE, MEDICAID ==
[2021-11-24] MEDS ORDERED: LEVO100T5 PO (23:47)
[2021-11-25 05:53] LABS: BASO % 0.4 % (0.0-1.0); EOS # 0.1 10^3/uL (0.0-0.5); EOS % 0.5 % (0.0-3.0); HEMATOCRIT 39.6 % (36.0-47.0); HEMOGLOBIN 13.3 g/dl (12.0-15.5); LYMPH % 32.9 % (24.0-44.0); MEAN CORPUSCULAR HEMOGLOBIN 30.5 pg (27.0-33.0); MEAN CORPUSCULAR HGB CONC 33.6 g/dl (32.0-36.5); MEAN CORPUSCULAR VOLUME 90.8 fl (80.0-96.0); MONO # 1.1 10^3/uL (0.0-0.8); MONO % 11.9 % (2.0-8.0); NEUTROPHILS # 4.9 10^3/uL (1.5-8.5); NEUTROPHILS % 53.9 % (36.0-66.0); PLATELET COUNT, AUTOMATED 232 10^3/uL (150-450); RED BLOOD COUNT 4.36 10^6/uL (4.00-5.40); WHITE BLOOD COUNT 9.2 10^3/uL (4.0-10.0)
[2021-11-25 06:25] LABS: ALBUMIN 3.8 GM/DL (3.2-5.2); ALT/SGPT 119 U/L (12-78); BILIRUBIN,TOTAL 0.4 MG/DL (0.2-1.0); BLOOD UREA NITROGEN 15 MG/DL (7-18); CALCIUM LEVEL 9.4 MG/DL (8.5-10.1); CARBON DIOXIDE LEVEL 28 MEQ/L (21-32); CHLORIDE LEVEL 109 MEQ/L (98-107); CREATININE FOR GFR 0.71 MG/DL (0.55-1.30); GLOMERULAR FILTRATION RATE > 60.0 (>58); GLUCOSE, FASTING 121 MG/DL (70-100); MAGNESIUM LEVEL 2.2 MG/DL (1.8-2.4); POTASSIUM SERUM 4.1 MEQ/L (3.5-5.1); SODIUM LEVEL 144 MEQ/L (136-145); TOTAL PROTEIN 6.8 GM/DL (6.4-8.2)
[2021-11-25 06:26] LABS: CK-MB VALUE MASS < 1.0 NG/ML (<3.6); CPK CREATINE PHOSPHOKINASE 117 U/L (26-192); MB/CK RELATIVE INDEX 0.85 (< OR =4)
[2021-11-25 07:22] VITALS: BP 118/85
== END 2021-11-25 07:25 | disposition home or self-care (01) ==
LOC: M ED 23:30
DX: I10 Essential (primary) hypertension (principal); R20.2 Paresthesia of skin; R00.2 Palpitations; E03.9 Hypothyroidism, unspecified; F41.9 Anxiety disorder, unspecified; K21.9 Gastro-esophageal reflux disease without esophagitis; Z79.899 Other long term (current) drug therapy; Z79.890 Hormone replacement therapy; Z88.8 Allergy status to other drugs, medicaments and biological substances

== ENCOUNTER → 2022-01-05 | Outpatient (REF) | payer MEDICARE, MEDICAID ==
[~2022-01-05] MED LIST changes: +LEVO100T5 PO
[2022-01-06 11:59] LABS: APPEARANCE, URINE CLEAR (CLEAR); BACTERIA, URINE AUTO NEGATIVE (NEGATIVE); BILIRUBIN, URINE AUTO NEGATIVE (NEGATIVE); BLOOD, URINE BLOOD NEGATIVE (NEGATIVE); COLOR, URINE COLORLESS (YELLOW); GLUCOSE, URINE (UA) AUTO NEGATIVE (NEGATIVE); KETONE, URINE AUTO NEGATIVE (NEGATIVE); LEUKOCYTE ESTERASE, URINE AUTO NEGATIVE (NEGATIVE); NITRITE, URINE AUTO NEGATIVE (NEGATIVE); PROTEIN, URINE AUTO NEGATIVE (NEGATIVE); RBC, URINE AUTO 0 /HPF (0-3); SPECIFIC GRAVITY URINE AUTO 1.004 (1.002-1.035); SQUAMOUS EPITHELIAL CELL UR AU 0 /HPF (0-6); UROBILINOGEN, URINE AUTO 0.2 mg/dL (0.0-2.0); WBC, URINE AUTO 0 /HPF (0-3)
== END ==
LOC: M SFHCLERA 11:24
PROVIDERS: ATTEND Family Medicine
DX: R30.0 Dysuria (principal); R35.0 Frequency of micturition

== ENCOUNTER → 2022-01-21 | Outpatient (CLI) | payer MEDICARE, MEDICAID ==
[2022-01-21 09:39] LABS: HEMOGLOBIN A1c 6.5 %
[2022-01-21 14:47] LABS: ALBUMIN 3.4 GM/DL (3.2-5.2); ALT/SGPT 65 U/L (12-78); BILIRUBIN,TOTAL 0.2 MG/DL (0.2-1.0); BLOOD UREA NITROGEN 11 MG/DL (7-18); CALCIUM LEVEL 8.9 MG/DL (8.5-10.1); CARBON DIOXIDE LEVEL 25 MEQ/L (21-32); CHLORIDE LEVEL 109 MEQ/L (98-107); CHOLESTEROL LEVEL 201 MG/DL (<200); CHOLESTEROL RISK RATIO 5.153 (<5); CREATININE FOR GFR 0.82 MG/DL (0.55-1.30); FREE T4 0.65 NG/DL (0.76-1.46); GLOMERULAR FILTRATION RATE > 60.0 (>58); GLUCOSE, FASTING 127 MG/DL (70-100); HDL CHOLESTEROL 39 MG/DL (>40); NON-HDL-C 162 MG/DL; POTASSIUM SERUM 4.3 MEQ/L (3.5-5.1); SODIUM LEVEL 144 MEQ/L (136-145); TOTAL PROTEIN 6.6 GM/DL (6.4-8.2); TRIGLYCERIDES LEVEL 454 MG/DL (<150)
== END ==
LOC: M RAD 07:09
PROVIDERS: ATTEND Family Medicine
DX: K76.0 Fatty (change of) liver, not elsewhere classified (principal); E07.9 Disorder of thyroid, unspecified

== ENCOUNTER → 2022-02-20 | Outpatient (REF) | payer MEDICARE, MEDICAID ==
[2022-02-20 13:39] LABS: APPEARANCE, URINE CLEAR (CLEAR); BACTERIA, URINE AUTO 1+ (NEGATIVE); BILIRUBIN, URINE AUTO NEGATIVE (NEGATIVE); BLOOD, URINE BLOOD NEGATIVE (NEGATIVE); COLOR, URINE STRAW (YELLOW); GLUCOSE, URINE (UA) AUTO NEGATIVE (NEGATIVE); KETONE, URINE AUTO NEGATIVE (NEGATIVE); LEUKOCYTE ESTERASE, URINE AUTO NEGATIVE (NEGATIVE); MUCUS, URINE SMALL (NEGATIVE); NITRITE, URINE AUTO NEGATIVE (NEGATIVE); PROTEIN, URINE AUTO NEGATIVE (NEGATIVE); RBC, URINE AUTO 0 /HPF (0-3); SPECIFIC GRAVITY URINE AUTO 1.005 (1.002-1.035); SQUAMOUS EPITHELIAL CELL UR AU 1 /HPF (0-6); UROBILINOGEN, URINE AUTO 0.2 mg/dL (0.0-2.0); WBC, URINE AUTO 0 /HPF (0-3)
== END ==
LOC: M SMT 12:55
PROVIDERS: ATTEND Nurse Practitioner Women's Health
DX: R35.0 Frequency of micturition (principal)

== ENCOUNTER → 2022-03-27 | Outpatient (CLI) | payer MEDICARE, MEDICAID ==
[2022-03-27 17:58] LABS: FREE T4 0.95 NG/DL (0.76-1.46); THYROID STIMULATING HORMONE 1.08 uIU/ML (0.358-3.740)
== END ==
LOC: M PLALAB 15:44
PROVIDERS: ATTEND Family Medicine
DX: E03.9 Hypothyroidism, unspecified (principal); Z79.899 Other long term (current) drug therapy; W57.XXXA Bitten or stung by nonvenomous insect and other nonvenomous arthropods, initial encounter

== ENCOUNTER → 2022-03-27 | Outpatient (CLI) | payer MEDICARE, MEDICAID | LOC: M PLALAB 15:40 | PROVIDERS: ATTEND Student in an Organized Health Care Education/Training Program | DX: Z79.899 Other long term (current) drug therapy (principal); W57.XXXA Bitten or stung by nonvenomous insect and other nonvenomous arthropods, initial encounter ==

== ENCOUNTER 2022-05-08 18:45 | Emergency (ER) | payer MEDICARE, MEDICAID ==
[~2022-05-08] VITALS: Ht 167.6 cm; Wt 84.9 kg
[2022-05-08 18:47] VITALS: BP 152/99
[2022-05-08] MEDS ORDERED: GI COCKTAIL 50ML BTL(HYOSCYAMINE/MAALOX/LIDOCAINE VISCOUS)(1:3:1) PO ONE (23:55)
== END 2022-05-09 00:06 | disposition home or self-care (01) ==
LOC: M ED 18:45
DX: K21.9 Gastro-esophageal reflux disease without esophagitis (principal); Z88.8 Allergy status to other drugs, medicaments and biological substances; Z79.899 Other long term (current) drug therapy; Z79.3 Long term (current) use of hormonal contraceptives

== ENCOUNTER 2022-07-09 14:10 | Inpatient (IN) | payer MEDICAID, MEDICARE ==
[~2022-07-09] VITALS: Ht 167.6 cm; Wt 73.1 kg
[~2022-07-09 14:10] MED LIST changes: -FLON1SPR NARES
[2022-07-09] MEDS ORDERED: LORazepam 1 MG TAB PO STA (15:18)
[2022-07-09] MEDS ORDERED: atenoloL 50 MG TAB PO ONE ×2 (15:20→18:25)
[2022-07-09] MEDS ORDERED: OLANZapine ORAL DISINTEGRATING TAB 5MG PO ONE (15:20)
[2022-07-09] MEDS ORDERED: LORazepam 2 MG/ML VIAL IM STA (15:32)
[2022-07-09] MEDS ORDERED: HALOPERIDOL 5MG/ML 1ML VIAL IM ONE (15:35)
[2022-07-09] MEDS ORDERED: diphenhydrAMINE 50MG/ML VIAL IM ONE (15:35)
[2022-07-09 16:19] LABS: HEMATOCRIT 45.4 % (36.0-47.0); HEMOGLOBIN 14.9 g/dl (12.0-15.5); MEAN CORPUSCULAR HEMOGLOBIN 30.2 pg (27.0-33.0); MEAN CORPUSCULAR HGB CONC 32.8 g/dl (32.0-36.5); MEAN CORPUSCULAR VOLUME 91.9 fl (80.0-96.0); PLATELET COUNT, AUTOMATED 323 10^3/uL (150-450); RED BLOOD COUNT 4.94 10^6/uL (4.00-5.40); WHITE BLOOD COUNT 16.1 10^3/uL (4.0-10.0)
[2022-07-09 16:53] LABS: RSV AMPLIFICATION NEGATIVE (NEGATIVE)
[2022-07-09 17:06] LABS: ACETAMINOPHEN LEVEL < 2.0 UG/ML (10.0-30.0); ALBUMIN 3.7 GM/DL (3.2-5.2); ALKALINE PHOSPHATASE 145 U/L (45-117); ALT/SGPT 100 U/L (12-78); AST/SGOT 79 U/L (7-37); BILIRUBIN,DIRECT 0.2 MG/DL (0.0-0.2); BILIRUBIN,TOTAL 0.4 MG/DL (0.2-1.0); BLOOD UREA NITROGEN 5 MG/DL (7-18); CALCIUM LEVEL 9.5 MG/DL (8.5-10.1); CARBON DIOXIDE LEVEL 27 MEQ/L (21-32); CHLORIDE LEVEL 100 MEQ/L (98-107); CREATININE FOR GFR 0.82 MG/DL (0.55-1.30); ETHYL ALCOHOL (ETHANOL) < 0.003 % (0.000-0.010); GLOMERULAR FILTRATION RATE > 60.0 (>58); GLUCOSE, FASTING 261 MG/DL (70-100); POTASSIUM SERUM 3.6 MEQ/L (3.5-5.1); SODIUM LEVEL 137 MEQ/L (136-145); TOTAL PROTEIN 7.1 GM/DL (6.4-8.2)
[2022-07-09 19:41] LABS: AMPHETAMINES LEVEL URINE NEGATIVE (NEGATIVE); BARBITURATES URINE NEGATIVE (NEGATIVE); BENZODIAZEPINES URINE NEGATIVE (NEGATIVE); CANNABINOIDS URINE POSITIVE (NEGATIVE); COCAINE METABOLITE URINE NEGATIVE (NEGATIVE); METHADONE URINE NEGATIVE (NEGATIVE); OPIATES URINE NEGATIVE (NEGATIVE); PHENCYCLIDINE URINE NEGATIVE (NEGATIVE)
[2022-07-09] MEDS ORDERED: LEVO125T4 PO (20:39)
[2022-07-09] MEDS ORDERED: ATEN100T PO (20:39)
[2022-07-09] MEDS ORDERED: HOME MED LIST COMPLETE! XX SCH (20:40)
[2022-07-09] MEDS ORDERED: ONDA4TAB6 PO (23:16)
[2022-07-09] MEDS ORDERED: HYDR1CAP25 PO (23:16)
[2022-07-09] MEDS ORDERED: OXYBUTYNIN PO (23:16)
[2022-07-09] MEDS ORDERED: LORA-674 PO (23:16)
[2022-07-09] MEDS ORDERED: CHOL4POW26 PO (23:16)
[2022-07-10] MEDS ORDERED: LEVOTHYROXINE 125MCG TABLET (0.125MG) PO SCH (06:00)
[2022-07-10] MEDS ORDERED: FLUTICASONE PROP 0.05% NASAL SPRAY 16 GM (FLONASE) NARES SCH (09:00)
[2022-07-10] MEDS: MULTIVITAMINS/MINERALS THERAP 1 TAB PO SCH (09:00)
[2022-07-10] MEDS ORDERED: atenoloL 50 MG TAB PO SCH (09:00)
[2022-07-10] MEDS: THIAMINE 100 MG TAB PO SCH (09:00)
[2022-07-10] MEDS ORDERED: OMEPRAZOLE 20MG CAP PO SCH (09:00)
[2022-07-10] MEDS ORDERED: LORATADINE 10 MG TAB PO SCH (09:00)
[2022-07-10] MEDS ORDERED: CALCIUM/VITAMIN D 500 MG TAB PO SCH (09:00)
[2022-07-10] MEDS: FOLIC ACID 1MG TAB PO SCH (09:00)
[2022-07-10] MEDS ORDERED: hydrOXYzine 50 MG TAB PO PRN (11:50)
[2022-07-10] MEDS ORDERED: MOM 30ML SUSPENSION UDC PO PRN (11:50)
[2022-07-10] MEDS ORDERED: SODIUM CHLORIDE NASAL 0.65% SPRAY BTL (OCEAN) PRN (11:50)
[2022-07-10] MEDS ORDERED: traZODone 50 MG TAB PO PRN (11:50)
[2022-07-10] MEDS ORDERED: IBUPROFEN 400MG TAB PO PRN (11:50)
[2022-07-10] MEDS ORDERED: ONDANSETRON 4MG ORAL DISINTEGRATING TAB PO PRN (11:50)
[2022-07-10] MEDS ORDERED: diphenhydrAMINE 25MG CAP PO PRN (11:50)
[2022-07-10] MEDS ORDERED: LORazepam 1 MG TAB PO PRN (11:50)
[2022-07-10] MEDS ORDERED: IBUPROFEN 200MG TAB PO PRN (11:50)
[2022-07-10] MEDS ORDERED: CHOLESTYRAMINE 4GM PWD PKT PO PRN (11:50)
[2022-07-10] MEDS ORDERED: MAALOX 30 ML SUSP *UDC PO PRN (11:50)
[2022-07-10] MEDS ORDERED: LORazepam 2 MG TAB PO PRN (11:50)
[2022-07-10] MEDS: NICOTINE 21MG/24HR 1 EA TRANSDERMAL TD SCH (15:52)
[2022-07-11] MEDS: THIAMINE 100 MG TAB PO SCH ×3 (05:24→21:00)
[2022-07-11] MEDS: LEVOTHYROXINE 125MCG TABLET (0.125MG) PO SCH (06:00)
[2022-07-11] MEDS: atenoloL 50 MG TAB PO SCH (09:00)
[2022-07-11] MEDS: LORATADINE 10 MG TAB PO SCH (09:00)
[2022-07-11] MEDS: MULTIVITAMINS/MINERALS THERAP 1 TAB PO SCH (09:00)
[2022-07-11] MEDS: FLUTICASONE PROP 0.05% NASAL SPRAY 16 GM (FLONASE) SCH (09:00)
[2022-07-11] MEDS: FOLIC ACID 1MG TAB PO SCH (09:00)
[2022-07-11] MEDS: OMEPRAZOLE 20MG CAP PO SCH (09:00)
[2022-07-11] MEDS: CALCIUM/VITAMIN D 500 MG TAB PO SCH (09:00)
[2022-07-11] MEDS: NICOTINE 21MG/24HR 1 EA TRANSDERMAL TD SCH ×2 (09:00→16:08)
[2022-07-12] MEDS: LEVOTHYROXINE 125MCG TABLET (0.125MG) PO SCH (05:08)
[2022-07-12 06:00] VITALS: BP 131/95
[2022-07-12 06:15] VITALS: BP 131/95
[2022-07-12] MEDS: FLUTICASONE PROP 0.05% NASAL SPRAY 16 GM (FLONASE) SCH (09:00)
[2022-07-12] MEDS: FOLIC ACID 1MG TAB PO SCH (09:00)
[2022-07-12] MEDS: atenoloL 50 MG TAB PO SCH (09:00)
[2022-07-12] MEDS: LORATADINE 10 MG TAB PO SCH (09:00)
[2022-07-12] MEDS: THIAMINE 100 MG TAB PO SCH ×2 (09:00→21:00)
[2022-07-12] MEDS: CALCIUM/VITAMIN D 500 MG TAB PO SCH (09:00)
[2022-07-12] MEDS: MULTIVITAMINS/MINERALS THERAP 1 TAB PO SCH (09:00)
[2022-07-12] MEDS: OMEPRAZOLE 20MG CAP PO SCH (09:00)
[2022-07-12] MEDS: NICOTINE 21MG/24HR 1 EA TRANSDERMAL TD SCH (09:28)
[2022-07-12 16:13] VITALS: BP 144/89
[2022-07-13] MEDS: LEVOTHYROXINE 125MCG TABLET (0.125MG) PO SCH (06:00)
[2022-07-13] MEDS: atenoloL 50 MG TAB PO SCH (10:06)
[2022-07-13] MEDS: LORATADINE 10 MG TAB PO SCH (10:06)
[2022-07-13] MEDS: OMEPRAZOLE 20MG CAP PO SCH (10:06)
[2022-07-13] MEDS: CALCIUM/VITAMIN D 500 MG TAB PO SCH (10:06)
[2022-07-13] MEDS: FOLIC ACID 1MG TAB PO SCH (10:06)
[2022-07-13] MEDS: NICOTINE 21MG/24HR 1 EA TRANSDERMAL TD SCH ×2 (10:07→14:32)
[2022-07-13] MEDS: FLUTICASONE PROP 0.05% NASAL SPRAY 16 GM (FLONASE) SCH (10:07)
[2022-07-13] MEDS: MULTIVITAMINS/MINERALS THERAP 1 TAB PO SCH (10:07)
[2022-07-13] MEDS: LITHIUM CARBONATE 300 MG CAP PO SCH ×2 (11:41→21:00)
[2022-07-13] MEDS: PALIPERIDONE 6MG ER TAB (INVEGA) PO SCH (11:41)
[2022-07-14 03:02] VITALS: BP 144/89
[2022-07-14] MEDS: LEVOTHYROXINE 125MCG TABLET (0.125MG) PO SCH (06:00)
[2022-07-14] MEDS: MULTIVITAMINS/MINERALS THERAP 1 TAB PO SCH (08:48)
[2022-07-14] MEDS: OMEPRAZOLE 20MG CAP PO SCH (08:48)
[2022-07-14] MEDS: FLUTICASONE PROP 0.05% NASAL SPRAY 16 GM (FLONASE) SCH (08:48)
[2022-07-14] MEDS: atenoloL 50 MG TAB PO SCH (08:48)
[2022-07-14] MEDS: CALCIUM/VITAMIN D 500 MG TAB PO SCH (08:48)
[2022-07-14] MEDS: PALIPERIDONE 6MG ER TAB (INVEGA) PO SCH (08:49)
[2022-07-14] MEDS: LORATADINE 10 MG TAB PO SCH (08:49)
[2022-07-14] MEDS: LITHIUM CARBONATE 300 MG CAP PO SCH ×2 (08:49→21:00)
[2022-07-14] MEDS: FOLIC ACID 1MG TAB PO SCH (08:49)
[2022-07-14 11:00] VITALS: BP 142/90
[2022-07-14] MEDS: NICOTINE 21MG/24HR 1 EA TRANSDERMAL TD SCH (13:52)
[2022-07-14 18:12] VITALS: BP 150/94
[2022-07-14 19:06] VITALS: BP 150/92
[2022-07-15] MEDS: LEVOTHYROXINE 125MCG TABLET (0.125MG) PO SCH (05:31)
[2022-07-15] MEDS: PALIPERIDONE 6MG ER TAB (INVEGA) PO SCH (08:41)
[2022-07-15] MEDS: FOLIC ACID 1MG TAB PO SCH (08:41)
[2022-07-15] MEDS: LORATADINE 10 MG TAB PO SCH (08:41)
[2022-07-15] MEDS: MULTIVITAMINS/MINERALS THERAP 1 TAB PO SCH (08:42)
[2022-07-15] MEDS: OMEPRAZOLE 20MG CAP PO SCH (08:42)
[2022-07-15] MEDS: FLUTICASONE PROP 0.05% NASAL SPRAY 16 GM (FLONASE) SCH (08:42)
[2022-07-15] MEDS: atenoloL 50 MG TAB PO SCH (08:42)
[2022-07-15] MEDS: LITHIUM CARBONATE 300 MG CAP PO SCH ×2 (08:42→21:00)
[2022-07-15] MEDS: CALCIUM/VITAMIN D 500 MG TAB PO SCH (08:42)
[2022-07-15] MEDS: NICOTINE 21MG/24HR 1 EA TRANSDERMAL TD SCH (09:00)
[2022-07-16] MEDS: LEVOTHYROXINE 125MCG TABLET (0.125MG) PO SCH (05:58)
[2022-07-16] MEDS: FLUTICASONE PROP 0.05% NASAL SPRAY 16 GM (FLONASE) SCH (09:00)
[2022-07-16] MEDS: NICOTINE 21MG/24HR 1 EA TRANSDERMAL TD SCH (09:00)
[2022-07-16] MEDS: OMEPRAZOLE 20MG CAP PO SCH (09:00)
[2022-07-16] MEDS: FOLIC ACID 1MG TAB PO SCH (09:00)
[2022-07-16] MEDS: LITHIUM CARBONATE 300 MG CAP PO SCH ×2 (09:00→21:00)
[2022-07-16] MEDS: atenoloL 50 MG TAB PO SCH (09:00)
[2022-07-16] MEDS: PALIPERIDONE 6MG ER TAB (INVEGA) PO SCH (09:00)
[2022-07-16] MEDS: **PENDING PPD ENTRY XX SCH (09:00)
[2022-07-16] MEDS: CALCIUM/VITAMIN D 500 MG TAB PO SCH (09:00)
[2022-07-16] MEDS: LORATADINE 10 MG TAB PO SCH (09:00)
[2022-07-16] MEDS: MULTIVITAMINS/MINERALS THERAP 1 TAB PO SCH (09:00)
[2022-07-16] MEDS ORDERED: diphenhydrAMINE 50MG/ML VIAL IM STA (15:17)
[2022-07-16] MEDS ORDERED: HALOPERIDOL 5MG/ML 1ML VIAL IM STA (15:17)
[2022-07-16] MEDS ORDERED: LORazepam 2 MG/ML VIAL IM STA (15:17)
[2022-07-16] MEDS ORDERED: HALOPERIDOL 5MG/ML 1ML VIAL As Ordered ONE (15:18)
[2022-07-16] MEDS ORDERED: LORazepam 2 MG/ML VIAL As Ordered ONE (15:19)
[2022-07-16] MEDS ORDERED: diphenhydrAMINE 50MG/ML VIAL As Ordered ONE (15:19)
[2022-07-17] MEDS: LEVOTHYROXINE 125MCG TABLET (0.125MG) PO SCH (06:00)
[2022-07-17] MEDS: NICOTINE 21MG/24HR 1 EA TRANSDERMAL TD SCH (08:28)
[2022-07-17] MEDS: CALCIUM/VITAMIN D 500 MG TAB PO SCH (08:30)
[2022-07-17] MEDS: PALIPERIDONE 6MG ER TAB (INVEGA) PO SCH (08:30)
[2022-07-17] MEDS: FOLIC ACID 1MG TAB PO SCH (08:30)
[2022-07-17] MEDS: atenoloL 50 MG TAB PO SCH (08:30)
[2022-07-17] MEDS: LORATADINE 10 MG TAB PO SCH (08:30)
[2022-07-17] MEDS: LITHIUM CARBONATE 300 MG CAP PO SCH ×2 (08:30→20:41)
[2022-07-17] MEDS: MULTIVITAMINS/MINERALS THERAP 1 TAB PO SCH (08:30)
[2022-07-17] MEDS: OMEPRAZOLE 20MG CAP PO SCH (08:30)
[2022-07-17] MEDS: FLUTICASONE PROP 0.05% NASAL SPRAY 16 GM (FLONASE) SCH (08:30)
[2022-07-17] MEDS: **PENDING PPD ENTRY XX SCH (08:47)
[2022-07-17] MEDS ORDERED: TUBERCULIN PPD 5 UNITS/0.1 ML ID ONE (10:00)
[2022-07-17 18:19] VITALS: BP 152/94
[2022-07-18] MEDS: LEVOTHYROXINE 125MCG TABLET (0.125MG) PO SCH (05:11)
[2022-07-18] MEDS: CALCIUM/VITAMIN D 500 MG TAB PO SCH (09:00)
[2022-07-18] MEDS: FOLIC ACID 1MG TAB PO SCH (09:00)
[2022-07-18] MEDS: atenoloL 50 MG TAB PO SCH (09:00)
[2022-07-18] MEDS: **PENDING PPD ENTRY XX SCH (09:00)
[2022-07-18] MEDS: OMEPRAZOLE 20MG CAP PO SCH (09:00)
[2022-07-18] MEDS: NICOTINE 21MG/24HR 1 EA TRANSDERMAL TD SCH (09:00)
[2022-07-18] MEDS: MULTIVITAMINS/MINERALS THERAP 1 TAB PO SCH (09:00)
[2022-07-18] MEDS: LITHIUM CARBONATE 300 MG CAP PO SCH ×2 (09:00→21:00)
[2022-07-18] MEDS: PALIPERIDONE 6MG ER TAB (INVEGA) PO SCH (09:00)
[2022-07-18] MEDS: LORATADINE 10 MG TAB PO SCH (09:00)
[2022-07-18] MEDS: FLUTICASONE PROP 0.05% NASAL SPRAY 16 GM (FLONASE) SCH (09:00)
[2022-07-18] MEDS ORDERED: PPD DOCUMENTATION ENTRY MISC XX SCH (10:00)
[2022-07-18] MEDS ORDERED: chlorproMAZINE INJ 50MG/2ML AMP IM STA (21:23)
[2022-07-18] MEDS ORDERED: LORazepam 2 MG/ML VIAL IM STA (21:23)
[2022-07-18] MEDS ORDERED: diphenhydrAMINE 50MG/ML VIAL IM STA (21:23)
[2022-07-19] MEDS: LEVOTHYROXINE 125MCG TABLET (0.125MG) PO SCH (05:43)
[2022-07-19] MEDS: LORATADINE 10 MG TAB PO SCH (08:58)
[2022-07-19] MEDS: LITHIUM CARBONATE 300 MG CAP PO SCH ×2 (08:58→20:19)
[2022-07-19] MEDS: PALIPERIDONE 6MG ER TAB (INVEGA) PO SCH (08:58)
[2022-07-19] MEDS: FOLIC ACID 1MG TAB PO SCH (08:58)
[2022-07-19] MEDS: atenoloL 50 MG TAB PO SCH (08:59)
[2022-07-19] MEDS: MULTIVITAMINS/MINERALS THERAP 1 TAB PO SCH (08:59)
[2022-07-19] MEDS: OMEPRAZOLE 20MG CAP PO SCH (08:59)
[2022-07-19] MEDS: FLUTICASONE PROP 0.05% NASAL SPRAY 16 GM (FLONASE) SCH (08:59)
[2022-07-19] MEDS: CALCIUM/VITAMIN D 500 MG TAB PO SCH (08:59)
[2022-07-19] MEDS: NICOTINE 21MG/24HR 1 EA TRANSDERMAL TD SCH (09:00)
[2022-07-19] MEDS: **PENDING PPD ENTRY XX SCH (09:00)
[2022-07-19 16:49] VITALS: BP 138/82
[2022-07-20] MEDS: LEVOTHYROXINE 125MCG TABLET (0.125MG) PO SCH (05:10)
[2022-07-20] MEDS: **PENDING PPD ENTRY XX SCH (09:00)
[2022-07-20] MEDS: FLUTICASONE PROP 0.05% NASAL SPRAY 16 GM (FLONASE) SCH (09:00)
[2022-07-20] MEDS: atenoloL 50 MG TAB PO SCH (09:00)
[2022-07-20] MEDS: CALCIUM/VITAMIN D 500 MG TAB PO SCH (09:00)
[2022-07-20] MEDS: FOLIC ACID 1MG TAB PO SCH (09:00)
[2022-07-20] MEDS: NICOTINE 21MG/24HR 1 EA TRANSDERMAL TD SCH (09:00)
[2022-07-20] MEDS: PALIPERIDONE 6MG ER TAB (INVEGA) PO SCH (09:00)
[2022-07-20] MEDS: MULTIVITAMINS/MINERALS THERAP 1 TAB PO SCH (09:00)
[2022-07-20] MEDS: LORATADINE 10 MG TAB PO SCH (09:00)
[2022-07-20] MEDS: LITHIUM CARBONATE 300 MG CAP PO SCH ×2 (09:00→20:37)
[2022-07-20] MEDS: OMEPRAZOLE 20MG CAP PO SCH (09:00)
[2022-07-21] MEDS: LEVOTHYROXINE 125MCG TABLET (0.125MG) PO SCH (05:51)
[2022-07-21] MEDS ORDERED: diphenhydrAMINE 50MG/ML VIAL IM STA (08:47)
[2022-07-21] MEDS ORDERED: LORazepam 2 MG/ML VIAL IM STA (08:47)
[2022-07-21] MEDS ORDERED: HALOPERIDOL 5MG/ML 1ML VIAL IM STA (08:47)
[2022-07-21] MEDS: CALCIUM/VITAMIN D 500 MG TAB PO SCH (09:00)
[2022-07-21] MEDS: atenoloL 50 MG TAB PO SCH (09:00)
[2022-07-21] MEDS: OMEPRAZOLE 20MG CAP PO SCH (09:00)
[2022-07-21] MEDS: PALIPERIDONE 6MG ER TAB (INVEGA) PO SCH (09:00)
[2022-07-21] MEDS: **PENDING PPD ENTRY XX SCH (09:00)
[2022-07-21] MEDS: MULTIVITAMINS/MINERALS THERAP 1 TAB PO SCH (09:00)
[2022-07-21] MEDS: FOLIC ACID 1MG TAB PO SCH (09:00)
[2022-07-21] MEDS: FLUTICASONE PROP 0.05% NASAL SPRAY 16 GM (FLONASE) SCH (09:00)
[2022-07-21] MEDS: LORATADINE 10 MG TAB PO SCH (09:00)
[2022-07-21] MEDS: NICOTINE 21MG/24HR 1 EA TRANSDERMAL TD SCH (09:00)
[2022-07-21] MEDS: LITHIUM CARBONATE 300 MG CAP PO SCH ×2 (09:00→21:00)
[2022-07-21] MEDS ORDERED: LITHIUM CARBONATE 150 MG CAP PO ONE (13:55)
[2022-07-21] MEDS ORDERED: OLANZapine 10 MG TAB PO ONE (13:55)
[2022-07-22] MEDS: LEVOTHYROXINE 125MCG TABLET (0.125MG) PO SCH (06:00)
[2022-07-22] MEDS: **PENDING PPD ENTRY XX SCH (08:39)
[2022-07-22] MEDS: NICOTINE 21MG/24HR 1 EA TRANSDERMAL TD SCH (08:40)
[2022-07-22] MEDS: OMEPRAZOLE 20MG CAP PO SCH (08:40)
[2022-07-22] MEDS: FLUTICASONE PROP 0.05% NASAL SPRAY 16 GM (FLONASE) SCH (08:40)
[2022-07-22] MEDS: CALCIUM/VITAMIN D 500 MG TAB PO SCH (08:40)
[2022-07-22] MEDS: atenoloL 50 MG TAB PO SCH (08:40)
[2022-07-22] MEDS: MULTIVITAMINS/MINERALS THERAP 1 TAB PO SCH (08:40)
[2022-07-22] MEDS: LITHIUM CARBONATE 300 MG CAP PO SCH ×2 (08:40→20:30)
[2022-07-22] MEDS: FOLIC ACID 1MG TAB PO SCH (08:41)
[2022-07-22] MEDS: LORATADINE 10 MG TAB PO SCH (08:41)
[2022-07-22 18:09] VITALS: BP 107/78
[2022-07-23] MEDS: LEVOTHYROXINE 125MCG TABLET (0.125MG) PO SCH (05:13)
[2022-07-23] MEDS: FOLIC ACID 1MG TAB PO SCH (08:22)
[2022-07-23] MEDS: atenoloL 50 MG TAB PO SCH (08:22)
[2022-07-23] MEDS: MULTIVITAMINS/MINERALS THERAP 1 TAB PO SCH (08:22)
[2022-07-23] MEDS: LORATADINE 10 MG TAB PO SCH (08:22)
[2022-07-23] MEDS: CALCIUM/VITAMIN D 500 MG TAB PO SCH (08:22)
[2022-07-23] MEDS: OMEPRAZOLE 20MG CAP PO SCH (08:22)
[2022-07-23] MEDS: LITHIUM CARBONATE 300 MG CAP PO SCH ×2 (08:22→22:15)
[2022-07-23] MEDS: NICOTINE 21MG/24HR 1 EA TRANSDERMAL TD SCH (08:23)
[2022-07-23] MEDS: FLUTICASONE PROP 0.05% NASAL SPRAY 16 GM (FLONASE) SCH (08:23)
[2022-07-23] MEDS: **PENDING PPD ENTRY XX SCH (08:23)
[2022-07-23 18:00] VITALS: BP 140/90
[2022-07-24] MEDS: LEVOTHYROXINE 125MCG TABLET (0.125MG) PO SCH (05:34)
[2022-07-24] MEDS: atenoloL 50 MG TAB PO SCH (07:35)
[2022-07-24] MEDS: FLUTICASONE PROP 0.05% NASAL SPRAY 16 GM (FLONASE) SCH (07:35)
[2022-07-24] MEDS: MULTIVITAMINS/MINERALS THERAP 1 TAB PO SCH (07:35)
[2022-07-24] MEDS: NICOTINE 21MG/24HR 1 EA TRANSDERMAL TD SCH ×2 (07:35→15:56)
[2022-07-24] MEDS: **PENDING PPD ENTRY XX SCH (07:35)
[2022-07-24] MEDS: CALCIUM/VITAMIN D 500 MG TAB PO SCH (07:36)
[2022-07-24] MEDS: FOLIC ACID 1MG TAB PO SCH (07:36)
[2022-07-24] MEDS: OMEPRAZOLE 20MG CAP PO SCH (07:36)
[2022-07-24] MEDS: LITHIUM CARBONATE 300 MG CAP PO SCH ×2 (07:36→21:00)
[2022-07-24] MEDS: LORATADINE 10 MG TAB PO SCH (07:36)
[2022-07-24 18:19] VITALS: BP 141/92
[2022-07-25] MEDS: LEVOTHYROXINE 125MCG TABLET (0.125MG) PO SCH (06:00)
[2022-07-25] MEDS: LITHIUM CARBONATE 300 MG CAP PO SCH ×2 (09:00→20:58)
[2022-07-25] MEDS: atenoloL 50 MG TAB PO SCH (09:00)
[2022-07-25] MEDS: FOLIC ACID 1MG TAB PO SCH (09:00)
[2022-07-25] MEDS: FLUTICASONE PROP 0.05% NASAL SPRAY 16 GM (FLONASE) SCH (09:00)
[2022-07-25] MEDS: OMEPRAZOLE 20MG CAP PO SCH (09:00)
[2022-07-25] MEDS: **PENDING PPD ENTRY XX SCH (09:00)
[2022-07-25] MEDS: NICOTINE 21MG/24HR 1 EA TRANSDERMAL TD SCH ×2 (09:00→17:10)
[2022-07-25] MEDS: CALCIUM/VITAMIN D 500 MG TAB PO SCH (09:00)
[2022-07-25] MEDS: MULTIVITAMINS/MINERALS THERAP 1 TAB PO SCH (09:00)
[2022-07-25] MEDS: LORATADINE 10 MG TAB PO SCH (09:00)
[2022-07-25 16:28] VITALS: BP 137/90
[2022-07-26] MEDS: LEVOTHYROXINE 125MCG TABLET (0.125MG) PO SCH (06:00)
[2022-07-26] MEDS: OMEPRAZOLE 20MG CAP PO SCH (09:00)
[2022-07-26] MEDS: FLUTICASONE PROP 0.05% NASAL SPRAY 16 GM (FLONASE) SCH (09:00)
[2022-07-26] MEDS: LORATADINE 10 MG TAB PO SCH (09:00)
[2022-07-26] MEDS: **PENDING PPD ENTRY XX SCH (09:00)
[2022-07-26] MEDS: atenoloL 50 MG TAB PO SCH (09:00)
[2022-07-26] MEDS: FOLIC ACID 1MG TAB PO SCH (09:00)
[2022-07-26] MEDS: MULTIVITAMINS/MINERALS THERAP 1 TAB PO SCH (09:00)
[2022-07-26] MEDS: CALCIUM/VITAMIN D 500 MG TAB PO SCH (09:00)
[2022-07-26] MEDS: LITHIUM CARBONATE 300 MG CAP PO SCH ×2 (09:00→20:33)
[2022-07-26] MEDS: NICOTINE 21MG/24HR 1 EA TRANSDERMAL TD SCH (09:00)
[2022-07-26 16:55] VITALS: BP 153/94
[2022-07-27] MEDS: LEVOTHYROXINE 125MCG TABLET (0.125MG) PO SCH (05:51)
[2022-07-27] MEDS: **PENDING PPD ENTRY XX SCH (07:37)
[2022-07-27] MEDS: MULTIVITAMINS/MINERALS THERAP 1 TAB PO SCH (07:37)
[2022-07-27] MEDS: FLUTICASONE PROP 0.05% NASAL SPRAY 16 GM (FLONASE) SCH (07:37)
[2022-07-27] MEDS: atenoloL 50 MG TAB PO SCH (07:37)
[2022-07-27] MEDS: FOLIC ACID 1MG TAB PO SCH (07:38)
[2022-07-27] MEDS: CALCIUM/VITAMIN D 500 MG TAB PO SCH (07:38)
[2022-07-27] MEDS: LITHIUM CARBONATE 300 MG CAP PO SCH ×2 (07:38→20:32)
[2022-07-27] MEDS: LORATADINE 10 MG TAB PO SCH (07:38)
[2022-07-27] MEDS: OMEPRAZOLE 20MG CAP PO SCH (07:38)
[2022-07-27 18:12] VITALS: BP 119/78
[2022-07-28] MEDS: LEVOTHYROXINE 125MCG TABLET (0.125MG) PO SCH (05:27)
[2022-07-28 06:39] VITALS: BP 118/61
[2022-07-28] MEDS: atenoloL 50 MG TAB PO SCH (09:00)
[2022-07-28] MEDS: FOLIC ACID 1MG TAB PO SCH (09:00)
[2022-07-28] MEDS: OMEPRAZOLE 20MG CAP PO SCH (09:00)
[2022-07-28] MEDS: CALCIUM/VITAMIN D 500 MG TAB PO SCH (09:00)
[2022-07-28] MEDS: LORATADINE 10 MG TAB PO SCH (09:00)
[2022-07-28] MEDS: LITHIUM CARBONATE 300 MG CAP PO SCH ×2 (09:00→20:16)
[2022-07-28] MEDS: FLUTICASONE PROP 0.05% NASAL SPRAY 16 GM (FLONASE) SCH (09:00)
[2022-07-28] MEDS: NICOTINE 21MG/24HR 1 EA TRANSDERMAL TD SCH (09:00)
[2022-07-28] MEDS: MULTIVITAMINS/MINERALS THERAP 1 TAB PO SCH (09:00)
[2022-07-28] MEDS: **PENDING PPD ENTRY XX SCH (09:00)
[2022-07-28] MEDS ORDERED: LORazepam 2 MG/ML VIAL IM STA (15:29)
[2022-07-28] MEDS ORDERED: HALOPERIDOL 5MG/ML 1ML VIAL IM ONE (15:30)
[2022-07-28] MEDS ORDERED: diphenhydrAMINE 50MG/ML VIAL IM ONE (15:30)
[2022-07-29] MEDS ORDERED: LORazepam 2 MG/ML VIAL IM STA ×2 (05:29→09:42)
[2022-07-29] MEDS ORDERED: HALOPERIDOL 5MG/ML 1ML VIAL IM STA ×2 (05:29→09:42)
[2022-07-29] MEDS: LEVOTHYROXINE 125MCG TABLET (0.125MG) PO SCH (05:40)
[2022-07-29] MEDS: NICOTINE 21MG/24HR 1 EA TRANSDERMAL TD SCH ×2 (09:00→18:56)
[2022-07-29] MEDS: FOLIC ACID 1MG TAB PO SCH (09:00)
[2022-07-29] MEDS: LORATADINE 10 MG TAB PO SCH (09:00)
[2022-07-29] MEDS: MULTIVITAMINS/MINERALS THERAP 1 TAB PO SCH (09:00)
[2022-07-29] MEDS: OMEPRAZOLE 20MG CAP PO SCH (09:00)
[2022-07-29] MEDS: LITHIUM CARBONATE 300 MG CAP PO SCH ×2 (09:00→21:00)
[2022-07-29] MEDS: atenoloL 50 MG TAB PO SCH (09:00)
[2022-07-29] MEDS: FLUTICASONE PROP 0.05% NASAL SPRAY 16 GM (FLONASE) SCH (09:00)
[2022-07-29] MEDS: **PENDING PPD ENTRY XX SCH (09:00)
[2022-07-29] MEDS: CALCIUM/VITAMIN D 500 MG TAB PO SCH (09:00)
[2022-07-29] MEDS ORDERED: diphenhydrAMINE 50MG/ML VIAL As Ordered ONE (09:01)
[2022-07-29] MEDS ORDERED: diphenhydrAMINE 50MG/ML VIAL IM STA (09:42)
[2022-07-29] MEDS ORDERED: chlorproMAZINE INJ 50MG/2ML AMP IM STA (09:58)
[2022-07-30] MEDS: LEVOTHYROXINE 125MCG TABLET (0.125MG) PO SCH (06:00)
[2022-07-30] MEDS: atenoloL 50 MG TAB PO SCH (09:00)
[2022-07-30] MEDS: MULTIVITAMINS/MINERALS THERAP 1 TAB PO SCH (09:00)
[2022-07-30] MEDS: FOLIC ACID 1MG TAB PO SCH (09:00)
[2022-07-30] MEDS: NICOTINE 21MG/24HR 1 EA TRANSDERMAL TD SCH ×2 (09:00→12:09)
[2022-07-30] MEDS: LITHIUM CARBONATE 300 MG CAP PO SCH ×2 (09:00→21:00)
[2022-07-30] MEDS: CALCIUM/VITAMIN D 500 MG TAB PO SCH (09:00)
[2022-07-30] MEDS: FLUTICASONE PROP 0.05% NASAL SPRAY 16 GM (FLONASE) SCH (09:00)
[2022-07-30] MEDS: OMEPRAZOLE 20MG CAP PO SCH (09:00)
[2022-07-30] MEDS: **PENDING PPD ENTRY XX SCH (09:00)
[2022-07-30] MEDS: LORATADINE 10 MG TAB PO SCH (09:00)
[2022-07-30 18:14] VITALS: BP 153/98
[2022-07-31] MEDS: LEVOTHYROXINE 125MCG TABLET (0.125MG) PO SCH (06:00)
[2022-07-31] MEDS: **PENDING PPD ENTRY XX SCH (08:01)
[2022-07-31] MEDS: MULTIVITAMINS/MINERALS THERAP 1 TAB PO SCH (08:01)
[2022-07-31] MEDS: NICOTINE 21MG/24HR 1 EA TRANSDERMAL TD SCH (08:01)
[2022-07-31] MEDS: FLUTICASONE PROP 0.05% NASAL SPRAY 16 GM (FLONASE) SCH (08:01)
[2022-07-31] MEDS: atenoloL 50 MG TAB PO SCH (08:02)
[2022-07-31] MEDS: CALCIUM/VITAMIN D 500 MG TAB PO SCH (08:02)
[2022-07-31] MEDS: LORATADINE 10 MG TAB PO SCH (08:02)
[2022-07-31] MEDS: OMEPRAZOLE 20MG CAP PO SCH (08:02)
[2022-07-31] MEDS: FOLIC ACID 1MG TAB PO SCH (08:02)
[2022-07-31] MEDS: LITHIUM CARBONATE 300 MG CAP PO SCH ×2 (08:02→20:36)
[2022-07-31 18:11] VITALS: BP 130/72
[2022-08-01] MEDS: LEVOTHYROXINE 125MCG TABLET (0.125MG) PO SCH (05:47)
[2022-08-01] MEDS: OMEPRAZOLE 20MG CAP PO SCH (08:20)
[2022-08-01] MEDS: atenoloL 50 MG TAB PO SCH (08:20)
[2022-08-01] MEDS: **PENDING PPD ENTRY XX SCH (08:20)
[2022-08-01] MEDS: MULTIVITAMINS/MINERALS THERAP 1 TAB PO SCH (08:20)
[2022-08-01] MEDS: LITHIUM CARBONATE 300 MG CAP PO SCH ×2 (08:20→20:06)
[2022-08-01] MEDS: FLUTICASONE PROP 0.05% NASAL SPRAY 16 GM (FLONASE) SCH (08:20)
[2022-08-01] MEDS: CALCIUM/VITAMIN D 500 MG TAB PO SCH (08:20)
[2022-08-01] MEDS: LORATADINE 10 MG TAB PO SCH (08:21)
[2022-08-01] MEDS: FOLIC ACID 1MG TAB PO SCH (08:21)
[2022-08-01] MEDS: NICOTINE 21MG/24HR 1 EA TRANSDERMAL TD SCH (10:31)
[2022-08-01 18:18] VITALS: BP 134/72
[2022-08-02] MEDS: LEVOTHYROXINE 125MCG TABLET (0.125MG) PO SCH ×2 (05:55→19:08)
[2022-08-02] MEDS: NICOTINE 21MG/24HR 1 EA TRANSDERMAL TD SCH ×2 (09:00→19:00)
[2022-08-02] MEDS: OMEPRAZOLE 20MG CAP PO SCH (09:00)
[2022-08-02] MEDS: MULTIVITAMINS/MINERALS THERAP 1 TAB PO SCH (09:00)
[2022-08-02] MEDS: atenoloL 50 MG TAB PO SCH (09:00)
[2022-08-02] MEDS: FOLIC ACID 1MG TAB PO SCH (09:00)
[2022-08-02] MEDS: LORATADINE 10 MG TAB PO SCH (09:00)
[2022-08-02] MEDS: FLUTICASONE PROP 0.05% NASAL SPRAY 16 GM (FLONASE) SCH (09:00)
[2022-08-02] MEDS: **PENDING PPD ENTRY XX SCH (09:00)
[2022-08-02] MEDS: LITHIUM CARBONATE 300 MG CAP PO SCH ×2 (09:00→19:05)
[2022-08-02] MEDS: CALCIUM/VITAMIN D 500 MG TAB PO SCH (09:00)
[2022-08-02 18:00] VITALS: BP 137/82
[2022-08-02] MEDS: CYCLOBENZAPRINE 10MG TABLET PO PRN (19:02)
[2022-08-03] MEDS: LEVOTHYROXINE 125MCG TABLET (0.125MG) PO SCH (05:33)
[2022-08-03] MEDS: FOLIC ACID 1MG TAB PO SCH (09:00)
[2022-08-03] MEDS: **PENDING PPD ENTRY XX SCH (09:00)
[2022-08-03] MEDS: CALCIUM/VITAMIN D 500 MG TAB PO SCH (09:00)
[2022-08-03] MEDS: LORATADINE 10 MG TAB PO SCH (09:00)
[2022-08-03] MEDS: MULTIVITAMINS/MINERALS THERAP 1 TAB PO SCH (09:00)
[2022-08-03] MEDS: atenoloL 50 MG TAB PO SCH (09:00)
[2022-08-03] MEDS: LITHIUM CARBONATE 300 MG CAP PO SCH ×4 (09:00→20:59)
[2022-08-03] MEDS: OMEPRAZOLE 20MG CAP PO SCH (09:00)
[2022-08-03] MEDS: FLUTICASONE PROP 0.05% NASAL SPRAY 16 GM (FLONASE) SCH (09:00)
[2022-08-03] MEDS: NICOTINE 21MG/24HR 1 EA TRANSDERMAL TD SCH (09:00)
[2022-08-03 16:12] VITALS: BP 134/89
[2022-08-04] MEDS: LEVOTHYROXINE 125MCG TABLET (0.125MG) PO SCH (05:41)
[2022-08-04] MEDS: FOLIC ACID 1MG TAB PO SCH (09:00)
[2022-08-04] MEDS: FLUTICASONE PROP 0.05% NASAL SPRAY 16 GM (FLONASE) SCH (09:00)
[2022-08-04] MEDS: atenoloL 50 MG TAB PO SCH (09:00)
[2022-08-04] MEDS: NICOTINE 21MG/24HR 1 EA TRANSDERMAL TD SCH (09:00)
[2022-08-04] MEDS: OMEPRAZOLE 20MG CAP PO SCH (09:00)
[2022-08-04] MEDS: MULTIVITAMINS/MINERALS THERAP 1 TAB PO SCH (09:00)
[2022-08-04] MEDS: LORATADINE 10 MG TAB PO SCH (09:00)
[2022-08-04] MEDS: LITHIUM CARBONATE 300 MG CAP PO SCH ×3 (09:00→21:00)
[2022-08-04] MEDS: **PENDING PPD ENTRY XX SCH (09:00)
[2022-08-04] MEDS: CALCIUM/VITAMIN D 500 MG TAB PO SCH (09:00)
[2022-08-05] MEDS: LEVOTHYROXINE 125MCG TABLET (0.125MG) PO SCH (06:00)
[2022-08-05] MEDS: **PENDING PPD ENTRY XX SCH (09:00)
[2022-08-05] MEDS: LITHIUM CARBONATE 300 MG CAP PO SCH ×3 (09:00→20:17)
[2022-08-05] MEDS: LORATADINE 10 MG TAB PO SCH (09:00)
[2022-08-05] MEDS: FLUTICASONE PROP 0.05% NASAL SPRAY 16 GM (FLONASE) SCH (09:00)
[2022-08-05] MEDS: MULTIVITAMINS/MINERALS THERAP 1 TAB PO SCH (09:00)
[2022-08-05] MEDS: OMEPRAZOLE 20MG CAP PO SCH (09:00)
[2022-08-05] MEDS: FOLIC ACID 1MG TAB PO SCH (09:00)
[2022-08-05] MEDS: atenoloL 50 MG TAB PO SCH (09:00)
[2022-08-05] MEDS: NICOTINE 21MG/24HR 1 EA TRANSDERMAL TD SCH (09:00)
[2022-08-05] MEDS: CALCIUM/VITAMIN D 500 MG TAB PO SCH (09:00)
[2022-08-06] MEDS: LEVOTHYROXINE 125MCG TABLET (0.125MG) PO SCH (06:00)
[2022-08-06 06:38] VITALS: BP 138/98
[2022-08-06] MEDS: NICOTINE 21MG/24HR 1 EA TRANSDERMAL TD SCH (08:53)
[2022-08-06] MEDS: **PENDING PPD ENTRY XX SCH (09:00)
[2022-08-06] MEDS: OMEPRAZOLE 20MG CAP PO SCH (09:00)
[2022-08-06] MEDS: LITHIUM CARBONATE 300 MG CAP PO SCH ×3 (09:00→20:38)
[2022-08-06] MEDS: FOLIC ACID 1MG TAB PO SCH (09:00)
[2022-08-06] MEDS: CALCIUM/VITAMIN D 500 MG TAB PO SCH (09:00)
[2022-08-06] MEDS: MULTIVITAMINS/MINERALS THERAP 1 TAB PO SCH (09:00)
[2022-08-06] MEDS: LORATADINE 10 MG TAB PO SCH (09:00)
[2022-08-06] MEDS: FLUTICASONE PROP 0.05% NASAL SPRAY 16 GM (FLONASE) SCH (09:00)
[2022-08-06] MEDS: atenoloL 50 MG TAB PO SCH (09:00)
[2022-08-06] MEDS ORDERED: IBUPROFEN 600MG TAB PO PRN (11:40)
[2022-08-07] MEDS: LEVOTHYROXINE 125MCG TABLET (0.125MG) PO SCH (05:27)
[2022-08-07] MEDS: **PENDING PPD ENTRY XX SCH (09:00)
[2022-08-07] MEDS: atenoloL 50 MG TAB PO SCH (09:00)
[2022-08-07] MEDS: NICOTINE 21MG/24HR 1 EA TRANSDERMAL TD SCH (09:00)
[2022-08-07] MEDS: MULTIVITAMINS/MINERALS THERAP 1 TAB PO SCH (09:00)
[2022-08-07] MEDS: LITHIUM CARBONATE 300 MG CAP PO SCH ×3 (09:00→21:00)
[2022-08-07] MEDS: FOLIC ACID 1MG TAB PO SCH (09:00)
[2022-08-07] MEDS: OMEPRAZOLE 20MG CAP PO SCH (09:00)
[2022-08-07] MEDS: CALCIUM/VITAMIN D 500 MG TAB PO SCH (09:00)
[2022-08-07] MEDS: LORATADINE 10 MG TAB PO SCH (09:00)
[2022-08-07] MEDS: FLUTICASONE PROP 0.05% NASAL SPRAY 16 GM (FLONASE) SCH (09:00)
[2022-08-08] MEDS: LEVOTHYROXINE 125MCG TABLET (0.125MG) PO SCH (06:00)
[2022-08-08] MEDS: NICOTINE 21MG/24HR 1 EA TRANSDERMAL TD SCH (06:13)
[2022-08-08 06:19] VITALS: BP 148/95
[2022-08-08] MEDS: CALCIUM/VITAMIN D 500 MG TAB PO SCH (09:00)
[2022-08-08] MEDS: LORATADINE 10 MG TAB PO SCH (09:00)
[2022-08-08] MEDS: **PENDING PPD ENTRY XX SCH (09:00)
[2022-08-08] MEDS: FLUTICASONE PROP 0.05% NASAL SPRAY 16 GM (FLONASE) SCH (09:00)
[2022-08-08] MEDS: LITHIUM CARBONATE 300 MG CAP PO SCH ×3 (09:00→20:45)
[2022-08-08] MEDS: FOLIC ACID 1MG TAB PO SCH (09:00)
[2022-08-08] MEDS: OMEPRAZOLE 20MG CAP PO SCH (09:00)
[2022-08-08] MEDS: MULTIVITAMINS/MINERALS THERAP 1 TAB PO SCH (09:00)
[2022-08-08] MEDS: atenoloL 50 MG TAB PO SCH (09:00)
[2022-08-08 16:27] VITALS: BP 146/90
[2022-08-09] MEDS: LITHIUM CARBONATE 300 MG CAP PO SCH ×4 (00:01→20:10)
[2022-08-09] MEDS: LEVOTHYROXINE 125MCG TABLET (0.125MG) PO SCH (06:00)
[2022-08-09] MEDS: NICOTINE 21MG/24HR 1 EA TRANSDERMAL TD SCH (09:00)
[2022-08-09] MEDS: MULTIVITAMINS/MINERALS THERAP 1 TAB PO SCH (09:00)
[2022-08-09] MEDS: **PENDING PPD ENTRY XX SCH (09:00)
[2022-08-09] MEDS: OMEPRAZOLE 20MG CAP PO SCH (09:00)
[2022-08-09] MEDS: CALCIUM/VITAMIN D 500 MG TAB PO SCH (09:00)
[2022-08-09] MEDS: LORATADINE 10 MG TAB PO SCH (09:00)
[2022-08-09] MEDS: FOLIC ACID 1MG TAB PO SCH (09:00)
[2022-08-09] MEDS: atenoloL 50 MG TAB PO SCH (09:00)
[2022-08-09] MEDS: FLUTICASONE PROP 0.05% NASAL SPRAY 16 GM (FLONASE) SCH (09:00)
[2022-08-10] MEDS: LEVOTHYROXINE 125MCG TABLET (0.125MG) PO SCH (05:37)
[2022-08-10 06:53] VITALS: BP 132/84
[2022-08-10] MEDS: LORATADINE 10 MG TAB PO SCH (08:19)
[2022-08-10] MEDS: atenoloL 50 MG TAB PO SCH (08:20)
[2022-08-10] MEDS: NICOTINE 21MG/24HR 1 EA TRANSDERMAL TD SCH ×2 (08:20→14:29)
[2022-08-10] MEDS: CALCIUM/VITAMIN D 500 MG TAB PO SCH (08:20)
[2022-08-10] MEDS: LITHIUM CARBONATE 300 MG CAP PO SCH ×3 (08:20→20:15)
[2022-08-10] MEDS: FOLIC ACID 1MG TAB PO SCH (08:20)
[2022-08-10] MEDS: MULTIVITAMINS/MINERALS THERAP 1 TAB PO SCH (08:20)
[2022-08-10] MEDS: FLUTICASONE PROP 0.05% NASAL SPRAY 16 GM (FLONASE) SCH (08:20)
[2022-08-10] MEDS: OMEPRAZOLE 20MG CAP PO SCH (08:20)
[2022-08-10] MEDS: **PENDING PPD ENTRY XX SCH (08:21)
[2022-08-10 19:02] VITALS: BP 132/100
[2022-08-11] MEDS: LEVOTHYROXINE 125MCG TABLET (0.125MG) PO SCH (05:12)
[2022-08-11] MEDS: FOLIC ACID 1MG TAB PO SCH (08:38)
[2022-08-11] MEDS: atenoloL 50 MG TAB PO SCH (08:38)
[2022-08-11] MEDS: LITHIUM CARBONATE 300 MG CAP PO SCH ×3 (08:38→20:06)
[2022-08-11] MEDS: LORATADINE 10 MG TAB PO SCH (08:38)
[2022-08-11] MEDS: OMEPRAZOLE 20MG CAP PO SCH (08:38)
[2022-08-11] MEDS: MULTIVITAMINS/MINERALS THERAP 1 TAB PO SCH (08:38)
[2022-08-11] MEDS: CALCIUM/VITAMIN D 500 MG TAB PO SCH (08:38)
[2022-08-11] MEDS: **PENDING PPD ENTRY XX SCH (08:39)
[2022-08-11] MEDS: FLUTICASONE PROP 0.05% NASAL SPRAY 16 GM (FLONASE) SCH (08:39)
[2022-08-11] MEDS: NICOTINE 21MG/24HR 1 EA TRANSDERMAL TD SCH (09:00)
[2022-08-12] MEDS: LEVOTHYROXINE 125MCG TABLET (0.125MG) PO SCH (05:21)
[2022-08-12] MEDS: NICOTINE 21MG/24HR 1 EA TRANSDERMAL TD SCH (07:50)
[2022-08-12] MEDS: LORATADINE 10 MG TAB PO SCH (09:00)
[2022-08-12] MEDS: MULTIVITAMINS/MINERALS THERAP 1 TAB PO SCH (09:00)
[2022-08-12] MEDS: OMEPRAZOLE 20MG CAP PO SCH (09:00)
[2022-08-12] MEDS: LITHIUM CARBONATE 300 MG CAP PO SCH ×3 (09:00→21:00)
[2022-08-12] MEDS: CALCIUM/VITAMIN D 500 MG TAB PO SCH (09:00)
[2022-08-12] MEDS: atenoloL 50 MG TAB PO SCH (09:00)
[2022-08-12] MEDS: FOLIC ACID 1MG TAB PO SCH (09:00)
[2022-08-12] MEDS: FLUTICASONE PROP 0.05% NASAL SPRAY 16 GM (FLONASE) SCH (09:00)
[2022-08-12] MEDS: **PENDING PPD ENTRY XX SCH (09:00)
[2022-08-12 18:13] VITALS: BP 153/93
[2022-08-13] MEDS: LEVOTHYROXINE 125MCG TABLET (0.125MG) PO SCH (06:00)
[2022-08-13] MEDS: LORATADINE 10 MG TAB PO SCH (09:00)
[2022-08-13] MEDS: OMEPRAZOLE 20MG CAP PO SCH (09:00)
[2022-08-13] MEDS: FLUTICASONE PROP 0.05% NASAL SPRAY 16 GM (FLONASE) SCH (09:00)
[2022-08-13] MEDS: NICOTINE 21MG/24HR 1 EA TRANSDERMAL TD SCH (09:00)
[2022-08-13] MEDS: MULTIVITAMINS/MINERALS THERAP 1 TAB PO SCH (09:00)
[2022-08-13] MEDS: **PENDING PPD ENTRY XX SCH (09:00)
[2022-08-13] MEDS: LITHIUM CARBONATE 300 MG CAP PO SCH ×3 (09:00→21:02)
[2022-08-13] MEDS: FOLIC ACID 1MG TAB PO SCH (09:00)
[2022-08-13] MEDS: CALCIUM/VITAMIN D 500 MG TAB PO SCH (09:00)
[2022-08-13] MEDS: atenoloL 50 MG TAB PO SCH (09:00)
[2022-08-13] MEDS: HALOPERIDOL 5MG/ML 1ML VIAL IM SCH ×2 (11:28→21:02)
[2022-08-14] MEDS: LEVOTHYROXINE 125MCG TABLET (0.125MG) PO SCH (06:00)
[2022-08-14] MEDS: OMEPRAZOLE 20MG CAP PO SCH (09:00)
[2022-08-14] MEDS: FOLIC ACID 1MG TAB PO SCH (09:00)
[2022-08-14] MEDS: HALOPERIDOL 5MG/ML 1ML VIAL IM SCH ×2 (09:00→21:29)
[2022-08-14] MEDS: NICOTINE 21MG/24HR 1 EA TRANSDERMAL TD SCH (09:00)
[2022-08-14] MEDS: CALCIUM/VITAMIN D 500 MG TAB PO SCH (09:00)
[2022-08-14] MEDS: **PENDING PPD ENTRY XX SCH (09:00)
[2022-08-14] MEDS: LORATADINE 10 MG TAB PO SCH (09:00)
[2022-08-14] MEDS: FLUTICASONE PROP 0.05% NASAL SPRAY 16 GM (FLONASE) SCH (09:00)
[2022-08-14] MEDS: atenoloL 50 MG TAB PO SCH (09:00)
[2022-08-14] MEDS: MULTIVITAMINS/MINERALS THERAP 1 TAB PO SCH (09:00)
[2022-08-14] MEDS: LITHIUM CARBONATE 300 MG CAP PO SCH ×4 (10:06→21:00)
[2022-08-14] MEDS ORDERED: BENZTROPINE 1 MG TAB PO PRN (12:25)
[2022-08-14] MEDS: PALIPERIDONE 3MG ER TAB (INVEGA) PO SCH ×3 (13:00→21:00)
[2022-08-15] MEDS: LEVOTHYROXINE 125MCG TABLET (0.125MG) PO SCH (05:45)
[2022-08-15 06:44] VITALS: BP 129/91
[2022-08-15] MEDS: LORATADINE 10 MG TAB PO SCH (09:00)
[2022-08-15] MEDS: PALIPERIDONE 3MG ER TAB (INVEGA) PO SCH ×3 (09:00→21:45)
[2022-08-15] MEDS: CALCIUM/VITAMIN D 500 MG TAB PO SCH (09:00)
[2022-08-15] MEDS: LITHIUM CARBONATE 300 MG CAP PO SCH ×4 (09:00→21:45)
[2022-08-15] MEDS: FOLIC ACID 1MG TAB PO SCH (09:00)
[2022-08-15] MEDS: **PENDING PPD ENTRY XX SCH (09:00)
[2022-08-15] MEDS: OMEPRAZOLE 20MG CAP PO SCH (09:00)
[2022-08-15] MEDS: FLUTICASONE PROP 0.05% NASAL SPRAY 16 GM (FLONASE) SCH (09:00)
[2022-08-15] MEDS: atenoloL 50 MG TAB PO SCH (09:00)
[2022-08-15] MEDS: MULTIVITAMINS/MINERALS THERAP 1 TAB PO SCH (09:00)
[2022-08-15] MEDS: NICOTINE 21MG/24HR 1 EA TRANSDERMAL TD SCH (09:55)
[2022-08-15] MEDS ORDERED: TUBERCULIN PPD 5 UNITS/0.1 ML ID ONE (10:00)
[2022-08-15] MEDS ORDERED: PALIPERIDONE PAL 234MG/1.5ML INJ (INVEGA)(FREE PSY INPT ONLY) IM ONE (10:00)
[2022-08-15] MEDS: HALOPERIDOL 5MG/ML 1ML VIAL IM SCH ×3 (10:28→21:00)
[2022-08-15 18:27] VITALS: BP 137/91
[2022-08-16] MEDS: LEVOTHYROXINE 125MCG TABLET (0.125MG) PO SCH (05:53)
[2022-08-16] MEDS: LITHIUM CARBONATE 300 MG CAP PO SCH ×3 (09:58→18:17)
[2022-08-16] MEDS: PALIPERIDONE 3MG ER TAB (INVEGA) PO SCH ×2 (09:58→18:17)
[2022-08-16] MEDS ORDERED: PPD DOCUMENTATION ENTRY MISC XX SCH (10:00)
[2022-08-16] MEDS: NICOTINE 21MG/24HR 1 EA TRANSDERMAL TD SCH (10:02)
[2022-08-16] MEDS: HALOPERIDOL 5MG/ML 1ML VIAL IM SCH ×2 (10:06→18:20)
[2022-08-16] MEDS: **PENDING PPD ENTRY XX SCH (10:06)
[2022-08-16] MEDS: FLUTICASONE PROP 0.05% NASAL SPRAY 16 GM (FLONASE) SCH (10:06)
[2022-08-16] MEDS: atenoloL 50 MG TAB PO SCH (10:07)
[2022-08-16] MEDS: MULTIVITAMINS/MINERALS THERAP 1 TAB PO SCH (10:07)
[2022-08-16] MEDS: OMEPRAZOLE 20MG CAP PO SCH (10:07)
[2022-08-16] MEDS: CALCIUM/VITAMIN D 500 MG TAB PO SCH (10:07)
[2022-08-16] MEDS: LORATADINE 10 MG TAB PO SCH (10:08)
[2022-08-16] MEDS: FOLIC ACID 1MG TAB PO SCH (10:08)
[2022-08-16 18:06] VITALS: BP 130/95
[2022-08-17] MEDS: LEVOTHYROXINE 125MCG TABLET (0.125MG) PO SCH (05:50)
[2022-08-17] MEDS: NICOTINE 21MG/24HR 1 EA TRANSDERMAL TD SCH (08:22)
[2022-08-17] MEDS: PALIPERIDONE 3MG ER TAB (INVEGA) PO SCH ×2 (08:22→20:08)
[2022-08-17] MEDS: LITHIUM CARBONATE 300 MG CAP PO SCH ×3 (08:22→20:08)
[2022-08-17] MEDS: **PENDING PPD ENTRY XX SCH (08:38)
[2022-08-17] MEDS: FLUTICASONE PROP 0.05% NASAL SPRAY 16 GM (FLONASE) SCH (08:38)
[2022-08-17] MEDS: HALOPERIDOL 5MG/ML 1ML VIAL IM SCH ×2 (08:39→20:10)
[2022-08-17] MEDS: CALCIUM/VITAMIN D 500 MG TAB PO SCH (08:39)
[2022-08-17] MEDS: FOLIC ACID 1MG TAB PO SCH (08:39)
[2022-08-17] MEDS: atenoloL 50 MG TAB PO SCH (08:39)
[2022-08-17] MEDS: OMEPRAZOLE 20MG CAP PO SCH (08:39)
[2022-08-17] MEDS: LORATADINE 10 MG TAB PO SCH (08:39)
[2022-08-17] MEDS: MULTIVITAMINS/MINERALS THERAP 1 TAB PO SCH (08:39)
[2022-08-17] MEDS ORDERED: hydrOXYzine 50 MG TAB PO ONE (11:05)
[2022-08-17 16:18] VITALS: BP 110/73
[2022-08-18] MEDS: LEVOTHYROXINE 125MCG TABLET (0.125MG) PO SCH (06:00)
[2022-08-18] MEDS: CALCIUM/VITAMIN D 500 MG TAB PO SCH (08:32)
[2022-08-18] MEDS: LORATADINE 10 MG TAB PO SCH (08:32)
[2022-08-18] MEDS: FOLIC ACID 1MG TAB PO SCH (08:32)
[2022-08-18] MEDS: MULTIVITAMINS/MINERALS THERAP 1 TAB PO SCH (08:32)
[2022-08-18] MEDS: atenoloL 50 MG TAB PO SCH (08:32)
[2022-08-18] MEDS: OMEPRAZOLE 20MG CAP PO SCH (08:32)
[2022-08-18] MEDS: FLUTICASONE PROP 0.05% NASAL SPRAY 16 GM (FLONASE) SCH (08:33)
[2022-08-18] MEDS: **PENDING PPD ENTRY XX SCH (08:33)
[2022-08-18] MEDS: PALIPERIDONE 3MG ER TAB (INVEGA) PO SCH ×2 (08:34→19:50)
[2022-08-18] MEDS: LITHIUM CARBONATE 300 MG CAP PO SCH ×3 (08:35→19:50)
[2022-08-18] MEDS: NICOTINE 21MG/24HR 1 EA TRANSDERMAL TD SCH (08:35)
[2022-08-18] MEDS: HALOPERIDOL 5MG/ML 1ML VIAL IM SCH ×2 (09:00→19:51)
[2022-08-18 16:46] VITALS: BP 132/78
[2022-08-19] MEDS: LEVOTHYROXINE 125MCG TABLET (0.125MG) PO SCH (06:00)
[2022-08-19 06:43] VITALS: BP 158/102
[2022-08-19] MEDS: PALIPERIDONE 3MG ER TAB (INVEGA) PO SCH ×2 (08:24→21:33)
[2022-08-19] MEDS: LITHIUM CARBONATE 300 MG CAP PO SCH ×3 (08:24→21:33)
[2022-08-19] MEDS: NICOTINE 21MG/24HR 1 EA TRANSDERMAL TD SCH (08:26)
[2022-08-19] MEDS: FOLIC ACID 1MG TAB PO SCH (08:28)
[2022-08-19] MEDS: LORATADINE 10 MG TAB PO SCH (08:28)
[2022-08-19] MEDS: atenoloL 50 MG TAB PO SCH (08:29)
[2022-08-19] MEDS: CALCIUM/VITAMIN D 500 MG TAB PO SCH (08:29)
[2022-08-19] MEDS: MULTIVITAMINS/MINERALS THERAP 1 TAB PO SCH (08:29)
[2022-08-19] MEDS: OMEPRAZOLE 20MG CAP PO SCH (08:29)
[2022-08-19] MEDS: HALOPERIDOL 5MG/ML 1ML VIAL IM SCH (08:30)
[2022-08-19] MEDS: FLUTICASONE PROP 0.05% NASAL SPRAY 16 GM (FLONASE) SCH (08:30)
[2022-08-19] MEDS: **PENDING PPD ENTRY XX SCH (08:30)
[2022-08-19] MEDS ORDERED: PALIPERIDONE PAL 156MG/1ML INJ(INVEGA)(FREE PSY INPT ONLY) IM ONE (11:00)
[2022-08-19 16:29] VITALS: BP 132/88
[2022-08-19] MEDS: CYCLOBENZAPRINE 10MG TABLET PO PRN (18:17)
[2022-08-20] MEDS: LEVOTHYROXINE 125MCG TABLET (0.125MG) PO SCH (05:20)
[2022-08-20 06:57] VITALS: BP 104/68
[2022-08-20] MEDS: LITHIUM CARBONATE 300 MG CAP PO SCH ×3 (08:43→20:43)
[2022-08-20] MEDS: PALIPERIDONE 3MG ER TAB (INVEGA) PO SCH ×2 (08:43→20:43)
[2022-08-20] MEDS: NICOTINE 21MG/24HR 1 EA TRANSDERMAL TD SCH (08:43)
[2022-08-20] MEDS: LORATADINE 10 MG TAB PO SCH (08:46)
[2022-08-20] MEDS: FOLIC ACID 1MG TAB PO SCH (08:46)
[2022-08-20] MEDS: OMEPRAZOLE 20MG CAP PO SCH (08:46)
[2022-08-20] MEDS: atenoloL 50 MG TAB PO SCH (08:46)
[2022-08-20] MEDS: CALCIUM/VITAMIN D 500 MG TAB PO SCH (08:46)
[2022-08-20] MEDS: MULTIVITAMINS/MINERALS THERAP 1 TAB PO SCH (08:46)
[2022-08-20] MEDS: FLUTICASONE PROP 0.05% NASAL SPRAY 16 GM (FLONASE) SCH (08:47)
[2022-08-20] MEDS: **PENDING PPD ENTRY XX SCH (08:47)
[2022-08-20] MEDS: CYCLOBENZAPRINE 10MG TABLET PO PRN (17:20)
[2022-08-20 18:38] VITALS: BP 128/63
[2022-08-21] MEDS: LEVOTHYROXINE 125MCG TABLET (0.125MG) PO SCH (05:47)
[2022-08-21 06:06] VITALS: BP 117/60
[2022-08-21] MEDS: CALCIUM/VITAMIN D 500 MG TAB PO SCH (09:00)
[2022-08-21] MEDS: OMEPRAZOLE 20MG CAP PO SCH (09:00)
[2022-08-21] MEDS: FOLIC ACID 1MG TAB PO SCH (09:00)
[2022-08-21] MEDS: atenoloL 50 MG TAB PO SCH (09:00)
[2022-08-21] MEDS: LORATADINE 10 MG TAB PO SCH (09:00)
[2022-08-21] MEDS: FLUTICASONE PROP 0.05% NASAL SPRAY 16 GM (FLONASE) SCH (09:00)
[2022-08-21] MEDS: **PENDING PPD ENTRY XX SCH (09:00)
[2022-08-21] MEDS: MULTIVITAMINS/MINERALS THERAP 1 TAB PO SCH (09:00)
[2022-08-21] MEDS: NICOTINE 21MG/24HR 1 EA TRANSDERMAL TD SCH (09:36)
[2022-08-21] MEDS: PALIPERIDONE 3MG ER TAB (INVEGA) PO SCH ×2 (09:36→19:59)
[2022-08-21] MEDS: LITHIUM CARBONATE 300 MG CAP PO SCH ×3 (09:36→20:01)
[2022-08-21 18:00] VITALS: BP 137/93
[2022-08-21] MEDS: CYCLOBENZAPRINE 10MG TABLET PO PRN (20:02)
[2022-08-22] MEDS: LEVOTHYROXINE 125MCG TABLET (0.125MG) PO SCH (06:00)
[2022-08-22 09:00] VITALS: BP 137/93
[2022-08-22] MEDS: MULTIVITAMINS/MINERALS THERAP 1 TAB PO SCH (09:00)
[2022-08-22] MEDS: **PENDING PPD ENTRY XX SCH (09:00)
[2022-08-22] MEDS: CALCIUM/VITAMIN D 500 MG TAB PO SCH (09:00)
[2022-08-22] MEDS: OMEPRAZOLE 20MG CAP PO SCH (09:00)
[2022-08-22] MEDS: FLUTICASONE PROP 0.05% NASAL SPRAY 16 GM (FLONASE) SCH (09:00)
[2022-08-22] MEDS: atenoloL 50 MG TAB PO SCH (09:00)
[2022-08-22] MEDS: FOLIC ACID 1MG TAB PO SCH (09:00)
[2022-08-22] MEDS: LORATADINE 10 MG TAB PO SCH (09:00)
[2022-08-22] MEDS: LITHIUM CARBONATE 300 MG CAP PO SCH ×3 (09:25→21:49)
[2022-08-22] MEDS: CYCLOBENZAPRINE 10MG TABLET PO PRN (09:25)
[2022-08-22] MEDS: NICOTINE 21MG/24HR 1 EA TRANSDERMAL TD SCH (09:26)
[2022-08-22] MEDS: PALIPERIDONE 3MG ER TAB (INVEGA) PO SCH ×2 (09:26→21:49)
[2022-08-22 16:57] VITALS: BP 122/55
[2022-08-23] MEDS: LEVOTHYROXINE 125MCG TABLET (0.125MG) PO SCH (06:00)
[2022-08-23] MEDS: OMEPRAZOLE 20MG CAP PO SCH (09:00)
[2022-08-23] MEDS: atenoloL 50 MG TAB PO SCH (09:00)
[2022-08-23] MEDS: FOLIC ACID 1MG TAB PO SCH (09:00)
[2022-08-23] MEDS: **PENDING PPD ENTRY XX SCH (09:00)
[2022-08-23] MEDS: CALCIUM/VITAMIN D 500 MG TAB PO SCH (09:00)
[2022-08-23] MEDS: LORATADINE 10 MG TAB PO SCH (09:00)
[2022-08-23] MEDS: FLUTICASONE PROP 0.05% NASAL SPRAY 16 GM (FLONASE) SCH (09:00)
[2022-08-23] MEDS: MULTIVITAMINS/MINERALS THERAP 1 TAB PO SCH (09:00)
[2022-08-23] MEDS: LITHIUM CARBONATE 300 MG CAP PO SCH (10:00)
[2022-08-23] MEDS: CYCLOBENZAPRINE 10MG TABLET PO PRN (10:00)
[2022-08-23] MEDS: PALIPERIDONE 3MG ER TAB (INVEGA) PO SCH ×2 (10:00→20:27)
[2022-08-23] MEDS: NICOTINE 21MG/24HR 1 EA TRANSDERMAL TD SCH (10:01)
[2022-08-23] MEDS ORDERED: LITHIUM CARBONATE 300 MG CAP PO ONE (11:30)
[2022-08-23 14:50] VITALS: BP 98/76
[2022-08-23] MEDS ORDERED: IBUPROFEN 200MG TAB PO ONE (18:15)
[2022-08-23] MEDS: LITHIUM CARBONATE 600MG CAP PO SCH (22:36)
[2022-08-24] MEDS: LEVOTHYROXINE 125MCG TABLET (0.125MG) PO SCH (06:00)
[2022-08-24 07:05] VITALS: BP 111/63
[2022-08-24] MEDS: OMEPRAZOLE 20MG CAP PO SCH (09:00)
[2022-08-24] MEDS: LORATADINE 10 MG TAB PO SCH (09:00)
[2022-08-24] MEDS: CALCIUM/VITAMIN D 500 MG TAB PO SCH (09:00)
[2022-08-24] MEDS: FLUTICASONE PROP 0.05% NASAL SPRAY 16 GM (FLONASE) SCH (09:00)
[2022-08-24] MEDS: **PENDING PPD ENTRY XX SCH (09:00)
[2022-08-24] MEDS: atenoloL 50 MG TAB PO SCH (09:00)
[2022-08-24] MEDS: FOLIC ACID 1MG TAB PO SCH (09:00)
[2022-08-24] MEDS: MULTIVITAMINS/MINERALS THERAP 1 TAB PO SCH (09:00)
[2022-08-24] MEDS: CYCLOBENZAPRINE 10MG TABLET PO PRN (09:24)
[2022-08-24] MEDS: NICOTINE 21MG/24HR 1 EA TRANSDERMAL TD SCH (09:24)
[2022-08-24] MEDS: PALIPERIDONE 3MG ER TAB (INVEGA) PO SCH ×2 (09:24→19:47)
[2022-08-24] MEDS: LITHIUM CARBONATE 600MG CAP PO SCH ×2 (11:37→19:48)
[2022-08-24 19:00] VITALS: BP 139/88
[2022-08-25] MEDS: LEVOTHYROXINE 125MCG TABLET (0.125MG) PO SCH (06:00)
[2022-08-25 06:51] VITALS: BP 125/77
[2022-08-25] MEDS: LITHIUM CARBONATE 600MG CAP PO SCH (08:59)
[2022-08-25] MEDS: PALIPERIDONE 3MG ER TAB (INVEGA) PO SCH (08:59)
[2022-08-25] MEDS: MULTIVITAMINS/MINERALS THERAP 1 TAB PO SCH (09:00)
[2022-08-25] MEDS: FLUTICASONE PROP 0.05% NASAL SPRAY 16 GM (FLONASE) SCH (09:00)
[2022-08-25] MEDS: LORATADINE 10 MG TAB PO SCH (09:00)
[2022-08-25] MEDS: NICOTINE 21MG/24HR 1 EA TRANSDERMAL TD SCH (09:00)
[2022-08-25] MEDS: atenoloL 50 MG TAB PO SCH (09:00)
[2022-08-25] MEDS: CALCIUM/VITAMIN D 500 MG TAB PO SCH (09:00)
[2022-08-25] MEDS: OMEPRAZOLE 20MG CAP PO SCH (09:00)
[2022-08-25] MEDS: **PENDING PPD ENTRY XX SCH (09:00)
[2022-08-25] MEDS: FOLIC ACID 1MG TAB PO SCH (09:00)
[2022-08-25] MEDS ORDERED: INVE156I IM (09:08)
[2022-08-25] MEDS ORDERED: LITH600C PO (09:08)
[2022-08-25] MEDS ORDERED: NICO21PAT TD (09:08)
[2022-08-25] MEDS ORDERED: PALI1TAB2 PO (09:08)
[2022-08-25] MEDS ORDERED: PALI1TAB3 PO (10:29)
== END 2022-08-25 13:00 | disposition home or self-care (01) | DRG 885 ==
LOC: M ED 14:57 → M ED INP 07-10 11:50 → M PSY 07-10 14:20
PROVIDERS: ADMIT Student in an Organized Health Care Education/Training Program; ATTEND Student in an Organized Health Care Education/Training Program
DX: F31.2 Bipolar disorder, current episode manic severe with psychotic features (principal); Z79.899 Other long term (current) drug therapy; Z88.8 Allergy status to other drugs, medicaments and biological substances; Z79.890 Hormone replacement therapy; Z91.199 Patient's noncompliance with other medical treatment and regimen due to unspecified reason

== ENCOUNTER → 2022-11-13 | Outpatient (CLI) | payer MEDICARE, MEDICAID ==
[~2022-11-13] MED LIST changes: -BENZ-52 PO; +BENZ1TAB5 PO; +CHOL4POW26 PO; +LEVO125T4 PO; +LITH600C PO; +LORA-674 PO; +OXYBUTYNIN PO; +PALI1TAB2 PO; +PALI1TAB3 PO
[2022-11-13 16:28] LABS: FREE T4 0.66 NG/DL (0.89-1.76)
[2022-11-13 16:30] LABS: THYROID STIMULATING HORMONE 6.134 uIU/ML (0.55-4.78)
== END ==
LOC: M LAB 15:03
PROVIDERS: ATTEND Family Medicine
DX: E03.9 Hypothyroidism, unspecified (principal)

== ENCOUNTER → 2022-12-15 | Outpatient (REF) | payer MEDICARE, MEDICAID ==
[~2022-12-15] MED LIST changes: +CEPH250REC PO; +CIME300T91 PO; +MACR100C43 PO
[2022-12-15 14:11] LABS: APPEARANCE, URINE CLEAR (CLEAR); BACTERIA, URINE AUTO 1+ (NEGATIVE); BILIRUBIN, URINE AUTO NEGATIVE (NEGATIVE); BLOOD, URINE BLOOD NEGATIVE (NEGATIVE); COLOR, URINE STRAW (YELLOW); GLUCOSE, URINE (UA) AUTO NEGATIVE (NEGATIVE); KETONE, URINE AUTO NEGATIVE (NEGATIVE); LEUKOCYTE ESTERASE, URINE AUTO NEGATIVE (NEGATIVE); NITRITE, URINE AUTO NEGATIVE (NEGATIVE); PROTEIN, URINE AUTO NEGATIVE (NEGATIVE); RBC, URINE AUTO 0 /HPF (0-3); SPECIFIC GRAVITY URINE AUTO 1.006 (1.002-1.035); SQUAMOUS EPITHELIAL CELL UR AU 0 /HPF (0-6); UROBILINOGEN, URINE AUTO 0.2 mg/dL (0.0-2.0); WBC, URINE AUTO 0 /HPF (0-3)
== END ==
LOC: M SMT 13:07
PROVIDERS: ATTEND Urology
DX: R35.0 Frequency of micturition (principal)

== ENCOUNTER → 2022-12-21 | Outpatient (CLI) | payer MEDICARE, MEDICAID ==
[~2022-12-21] MED LIST changes: -CEPH250REC PO; -CIME300T91 PO; -MACR100C43 PO
== END ==
LOC: M LAB 12:49
PROVIDERS: ATTEND Family Medicine
DX: E03.9 Hypothyroidism, unspecified (principal)

== ENCOUNTER → 2022-12-29 | Outpatient (CLI) | payer MEDICARE, MEDICAID ==
[2022-12-29 13:08] LABS: HEMATOCRIT 41.3 % (36.0-47.0); HEMOGLOBIN 13.8 g/dl (12.0-15.5); MEAN CORPUSCULAR HEMOGLOBIN 29.7 pg (27.0-33.0); MEAN CORPUSCULAR HGB CONC 33.4 g/dl (32.0-36.5); PLATELET COUNT, AUTOMATED 251 10^3/uL (150-450); RED BLOOD COUNT 4.64 10^6/uL (4.00-5.40); WHITE BLOOD COUNT 8.7 10^3/uL (4.0-10.0)
[2022-12-29 13:31] LABS: ALBUMIN 3.6 G/DL (3.2-5.2); ALKALINE PHOSPHATASE 95 U/L (46-116); ALT/SGPT 21 U/L (7.0-40); AST/SGOT 19 U/L (<34); BILIRUBIN,TOTAL 0.3 MG/DL (0.3-1.2); BLOOD UREA NITROGEN 14 MG/DL (9-23); CALCIUM LEVEL 8.8 MG/DL (8.5-10.1); CARBON DIOXIDE LEVEL 29 MMOL/L (20-31); CHLORIDE LEVEL 104 MMOL/L (98-107); GLOMERULAR FILTRATION RATE > 60.0 (>58); GLUCOSE, FASTING 87 MG/DL (60-100); POTASSIUM SERUM 4.3 MMOL/L (3.5-5.1); SODIUM LEVEL 139 MMOL/L (136-145); TOTAL PROTEIN 6.6 G/DL (5.7-8.2)
== END ==
LOC: M LAB 12:09
PROVIDERS: ATTEND Urology
DX: R35.0 Frequency of micturition (principal)

== ENCOUNTER → 2022-12-29 | Outpatient (CLI) | payer MEDICARE, MEDICAID ==
[2022-12-29 13:08] LABS: BASO % 0.3 % (0.0-1.0); EOS % 0.3 % (0.0-3.0); HEMATOCRIT 41.4 % (36.0-47.0); HEMOGLOBIN 13.9 g/dl (12.0-15.5); LYMPH # 2.1 10^3/uL (1.5-5.0); MEAN CORPUSCULAR HEMOGLOBIN 30.1 pg (27.0-33.0); MEAN CORPUSCULAR HGB CONC 33.6 g/dl (32.0-36.5); MEAN CORPUSCULAR VOLUME 89.6 fl (80.0-96.0); MONO # 0.8 10^3/uL (0.0-0.8); NEUTROPHILS # 5.7 10^3/uL (1.5-8.5); NEUTROPHILS % 66.1 % (36.0-66.0); PLATELET COUNT, AUTOMATED 251 10^3/uL (150-450); RED BLOOD COUNT 4.62 10^6/uL (4.00-5.40); WHITE BLOOD COUNT 8.7 10^3/uL (4.0-10.0)
[2022-12-29 13:28] LABS: ERYTHROCYTE SEDIMENTATION RATE 8 mm/hr (0-20)
[2022-12-29 13:29] LABS: C REACTIVE PROTEIN QUANTITATIV < 0.40 MG/DL (<1.0)
[2022-12-29 13:30] LABS: RHEUMATOID FACTOR QUANT 6.5 IU/ML (<14)
[2022-12-30 11:08] LABS: ANTINUCLEAR ANTIBODIES DIRECT Negative (Negative)
== END ==
LOC: M LAB 12:06
PROVIDERS: ATTEND Orthopaedic Surgery
DX: M25.551 Pain in right hip (principal); R35.0 Frequency of micturition

== ENCOUNTER 2023-01-14 09:42 | Day surgery (SDC) | payer MEDICARE, MEDICAID ==
[~2023-01-14] VITALS: Ht 167.6 cm; Wt 74.4 kg
[2023-01-14] MEDS ORDERED: LR 1,000 ML IV SCH (10:00)
[2023-01-14] MEDS ORDERED: CIME300T91 PO (10:24)
[2023-01-14] MEDS ORDERED: propofoL 200 MG/20 ML VIAL As Ordered ONE ×2 (10:43→12:17)
[2023-01-14] MEDS ORDERED: LIDOCAINE 2% 100MG/5ML SDV (FOR ANES.) As Ordered ONE (10:43)
[2023-01-14] MEDS ORDERED: ONDANSETRON 4MG 2ML VIAL As Ordered ONE (10:43)
[2023-01-14] MEDS ORDERED: BOTOX THERAPEUTIC 100 UNIT VIAL As Ordered ONE (11:46)
[2023-01-14] MEDS ORDERED: LIDOCAINE 2% 5ML JELLY UROJET As Ordered ONE (12:08)
[2023-01-14] MEDS ORDERED: ACETAMINOPHEN 1000MG 100ML IV BAG As Ordered ONE (12:09)
[2023-01-14] MEDS ORDERED: MACR100C43 PO (12:25)
[2023-01-14 13:30] VITALS: BP 118/78
[2023-01-15] MEDS ORDERED: CEPH250REC PO (15:20)
== END 2023-01-14 16:39 | disposition home or self-care (01) ==
LOC: M SDC 09:42
PROVIDERS: ATTEND Urology
DX: N32.81 Overactive bladder (principal); R35.0 Frequency of micturition; R39.15 Urgency of urination; R35.1 Nocturia; R10.2 Pelvic and perineal pain; K21.9 Gastro-esophageal reflux disease without esophagitis; F20.9 Schizophrenia, unspecified; M19.90 Unspecified osteoarthritis, unspecified site; G40.909 Epilepsy, unspecified, not intractable, without status epilepticus; M51.9 Unspecified thoracic, thoracolumbar and lumbosacral intervertebral disc disorder; F17.290 Nicotine dependence, other tobacco product, uncomplicated; F41.9 Anxiety disorder, unspecified; F32.A Depression, unspecified; G43.909 Migraine, unspecified, not intractable, without status migrainosus; Z88.8 Allergy status to other drugs, medicaments and biological substances; Z79.899 Other long term (current) drug therapy; Z79.890 Hormone replacement therapy
CPT/HCPCS: 52287; 81025; A4215; J0131; J0585; J1100; J2405

== ENCOUNTER 2023-01-21 08:50 | Day surgery (SDC) | payer MEDICARE, MEDICAID ==
[~2023-01-21] VITALS: Ht 167.6 cm; Wt 72.9 kg
[~2023-01-21 08:50] MED LIST changes: +CEPH250REC PO; +CIME300T91 PO; +MACR100C43 PO; +NS 1,000 ML IV ONE
[2023-01-21] MEDS ORDERED: propofoL 200 MG/20 ML VIAL As Ordered ONE ×2 (10:34→11:03)
[2023-01-21] MEDS ORDERED: fentaNYL 100 MCG/2 ML INJECTION As Ordered ONE (10:35)
[2023-01-21 12:08] VITALS: BP 128/93
== END 2023-01-21 15:50 | disposition home or self-care (01) ==
LOC: M OPP 08:50
PROVIDERS: ATTEND Internal Medicine Gastroenterology
DX: K92.1 Melena (principal); Z86.010 Personal history of colon polyps; K64.4 Residual hemorrhoidal skin tags; K64.8 Other hemorrhoids; K63.89 Other specified diseases of intestine; K29.70 Gastritis, unspecified, without bleeding; R13.10 Dysphagia, unspecified; F17.290 Nicotine dependence, other tobacco product, uncomplicated; Z79.52 Long term (current) use of systemic steroids; Z79.890 Hormone replacement therapy; Z79.899 Other long term (current) drug therapy
CPT/HCPCS: 43239; 43249; 45378; 88305; J3010

== ENCOUNTER → 2023-02-19 | Outpatient (CLI) | payer MEDICARE, MEDICAID ==
[~2023-02-19] MED LIST changes: -NS 1,000 ML IV ONE
== END ==
LOC: M LAB 12:02
PROVIDERS: ATTEND Family Medicine
DX: E03.9 Hypothyroidism, unspecified (principal)

== ENCOUNTER → 2023-02-23 | Outpatient (CLI) | payer MEDICARE, MEDICAID | LOC: M WHC 10:17 | PROVIDERS: ATTEND Family Medicine | DX: M85.80 Other specified disorders of bone density and structure, unspecified site (principal) ==

== ENCOUNTER → 2023-04-14 | Outpatient (CLI) | payer MEDICARE, MEDICAID | LOC: M RAD 11:01 | PROVIDERS: ATTEND Family Medicine | DX: R05.9 Cough, unspecified (principal); J42 Unspecified chronic bronchitis ==

== ENCOUNTER 2023-11-15 11:19 | Inpatient (IN) | payer MEDICARE, MEDICAID ==
[~2023-11-15] VITALS: Ht 165.1 cm; Wt 70.2 kg
[~2023-11-15 11:19] MED LIST changes: +BUPR-597 PO; -BUPR300T92 PO; +FLON1SPR NARES; +LORA-1041 PO; -LORA-674 PO
[2023-11-15] MEDS: diphenhydrAMINE 50MG/ML VIAL IM ONE (11:42)
[2023-11-15] MEDS: LORazepam 2 MG/ML 1ML VIAL IM ONE (11:42)
[2023-11-15] MEDS: HALOPERIDOL LACTATE 5MG/ML VIAL IM ONE (11:44)
[2023-11-15 12:21] LABS: AMPHETAMINES LEVEL URINE NEGATIVE (NEGATIVE); BARBITURATES URINE NEGATIVE (NEGATIVE); BENZODIAZEPINES URINE NEGATIVE (NEGATIVE); COCAINE METABOLITE URINE NEGATIVE (NEGATIVE)
[2023-11-15 12:22] LABS: CANNABINOIDS URINE POSITIVE (NEGATIVE); METHADONE URINE NEGATIVE (NEGATIVE); OPIATES URINE NEGATIVE (NEGATIVE); PHENCYCLIDINE URINE NEGATIVE (NEGATIVE)
[2023-11-15 12:25] LABS: HEMATOCRIT 38.5 % (36.0-47.0); HEMOGLOBIN 13.2 g/dl (12.0-15.5); MEAN CORPUSCULAR HEMOGLOBIN 30.5 pg (27.0-33.0); MEAN CORPUSCULAR HGB CONC 34.3 g/dl (32.0-36.5); MEAN CORPUSCULAR VOLUME 88.9 fl (80.0-96.0); PLATELET COUNT, AUTOMATED 246 10^3/uL (150-450); RED BLOOD COUNT 4.33 10^6/uL (4.00-5.40); WHITE BLOOD COUNT 12.4 10^3/uL (4.0-10.0)
[2023-11-15 12:51] LABS: ETHYL ALCOHOL (ETHANOL) < 0.003 % (0.000-0.010)
[2023-11-15 12:52] LABS: CPK CREATINE PHOSPHOKINASE 569 U/L (34-145); SALICYLATE LEVEL < 3.0 MG/DL (<30)
[2023-11-15 12:53] LABS: ALBUMIN 3.8 G/DL (3.2-5.2); ALKALINE PHOSPHATASE 89 U/L (46-116); ALT/SGPT 46 U/L (7.0-40); AST/SGOT 25 U/L (<34); BILIRUBIN,DIRECT 0.2 MG/DL (<0.4); BILIRUBIN,TOTAL 0.5 MG/DL (0.3-1.2); BLOOD UREA NITROGEN 7 MG/DL (9-23); CALCIUM LEVEL 8.9 MG/DL (8.5-10.1); CARBON DIOXIDE LEVEL 26 MMOL/L (20-31); CHLORIDE LEVEL 102 MMOL/L (98-107); GLOMERULAR FILTRATION RATE > 60.0 (>58); GLUCOSE, FASTING 193 MG/DL (60-100); SODIUM LEVEL 135 MMOL/L (136-145); TOTAL PROTEIN 6.5 G/DL (5.7-8.2)
[2023-11-15 12:56] LABS: FREE T4 1.18 NG/DL (0.89-1.76); THYROID STIMULATING HORMONE 4.021 uIU/ML (0.55-4.78)
[2023-11-15 13:00] LABS: HCG, SERUM QUALITATIVE NEGATIVE (NEGATIVE)
[2023-11-15] MEDS ORDERED: LEVO100T5 PO (14:18)
[2023-11-15] MEDS ORDERED: HYDR50CA2 PO (14:18)
[2023-11-15] MEDS ORDERED: INVE1.31 IM (14:18)
[2023-11-15] MEDS ORDERED: HOME MED LIST COMPLETE! XX SCH (14:20)
[2023-11-15] MEDS: POTASSIUM CHLORIDE 10MEQ SR TABLET PO ONE (19:00)
[2023-11-15] MEDS: POTASSIUM CHLORIDE 10% LIQ 20MEQ/15ML UDC PO ONE (19:27)
[2023-11-16] MEDS ORDERED: UNRESOLVED PATIENT OWN MED ORDER XX SCH (00:01)
[2023-11-16] MEDS ORDERED: traZODone 50 MG TAB PO PRN (00:55)
[2023-11-16] MEDS ORDERED: MAALOX 30 ML SUSP *UDC PO PRN (00:55)
[2023-11-16] MEDS ORDERED: MOM 30ML SUSPENSION UDC PO PRN (00:55)
[2023-11-16] MEDS: PALIPERIDONE 3MG ER TAB (INVEGA) PO SCH (09:00)
[2023-11-16] MEDS ORDERED: LITHIUM CARBONATE 150 MG CAP PO SCH (09:00)
[2023-11-16] MEDS: NICOTINE 21MG/24HR 1 EA TRANSDERMAL TD SCH (10:30)
[2023-11-16] MEDS: PALIPERIDONE IM ONE (14:49)
[2023-11-16] MEDS: [UNRECOGNIZED DRUG - OTHER] IM ONE (14:49)
[2023-11-16] MEDS: hydrOXYzine 50 MG TAB PO PRN (14:51)
[2023-11-17 06:21] VITALS: BP 145/93; TEMP 97.8; O2SAT 98
[2023-11-17 17:33] VITALS: TEMP 97.5
[2023-11-18] MEDS: LITHIUM CARBONATE 150 MG CAP PO SCH (09:00)
[2023-11-18] MEDS ORDERED: traZODone 50 MG TAB PO PRN (21:00)
[2023-11-18] MEDS ORDERED: MIRTAZAPINE 15 MG TAB PO SCH (21:00)
[2023-11-19] MEDS: PALIPERIDONE 3MG ER TAB (INVEGA) PO SCH (21:00)
[2023-11-20] MEDS: OLANZapine ORAL DISINTEGRATING TAB 5MG PO PRN (22:07)
[2023-11-22 06:39] VITALS: BP 143/104
[2023-11-22 07:27] VITALS: BP 143/104; TEMP 97.5; O2SAT 98
[2023-11-22] MEDS: LORazepam 1 MG TAB PO PRN (09:09)
[2023-11-22] MEDS: diphenhydrAMINE 25MG CAP PO PRN (09:11)
[2023-11-26 16:28] VITALS: BP 132/94; TEMP 97.3; O2SAT 97
[2023-11-27 06:22] VITALS: BP 136/89; TEMP 97.2; O2SAT 98
[2023-11-27] MEDS ORDERED: NICOTINE POLACRILEX 2 MG GUM PO PRN (09:35)
[2023-11-27] MEDS: NICOTINE 21MG/24HR 1 EA TRANSDERMAL TD SCH (13:30)
[2023-11-29] MEDS: OLANZapine 5 MG TAB PO SCH (09:00)
[2023-11-29 18:12] VITALS: TEMP 98.5
[2023-12-09] MEDS: LORazepam 2 MG/ML 1ML VIAL IM STA (15:32)
[2023-12-09] MEDS: HALOPERIDOL LACTATE 5MG/ML VIAL IM STA (15:32)
[2023-12-09] MEDS: diphenhydrAMINE 50MG/ML VIAL IM STA (15:32)
[2023-12-09] MEDS: chlorproMAZINE INJ 50MG/2ML AMP IM STA (16:43)
[2023-12-13 06:22] VITALS: BP 123/87; TEMP 97.7; O2SAT 100
[2023-12-13] MEDS: chlorproMAZINE INJ 50MG/2ML AMP IM ONE (15:10)
[2023-12-15] MEDS ORDERED: HALOPERIDOL DECANOATE 100 MG/ML 1ML VIAL IM ONE (12:00)
[2023-12-16] MEDS: HALOPERIDOL DECANOATE 100 MG/ML 1ML VIAL IM ONE (09:00)
[2023-12-18] MEDS: **NOTE PATIENT COMMENT** MISC XX SCH (09:00)
[2023-12-18] MEDS: HALOPERIDOL DECANOATE 100 MG/ML 1ML VIAL IM ONE (09:55)
[2023-12-20 17:21] VITALS: BP 156/92; TEMP 97.7; O2SAT 98
[2023-12-22 16:05] VITALS: BP 164/80; TEMP 98.1; O2SAT 97
[2023-12-23] MEDS: IBUPROFEN 400MG TAB PO PRN (17:22)
[2023-12-23] MEDS: ACETAMINOPHEN TAB 650MG DOSE (2X325MG) PO PRN (17:23)
[2023-12-28 18:35] VITALS: TEMP 97.2
[2024-01-03] MEDS: LEVOTHYROXINE 100MCG TABLET (0.1MG) PO SCH (06:00)
[2024-01-04 18:43] VITALS: BP 125/83; TEMP 97.5
== END 2024-01-05 13:35 | disposition home or self-care (01) | DRG 885 ==
LOC: M ED 11:19 → M ED INP 11-16 00:52 → M PSY 11-16 02:20
PROVIDERS: ADMIT Student in an Organized Health Care Education/Training Program; ATTEND Student in an Organized Health Care Education/Training Program
DX: F31.2 Bipolar disorder, current episode manic severe with psychotic features (principal); F12.10 Cannabis abuse, uncomplicated; Z78.1 Physical restraint status; E03.9 Hypothyroidism, unspecified; Z79.890 Hormone replacement therapy; Z79.899 Other long term (current) drug therapy; Z91.148 Patient's other noncompliance with medication regimen for other reason; Z88.8 Allergy status to other drugs, medicaments and biological substances

== ENCOUNTER → 2024-01-25 | Outpatient (CLI) | payer MEDICARE, MEDICAID ==
[~2024-01-25] MED LIST changes: +HYDR50CA2 PO
== END ==
LOC: M RAD 11:48
PROVIDERS: ATTEND Physician Assistant
DX: R07.81 Pleurodynia (principal)

== ENCOUNTER → 2024-01-25 | Outpatient (CLI) | payer MEDICARE, MEDICAID ==
[2024-01-25 13:49] LABS: FREE T4 0.79 NG/DL (0.89-1.76); THYROID STIMULATING HORMONE 9.752 uIU/ML (0.55-4.78)
== END ==
LOC: M LAB 11:46
PROVIDERS: ATTEND Family Medicine
DX: E03.9 Hypothyroidism, unspecified (principal); R07.81 Pleurodynia

== ENCOUNTER → 2024-03-06 | Outpatient (CLI) | payer MEDICARE, MEDICAID ==
[~2024-03-06] MED LIST changes: +ONDA-282 PO; -ONDA4TAB6 PO
== END ==
LOC: M LAB 10:56
PROVIDERS: ATTEND Family Medicine
DX: E03.9 Hypothyroidism, unspecified (principal)

== ENCOUNTER → 2024-09-11 | Outpatient (REF) | payer MEDICARE, MEDICAID ==
[~2024-09-11] MED LIST changes: -ARIP1TAB43 PO; +ARIP20TA51 PO
== END ==
LOC: M SFHCLERA 13:24
PROVIDERS: ATTEND Family Medicine
DX: E03.9 Hypothyroidism, unspecified (principal)

== ENCOUNTER → 2024-09-25 | Outpatient (CLI) | payer MEDICARE, MEDICAID | LOC: M RAD 14:35 | PROVIDERS: ATTEND Family Medicine | DX: G43.909 Migraine, unspecified, not intractable, without status migrainosus (principal) ==

== ENCOUNTER → 2025-07-23 | Outpatient (CLI) | payer MEDICARE, MEDICAID ==
[~2025-07-23] MED LIST changes: -BUPR-597 PO; +BUPR-766 PO; +LAMO-18 PO; -LAMO25TA4 PO
== END ==
LOC: M WHC 13:26
PROVIDERS: ATTEND Family Medicine
DX: N63.11 Unspecified lump in the right breast, upper outer quadrant (principal)
CPT/HCPCS: 77066; G0279